=== PATIENT | female | born 1955 | race Caucasian/White ===

== ENCOUNTER 2018-01-27 02:36 | Emergency (ER) | payer SELFPAY ==
[2018-01-27 02:36] VITALS: BP 182/75; PULSE 73; RESP 22; TEMP 36.6; O2SAT 97; BMI 35.6
[2018-01-27 02:58] LABS: Mucous, Urine 0 SEEN /hpf (<or=2+)
[2018-01-27 02:59] LABS: Color, Urine Red (Yellow); Glucose, Dipstick Normal (Normal); Ketone-Dipstick 5 mg/dl (Negative); Leukocyte Esterase-Dipstick 500 /ul (Negative); Nitrite-Dipstick Negative (Negative); Occult Blood-Urine 250 /ul (Negative); Protein-Dipstick 500 mg/dl (Negative); Specific Gravity, Urine 1.025 (1.002-1.030); Urine Clarity Cloudy (Clear); Urine Urobilinogen Normal (Normal)
[2018-01-27] MEDS: Phenazopyridine 95 MG Tablet 190 MG PO (02:59)
[2018-01-27 03:08] LABS: Urine Bilirubin Dipstick 1 mg/dL (Negative)
[2018-01-27 03:09] LABS: Bacteria RARE /hpf (None Seen); Red Blood Cells-Urine > 100 SEEN /hpf (0-5); Squamous Epithelial Cells - UA 10-25 SEEN /hpf (5-10); White Blood Cells 50-100 SEEN /hpf (0-5)
--- NOTE | 2018-01-27 03:16 | ED.DCSUM_ITS ---
- ER Visit Summary Date of Service: 01/27/18 Chief Complaint: [] Urinary tract infection. History of Present Illness: The patient is a 62 F [] complaining of UTI. This evening over the last couple of her she has had dysuria frequency urgency noted some hematuria. Last urinary tract infection was approximately 10 years ago. Denies any abdominal pain fevers or chills. No back pain. Physical Examination: [] Vital signs reviewed General: Well-nourished well-developed Head: Normocephalic atraumatic Eyes: Pupils equal round and reactive to light extraocular movements intact ENT: TMs clear no hemotympanum no trauma Neck: Nontender full range of motion Cardiovascular: Regular rate rhythm no murmurs normal S1-S2 Respiratory: No distress clear to auscultation bilaterally chest nontender Abdomen: Soft nontender nondistended normal bowel sounds no masses Back: Nontender no CVA tenderness Extremities: Nontender active range of motion ?4 extremities no trauma Skin: Normal color no trauma Neuro alert oriented cranial nerves II through XII intact normal strength sensation reflexes Test Results: [] Emergency Department Course and Treatment: [] Urine analysis shows 50-100 white blood cells and greater than 100 red blood cells and bacteria. Patient given oral Pyridium and Macrobid. Will be discharged with the same for UTI cystitis and will follow-up Treatment Plan: [] Disposition: [] Impression: [] Hemorrhagic cystitis This note was generated with [employer] dictation software. It may contain incorrect words, spelling, and punctuation that were not noted in review of the chart prior to signing ED Disposition - Plan for ED Patient: Chief Complaint: Complaint Referrals: Jas Hatch MD [Primary Care Provider] -
--- NOTE | 2018-01-27 03:16 | ED.DEP ---
ED Disposition - Plan for ED Patient: Disposition: Home or Assisted Living Chief Complaint: Complaint Instructions: ED UTI Cystitis Female Prescriptions: Nitrofurantoin Macrocrystals [Macrobid] 100 mg PO Q12 #14 cap Phenazopyridine HCl [Pyridium] 200 mg PO BID PRN PRN #10 tab PRN Reason: Pain Referrals: Jas Hatch MD [Primary Care Provider] -
[2018-01-27] MEDS: Nitrofurantoin Macrocrystals 100 MG Capsule PO (03:20)
[2018-01-27 03:21] VITALS: BP 167/95; PULSE 74; RESP 18; O2SAT 96
== END 2018-01-27 03:23 | disposition home or self-care (01) ==
PROVIDERS: Emergency Provider Emergency Medicine; Family Provider Family Medicine; PCP Family Medicine
DX: N30.91 Cystitis, unspecified with hematuria (principal); Z87.440 Personal history of urinary (tract) infections
CPT/HCPCS: 81001; 87077; 87086; 87088; 87186; 99283

== ENCOUNTER → 2018-05-07 06:35 | Outpatient (CLI) | payer MEDICARE, SELFPAY ==
[2018-05-07 07:28] LABS: Cholesterol 220 mg/dL (200); High Density Lipoprotein 48 mg/dL; Thyroid Stim Hormone (TSH) 2.41 uIU/mL (0.358-3.74); Triglycerides 210 mg/dL; Very Low Density Lipoprotein 42 mg/dL (5-40)
[2018-05-11 08:12] LABS: HCV Quant. RNA PCR HCV Not Detected IU/mL (.)
[2018-05-11 11:11] LABS: Lead, Blood Adult 16+yrs 2 ug/dL (0-4)
== END ==
PROVIDERS: Family Provider Internal Medicine; PCP Internal Medicine; Referring Provider Internal Medicine; Visit Provider Internal Medicine
DX: I10 Essential (primary) hypertension (principal); M81.0 Age-related osteoporosis without current pathological fracture; B19.20 Unspecified viral hepatitis C without hepatic coma; Z77.011 Contact with and (suspected) exposure to lead
CPT/HCPCS: 36415; 80061; 82306; 83655; 84443; 87522

== ENCOUNTER → 2018-06-09 15:17 | Outpatient (CLI) | payer MEDICARE, SELFPAY ==
[2018-05-12 10:30] VITALS: BMI 34.9
--- NOTE | 2018-06-09 15:20 | BI_ITS ---
MAMMOGRAPHY - BILATERAL SCREENING REASON FOR EXAM: Female, 63 years old. Routine annual screening examination. PERTINENT HISTORY: Non-contributory. TECHNIQUE: Digital bilateral breast byron (3D mammographic acquisition) in the CC and MLO projections. 2-D mediolateral oblique (MLO) and craniocaudad (CC) views of both breasts were obtained. CAD: Full Field Digital Mammography with Computer Added Detection was performed. COMPARISON: Comparison is made with prior outside examination dated April 29, 2016. FINDINGS: Breast Composition: The breasts are almost entirely fatty. There are no dominant masses or suspicious calcifications. Stable benign-appearing bilateral axillary lymph nodes. No other significant abnormalities are identified. There has been no significant change since the prior study. BI/SCREENING MAMM (CAD), BILAT IMPRESSION: Stable bilateral screening mammogram. Yearly follow-up mammogram recommended. (A) ASSESSMENT CATEGORY: BIRADS Category 2: Benign. A letter regarding these results will be sent to the patient by the facility within 30 days. Approximately 10% of breast cancers are not detected by mammography. A normal mammogram should not delay biopsy of a clinically suspicious abnormality. [id number] Electronically Signed: David Barajas MD at 8:24 EST Tel [phone], Service support ,
== END ==
PROVIDERS: Family Provider Internal Medicine; PCP Internal Medicine; Visit Provider Internal Medicine
DX: Z12.31 Encounter for screening mammogram for malignant neoplasm of breast (principal); M81.0 Age-related osteoporosis without current pathological fracture
CPT/HCPCS: 77063; 77067

== ENCOUNTER → 2018-06-16 14:55 | Outpatient (CLI) | payer MEDICARE, SELFPAY ==
--- NOTE | 2018-06-16 15:01 | BD_ITS ---
STUDY: DUAL ENERGY X-RAY ABSORPTIOMETRY / DXA REASON FOR EXAM: Female, 63 years old. Early menopause. Loss of height. TECHNIQUE: Bone Mineral Density (BMD) measurements of lumbar spine and bilateral hips were obtained. COMPARISON: None. FINDINGS: Lumbar Spine (L1-L4): g/cm2 (0.824) / T-score (-3.1) / Z-score (-1.5) Findings are suggestive of osteoporosis with a high fracture risk. Left Femur Total: g/cm2 (0.768) / T-score (-1.9) / Z-score (-0.7) Left Femoral Neck: g/cm2 (0.753) / T-score (-2.1) / Z-score (-0.6) Right Femur Total: g/cm2 (0.849) / T-score (-1.3) / Z-score (-0.1) Right Femoral Neck: g/cm2 (0.809) / T-score (-1.6) / Z-score (-0.2) BD/Dexa Bone Density Study IMPRESSION: The patient is considered osteoporotic as outlined below according to World Roberto Organization (WHO) criteria with a high fracture risk. Reference Information: The T-score is the number of standard deviations above or below the standard which is normal for young adults at their peak bone mineral density. The World Health Organization (WHO) interprets the T-scores as follows: Above -1 Normal bone density Between -1 and -2.5 Osteopenia Equal to / or below -2.5 Osteoporosis As a practical clinical guideline, osteopenia may be graded as follows: Mild -1 through -1.5 Moderate -1.6 through -2.0 Severe -2.1 through -2.4 The Z-score is the number of standard deviations above or below age-matched controls. A Z-score of less than -1.5 would be considered abnormal. References: 1. NIH Osteoporosis and Related Bone Diseases http://www.osteo.org 2. International Society for Clinical Densitometry http://www.iscd.org 3. National Osteoporosis Foundation http://www.nof.org Electronically Signed: David Barajas MD at 12:57 EST Tel [phone], Service support ,
--- OUTSIDE RECORDS SUMMARY | 2018-08-02 20:45 | XMS RPT_ITS ---
:1955 Author Organization OHIP Support Name Relationship Address Phone FOLLOWAWAY, ARLENE Unavailable [address] + [place] [address] MEETA, SHAMAR Unavailable [address] + [place] [address] R Unavailable Unavailable Unavailable FOLLOWAWAY, ARLENE Unavailable [address] + [place] [address] MEETA SHAMAR Unavailable [address] + [place] [address] R Unavailable Unavailable Unavailable FOLLOWAWAY, ARLENE Unavailable [address] + [place] [address] MEETA SHAMAR Unavailable [address] + [place] [address] R Unavailable Unavailable Unavailable FOLLOWAWAY, ARLENE Unavailable [address] + [place] [address] MEETA SHAMAR Unavailable [address] + [place] [address] R Unavailable Unavailable Unavailable FOLLOWAWAY, ARLENE Unavailable [address] + [place] [address] MEETA SHAMAR Unavailable [address] + [place] [address] R Unavailable Unavailable Unavailable FOLLOWAWAY, ARLENE Unavailable [address] + [place] [address] MEETA SHAMAR Unavailable [address] + [place] [address] R Unavailable Unavailable Unavailable FOLLOWAWAY, ARLENE Unavailable [address] + [place] [address] MEETA SHAMAR Unavailable [address] + [place] [address] R Unavailable Unavailable Unavailable FOLLOWAWAY, ARLENE Unavailable [address] + [place] [address] MEETA, SHAMAR Unavailable [address] + [place] [address] R Unavailable Unavailable Unavailable FOLLOWAWAY, ARLENE Unavailable [address] + [place] [address] MEETA SHAMAR Unavailable [address] + [place] [address] R Unavailable Unavailable Unavailable FOLLOWAWAY, ARLENE Unavailable [address] + [place] [address] MEETA SHAMAR Unavailable [address] + [place] [address] R Unavailable Unavailable Unavailable FOLLOWAWAY, ARLENE Unavailable [address] + [place] [address] MEETA SHAMAR Unavailable [address] + [place] [address] R Unavailable Unavailable Unavailable FOLLOWAWAY, ARLENE Unavailable [address] + [place] . MEETA SHAMAR Unavailable [address] + [place] [address] UE Unavailable Unavailable Unavailable FOLLOWAWAY, ARLENE Unavailable [address] + [place] . MEETA SHAMAR Unavailable [address] + [place] [address] UE Unavailable Unavailable Unavailable FOLLOWAWAY, ARLENE Unavailable [address] + [place] MEETA SHAMAR Unavailable [address] + [place] [address] UE Unavailable Unavailable Unavailable Care Team Providers Name Role Phone NGUYEN LOMBARDO (SENIOR JAVA J2EE DEVELOPER) Attending Unavailable CEBUL IIICLEMENT Attending Unavailable CEBUL IIICLEMENT Referring Unavailable CEBUL IIICLEMENT Referring Unavailable VENUS LONDON MD Attending Unavailable BENJAMIN CHOPRA MD Primary Care Unavailable Benjamin Chopra Attending Unavailable Benjamin Chopra Primary Care Unavailable Oleghe, Efewongbe Attending Unavailable Oleghe, Efewongbe Attending Unavailable Oleghe, Efewongbe Referring Unavailable Oleghe, Efewongbe Primary Care Unavailable Jose Eduardo Dhruv Attending Unavailable Oleghe, Efewongbe Referring Unavailable Jose Eduardo, Dhruv Attending Unavailable Jose Eduardo, Dhruv Referring Unavailable Oleghe, Efewongbe Primary Care Unavailable Oleghe, Efewongbe Primary Care Unavailable Hermelindo Camargo Attending Unavailable Jas Hatch Primary Care Unavailable Lakhwinder Elizondo Attending Unavailable Oleghe, Efewongbe Attending Unavailable Oleghe, Efewongbe Referring Unavailable Nurse, Surgery Attending Unavailable Oleghe, Efewongbe Referring Unavailable Robotham, Gregoria Attending Unavailable Robotham, Gregoria Referring Unavailable Oleghe, Efewongbe Primary Care Unavailable Oleghe, Efewongbe Attending Unavailable Oleghe, Efewongbe Referring Unavailable Oleghe, Efewongbe Primary Care Unavailable Oleghe, Efewongbe Attending Unavailable Oleghe, Efewongbe Referring Unavailable Oleghe, Efewongbe Attending Unavailable Oleghe, Efewongbe Primary Care Unavailable Jas Tripp SENIOR JAVA J2EE DEVELOPER-C Attending Unavailable Oleghe, Efewongbe Referring Unavailable PROBLEMS PROBLEMS DATE TYPE CONDITION / CODE ATTENDING STATUS SOURCE 07/03/2018 Unknown R30.0 - Dysuria / Dhruv Whitt Active [place] R30.0(ICD-10) Formerly [facility] Repository 07/03/2018 Unknown N39.0 - Urinary Dhruv Whitt Active [place] tract infection, Community site not specified Hospital / N39.0(ICD-10) Repository 06/09/2018 Unknown M81.0 - Oleghe, Active [place] Age-related [facility] osteoporosis Hospital without current Repository pathological fracture / M81.0(ICD-10) 06/09/2018 Unknown Z12.31 - Encounter Oleghe, Active [place] for screening [facility] mammogram for Hospital malignant neoplasm Repository of breast / Z12.31(ICD-10) 04/08/2018 Unknown I10 - Essential Oleghe, Active [place] (primary) [facility] hypertension / Hospital I10(ICD-10) Repository 04/08/2018 Unknown Z77.011 - Contact Oleghe, Active [place] with and [facility] (suspected) Hospital exposure to lead / Repository Z77.011(ICD-10) 04/08/2018 Unknown 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 - Olebeverleye, Active [place] 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 Date: 07/08/18 Location: ED Sex: F C Admitted: Test Reason : CP Blood Pressure : / mmHG Vent. Rate : 095 BPM Atrial Rate : 095 BPM P-R Int : 154 ms QRS Dur : 072 ms QT Int : 344 ms P-R-T Axes : 049 048 058 degrees QTc Int : 432 ms Normal sinus rhythm Normal ECG Confirmed by [place] EWING, LARRY ([id number]), purchasing expeditor JOHN ROBLES ([id number]) on 07/10/2018 2:28:32 PM Referred By: Dhruv Whitt Confirmed By:LARRY ALEJANDRA MD 07/10/18 1428 Date Larry Alejandra MD CC: ED PHYSICIAN PROVIDER; Benjamin Chopra MD; Hermelindo Camargo MD Signed DISCHARGE INSTRUCTION Observed: 07/08/2018 Status: F Source: [place] 11:52 PM [facility] Medical Records Department [address] [place] [address] Discharge Instruction 07/08/18 2351 MR#: [id number] Acct: [id number] Name: MANISHA TIM Rep #: [id number] : 1955 63 From: Hermelindo Camargo MD PCP: Benjamin Chopra MD Status: REG ER ED Disposition - Plan for ED Patient: Chief Complaint: Allergic Reaction Instructions: ED Muscle Aching Referrals: Benjamin Chopra MD [Primary Care Provider] - What to do if you have Problems For any increased pain, shortness of breath, bleeding, nausea or vomiting, chest pain, or any unexpected problems, contact your Primary Care Provider. Call [employer] [facility] ([phone]) or report to the closest Emergency Room. Call 911 if necessary. 07/08/182351 <Electronically signed by Hermelindo Camargo MD> Date Hermelindo Camargo MD Cosigner Signature (If Indicated): Date CC: Benjamin Chopra MD EMERGENCY DEPARTMENT Observed: 07/08/2018 Status: F Source: [place] SUMMARY 11:51 PM [facility] REPOSITORY [facility] Medical Records Department [address] [place] [address] Emergency Department Summary 07/08/18 2350 MR#: [id number] Acct: [id number] Name: MANISHA TIM Rep #: [id number] : 1955 63 From: Hermelindo Camargo MD PCP: Benjamin Chorpa MD Status: REG ER - ER Visit Summary Date of Service: 07/08/18 Chief Complaint: Myalgias arthralgias History of Present Illness: The patient is a 63 F who complains of muscle and joint aches. She complains of diffuse pain. This is been going on for 3 days. She also complains of cough and headache. She thought this may be reaction to Keflex which she recently began taking. No rash. No difficulty breathing. No fevers or chest pain. Physical Examination: Afebrile vitals unremarkable Moist mucous membranes Heart regular rate and rhythm Lungs are clear Abdomen soft Alert Muscles soft and nontender Test Results: CBC BMP and creatinine kinase all normal. Emergency Department Course and Treatment: Patient was treated with IV fluids and Toradol and feels much better on reevaluation. She was advised to follow- up with her primary care physician as needed and was discharged home. She understands to return for new or worsening symptoms. Treatment Plan: [] Disposition: Discharge Impression: Myalgias This note was generated with [employer] dictation software. It may contain incorrect words, spelling, and punctuation that were not noted in review of the chart prior to signing ED Disposition - Plan for ED Patient: Chief Complaint: Allergic Reaction Referrals: Benjamin Chopra MD [Primary Care Provider] - What to do if you have Problems For any increased pain, shortness of breath, bleeding, nausea or vomiting, chest pain, or any unexpected problems, contact your Primary Care Provider. Call [employer] [facility] ([phone]) or report to the closest Emergency Room. Call 911 if necessary. 07/08/18 2351 <Electronically signed by Hermelindo Camargo MD> Date Hermelindo Camargo MD Cosigner Signature (If Indicated): Date CC: Benjamin Chopra MD CBC W/DIFF, AUTOMATED Collected: 07/08/2018 Status: F Source: [place] 10:42 PM [facility] REPOSITORY TYPE CODE TESTS RESULT OUT OF RANGE REFERENCE UNITS LAB L100.1000 4.4-11.0 K/mm3 Normal WBC 8.7 LAB L100.1200 4.2-5.4 M/mm3 Normal RBC 4.69 LAB L100.1300 12.0-15.0 g/dl Normal HGB 13.8 LAB L100.1400 37-47 % Normal HCT 42.1 LAB L100.1500 81-99 fL Normal MCV 89.8 LAB L100.1600 27.0-32.0 pg Normal MCH 29.4 LAB L100.1700 32-36 g/gl Normal MCHC 32.8 LAB L100.1810 11.6-14.6 % Normal RDW CV 12.6 LAB L100.1820 35.1-43.9 fl Normal RDW SD 41.4 LAB L100.1900 150-450 K/mm3 Normal PLT 264 LAB L100.2000 6.2-12.0 fl Normal MPV 10.7 LAB L100.2100 47-70 % High NEUT% 72.8 LAB L100.2200 19-41 % Low LY% 16.2 LAB L100.2300 0-10 % Normal MONO% 10.0 LAB L100.2400 0-5 % Normal EO% 0.6 LAB L100.2500 0-1 % Normal BASO% 0.3 LAB L100.2550 0.0-0.9 % Normal IM GRAN % 0.100 Result Comment: IG% - Immature Granulocytes (promyelocytes, myelocytes and metamyelocytes) > 1% indicates that a LEFT SHIFT is Present. LAB L100.2620 2.0-7.7 X10 3/uL Normal Absolute Neut 6.4 LAB L100.2720 0.83-4.51 X10 3/ul Normal Absolute Lymph 1.41 Performed By: #### L100.0100 #### [facility] [address] [place], [address] BASIC METABOLIC Collected: 07/08/2018 Status: F Source: [place] PROFILE ([facility]) 10:42 PM [facility] REPOSITORY TYPE CODE TESTS RESULT OUT OF RANGE REFERENCE UNITS LAB L501.0100 74-106 mg/dL Normal GLU 104 Result Comment: Fasting Glucose result from 100 to 125 mg/dL suggests IMPAIRED HOMEOSTASIS per A.D.A. criteria. Please note revised GLUCOSE reference range effective 2017. LAB L501.1000 7-18 mg/dL Normal BUN 17 LAB L501.1100 0.55-1.02 mg/dL Normal CREAT,SERUM 0.88 Result Comment: The validity of the calculated GFR AND GFRAA in patients over 70 years has not been determined. Clinical correlation is essential. LAB L501.1110 >60 mL/min Normal EST GFR 69 Result Comment: Non- GFR Calc LAB L501.1115 >60 mL/min Normal EST GFR - AA 83 Result Comment: GFR Calc LAB L501.1255 ml/min Normal Estimated CRCL 78.18 LAB L501.1300 10-20 RATIO Normal BUN/CRE 19.4 LAB L501.2200 8.5-10 mg/dL Low .1 CA 8.3 LAB L501.5300 136-14 mmol/L Normal 5 NA 139 LAB L501.5600 3.5-5. mmol/L Normal 1 K 3.9 LAB L501.5900 98-107 mmol/L Normal CL 105 LAB L501.6100 21.0-3 mmol/L Normal 2.0 CO2 24.0 LAB L501.6200 5-15 Normal GAP 10 Performed By: #### L500.2500, L501.3620 #### [facility] [address] [place], [address] CPK TOTAL, CREATINE Collected: 07/08/2018 Status: F Source: [place] KINASE 10:42 PM [facility] REPOSITORY TYPE CODE TESTS RESULT OUT OF RANGE REFERENCE UNITS LAB L501.3620 26-192 U/L Normal CPK TOTAL 39 Performed By: #### L500.2500, L501.3620 #### [facility] [address] [place], [address] URINALYSIS, COMPLETE Collected: 07/03/2018 Status: C Source: [place] 3:09 PM [facility] REPOSITORY Order Comment: How was Urine Obtained? Urine, Random TYPE CODE TESTS RESULT OUT OF RANGE REFERENCE UNITS LAB L400.3000 Yellow COLOR Normal Yellow LAB L400.3050 Clear Sl Normal CLARITY Cldy LAB L400.3200 Normal mg/dl Normal GLUCOSE, UR Normal LAB L400.3300 Negative mg/dL Normal BILIRUBIN URINE Negative LAB L400.3400 Negative mg/dl Normal KETONE UR Negative LAB L400.3465 1.002-1.030 Normal SP.GR. DIPSTX 1.015 LAB L400.3550 5.0 - 8.0 pH UR Normal 7.0 LAB L400.3600 Negative mg/dl PROT Normal DIPSTX Negative LAB L400.3700 Normal mg/dl Normal UROBILI Normal LAB L400.3750 Negative Normal NITRITE UR Negative LAB L400.3780 Negative /ul High 50 OCCULT BLOOD-UR LAB L400.3800 Negative /ul High LEUK 25 ESTERASE LAB L400.4050 0-5 /hpf WBC Normal 0-5 SEEN LAB L400.4100 0-5 /hpf Normal RBC-UA 0-5 SEEN LAB L400.4150 5-10 /hpf SQUAM Normal EPI 5-10 SEEN LAB L400.4300 None Seen /hpf 0 Normal BACTERIA SEEN LAB L400.4350 <or=2+ /hpf 0 Normal MUCUS, URINE SEEN LAB L400.4900 1+ Normal AMORPHOUS PHOS Performed By: #### L400.0001 #### [facility] [address] [place], [place], [address] Observed: 07/03/2018 Status: F Source: [place] CULTURE, URINE 3:09 PM [facility] REPOSITORY Urine Culture Below infection level. ORGANISM 1: Mixed Gram Positive Organisms [place] Count 1000-10,000 Performed By: #### M100.0650 #### [facility] [address] [place], [place], [address] URGENT CARE VISIT Observed: 07/03/2018 Status: F Source: [place] REPORT 12:38 PM [facility] REPOSITORY [facility] [address] [place] [address] [address] [place], [place] [address] OFFICE VISIT Date of Service: 07/03/18 MR#: [id number] Acct: [id number] Name: MANISHA TIM Ag[place]a Rep #: [id number] : 1955 Provider: Dhruv RIVERA Age/Sex: 63/F Location[place] [facility] Status: Signed Intake Vital Signs07/03/18 Height 4 ft 11 in Intake Visit Reasons: YEAST/UTI Chief Complaint: Dysuria Lozenge Dough Mixer Required: No Accompanied by: Self Is patient in pain?: No Allergies alendronate sodium Allergy (Intermediate, Verified 07/03/18 11:52) Hives estrogens, conjugated Allergy (Intermediate, Verified 07/03/18 11:52) Itching nitrofurantoin Allergy (Intermediate, Verified 07/03/18 11:52) Hives Penicillins [PCN] Adverse Reaction (Verified 07/03/18 11:52) Rash Sulfa (Sulfonamide Antibiotics) Adverse Reaction (Verified 07/03/18 11:52) Rash Medications clobetasol 0.05 % topical cream 1 applic TOPICAL BID PRN 04/08/18 [History Confirmed 07/03/18] blood pressure test kit-medium cuff See Dose Instructions .ROUTE .MEDSUPPLY #1 ea 05/12/18 [Rx Confirmed 07/03/18] calcium carbonate 600 mg calcium (1,500 mg) tablet 600 mg PO BID tab 05/12/18 [History Confirmed 07/03/18] amlodipine 10 mg tablet 10 mg PO DAILY #60 tab 06/04/18 [Rx Confirmed 07/03/18] denosumab 60 mg/mL subcutaneous syringe 60 mg SC [id number] #1 ml 06/24/18 [Rx Confirmed 07/03/18] losartan 25 mg tablet 25 mg PO DAILY #30 tab 06/24/18 [Rx Confirmed 07/03/18] cephalexin 500 mg capsule 500 mg PO Q12H 10 Days #20 cap 07/03/18 [Rx Confirmed 07/03/18] PFSH Medical History Hepatitis C (Chronic) Osteoporosis (Chronic) Vitamin D deficiency (Chronic) Vulvodynia (Acute) Generalized osteoarthrosis (Chronic) Symptomatic states associated with artificial menopause (Acute) Postmenopausal atrophic vaginitis (Acute) Hypertension (Chronic) History of hysterectomy (Acute) Hyperlipemia (Acute) Seasonal allergies (Acute) history of cholcyectomy (Acute) Surgical History History of appendectomy (Acute) History of knee replacement (Acute) Family History Brother Anxiety and depression Diabetes Sister Anxiety and depression Hypertension CVA (cerebral vascular accident) Thyroid disorder Osteoporosis Hyperlipemia Diabetes Mother Hypertension Kidney disease Osteoporosis CVA (cerebral vascular accident) Father CVA (cerebral vascular accident) Hyperlipemia Hypertension Myocardial infarction Social History Smoking Status: Never smoker alcohol intake: never substance use type: does not use what type of physical activity do you participate in: walking frequency: 3-4 times per week HPI HPI Chief Complaint: Dysuria Details: MANISHA TIM, is a 63 F who presents to the office today for concern for UTI. Patient states that approximately 2 weeks ago she was seen at an area ED and diagnosed with UTI and started on ciprofloxacin. On 06/24/2018 she was seen at [facility] office and advised to continue with her Cipro prescribed to her. She states that her symptoms to have not improved since that time even after finishing her antibiotics and is concerned that she continues to have a UTI. She is having burning with urination and minimal pelvic discomfort. She also states that this morning she noticed blood on the toilet paper when she wiped however denies any hematuria or hematochezia. She has had no dark tarry stools and denies any history of GI bleeds. She denies any pelvic drainage or discharge. She has had no fever, chills, sweats. No nausea, vomiting, diarrhea. No other associated symptoms or alleviating/aggravating factors. ROS Const Constitutional: No body ache, chills or fever(s) Resp Respiratory: No shortness of breath Cardio Cardiology: No lightheadedness, palpitations or irregular heart rhythm Gastro GI: No abdominal pain Genitourinary-Female: Positive for burning urination, painful urination, pelvic pain and urinary frequency; no painful intercourse, blood in urine, vaginal odor, vaginal dryness or Vaginal Itching Neuro Neurology: No confusion or behavioral changes Psych Psychiatric: No confusion, No behavioral changes Exam Const General: cooperative, healthy appearing Resp Effort AND Inspection: normal respiratory effort Auscultation: Bilateral: Clear to Auscultation Cardio Rate: regular rate Rhythm: regular rhythm GI Auscultation: normal bowel sounds General: No CVA tenderness Psych Appearance: grossly normal Mental Status: mental status grossly normal Results [facility] Office Urine Color Yellow Last Edit by Soumya Mathews on 07/03/18 12:09 Office Urine Clarity Clear Last Edit by Soumya Mathews on 07/03/18 12:09 Assessment AND Plan Plan UA suggestive for possible UTI in the office today. Advised patient we will still send the urine off for culture. Patient has also been started on Keflex 500 mg twice daily for 10 days after she states that she has previously been on cephalosporins without reaction. She has been advised to follow-up with her PCP at [facility] also advised to follow-up with an INDUSTRIAL MECHANIC for further evaluation of bleeding. Encouraged to get plenty of rest, drink lots of clear liquids, and use Tylenol or Ibuprofen (unless contraindicated) for fever and comfort. Patient also educated on other symptomatic management techniques. To be seen in 7-10 days if no improvement; sooner if worsening of symptoms. Patient advised of potential red flags and when appropriate to report to the ED. Patient verbalized understanding and agreement with all the above. Orders Orders: Referrals: Medications New: Coding Level of Care Code Off vis,est,level 3 07/03/18 1238 <Electronically signed by Dhruv RIVERA> Date Dhruv RIVERA Cosigner Signature: Date (if applicable) CC: URINALYSIS, COMPLETE Collected: 06/25/2018 Status: F Source: [place] 11:00 AM [facility] REPOSITORY Order Comment: How was Urine Obtained? DECORATING INSTRUCTOR TO SPECIFY TYPE CODE TESTS RESULT OUT OF RANGE REFERENCE UNITS LAB L400.3000 Yellow COLOR Normal Yellow LAB L400.3050 Clear Sl Normal CLARITY Cloudy LAB L400.3200 Normal mg/dl Normal GLUCOSE, UR Normal LAB L400.3300 Negative mg/dL Normal BILIRUBIN URINE Negative LAB L400.3400 Negative mg/dl Normal KETONE UR Negative LAB L400.3465 1.002-1.030 Normal SP.GR. DIPSTX 1.005 LAB L400.3550 5.0 - 8.0 pH UR Normal 7.0 LAB L400.3600 Negative mg/dl High PROT 30 DIPSTX LAB L400.3700 Normal mg/dl Normal UROBILI Normal LAB L400.3750 Negative High NITRITE UR Positive LAB L400.3780 Negative /ul High 25 OCCULT BLOOD-UR LAB L400.3800 Negative /ul High LEUK ESTERASE 500 LAB L400.4050 0-5 /hpf WBC Normal 0-5 SEEN LAB L400.4100 0-5 /hpf Normal RBC-UA 0-5 SEEN LAB L400.4150 5-10 /hpf SQUAM Normal EPI 0-5 SEEN LAB L400.4300 None Seen /hpf Normal BACTERIA RARE LAB L400.4350 <or=2+ /hpf Normal MUCUS, URINE RARE LAB L400.4400 0-5 /lpf Normal HYALINE CAST 0-5 SEEN LAB L400.4800 <or=1+ /hpf 2+ Normal TRIPLE PHOS Performed By: #### L400.0001 #### [facility] [address] [place], [address] Observed: 06/25/2018 Status: F Source: [place] CULTURE, URINE 11:00 AM [facility] REPOSITORY Urine Culture ORGANISM 1: Streptococcus gallolyticus pas [place] Count 11,000-25,000 Streptococcus gallolyticus pas: REACTION Ampicillin $ <=0.25 S Vancomycin $ 0.5 S (NF) indicates non-formulary drug at [facility]. Approval by Infectious Disease Specialist required before non-formulary drugs may be ordered and/or dispensed. * CLSI guidelines does not recommend testing of cephalosporins. This interpretation is deduced from Beta-lactam/penicillin results. Performed By: #### M100.0650 #### [facility] [address] [place], [address] INTERNAL MEDICINE Observed: 06/24/2018 Status: F Source: [place] OFFICE VISIT 4:51 PM [facility] REPOSITORY [facility] [address] [place] [address] [place] [address] OFFICE VISIT Date of Service: 06/24/18 MR#: [id number] Acct: [id number] Name: MANISHA TIM Rep #: [id number] : 1955 Provider: Benjamin Chopra MD Age/Sex: 63/F Location[place] [facility] Status: Signed Intake Vital Signs06/24/18 Height 4 ft 11.5 in Intake Visit Reasons: 1 MO FU , ofc r/s from 06/10/18 Chief Complaint: 1 month FU Is patient in pain?: Yes (lower abdominal pain) Pain scale (1-10): 4 Allergies alendronate sodium Allergy (Intermediate, Verified 05/12/18 10:31) Hives estrogens, conjugated Allergy (Intermediate, Verified 05/12/18 10:31) Itching nitrofurantoin Allergy (Intermediate, Verified 05/12/18 10:31) Hives Penicillins [PCN] Adverse Reaction (Verified 05/12/18 10:31) Rash Sulfa (Sulfonamide Antibiotics) Adverse Reaction (Verified 05/12/18 10:31) Rash Medications clobetasol 0.05 % topical cream 1 applic TOPICAL BID PRN 04/08/18 [History Confirmed 05/12/18] blood pressure test kit-medium cuff See Dose Instructions .ROUTE .MEDSUPPLY #1 ea 05/12/18 [Rx Confirmed 05/12/18] calcium carbonate 600 mg calcium (1,500 mg) tablet 600 mg PO BID tab 05/12/18 [History Confirmed 05/12/18] amlodipine 10 mg tablet 10 mg PO DAILY #60 tab 06/04/18 [Rx] denosumab 60 mg/mL subcutaneous syringe 60 mg SC [id number] #1 ml 06/24/18 [Rx Confirmed 06/24/18] losartan 25 mg tablet 25 mg PO DAILY #30 tab 06/24/18 [Rx Confirmed 06/24/18] Post menopausal: Yes PFSH Medical History Hepatitis C (Chronic) Osteoporosis (Chronic) Vitamin D deficiency (Chronic) Vulvodynia (Acute) Generalized osteoarthrosis (Chronic) Symptomatic states associated with artificial menopause (Acute) Postmenopausal atrophic vaginitis (Acute) Hypertension (Chronic) History of hysterectomy (Acute) Hyperlipemia (Acute) Seasonal allergies (Acute) history of cholcyectomy (Acute) Surgical History History of appendectomy (Acute) History of knee replacement (Acute) Family History Brother Anxiety and depression Diabetes Sister Anxiety and depression Hypertension CVA (cerebral vascular accident) Thyroid disorder Osteoporosis Hyperlipemia Diabetes Mother Hypertension Kidney disease Osteoporosis CVA (cerebral vascular accident) Father CVA (cerebral vascular accident) Hyperlipemia Hypertension Myocardial infarction Social History Smoking Status: Never smoker alcohol intake: never substance use type: does not use what type of physical activity do you participate in: walking frequency: 3-4 times per week HPI HPI Chief Complaint: 1 month FU Details: MANISHA TIM, is a 63yo F who presents to the office today for follow-up. Recently started on amlodipine for management of her hypertension. Currently at 10 mg daily blood pressure still said to be in the 140s and occasionally 150s. She reports compliance with her medications. Most recent bone density scan done suggestive of osteoporosis. Significant family history of osteoporosis. She had been on Fosamax in the past however, she states that she had a bad allergic reaction to this. Currently on calcium and vitamin D supplements. She was recently at [facility] due to symptoms concerning for UTI. Urinalysis done at that visit was suggestive of UTI for which she was started on ciprofloxacin. She still reports abdominal pain and burning on urination. ROS Const Constitutional: No weight change, body ache, chills, sleep problems, fever(s), change in appetite, snoring, weakness, frequent falls, headache(s) or excessive sweating Eyes Eyes: No change in vision, eye pain, light sensitivity or blurry vision ENT ENT: No headache(s), abnormal hearing, ear pain, tinnitus, nasal congestion, sore throat or neck pain Resp Respiratory: No snoring, cough, shortness of breath or wheezing Cardio Cardiology: No excessive sweating, chest pain at rest, chest pain with exertion, shortness of breath, dyspnea on exertion, palpitations, orthopnea or lightheadedness Gastro GI: Positive for abdominal pain (lower); no change in bowel habits, constipation, diarrhea, vomiting, nausea/dyspepsia or cramping Genitourinary-Female: Positive for burning urination and painful urination; no urinary incontinence, urinary frequency, abnormal vaginal bleeding, pelvic pain or other Musc Musculoskeletal: No neck pain, abnormal walking, joint pain, back pain, limited range of motion, numbness or tingling Skin Skin: No redness, dry skin, itching, lesions, wounds or rash Neuro Neurology: No weakness, frequent falls, headache(s), abnormal hearing, abnormal walking, numbness, tingling, abnormal speech, dizziness or memory loss Psych Psychiatric: No change in appetite, No memory loss, No anxiety, No depression, No Thoughts of harming yourself/Others Endo Endocrine: No excessive sweating, cold intolerance, increased thirst/drinking, heat intolerance, flushing or increased hunger Aller/Imm Allergy/Immunologic: No wheezing, itchy eyes, hives or seasonal allergy symptoms Sameer/Lymp Hematologic/Lymphatic: No easy bleeding, easy bruising or enlarged lymph nodes Exam Const General: cooperative, no acute distress Orientation: alert, awake, oriented x3 [facility] Head: atraumatic, normocephalic, normal to inspection Ears: TM's normal bilaterally Neck Neck: normal visual inspection, full ROM, no lymphadenopathy Neck mass: No Thyroid: thyroid normal Resp Effort AND Inspection: normal respiratory effort, able to speak in complete sentences Auscultation: Bilateral: Clear to Auscultation Cardio Rate: regular rate Rhythm: regular rhythm Heart Sounds: S1 normal, S2 normal GI Palpation: soft, no hepatosplenomegaly Neuro General: alert, awake, oriented x3, moves all extremities, CN's II-XI intact bilaterally Extrem General: no clubbing, cyanosis or edema Psych Appearance: grossly normal Mental Status: mental status grossly normal Affect: normal affect Assessment AND Plan 1. Hypertension I10 Plan Not optimally controlled. Currently on optimal dose of amlodipine. Will add losartan 25 mg daily. Lifestyle and dietary modifications discussed. Follow-up in 1 month. 2. Osteoporosis M81.0 Plan Most recent bone density with a T score of -3.1 in her lumbar spine. Has been prescribed Fosamax in the past however this was very poorly tolerated/allergic reaction. Prescription for Prolia sent. 5000 units of vitamin D and 600 units twice daily of calcium recommended. Exercise also recommended. 3. UTI (urinary tract infection) N39.0 Plan Has been seen at [facility] ER and started on ciprofloxacin however symptoms are still persistent. Repeat urinalysis and culture ordered. Advised to complete her current dose of ciprofloxacin. Increased fluid intake also recommended. Follow-up with culture results. This note was generated with [employer] dictation software. It may contain incorrect words, spelling, and punctuation that were not noted in checking the note before signing. Orders Orders: Plan Detail Other Medications New: Coding Level of Care Code Off vis,est,level 4 Diagnoses Hypertension I10 Osteoporosis M81.0 UTI (urinary tract infection) N39.0 06/24/18 1651 <Electronically signed by Benjamin Chopra MD> Date Benjamin Chopra MD Cosigner Signature: Date (if applicable) CC: UA Collected: 06/21/2018 Status: F Source: [facility] 9:56 AM [facility] REPOSITORY TYPE CODE TESTS RESULT OUT OF RANGE REFERENCE UNITS LAB SPCUA(KAYLIE NC) UA Specimen Type Clean Catch LAB CLRUA(KAYLIE NC) UA Color Yellow LAB APPUA(KAYLIE Clear NC) UA Appear Unknown Cloudy LAB SGUA(LOIN C) UA Spec Unknown Grav >=1.030 LAB GLUA(LOIN Negative mg/dL C) UA Glucose Negative LAB BILUA(KAYLIE Negative NC) UA Bili Negative LAB KETUA(KAYLIE Negative mg/dL NC) UA Ketones Unknown 5 LAB BLDUA(KAYLIE Negative NC) UA Blood Unknown Large LAB PHUA(LOIN C) UA pH 6.0 LAB PROUA(KAYLIE Negative mg/dL NC) UA Protein Trace LAB UROUA(KAYLIE E.U./dL NC) UA Urobilinogen 0.2 LAB NITUA(KAYLIE Negative NC) UA Nitrite Negative LAB LEUUA(KAYLIE Negative NC) UA Leuk Est Unknown Small Performed By: #### UA, UAMICAO #### [place] [address] .URINALYSIS MICROSCOPIC Collected: 06/21/2018 Status: F Source: [place] ([place]) 9:56 AM [facility] REPOSITORY TYPE CODE TESTS RESULT OUT OF RANGE REFERENCE UNITS LAB WBCUA(LOIN None Seen /hpf C) Unknown UA WBC LOADED LAB RBCUA(LOIN None Seen /hpf C) Unknown UA RBC 10-15 LAB EPIUA(LOIN None Seen /hpf C) Unknown UA Squam Epithelial 5-10 LAB BACUA(LOIN /hpf C) Unknown UA Bacteria Trace Performed By: #### UA, UAMICAO #### [place] [address] Observed: 06/21/2018 Status: F Source: [place] [employer] [facility] 9:56 AM [facility] REPOSITORY . MICRO - Microbiology PROCEDURE: Urine Culture [*1] SOURCE: Urine, Clean Catch BODY SITE: COLLECTED DATE/TIME: 06/21/2018 09:56 EST RECEIVED DATE/TIME: 06/21/2018 20:12 EST START DATE/TIME: 06/21/2018 20:12 EST FREE TEXT SOURCE: FINAL REPORTS Final Report [] Verified Date/Time/Personnel: 06/23/2018 10:21 EST 75,000 organisms per mL Escherichia coli PRELIMINARY REPORTS Preliminary Report [] Verified Date/Time/Personnel: 06/22/2018 13:23 EST 75,000 organisms per mL Gram Negative Rods Final identification and MARIO to follow. SUSCEPTIBILITY RESULTS Escherichia coli Antibiotic MARIO Dilutn MARIO Interp Ampicillin >16 Resistant Cefazolin <=8 Susceptible Ciprofloxacin <=1 Susceptible Gentamicin <=4 Susceptible Levofloxacin <=2 Susceptible Meropenem <=1 Susceptible Nitrofurantoin <=32 Susceptible Piperacillin/ <=16 Susceptible Tazobactam Trimethoprim/ >2/38 Resistant Sulfa Performing Locations *1: This test was performed at: [facility], [address] [place] [address], [facility] , [facility] Performed By: #### CUR #### [place] [address] DEXA BONE DENSITY Observed: 06/16/2018 Status: F Source: [place] STUDY 2:59 PM [facility] REPOSITORY [facility] Imaging Services [address] [place] [id number] Dexa Bone Density Study MR#: [id number] Acct: [id number] Name: MANISHA TIM Rep #: [id number] : 1955 F 63 From: David Barajas MD PCP: Benjamin Chopra MD Status: REG CLI Study: Dexa Bone Density Study Date of Exam: 06/16/18 Exam# [id number] Ordering Dr: Benjamin Chopra MD STUDY: DUAL ENERGY X-RAY ABSORPTIOMETRY / DXA REASON FOR EXAM: Female, 63 years old. Early menopause. Loss of height. TECHNIQUE: Bone Mineral Density (BMD) measurements of lumbar spine and bilateral hips were obtained. COMPARISON: None. FINDINGS: Lumbar Spine (L1-L4): g/cm2 (0.824) / T-score (-3.1) / Z-score (-1.5) Findings are suggestive of osteoporosis with a high fracture risk. Left Femur Total: g/cm2 (0.768) / T-score (-1.9) / Z- score (-0.7) Left Femoral Neck: g/cm2 (0.753) / T-score (-2.1) / Z- score (-0.6) Right Femur Total: g/cm2 (0.849) / T-score (-1.3) / Z- score (-0.1) Right Femoral Neck: g/cm2 (0.809) / T-score (-1.6) / Z-score (-0.2) BD/Dexa Bone Density Study IMPRESSION: The patient is considered osteoporotic as outlined below according to World Roberto Organization (WHO) criteria with a high fracture risk. Reference Information: The T-score is the number of standard deviations above or below the standard which is normal for young adults at their peak bone mineral density. The World Health Organization (WHO) interprets the T-scores as follows: Above -1 Normal bone density Between -1 and -2.5 Osteopenia Equal to / or below -2.5 Osteoporosis As a practical clinical guideline, osteopenia may be graded as follows: Mild -1 through -1.5 Moderate -1.6 through -2.0 Severe -2.1 through -2.4 The Z-score is the number of standard deviations above or below age-matched controls. A Z-score of less than -1.5 would be considered abnormal. References: 1. NIH Osteoporosis and Related Bone Diseases http://www.osteo.org 2. International Society for Clinical Densitometry http://www.iscd.org 3. National Osteoporosis Foundation http://www.nof.org Electronically Signed: David Barajas MD at 12:57 EST Tel [phone], Service support , CC: Benjamin Chopra MD Furniture Refinisher: Signed SCREENING MAMM (CAD), Observed: 06/09/2018 Status: F Source: [place] BILAT 3:20 PM [facility] REPOSITORY [facility] Imaging Services [address] [place] [address] SCREENING MAMM (CAD), BILAT MR#: [id number] Acct: [id number] Name: MANISHA TIM Rep #: [id number] : 1955 F 63 From: David Barajas MD PCP: Benjamin Chopra MD Status: REG CLI Study: SCREENING MAMM (CAD), BILAT Date of Exam: 06/09/18 Exam# [id number] Ordering Dr: Benjamin Chopra MD MAMMOGRAPHY - BILATERAL SCREENING REASON FOR EXAM: Female, 63 years old. Routine annual screening examination. PERTINENT HISTORY: Non-contributory. TECHNIQUE: Digital bilateral breast byron (3D mammographic acquisition) in the CC and MLO projections. 2-D mediolateral oblique (MLO) and craniocaudad (CC) views of both breasts were obtained. CAD: Full Field Digital Mammography with Computer Added Detection was performed. COMPARISON: Comparison is made with prior outside examination dated April 29, 2016. FINDINGS: Breast Composition: The breasts are almost entirely fatty. There are no dominant masses or suspicious calcifications. Stable benign-appearing bilateral axillary lymph nodes. No other significant abnormalities are identified. There has been no significant change since the prior study. BI/SCREENING MAMM (CAD), BILAT IMPRESSION: Stable bilateral screening mammogram. Yearly follow-up mammogram recommended. (A) ASSESSMENT CATEGORY: BIRADS Category 2: Benign. A letter regarding these results will be sent to the patient by the facility within 30 days. Approximately 10% of breast cancers are not detected by mammography. A normal mammogram should not delay biopsy of a clinically suspicious abnormality. [id number] Electronically Signed: David Barajas MD at 8:24 EST Tel [phone], Service support , CC: Benjamin Chopra MD Furniture Refinisher: Signed INTERNAL MEDICINE Observed: 05/12/2018 Status: F Source: [place] OFFICE VISIT 4:53 PM [facility] [address] [place] [address] [place] [address] OFFICE VISIT Date of Service: 05/12/18 MR#: [id number] Acct: [id number] Name: MANISHA TIM Rep #: [id number] : 1955 Provider: Benjamin Chopra MD Age/Sex: 63/F Location[place] [facility] Status: Signed Intake Vital Signs05/12/18 Height 4 ft 11 in 05/12/18 Weight: 173 lb 05/12/18 Body Mass Index (BMI) 34.9 05/12/18 Blood Pressure 147/84 H Intake Visit Reasons: 1 mo f/u Chief Complaint: 1 month FU Is patient in pain?: No Allergies alendronate sodium Allergy (Intermediate, Verified 05/12/18 10:31) Hives estrogens, conjugated Allergy (Intermediate, Verified 05/12/18 10:31) Itching nitrofurantoin Allergy (Intermediate, Verified 05/12/18 10:31) Hives Penicillins [PCN] Adverse Reaction (Verified 05/12/18 10:31) Rash Sulfa (Sulfonamide Antibiotics) Adverse Reaction (Verified 05/12/18 10:31) Rash Medications clobetasol 0.05 % topical cream 1 applic TOPICAL BID PRN 04/08/18 [History Confirmed 05/12/18] amlodipine 5 mg tablet 5 mg PO DAILY #30 tab 05/12/18 [Rx Confirmed 05/12/18] blood pressure test kit-medium cuff See Dose Instructions .ROUTE .MEDSUPPLY #1 ea 05/12/18 [Rx Confirmed 05/12/18] calcium carbonate 600 mg calcium (1,500 mg) tablet 600 mg PO BID tab 05/12/18 [History Confirmed 05/12/18] PFSH Medical History Hepatitis C (Chronic) Osteoporosis (Chronic) Vitamin D deficiency (Chronic) Vulvodynia (Acute) Generalized osteoarthrosis (Chronic) Symptomatic states associated with artificial menopause (Acute) Postmenopausal atrophic vaginitis (Acute) Hypertension (Chronic) History of hysterectomy (Acute) Hyperlipemia (Acute) Seasonal allergies (Acute) history of cholcyectomy (Acute) Surgical History History of appendectomy (Acute) History of knee replacement (Acute) Family History Brother Anxiety and depression Diabetes Sister Anxiety and depression Hypertension CVA (cerebral vascular accident) Thyroid disorder Osteoporosis Hyperlipemia Diabetes Mother Hypertension Kidney disease Osteoporosis CVA (cerebral vascular accident) Father CVA (cerebral vascular accident) Hyperlipemia Hypertension Myocardial infarction Social History Smoking Status: Never smoker alcohol intake: never substance use type: does not use what type of physical activity do you participate in: walking frequency: 3-4 times per week HPI HPI Chief Complaint: 1 month FU Details: MANISHA TIM, is a 63yo F who presents to the office today for follow-up. She was started on losartan during her last visit for management of hypertension. She brings along her log which shows still elevated blood pressures. She has also noted a cough since starting losartan. She feels well otherwise. Recent blood work done suggestive of elevated LDL, triglycerides and total cholesterol. ROS Const Constitutional: No chills, fatigue, fever(s), frequent falls, malaise, weakness, sleep problems or change in appetite Eyes Eyes: No blurry vision, change in vision, double vision, discharge or visual disturbances ENT ENT: No abnormal hearing, ear pain, ear pressure, tinnitus or dizziness/vertigo Resp Respiratory: Positive for cough; no shortness of breath or wheezing Cardio Cardiology: No chest pain at rest, chest pain with exertion, shortness of breath, dyspnea on exertion, generalized swelling, irregular heart rhythm, lightheadedness, orthopnea, fast heart rate or palpitations Gastro GI: No abdominal pain, change in bowel habits, constipation, diarrhea, nausea/dyspepsia or vomiting Genitourinary-Female: No difficulty urinating, burning urination, painful urination, urinary incontinence, urinary frequency, urinary urgency, urinary hesitancy, urinary retention, Frequent nighttime urination/ nocturia, sexual problems, genital lesions, abnormal vaginal bleeding, pelvic pain, vaginal dryness, vaginal odor or Vaginal Itching Musc Musculoskeletal: No joint pain, back pain, joint swelling, limited range of motion, numbness or tingling Skin Skin: No change in skin color, itching, rash or wounds Breast Breast: No breast lump or breast pain Neuro Neurology: No frequent falls, weakness, abnormal hearing, numbness, tingling, unsteady gait/balance, dizziness, loss of vision, memory loss or visual disturbances Psych Psychiatric: No memory loss, No anxiety, No change in appetite, No depression, No Thoughts of harming yourself/Others Endo Endocrine: No fatigue, heat intolerance, increased thirst/drinking, increased hunger or increased urination Aller/Imm Allergy/Immunologic: No wheezing, itchy eyes or seasonal allergy symptoms Sameer/Lymp Hematologic/Lymphatic: No easy bleeding, easy bruising or enlarged lymph nodes Exam Const General: cooperative, no acute distress Orientation: alert, awake, oriented x3 [facility] Head: atraumatic, normocephalic, normal to inspection Ears: TM's normal bilaterally Neck Neck: normal visual inspection, full ROM, no lymphadenopathy Neck mass: No Thyroid: thyroid normal Resp Effort AND Inspection: normal respiratory effort, able to speak in complete sentences Auscultation: Bilateral: Clear to Auscultation Cardio Rate: regular rate Rhythm: regular rhythm Heart Sounds: S1 normal, S2 normal GI Palpation: soft, no hepatosplenomegaly Neuro General: alert, awake, oriented x3, moves all extremities, CN's II-XI intact bilaterally Extrem General: no clubbing, cyanosis or edema Psych Appearance: grossly normal Mental Status: mental status grossly normal Affect: normal affect Assessment AND Plan 1. Hypertension I10 Plan Still not optimally controlled. It appears she has not done very well with low salt. Will switch to amlodipine. Start at 5 mg daily. Continue lifestyle/dietary modifications. Follow-up in 1 month with log. 2. Hyperlipidemia E78.5 Plan Lifestyle and dietary modifications discussed. Repeat lipid profile in about a year. This note was generated with [employer] dictation software. It may contain incorrect words, spelling, and punctuation that were not noted in checking the note before signing. Plan Detail Other Medications New: Discontinued: Coding Level of Care Code Off vis,est,level 3 Diagnoses Hypertension I10 Hyperlipidemia E78.5 05/12/18 1653 <Electronically signed by Benjamin Chopra MD> Date Benjamin Chopra MD Cosigner Signature: Date (if applicable) CC: LIPID PROFILE Collected: 05/07/2018 Status: F Source: [place] 6:41 AM [facility] REPOSITORY Order Comment: Comments: Fasting Comments: Fasting TYPE CODE TESTS RESULT OUT OF RANGE REFERENCE UNITS LAB L501.4900 200 mg/dL High CHOL 220 Result Comment: <200 mg/dL Desirable 200-240 mg/dL Borderline >240 mg/dL High Risk LAB L501.5000 mg/dL High TRIG 210 Result Comment: The drugs N-Acetylcysteine and Metamizole may falsely depress this assay. Serum Triglycerides Reference Interval Normal <150 mg/dL Borderline high 150 - 199 mg/dL High 200 - 499 mg/dL Very High > or = 500 mg/dL LAB L501.6400 mg/dL Normal HDL 48 Result Comment: The drugs N-Acetylcysteine and Metamizole may falsely depress this assay. Reference Range HDL <40 mg/dL Low HDL Cholesterol HDL >or= 60 mg/dL High HDL Cholesterol LAB L501.6500 0-130 mg/dL Normal LDL 130 LAB L501.6600 5-40 mg/dL High VLDL 42 Performed By: #### L500.4100, L501.9520 #### [facility] [address] [place], [address] THYROID STIM HORMONE Collected: 05/07/2018 Status: F Source: [place] (TSH) 6:41 AM [facility] REPOSITORY Order Comment: Comments: Fasting Comments: Fasting TYPE CODE TESTS RESULT OUT OF RANGE REFERENCE UNITS LAB L501.9520 0.358-3.74 uIU/mL Normal TSH 2.41 Performed By: #### L500.4100, L501.9520 #### [facility] [address] [place], [address] VITAMIN D,25 HYDROXY Collected: 05/07/2018 Status: F Source: [place] 6:41 AM [facility] REPOSITORY TYPE CODE TESTS RESULT OUT OF REFERENCE UNITS RANGE LAB L506.1000 29.95-100.01 ng/mL Low Vitamin D 21.0 25-OH Result Comment: Vitamin D 25(OH) Status Range Deficiency <20 ng/mL (50nmol/L) Insuffciency 20 - 30 ng/mL (50 - 75 nmol/L) Sufficiency 30 - 100 ng/mL (75 - 250 nmol/L) Toxicity >100 ng/mL (>250 nmol/L) Performed By: #### L506.1000 #### [facility] [address] 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 It has not been cleared or approved by the Food and Drug Administration. Performed at: [address] [id number] [employer] Maintainer: Geoff Beard MD, Phone: [phone] Performed at: [address] [id number] [employer] Maintainer: Gwyn Mallory PhD, Phone: [phone] Performed By: #### L3100.6450, L7000.7000 #### [facility] (refer to report for specific site) refer to report for address and phone number HEPATITIS C,RNA PCR Collected: 05/07/2018 Status: F Source: [place] VIRAL LOAD 6:41 AM [facility] REPOSITORY TYPE CODE TESTS RESULT OUT OF RANGE REFERENCE UNITS LAB L7000.7100 . IU/mL HCV Normal HCV Not Detected QT PCR LAB L7000.7350 . Test Normal HCV not performed log 10 LAB L7000.7500 . Normal TEST Comment INFO: Result Comment: The quantitative range of this assay is 15 IU/mL to 100 million IU/mL. Performed By: #### L3100.6450, L7000.7000 #### [facility] (refer to report for specific site) refer to report for address and phone number INTERNAL MEDICINE Observed: 04/09/2018 Status: F Source: [place] OFFICE VISIT 6:03 PM [facility] REPOSITORY [facility] [address] [place] [address] [place] [address] OFFICE VISIT Date of Service: 04/08/18 MR#: [id number] Acct: [id number] Name: MANISHA TIM Rep #: [id number] : 1955 Provider: Benjamin Chopra MD Age/Sex: 62/F [place] [facility] Status: Signed Intake Vital Signs04/08/18 Height 4 ft 11 in Intake Visit Reasons: EST CARE Chief Complaint: establish care Is patient in pain?: Yes (Right hip) Pain scale (1-10): 4 Allergies alendronate sodium Allergy (Intermediate, Verified 04/08/18 14:59) Hives estrogens, conjugated Allergy (Intermediate, Verified 04/08/18 14:59) Itching nitrofurantoin Allergy (Intermediate, Verified 04/08/18 14:59) Hives Penicillins [PCN] Adverse Reaction (Verified 01/27/18 02:40) Rash Sulfa (Sulfonamide Antibiotics) Adverse Reaction (Verified 01/27/18 02:40) Rash Medications clobetasol 0.05 % topical cream 1 applic TOPICAL BID PRN 04/08/18 [History Confirmed 04/08/18] losartan 25 mg tablet 25 mg PO DAILY #30 tab 04/08/18 [Rx Confirmed 04/08/18] Post menopausal: Yes PFSH Medical History Hepatitis C (Chronic) Osteoporosis (Chronic) Vitamin D deficiency (Chronic) Vulvodynia (Acute) Generalized osteoarthrosis (Chronic) Symptomatic states associated with artificial menopause (Acute) Postmenopausal atrophic vaginitis (Acute) Hypertension (Chronic) History of hysterectomy (Acute) Hyperlipemia (Acute) Seasonal allergies (Acute) history of cholcyectomy (Acute) Surgical History History of appendectomy (Acute) History of knee replacement (Acute) Family History Brother Anxiety and depression Diabetes Sister Anxiety and depression Hypertension CVA (cerebral vascular accident) Thyroid disorder Osteoporosis Hyperlipemia Diabetes Mother Hypertension Kidney disease Osteoporosis CVA (cerebral vascular accident) Father CVA (cerebral vascular accident) Hyperlipemia Hypertension Myocardial infarction Social History Smoking Status: Never smoker alcohol intake: never substance use type: does not use what type of physical activity do you participate in: walking frequency: 3-4 times per week HPI HPI Chief Complaint: establish care Details: MANISHA TIM, is a 62yo F who presents to the office today to establish care. She reports past medical history as stated above. She is concerned about lead exposure due to her work. 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 She will like to check a lead level. She reports a history of hypertension but has been out of her medication for some days. Had previously been on lisinopril but is hoping to discontinue due to persistent cough. She denies any known history of hyperlipidemia. ROS Const Constitutional: No weight change, body ache, chills, fatigue, sleep problems, fever(s), change in appetite, snoring, weakness, frequent falls, headache(s) or excessive sweating Eyes Eyes: No change in vision, eye pain, light sensitivity or blurry vision ENT ENT: No headache(s), abnormal hearing, ear pain, tinnitus, nasal congestion, sore throat or neck pain Resp Respiratory: No snoring, cough, shortness of breath or wheezing Cardio Cardiology: No excessive sweating, chest pain at rest, chest pain with exertion, shortness of breath, dyspnea on exertion, palpitations, orthopnea or lightheadedness Gastro GI: No abdominal pain, change in bowel habits, constipation, diarrhea, vomiting, nausea/dyspepsia or cramping Genitourinary-Female: No burning urination, painful urination, urinary incontinence, urinary frequency, abnormal vaginal bleeding, pelvic pain or other Musc Musculoskeletal: No neck pain, abnormal walking, joint pain, back pain or limited range of motion Skin Skin: No redness, dry skin, itching, lesions, wounds or rash Neuro Neurology: No weakness, frequent falls, headache(s), abnormal hearing, abnormal walking, abnormal speech, dizziness or memory loss Psych Psychiatric: No change in appetite, No memory loss, No anxiety, No depression, No Thoughts of harming yourself/Others Endo Endocrine: No fatigue, excessive sweating, cold intolerance, increased thirst/drinking, heat intolerance, flushing or increased hunger Aller/Imm Allergy/Immunologic: No wheezing, itchy eyes, hives or seasonal allergy symptoms Sameer/Lymp Hematologic/Lymphatic: No easy bleeding, easy bruising or enlarged lymph nodes Exam Const General: cooperative, no acute distress Orientation: alert, awake, oriented x3 HENMT Head: atraumatic, normocephalic, normal to inspection Ears: TM's normal bilaterally Neck Neck: normal visual inspection, full ROM, no lymphadenopathy Neck mass: No Thyroid: thyroid normal Resp Effort AND Inspection: normal respiratory effort, able to speak in complete sentences Auscultation: Bilateral: Clear to Auscultation Cardio Rate: regular rate Rhythm: regular rhythm Heart Sounds: S1 normal, S2 normal GI Palpation: soft, no hepatosplenomegaly Neuro General: alert, awake, oriented x3, moves all extremities, CN's II-XI intact bilaterally Extrem General: no clubbing, cyanosis or edema Psych Appearance: grossly normal Mental Status: mental status grossly normal Affect: normal affect Assessment AND Plan 1. Hypertension I10 Plan Not optimally controlled at this time. She states that she has been off of her medication for 3 days. Prescription for losartan 25 mg sent. Advised to keep a blood pressure log. Lifestyle and dietary modifications recommended. Follow-up in 1 month with log. Orders Orders: 2. Hepatitis C B19.20 Plan Chronic history of. Has not been treated for this. Viral load ordered. Most recent CMP in with no significant concerns. Orders Orders: 3. Osteoporosis M81.0 Plan Chronic history of. Per the [facility] record, last bone density was in 2010. Currently not on any medication. T score in lumbar spine of - 2.7. Vitamin D levels ordered. Bone density scan also ordered. Calcium 600 mg twice daily and 2000 units of vitamin D daily for now. Follow-up with results. Orders Orders: 4. Lead exposure Z77.011 Plan Concerned about lead exposure due to the nature of her job. She would like lead levels. Orders Orders: 5. Preventative health care Z00.00 Plan Mammogram ordered. Declined flu and pneumonia vaccines at this time. Last colonoscopy per [facility] records was in 2002. Referred to general surgery for screening colonoscopy. This note was generated with [employer] software. It may contain incorrect words, spelling, and punctuation that were not noted in checking the note before signing. Plan Detail Other Orders Orders: Referrals: Other Medications New: Discontinued: Coding Level of Care Code Off vis,new,level 4 Diagnoses Hypertension I10 Hepatitis C B19.20 Osteoporosis M81.0 Lead exposure Z77.011 Preventative health care Z00.00 04/09/18 1803 <Electronically signed by Benjamin Chopra MD> Date Benjamin Chopra MD Cosigner Signature: Date (if applicable) CC: CNNURSE Observed: 02/13/2018 Status: COMPLETED Source: [place] 11:15 AM [facility] Nurse Visit (FAMPWS) MANISHA TIM ([id number]) 1955 F Date Time Provider Department 02/13/18 11:15 AM [place] NURSE FAMPWS During your visit today, we recorded the following information about you: Pulse Blood pressure 110/minute 122/70 Elizabeth Sidhu LPN 02/13/2018 11:11 AM Signed Manual Readin/70 Pulse: 110 Reason for blood pressure check - Last BP elevated and Medication adjustment Patient is: Taking medication as prescribed Yes Took medication today Yes If no, date medication last taken N/A Experiencing side effects No BP was elevated at last appt 01/31/18. Was placed on Lisinopril 5mg daily. Tolerating medication well. Denies any chest pain, shortness of breath, or headaches. Does note some mild lightheadedness intermittently. Daily caffeine use. No personal history of tobacco use; no current exposure. Alert and oriented. Pt has been identified by name and birthdate: Yes Allergies reviewed: Yes Latex allergy: no. Medication - prescribed and OTC reviewed and updated: Yes Do you need any prescription refills prior to your next visit: No Health Maintenance: Reviewed and not up to date and provider notified Patient advised to continue with current medications and would be contacted with any further instructions after review by Dr client consultant. Elizabeth Sidhu LPN Referring Provider: CLEMENT CHATMAN III [[id number]] Allergies As of Date: 02/13/2018 Noted Allergy Reaction PREMARIN (CONJUGATED ESTROGENS) 12/05/2005 9 - Itching Comments: had vaginal itch with premarin vag crea; stopped FOSAMAX (ALENDRONATE SODIUM) 07/04/2011 5 - Intolerance Comments: [place] like going to explode from inside out. NITROFURANTOIN 01/31/2018 5 - Intolerance Comments: headache PENICILLINS 05/13/2005 4 - Hives SULFA (SULFONAMIDE ANTIBIOTICS) 05/13/2005 14 - Other: See Comments Comments: headache Date Reviewed: 01/31/2018 Reviewed by: Maritza ([facility]) HA Chase - Fully Assessed Reason for Visit: Blood Pressure Check [195] Primary Visit Diagnosis:Essential hypertension, benign [I10] Prescriptions as of 02/13/2018 Sig: PHENAZOPYRIDINE 200 MG TABLET TWICE DAILY NEEDED PRN For* LISINOPRIL 5 MG TABLET Take 1 tablet by mouth once d* FEXOFENADINE 180 MG TABLET Take 1 tablet by mouth once d* Problem List As Of Date 02/13/2018 Noted Resolved BENIGN HYPERTENSION [I10] INVALID FOR* Postmenopausal Atrophic Vaginitis [N95.2] INVALID FOR* SYMPTOMATIC ARTIFIC MENOPAUSE STATES [E89.41] INVALID FOR* OSTEOARTHROS NOS-UNSPEC [M19.90] INVALID FOR* HYPERLIPIDEMIA NEC/NOS [E78.5] INVALID FOR* 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] INVALID FOR* Vitamin D deficiency [E55.9] INVALID FOR* Osteopenia [M85.80] INVALID FOR* Osteoporosis [M81.0] INVALID FOR* Encounter Status:Closed by ELIZABETH SIDHU LPN on 02/13/18 PROGRESS Observed: 02/13/2018 Status: COMPLETED Source: [place] 11:04 AM [facility] HNO ID: [id number] Author: Elizabeth Sidhu LPN Service: (none) Author Type: (none) Type: Progress Notes Filed: 02/13/2018 11:11 AM Note Text: Manual Readin/70 Pulse: 110 Reason for blood pressure check - Last BP elevated and Medication adjustment Patient is: Taking medication as prescribed Yes Took medication today Yes If no, date medication last taken N/A Experiencing side effects No BP was elevated at last appt 01/31/18. Was placed on Lisinopril 5mg daily. Tolerating medication well. Denies any chest pain, shortness of breath, or headaches. Does note some mild lightheadedness intermittently. Daily caffeine use. No personal history of tobacco use; no current exposure. Alert and oriented. Pt has been identified by name and birthdate: Yes Allergies reviewed: Yes Latex allergy: no. Medication - prescribed and OTC reviewed and updated: Yes Do you need any prescription refills prior to your next visit: No Health Maintenance: Reviewed and not up to date and provider notified Patient advised to continue with current medications and would be contacted with any further instructions after review by Dr client consultant. Elizabeth Sidhu LPN PROGRESS Observed: 02/05/2018 Status: COMPLETED Source: [place] 7:01 PM [facility] HNO ID: [id number] Author: Clement Chatman III Service: (none) Author Type: Physician Type: Progress Notes Filed: 02/05/2018 7:01 PM Note Text: Manisha, The lab results look fine. Follow-up with Dr Hatch in 6 mos and earlier as needed WILLY Maxwell MD Observed: 01/31/2018 Status: COMPLETED Source: [place] 8:50 AM [facility] Office Visit (LAB) MANISHA TIM ([id number]) 1955 F Date Time Provider Department 01/31/18 8:50 AM LAB [facility] During your visit today, we recorded the following information about you: Clement Chatman III MD 02/05/2018 7:01 PM Signed Manisha, The lab results look fine. Follow-up with Dr Hatch in 6 mos and earlier as needed Clement Chatman III MD Referring Provider: CLEMENT CHATMAN III [[id number]] Allergies As of Date: 01/31/2018 Noted Allergy Reaction PREMARIN (CONJUGATED ESTROGENS) 12/05/2005 9 - Itching Comments: had vaginal itch with premarin vag crea; stopped FOSAMAX (ALENDRONATE SODIUM) 07/04/2011 5 - Intolerance Comments: [place] like going to explode from inside out. NITROFURANTOIN 01/31/2018 5 - Intolerance Comments: headache PENICILLINS 05/13/2005 4 - Hives SULFA (SULFONAMIDE ANTIBIOTICS) 05/13/2005 14 - Other: See Comments Comments: headache Date Reviewed: 01/31/2018 Reviewed by: Maritza ([facility]) HA Chase - Fully Assessed Visit Diagnosis:Essential hypertension, benign [I10] Order(s):CBC + DIFF [SQCBCDIF] Order #: [id number]. #:[id number] COMP METABOLIC PANEL [SQCMP] Order #: [id number]. 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] INVALID FOR* Vitamin D deficiency [E55.9] INVALID FOR* Osteopenia [M85.80] INVALID FOR* Osteoporosis [M81.0] INVALID FOR* Encounter Status:Closed by CLEMENT CHATMAN III, MD on 02/09/18 CBC AND DIFFERENTIAL Collected: 01/31/2018 Status: F Source: [place] 8:49 AM [facility] REPOSITORY TYPE CODE TESTS RESULT OUT OF REFERENCE UNITS RANGE LAB WBC 3.70-11.00 k/uL WBC 6.02 LAB RBC 3.90-5.20 m/uL RBC 4.92 LAB HGB 11.5-15.5 g/dL Hemoglobin 14.5 LAB HCT 36.0-46.0 % High Hematocrit 46.6 LAB MCV 80.0-100.0 fL MCV 94.7 LAB MCH 26.0-34.0 pG MCH 29.5 LAB MCHC 30.5-36.0 g/dL MCHC 31.1 LAB RDWCV 11.5-15.0 % RDW-CV 12.7 LAB PLTCT 150-400 k/uL Platelet Count 331 LAB MPV 9.0-12.7 fL MPV 11.0 LAB ANEUT % Neut% 51.2 LAB AANEUT 1.45-7.50 k/uL Abs Neut 3.06 LAB ALYMP % Lymph% 37.0 LAB AALYMP 1.00-4.00 k/uL Abs Lymph 2.23 LAB AMONO % [place]% 9.3 LAB AAMONO <0.87 k/uL Abs [place] 0.56 LAB AEOS % Eosin% 1.5 LAB AAEOS <0.46 k/uL Abs Eosin 0.09 LAB ABASO % Baso% 1.0 LAB AABASO <0.11 k/uL Abs Baso 0.06 LAB AUNRBC 0 /100 WBC NRBCs 0.0 LAB ABNRBC <0.01 k/uL Absolute nRBC <0.01 LAB DTYP DTYPE Auto Diff Performed By: #### CBCDIF, CMP #### [facility] [address] [place] [address] COMP METABOLIC PANEL Collected: 01/31/2018 Status: F Source: [place] 8:49 AM [facility] TYPE CODE TESTS RESULT OUT OF REFERENCE UNITS RANGE LAB TP 6.3-8.0 g/dL Protein, Total 7.0 LAB ALB 3.9-4.9 g/dL Albumin 4.1 LAB CA 8.5-10.2 mg/dL Calcium, Total 9.7 LAB TBIL 0.2-1.3 mg/dL Bilirubin, Total 0.6 LAB ALKP 32-117 U/L Alkaline Phosphatase 75 LAB AST 13-35 U/L AST 24 LAB GLU 74-99 mg/dL Glucose 89 Result Comment: The [place] Diabetes Association (ADA) provides guidance for cutoff values for fasting glucose and random glucose. The ADA defines fasting as no caloric intake for at least 8 hours. Fas ting plasma glucose results between 100 to 125 mg/dL indicate increased risk for diabetes (prediabetes). Fasting plasma glucose results greater than or equal to 126 mg/dL meet the criteria for diagnosis of diabetes. In the absence of unequivocal hyperglycemia, results should be confirmed by repeat testing. In a patient with classic symptoms of hyperglycemia or hyperglycemic crisis, random plasma glucose results greater than or equal to 200 mg/dL meet the criteria for diagnosis of diabetes. Reference: Standards of Medical Care in Diabetes 2016, [place] [employer] Association. Diabetes Care. 2016.39(Suppl 1). LAB BUN 7-21 mg/dL BUN 14 LAB CRET 0.58-0.96 mg/dL Creatinine 0.81 LAB NA 136-144 mmol/L Sodium 142 LAB K 3.7-5.1 mmol/L Potassium 4.8 LAB CL 97-105 mmol/L Chloride 105 LAB CO2 22-30 mmol/L CO2 25 LAB AGAP 9-18 mmol/L Anion Gap 12 LAB ALT 7-38 U/L ALT 27 LAB GFRAA eGFR- Amer. >60 LAB GFRNAA . eGFR-All Other Races >60 Result Comment: eGFR (Estimated GFR) Units of measure: mL/min/1.73 meters squared eGFR is derived from the reexpressed MDRD Study equation using the following parameters: serum creatinine, age, gender and race. The creatinine assay has been calibrated to be traceable to IDMS. An eGFR <60 mL/min/1.73m2 for >3 months is consistent with chronic kidney disease. Refer to KDOQI guidelines for clinical interpretation. In patients with unstable renal function, e.g. those with acute kidney injury, the eGFR may not accurately reflect actual GFR. Performed By: #### CBCDIF, CMP #### [facility] [address] [place], [place] [address] PROGRESS Observed: 01/31/2018 Status: COMPLETED Source: [place] 8:08 AM [facility] RE[facility] HNO ID: [id number] Author: Clement Chatman III Service: (none) Author Type: Physician Type: Progress Notes Filed: 01/31/2018 9:54 AM Note Text: SUBJECTIVE: This is a 62 year old female that is here today for 1. UTI on 01/27 seen in ER, tx with nitrofurantoin. Yesterday she developed severe VILLAFUERTE, fatigue, abd pain. Concerned that she may have allergic rxn to nitrofurantoin. States she has had hives with itching for the past 2 yrs. 2. states she received blood transfusion in the 80s in [place]. Subsequently found to have hep C (inactive). 3. dx of human T cell lymphotrophic virus, type I PAST MEDICAL HISTORY Diagnosis Date - Hepatitis C Inactive - Human T-cell lymphotrophic virus, type I (HTLV-I) - Hypercholesteremia - Osteoarthritis of knee s/p knee replacements. - Vitamin D deficiency - Vulvar pain Current Outpatient Prescriptions on File Prior to Visit: fexofenadine (CHANTE) 180 mg tablet Take 1 tablet by mouth once daily. No current facility-administered medications on file prior to visit. FAMILY HISTORY Problem Relation Age of Onset - Heart Father - Heart Mother - Stroke Mother - Kidney disease [OTHER] Mother - Heart Sister - Heart Brother - Diabetes Brother - Hypertension Brother - Thyroid Sister - Thyroid Sister - Thyroid Sister Social History Substance Use Topics - Smoking status: Never Smoker - Smokeless tobacco: Never Used - Alcohol use No BP 184/91 Pulse 68 Resp 18 Wt 78.9 kg (174 lb) BMI 34.56 kg/m? . OBJECTIVE: APPEARANCE Well appearing, alert, in no acute distress, well-hydrated, well nourished. and Obese NECK Supple, no adenopathy; thyroid symmetric, normal size, no bruits HEART RRR with normal S1 and S2, no murmurs, no gallops, no JVD appreciated LUNG clear to auscultation ABDOMEN soft,, non-distended, without organomegaly or palpable masses, epigastric and RUQ tenderness to palpation EXTREMITIES Extremities normal, No deformities, No skin discoloration, No edema and Normal pulses bilaterally. ASSESSMENT: UTI--partially treated possible side effects to nitrofurantoin hypertension--not at goal HTLV -I PLAN: CBC with dif, CMP rest, fluids--advance diet as tolerated discontinue nitrofurantoin and start cipro 500mg twice/day x 5 days lisinopril 5mg daily--nurse bp check in 2 wks follow up with Dr Hatch reviewed up-to-date with patient regarding HTLV-1 WILLY Maxwell MD, III MD CNOV Observed: 01/31/2018 Status: COMPLETED Source: [place] 8:00 AM [facility] Office Visit (FAMPWS) MANISHA TIM ([id number]) 1955 F Date Time Provider Department 01/31/18 8:00 AM CLEMENT CHATMAN III During your visit today, we recorded the following information about you: Pulse Respiration Blood pressure Weight 68/minute 18/minute 184/91 78.9 kg Clement Chatman III MD 01/31/2018 9:54 AM Signed SUBJECTIVE: This is a 62 year old female that is here today for 1. UTI on 01/27 seen in ER, tx with nitrofurantoin. Yesterday she developed severe VILLAFUERTE, fatigue, abd pain. Concerned that she may have allergic rxn to nitrofurantoin. States she has had hives with itching for the past 2 yrs. 2. states she received blood transfusion in the 80s in [place]. Subsequently found to have hep C (inactive). 3. dx of human T cell lymphotrophic virus, type I PAST MEDICAL HISTORY Diagnosis Date - Hepatitis C Inactive - Human T-cell lymphotrophic virus, type I (HTLV-I) - Hypercholesteremia - Osteoarthritis of knee s/p knee replacements. - Vitamin D deficiency - Vulvar pain Current Outpatient Prescriptions on File Prior to Visit: fexofenadine (CHANTE) 180 mg tablet Take 1 tablet by mouth once daily. No current facility-administered medications on file prior to visit. FAMILY HISTORY Problem Relation Age of Onset - Heart Father - Heart Mother - Stroke Mother - Kidney disease [OTHER] Mother - Heart Sister - Heart Brother - Diabetes Brother - Hypertension Brother - Thyroid Sister - Thyroid Sister - Thyroid Sister Social History Substance Use Topics - Smoking status: Never Smoker - Smokeless tobacco: Never Used - Alcohol use No BP 184/91 Pulse 68 Resp 18 Wt 78.9 kg (174 lb) BMI 34.56 kg/m? . OBJECTIVE: APPEARANCE Well appearing, alert, in no acute distress, well- hydrated, well nourished. and Obese NECK Supple, no adenopathy; thyroid symmetric, normal size, no bruits HEART RRR with normal S1 and S2, no murmurs, no gallops, no JVD appreciated LUNG clear to auscultation ABDOMEN soft,, non-distended, without organomegaly or palpable masses, epigastric and RUQ tenderness to palpation EXTREMITIES Extremities normal, No deformities, No skin discoloration, No edema and Normal pulses bilaterally. ASSESSMENT: UTI--partially treated possible side effects to nitrofurantoin hypertension--not at goal HTLV -I PLAN: CBC with dif, CMP rest, fluids--advance diet as tolerated discontinue nitrofurantoin and start cipro 500mg twice/day x 5 days lisinopril 5mg daily--nurse bp check in 2 wks follow up with Dr Hatch reviewed up-to-date with patient regarding HTLV-1 WILLY Maxwell MD, III MD Frank A Cebul, III MD 01/31/2018 8:35 AM Signed PLAN: CBC with dif rest, fluids--advance diet as tolerated discontinue nitrofurantoin and start cipro 500mg twice/day x 5 days lisinopril 5mg daily--nurse bp check in 2 wks follow up with Dr Holden Chatman III MD Referring Provider: SELF [[id number]] Allergies As of Date: 01/31/2018 Noted Allergy Reaction PREMARIN (CONJUGATED ESTROGENS) 12/05/2005 9 - Itching Comments: had vaginal itch with premarin vag crea; stopped FOSAMAX (ALENDRONATE SODIUM) 07/04/2011 5 - Intolerance Comments: [place] like going to explode from inside out. NITROFURANTOIN 01/31/2018 5 - Intolerance Comments: headache PENICILLINS 05/13/2005 4 - Hives SULFA (SULFONAMIDE ANTIBIOTICS) 05/13/2005 14 - Other: See Comments Comments: headache Date Reviewed: 01/31/2018 Reviewed by: Maritza ([facility]) HA Chase - Fully Assessed Reason for Visit: Possible allergic reaction [Other] Primary Visit Diagnosis:Essential hypertension, benign [I10] Other Visit Diagnoses:Acute cystitis without hematuria [N30.00] Adverse effect of drug, subsequent encounter [T50.905D] Order(s):ciprofloxacin HCl (CIPRO) 500 mg tabletTake 1 tablet by mouth twice daily for 5 days.Disp: 10 tabletRfl: 0 lisinopril (ZESTRIL, PRINIVIL) 5 mg tabletTake 1 tablet by mouth once daily.Disp: 30 tabletRfl: 5 CBC + DIFF [SQCBCDIF] Order #: [id number] FUTURE COMP METABOLIC PANEL [SQCMP] Order #: [id number] FUTURE Prescriptions as of 01/31/2018 Sig: PHENAZOPYRIDINE 200 MG TABLET TWICE DAILY NEEDED PRN For* FEXOFENADINE 180 MG TABLET Take 1 tablet by mouth once d* CIPROFLOXACIN 500 MG TABLET Take 1 tablet by mouth twice * LISINOPRIL 5 MG TABLET Take 1 tablet by mouth once d* Problem List As Of Date 01/31/2018 Noted Resolved BENIGN HYPERTENSION [I10] INVALID FOR* Postmenopausal Atrophic Vaginitis [N95.2] INVALID FOR* SYMPTOMATIC ARTIFIC MENOPAUSE STATES [E89.41] INVALID FOR* OSTEOARTHROS NOS-UNSPEC [M19.90] INVALID FOR* HYPERLIPIDEMIA NEC/NOS [E78.5] INVALID FOR* 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 LISINOPRIL 5 MG TABLET 30 t* 5 01/31/2018 Route: ORAL Sig: Take 1 tablet by mouth once daily. Medications Discontinued During This Encounter nitrofurantoin monohydrate and macro* 01/27/2018 01/31/2018 Class: Historical Med Sig: EVERY 12 HOURS Disc: Adverse Reaction Encounter Status:Closed by CLEMENT CHATMAN III, MD on 01/31/18 EMERGENCY DEPARTMENT Observed: 01/27/2018 Status: F Source: [place] SUMMARY 4:20 AM [facility] REPOSITORY [facility] Medical Records Department [address] [place] [address] Emergency Department Summary 01/27/18 0315 MR#: [id number] Acct: [id number] Name: MANISHA TIM Rep #: [id number] : 1955 62 From: Lakhwinder Elizondo MD PCP: Jas Hatch MD Status: DEP ER - ER Visit Summary Date of Service: 01/27/18 Chief Complaint: [] Urinary tract infection. History of Present Illness: The patient is a 62 F [] complaining of UTI. This evening over the last couple of her she has had dysuria frequency urgency noted some hematuria. Last urinary tract infection was approximately 10 years ago. Denies any abdominal pain fevers or chills. No back pain. Physical Examination: [] Vital signs reviewed General: Well-nourished well-developed Head: Normocephalic atraumatic Eyes: Pupils equal round and reactive to light extraocular movements intact ENT: TMs clear no hemotympanum no trauma Neck: Nontender full range of motion Cardiovascular: Regular rate rhythm no murmurs normal S1-S2 Respiratory: No distress clear to auscultation bilaterally chest nontender Abdomen: Soft nontender nondistended normal bowel sounds no masses Back: Nontender no CVA tenderness Extremities: Nontender active range of motion 4 extremities no trauma Skin: Normal color no trauma Neuro alert oriented cranial nerves II through XII intact normal strength sensation reflexes Test Results: [] Emergency Department Course and Treatment: [] Urine analysis shows 50-100 white blood cells and greater than 100 red blood cells and bacteria. Patient given oral Pyridium and Macrobid. Will be discharged with the same for UTI cystitis and will follow-up Treatment Plan: [] Disposition: [] Impression: [] Hemorrhagic cystitis This note was generated with [employer] dictation software. It may contain incorrect words, spelling, and punctuation that were not noted in review of the chart prior to signing ED Disposition - Plan for ED Patient: Chief Complaint: Complaint Referrals: Jas Hatch MD [Primary Care Provider] - What to do if you have Problems For any increased pain, shortness of breath, bleeding, nausea or vomiting, chest pain, or any unexpected problems, contact your Primary Care Provider. Call [facility] ([phone]) or report to the closest Emergency Room. Call 911 if necessary. 01/27/18 042 <Electronically signed by Lakhwinder Elizondo MD> Date Lakhwinder Elizondo MD Cosigner Signature (If Indicated): Date CC: Jas Hatch MD DISCHARGE INSTRUCTION Observed: 01/27/2018 Status: F Source: [place] 4:20 AM [facility] REPOSITORY [facility] Medical Records Department [address] [place] [address] Discharge Instruction 01/27/18 0316 MR#: [id number] Acct: [id number] Name: MANISHA TIM Rep #: [id number] : 1955 62 From: Lakhwinder Elizondo MD PCP: Jas Hatch MD Status: DEP ER ED Disposition - Plan for ED Patient: Disposition: Home or Assisted Living Chief Complaint: Complaint Instructions: ED UTI Cystitis Female Prescriptions: Nitrofurantoin Macrocrystals [Macrobid] 100 mg PO Q12 #14 cap Phenazopyridine HCl [Pyridium] 200 mg PO BID PRN PRN #10 tab PRN Reason: Pain Referrals: Jas Hatch MD [Primary Care Provider] - What to do if you have Problems For any increased pain, shortness of breath, bleeding, nausea or vomiting, chest pain, or any unexpected problems, contact your Primary Care Provider. Call [facility] ([phone]) or report to the closest Emergency Room. Call 911 if necessary. 01/27/18 0420 <Electronically signed by Lakhwinder Elizondo MD> Date Lakhwinder Elizondo MD Cosigner Signature (If Indicated): Date CC: Jas Hatch MD URINALYSIS, COMPLETE Collected: 01/27/2018 Status: F Source: [place] 2:40 AM [facility] REPOSITORY Order Comment: COLOR OF URINE MAY AFFECT DIPSTICK RESULTS. How was Urine Obtained? CLEAN CATCH TYPE CODE TESTS RESULT OUT OF RANGE REFERENCE UNITS LAB L400.3000 Yellow COLOR Normal Red LAB L400.3050 Clear Normal CLARITY Cloudy LAB L400.3200 Normal mg/dl Normal GLUCOSE, UR Normal LAB L400.3300 Negative mg/dL High BILIRUBIN URINE 1 Result Comment: COLOR OF URINE MAY AFFECT DIPSTICK RESULTS. LAB L400.3400 Negative mg/dl High KETONE UR 5 LAB L400.3465 1.002-1.030 Normal SP.GR. DIPSTX 1.025 LAB L400.3550 5.0 - 8.0 pH Normal UR 5.0 LAB L400.3600 Negative mg/dl High PROT DIPSTX 500 LAB L400.3700 Normal mg/dl Normal UROBILI Normal LAB L400.3750 Negative Normal NITRITE UR Negative LAB L400.3780 Negative /ul High OCCULT 250 BLOOD-UR LAB L400.3800 Negative /ul High LEUK ESTERASE 500 LAB L400.4050 0-5 /hpf Normal WBC 50-100 SEEN LAB L400.4100 0-5 /hpf Normal RBC-UA > 100 SEEN LAB L400.4150 5-10 /hpf Normal SQUAM EPI 10-25 SEEN LAB L400.4300 None Seen /hpf Normal BACTERIA RARE LAB L400.4350 <or=2+ /hpf Normal MUCUS, URINE 0 SEEN Performed By: #### L400.0001 #### [facility] [address] [facility] [place], [address] Observed: 01/27/2018 Status: F Source: [place] CULTURE, URINE 2:40 AM [facility] REPOSITORY Urine Culture ORGANISM 1: Escherichia coli [place] Count >100,000 Escherichia coli: REACTION Amoxacillin/Clavulanic Acid $ 8 S Ampicillin $ >=32 R Ampicillin/Sulbactam $ >=32 R Cefazolin $ <=4 S Cefepime $ <=1 S Ceftriaxone $ <=1 S Ciprofloxacin $ <=0.25 S ESBL - Ertapenim $$$ <=0.5 S Gentamicin $ <=1 S Imipenem *NF <=0.25 S Levofloxacin $ <=0.12 S Nitrofurantoin $ <=16 S Piperacillin/Tazobactam $$ <=4 S Tobramycin $ <=1 S Trimethoprim/Sulfametho $ >=320 R (NF) indicates non-formulary drug at [facility]. Approval by Infectious Disease Specialist required before non-formulary drugs may be ordered and/or dispensed. Performed By: #### M100.0650 #### [facility] [address] [facility]. [place], [place], [address] PROGRESS Observed: 08/09/2017 Status: COMPLETED Source: [place] 12:12 PM [facility] REPOSITORY HNO ID: [id number] Author: Ronnie Desir Service: (none) Author Type: Physician Type: Progress Notes Filed: 08/09/2017 12:27 PM Note Text: Patient presents with: Cough: with congestion x 3 weeks HPI: Coughing for 3 weeks, started in [place]. Symptoms are waxing and waning. Her was seen with the flu this week. Positive symptoms: Cough, Shortness of breath, Wheezing, Earache, maxillary Sinus pressure, Nasal Congestion, Post nasal drainage, Negative symptoms: Sorethroat, Fever, Chills, OTC: Cold Medicine Denies asthma but had bronchitis and strep throat a lot as a kid. PAST MEDICAL HISTORY Diagnosis Date - Hepatitis C Inactive - Human T-cell lymphotrophic virus, type I (HTLV-I) - Hypercholesteremia - Osteoarthritis of knee s/p knee replacements. - Vitamin D deficiency - Vulvar pain MEDICATIONS: Current Outpatient Prescriptions: fexofenadine (CHANTE) 180 mg tablet Take 1 tablet by mouth once daily. No current facility-administered medications for this visit. ALLERGIES: ALLERGIES Allergen Reactions - Premarin [Conjugate* Itching had vaginal itch with premarin vag crea; stopped - Fosamax [Alendronat* Intolerance [place] like going to explode from inside out. - Penicillins Hives - Sulfa (Sulfonamide * Other: See Comments headache VITALS: BP 136/86 Pulse 87 Temp 37.4 ?C (99.3 ?F) (Tympanic) Resp 20 Wt 79.8 kg (176 lb) SpO2 97% BMI 34.95 kg/m2 PHYSICAL EXAM: GEN: mildly ill appearing HEENT: PERRL, EOMI, conjunctiva clear Ears: canals clear, TMs without erythema, bulge, or effusion Sinuses: non-tender frontal sinus, pressure over maxillary sinuses Throat: moist mucous membranes, mild erythema, no exudate Neck: supple, no thyromegaly, no lymphadenopathy HEART: regular rate and rhythm, no murmurs LUNGS: clear to auscultation, no wheezes or crackles, no increased WOB ASSESSMENT/PLAN: 1. Cough - ICD9: 786.2, ICD10: R05 (primary diagnosis) 2. Acute non-recurrent sinusitis, unspecified location - ICD9: 461.9, ICD10: J01.90 - DOXYCYCLINE MONOHYDRATE 100 MG CAPSULE - PREDNISONE 10 MG TABLET Ronnie Desir MD PROGRESS Observed: 07/29/2017 Status: COMPLETED Source: [place] 5:23 PM [facility] REPOSITORY HNO ID: [id number] Author: Nguyen Maravilla (Arielle) BUCKY Valles Service: (none) Author Type: Nurse Practitioner Type: Progress Notes Filed: 07/29/2017 5:27 PM Note Text: HPI Patient presents with: Derm Problem: red and swollen area on back of left ankle x friday States possible bug bite. Benadryl otc with minimal relief. Review of Systems Skin: Red and swollen area on back of left ankle x friday All other systems reviewed and are negative. PAST MEDICAL HISTORY Diagnosis Date - Hepatitis C Inactive - Human T-cell lymphotrophic virus, type I (HTLV-I) - Hypercholesteremia - Osteoarthritis of knee s/p knee replacements. - Vitamin D deficiency - Vulvar pain PAST SURGICAL HISTORY Procedure Laterality Date - APPENDECTOMY 1982 - LIGATE FALLOPIAN TUBE Tubal ligation - REMOVAL GALLBLADDER 1987 - REMOVAL OF OVARY(S) Oophorectomy - TOTAL KNEE REPLACEMENT 2004 Knee replacement, total, bilateral - UNLISTED PX FEMALE GENITAL SYSTEM NONOBSTETRICAL 03/26/10 Performed by GANESH MALDONADO at [facility] - VAGINAL HYSTERECTOMY 1983 Hysterectomy, vaginal ALLERGIES Premarin [Conjugated Estrogens]; Fosamax [Alendronate Sodium]; Penicillins; Sulfa (Sulfonamide Antibiotics) MEDICATIONS fexofenadine (CHANTE) 180 mg tablet Take 1 tablet by mouth once daily. doxycycline monohydrate (MONODOX) 100 mg capsule Take 1 capsule by mouth twice daily for 10 days. FAMILY HISTORY Problem Relation Age of Onset - Heart Father - Kidney disease [Other] [OTHER] Mother - Heart Sister - Heart Brother - Diabetes Brother - Hypertension Brother - Thyroid Sister - Thyroid Sister - Thyroid Sister - Heart Mother - Stroke Mother Social History Substance Use Topics - Smoking status: Never Smoker - Smokeless tobacco: Never Used - Alcohol use No Physical Exam Skin: Nursing note and vitals reviewed. ASSESSMENT/PLAN: 1. Infected insect bite of ankle, initial encounter - ICD9: 916.5, E906.4, ICD10: S90.569A, L08.9, W57.XXXA - Begin treatment with Doxycyline - No lymphangetic streaking, this was defined for patient to watch for and to seek medical care immediately if appears - Area of cellulitis defined with pen, seek further attention if this area continues to enlarge - Follow up for recheck in three days if symptoms are not improving or worsening Prescription instructions reviewed with patient as applicable. Patient advised if symptoms do not improve or if symptoms worsen sooner, to contact their primary care physician. Potential red flag symptoms discussed with the patient. Reviewed appropriate action plan to take if red flag symptoms occur. Patient agreeable to treatment plan. Nguyen Valles CNP CNOV Observed: 07/29/2017 Status: COMPLETED Source: [place] 3:45 PM [facility] REPOSITORY Office Visit ([facility]) MANISHA TIM ([id number]) 1955 F Date Time Provider Department 07/29/17 3:45 PM NGUYEN VALLES (SENIOR JAVA J2EE DEVELOPER) WSTR During your visit today, we recorded the following information about you: Temperature Pulse Respiration Blood pressure 99 degrees 82/minute 18/minute 138/78 Weight 80.7 kg Nguyen Valles CNP, CNP 07/29/2017 5:27 PM Signed HPI Patient presents with: Derm Problem: red and swollen area on back of left ankle x friday States possible bug bite. Benadryl otc with minimal relief. Review of Systems Skin: Red and swollen area on back of left ankle x friday All other systems reviewed and are negative. PAST MEDICAL HISTORY Diagnosis Date - Hepatitis C Inactive - Human T-cell lymphotrophic virus, type I (HTLV-I) - Hypercholesteremia - Osteoarthritis of knee s/p knee replacements. - Vitamin D deficiency - Vulvar pain PAST SURGICAL HISTORY Procedure Laterality Date - APPENDECTOMY 1982 - LIGATE FALLOPIAN TUBE Tubal ligation - REMOVAL GALLBLADDER 1987 - REMOVAL OF OVARY(S) Oophorectomy - TOTAL KNEE REPLACEMENT 2004 Knee replacement, total, bilateral - UNLISTED PX FEMALE GENITAL SYSTEM NONOBSTETRICAL 03/26/10 Performed by GANESH MALDONADO at [facility] - VAGINAL HYSTERECTOMY 1983 Hysterectomy, vaginal ALLERGIES Premarin [Conjugated Estrogens]; Fosamax [Alendronate Sodium]; Penicillins; Sulfa (Sulfonamide Antibiotics) MEDICATIONS fexofenadine (CHANTE) 180 mg tablet Take 1 tablet by mouth once daily. doxycycline monohydrate (MONODOX) 100 mg capsule Take 1 capsule by mouth twice daily for 10 days. FAMILY HISTORY Problem Relation Age of Onset - Heart Father - Kidney disease [Other] [OTHER] Mother - Heart Sister - Heart Brother - Diabetes Brother - Hypertension Brother - Thyroid Sister - Thyroid Sister - Thyroid Sister - Heart Mother - Stroke Mother Social History Substance Use Topics - Smoking status: Never Smoker - Smokeless tobacco: Never Used - Alcohol use No Physical Exam Skin: Nursing note and vitals reviewed. ASSESSMENT/PLAN: 1. Infected insect bite of ankle, initial encounter - ICD9: 916.5, E906.4, ICD10: S90.569A, L08.9, W57.XXXA - Begin treatment with Doxycyline - No lymphangetic streaking, this was defined for patient to watch for and to seek medical care immediately if appears - Area of cellulitis defined with pen, seek further attention if this area continues to enlarge - Follow up for recheck in three days if symptoms are not improving or worsening Prescription instructions reviewed with patient as applicable. Patient advised if symptoms do not improve or if symptoms worsen sooner, to contact their primary care physician. Potential red flag symptoms discussed with the patient. Reviewed appropriate action plan to take if red flag symptoms occur. Patient agreeable to treatment plan. Nguyen Valles CNP Referring Provider: SELF [200] Allergies As of Date: 07/29/2017 Noted Allergy Reaction PREMARIN (CONJUGATED ESTROGENS) 12/05/2005 9 - Itching Comments: had vaginal itch with premarin vag crea; stopped FOSAMAX (ALENDRONATE SODIUM) 07/04/2011 5 - Intolerance Comments: [place] like going to explode from inside out. PENICILLINS 05/13/2005 4 - Hives SULFA (SULFONAMIDE ANTIBIOTICS) 05/13/2005 14 - Other: See Comments Comments: headache Date Reviewed: 07/29/2017 Reviewed by: Deidra Wagner Ma - Fully Assessed Reason for Visit: Derm Problem [33] Cmt: red and swollen area on back of left ankle x friday Primary Visit Diagnosis:Infected insect bite of ankle, initial encounter [S90.569A, L08.9, W57.XXXA] Order(s):doxycycline monohydrate (MONODOX) 100 mg capsuleTake 1 capsule by mouth twice daily for 10 days.Disp: 20 capsuleRfl: 0 Prescriptions as of 07/29/2017 Sig: FEXOFENADINE 180 MG TABLET Take 1 tablet by mouth once d* DOXYCYCLINE MONOHYDRATE 100 M* Take 1 capsule by mouth twice* Problem List As Of Date 07/29/2017 Noted Resolved BENIGN HYPERTENSION [I10] INVALID FOR* Postmenopausal Atrophic Vaginitis [N95.2] INVALID FOR* 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 Disposition: Return if symptoms worsen or fail to improve. Follow-up and Disposition History Recorded Encounter Status:Closed by NGUYEN VALLES on 07/29/17 ALLERGIES ALLERGIES DATE TYPE / NAME / CODE REACTION SEVERITY SOURCE CODE 07/08/2018 Drug Penicillins/[id number] Rash Unknown [place] Allergy/41 76(RXNORM) Community 3580814([facility]) Repository 07/08/2018 Drug Sulfa (Sulfonamide Rash Unknown [place] Allergy/41 Antibiotics)/N778167 Community 8328698([facility](RXNORM) [facility]) Repository 07/08/2018 Drug estrogens, Itching [place] Allergy/41 conjugated/X11425166 Community 9485809([facility](RXNORM) [facility]) Repository 07/08/2018 Drug nitrofurantoin/F0060 Hives [place] Allergy/41 30517(RXNORM) Community 4501701([facility]) Repository 07/08/2018 Drug alendronate Hives [place] Allergy/41 sodium/J721988451(RX Community 0337841([facility]) Repository 01/31/2018 DRUG NITROFURANTOIN INTOLERANCE [address] Main 6774076([facility]) Repository 07/04/2011 DRUG ALENDRONATE SODIUM INTOLERANCE [address] Main 1717275([facility]) Repository 12/05/2005 DRUG/40402 CONJUGATED ESTROGENS ITCHING [place] 1003([facility] Main D CT) [place] Repository 05/13/2005 Drug PENICILLINS HIVES [place] Class/4195 Clinic Main [address]([facility] ED CT) Repository 05/13/2005 Drug SULFA (SULFONAMIDE OTHER: SEE C [place] Class/4195 ANTIBIOTICS) [facility] Main [address]([facility] ED CT) Repository ENCOUNTERS ENCOUNTERS ADMIT/DISCHARGE ACCOUNT NUMBER ADMITTING ENCOUNTER LOCATION SOURCE CLASS 07/16/2018/07/16/19 [id number] Ambulatory BMSBuilding: [place] [facility] Repository 07/08/2018/07/09/19 [id number] Emergency [address] ding:ED Repository 07/03/2018 [id number] Ambulatory [facility] ding:LABSPEC Repository 07/03/2018/07/03/20 [id number] Ambulatory BMSBuilding: [place] 18 BMS.[facility] Repository 06/24/2018/06/24/20 [id number] Ambulatory BMSBuilding: [place] [facility] Repository 06/24/2018 [id number] Ambulatory [facility] ding:LABSPEC Repository 06/21/2018/06/21/20 [id number] Emergency BBuilding:FELIX Sifuentes [address] [place] [address] Repository 06/16/2018 [id number] Ambulatory [facility] ding:OPBD Repository 06/09/2018 [id number] Ambulatory [facility] ding:OPBD Repository 05/12/2018/05/12/20 [id number] [facility] [place] [facility] 05/07/2018 [id number] Ambulatory [facility] ding:LAB Repository 04/22/2018 [id number] Ambulatory [facility] ding:EN Repository 04/09/2018/04/09/20 [id number] Ambulatory BMSBuilding: [place] 18 BMS.[facility] Repository 04/08/2018/04/08/20 [id number] Ambulatory BMSBuilding: [place] [facility] Repository 02/13/2018/02/17/20 [id number] Ambulatory [address] Repository 01/31/2018/02/01/20 [id number] Ambulatory [address] Repository 01/31/2018/02/03/20 [id number] Ambulatory [address] Repository 01/27/2018/01/28/20 [id number] Emergency [place] [address] [place] [address] ding:ED Repository 08/09/2017/08/09/19 [id number] Ambulatory [address] Repository 07/29/2017/07/29/19 [id number] Ambulatory [address] Repository PAYERS PAYERS ENCOUNTER GUARANTOR PAYER SUBSCRIBER SOURCE 07/16/2018 MANISHA L Primary MANISHA L [place] [id number] [place] Insurance:PARUL GRAHAMDOB: [facility] [id number] [place] [id number]: [phone]) HMOPolicy Number: Repository [phone] () [id number] e Date:4216-08-49AD [facility] [address] [place] [address]GC: 07/16/2018 Secondary NOT GIVENUNK [place] Insurance:SELF PAY [facility] Number: Effective Repository Date:2018-07-16 07/08/2018 MANISHA L Primary MANISHA L [place] [id number] [place] Insurance:PARUL GRAHAMDOB: [facility] [id number] Hospital [address]Ohh: (330) [employer] Number: Repository [phone] () [id number] e Date:0387-71-62[address], [place] [address]QI: 07/08/2018 Secondary NOT GIVENUNK [place] Insurance:SELF PAY [facility] Number: Effective Repository Date:2018-07-08 07/03/2018 MANISHA L Primary MANISHA L [place] [id number] [place] Insurance:PARUL GRAHAMDOB: [facility] [id number] Ville [id number]: (330) [employer] Number: Repository [phone] () [id number] e Date:2082-74-64RL [address], [place] [address]BC: 07/03/2018 Secondary NOT GIVENUNK [place] Insurance:SELF PAY [facility] Number: Effective Repository Date:2018-07-03 07/03/2018 MANISHA L Primary MANISHA L [place] [id number] [place] Insurance:PARUL GRAHAMDOB: [facility] [id number] Ville [id number]: (330) OPolicy Number: Repository [phone] () [id number] e Date:6167-24-72OP [address], [place] [address]JE: 07/03/2018 Secondary NOT GIVENUNK [place] Insurance:SELF PAY [facility] Number: Effective Repository Date:2018-07-03 06/24/2018 MANISHA L Primary MANISHA L [place] [id number] [place] Insurance:PARUL GRAHAMDOB: [facility] [id number] Hospital [address]Zev: (330) OPolicy Number: Repository [phone] () [id number] e Date:0980-45-80TV [address], [place] [address]BP: 06/24/2018 Secondary NOT GIVENUNK [place] Insurance:SELF PAY [facility] Number: Effective Repository Date:2018-06-24 06/24/2018 MANISHA L Primary MANISHA L [place] [id number] [place] Insurance:PARUL GRAHAMDOB: [facility] [id number] Hospital [address]Xek: (330) OPolicy Number: Repository [phone] () [id number] e Date:4392-82-58GT [address], [place] [address]GM: 06/24/2018 Secondary NOT GIVENUNK [place] Insurance:SELF PAY [facility] Number: Effective Repository Date:2018-06-24 06/21/2018 MANISHA GRAHAMDOB: Primary MANISHA ARAVINDAMDOB: [facility] Insurance:[facility] [id number] [facility] INSCOPolicy Number: [place] Repository [place] [id number] [facility] [place] [address]~GLORYSMAST e Date:2018-06-21Tel: [phone] [email or web address]: [phone] Name:[address] ()Tel: 000) [address], [place] 000[address] ) [address]WP: 06/16/2018 MANISHA L Primary MANISHA L [place] [id number] [place] [facility] [id number] Hospital [address]Ewd: 330) [employer] Number: [phone] () [id number] e Date:2441-31-52KF [address] [place] [address]EK: 06/16/2018 Secondary NOT GIVENUNK [place] Insurance:SELF PAY [facility] Number: Effective Repository Date:2018-06-09 06/09/2018 MANISHA L Primary MANISHA L [place] [id number] [place] Insurance:[facility]: [facility] [id number] Hospital [address]Sud: (330) OPolicy Number: Repository [phone] () [id number] e Date:0818-68-38VR [address] [place] [address]BB: 06/09/2018 Secondary NOT GIVENUNK [place] Insurance:SELF PAY [facility] Number: Effective Repository Date:2018-04-17 05/12/2018 MANISHA L Primary MANISHA L [place] [id number] [place] Insurance:[facility]: [facility] [id number] Hospital [address]Yop: (330) [employer] Number: Repository [phone] () [id number] e Date:3453-10-31ZD [address], [place] [address]CU: 05/12/2018 Secondary NOT GIVENUNK [place] Insurance:SELF PAY [facility] Number: Effective Repository Date:2018-05-12 05/07/2018 MANISHA L Primary MANISHA L [place] [id number] [place] Insurance:PARUL GRAHAMDOB: [facility] [id number] [place] [id number]: (330) OPolicy Number: Repository [phone] () [id number] e Date:4498-85-68RD [address], [place] [address]RG: 05/07/2018 Secondary NOT GIVENUNK [place] Insurance:SELF PAY [facility] Number: Effective Repository Date:2018-05-07 04/22/2018 MANISHA L Primary MANISHA L [place] [id number] [place] Insurance:PARUL GRAHAMDOB: [facility] [id number] Ville [id number]: (330) [employer] Number: Repository [phone] () [id number] e Date:2930-01-96SU [address], [place] [address]JD: 04/22/2018 Secondary NOT GIVENUNK [place] Insurance:SELF PAY [facility] Number: Effective Repository Date:2018-04-09 04/09/2018 MANISHA L Primary MANISHA L [place] [id number] [place] Insurance:PARUL GRAHAMDOB: [facility] [id number] [place] [id number]: (330) [employer] Number: Repository [phone] () [id number] e Date:9709-88-36RI [address], [place] [address]HQ: 04/09/2018 Secondary NOT GIVENUNK [place] Insurance:SELF PAY [facility] Number: Effective Repository Date:2018-04-09 04/08/2018 MANISHA L Primary MANISHA [id number] [place] Insurance:PARUL BAKERB: [place] [employer] [id number] Hospital [address]Nch: 330 OPolicy Number: Repository [phone] () [id number] e Date:0623-05-56RE [address], [place] [address]CJ: 04/08/2018 Secondary NOT GIVENUNK [place] Insurance:SELF PAY [facility] Number: Effective Repository Date:2018-03-18 01/27/2018 MANISHA L Primary NOT GIVENUNK [place] [id number] Insurance:SELF PAY [place] Number: Effective Repository [phone]: (330) Date:2018-01-27-6201 ()
== END ==
PROVIDERS: Family Provider Internal Medicine; PCP Internal Medicine; Visit Provider Internal Medicine
DX: Z78.0 Asymptomatic menopausal state (principal)
CPT/HCPCS: 77080

== ENCOUNTER → 2018-06-24 10:49 | Outpatient (CLI) | payer MEDICARE, SELFPAY ==
[2018-06-24 13:26] VITALS: BMI 34.3
[2018-06-25 11:13] LABS: Glucose, Dipstick Normal (Normal); Ketone-Dipstick Negative (Negative); Leukocyte Esterase-Dipstick 500 /ul (Negative); Nitrite-Dipstick Positive (Negative); Occult Blood-Urine 25 /ul (Negative); Protein-Dipstick 30 mg/dl (Negative); Specific Gravity, Urine 1.005 (1.002-1.030); Urine Bilirubin Dipstick Negative (Negative); Urine Urobilinogen Normal (Normal)
[2018-06-25 11:14] LABS: Color, Urine Yellow (Yellow); Urine Clarity Sl Cloudy (Clear)
[2018-06-25 11:44] LABS: Bacteria RARE /hpf (None Seen); Hyaline Cast 0-5 SEEN /lpf (0-5); Mucous, Urine RARE /hpf (<or=2+); Red Blood Cells-Urine 0-5 SEEN /hpf (0-5); Squamous Epithelial Cells - UA 0-5 SEEN /hpf (5-10); White Blood Cells 0-5 SEEN /hpf (0-5)
[2018-06-25 12:13] LABS: Triple Phosphate Crystals Ur 2+ /hpf (<or=1+)
== END ==
PROVIDERS: Family Provider Internal Medicine; PCP Internal Medicine; Referring Provider Internal Medicine; Visit Provider Internal Medicine
DX: N39.0 Urinary tract infection, site not specified (principal)
CPT/HCPCS: 81001; 87086; 87088; 87186

== ENCOUNTER → 2018-07-03 14:29 | Outpatient (CLI) | payer MEDICARE, SELFPAY ==
[2018-07-03 11:53] VITALS: BMI 34.6
[2018-07-03 15:11] LABS: Bacteria 0 SEEN /hpf (None Seen); Mucous, Urine 0 SEEN /hpf (<or=2+)
[2018-07-03 15:55] LABS: Color, Urine Yellow (Yellow); Glucose, Dipstick Normal (Normal); Ketone-Dipstick Negative (Negative); Leukocyte Esterase-Dipstick 25 /ul (Negative); Nitrite-Dipstick Negative (Negative); Occult Blood-Urine 50 /ul (Negative); Protein-Dipstick Negative (Negative); Specific Gravity, Urine 1.015 (1.002-1.030); Urine Bilirubin Dipstick Negative (Negative); Urine Urobilinogen Normal (Normal)
[2018-07-03 16:34] LABS: Red Blood Cells-Urine 0-5 SEEN /hpf (0-5); Squamous Epithelial Cells - UA 5-10 SEEN /hpf (5-10); White Blood Cells 0-5 SEEN /hpf (0-5)
[2018-07-03 16:35] LABS: Amorphous Sediment 1+ PHOS; Urine Clarity Sl Cldy (Clear)
== END ==
PROVIDERS: Family Provider Internal Medicine; PCP Internal Medicine; Referring Provider Physician Assistant Surgical; Visit Provider Physician Assistant Surgical
DX: R30.0 Dysuria (principal)
CPT/HCPCS: 81001; 87086; 87088

== ENCOUNTER 2018-07-08 20:26 | Emergency (ER) | payer MEDICARE, SELFPAY ==
[2018-07-03 11:53] VITALS: BMI 34.6
[2018-07-08 20:27] VITALS: BP 169/73; PULSE 100; RESP 16; TEMP 36.8; O2SAT 98; BMI 34.6
--- NOTE | 2018-07-08 20:36 | EKG12_ITS ---
Test Reason : CP Blood Pressure : / mmHG Vent. Rate : 095 BPM Atrial Rate : 095 BPM P-R Int : 154 ms QRS Dur : 072 ms QT Int : 344 ms P-R-T Axes : 049 048 058 degrees QTc Int : 432 ms Normal sinus rhythm Normal ECG Confirmed by [place] EWING, RICHARD ([id number]), order editor JOHN ROBLES ([id number]) on 07/10/2018 2:28:32 PM Referred By: Dhruv Whitt Confirmed By:RICHARD ALEJANDRA MD
[2018-07-08 21:54] VITALS: BP 157/80; PULSE 90; RESP 16; TEMP 36.7; O2SAT 97
[2018-07-08 22:39] VITALS: BP 157/71; PULSE 84; RESP 16; TEMP 36.7; O2SAT 96
[2018-07-08] MEDS: 0.9% Normal Saline 1,000 ML 999 ML IV (22:40)
[2018-07-08] MEDS: Ketorolac 15 MG/ML Vial IV (22:40)
[2018-07-08 22:57] LABS: Absolute Lymphocyte Count 1.41 X10^3/ul (0.83-4.51); Absolute Neutrophil Count 6.4 X10^3/uL (2.0-7.7); Basophil# 0.03 X10^3/uL; Basophil% 0.3 % (0-1); Eosinophil# 0.05 X10^3/uL; Eosinophils% 0.6 % (0-5); Hematocrit 42.1 % (37-47); Hemoglobin 13.8 g/dl (12.0-15.0); Lymphocyte # 1.41 X10^3/ul (4.0); Lymphocyte % 16.2 % (19-41); Mean Corp Hgb Conc 32.8 g/gl (32-36); Mean Corpuscular Hgb 29.4 pg (27.0-32.0); Mean Corpuscular Volume 89.8 fL (81-99); Mean Platelet Vol. 10.7 fl (6.2-12.0); Monocyte# 0.87 X10^3/uL; Neutrophil # 6.35 X10^3/uL (2.7-7.7); Neutrophil % 72.8 % (47-70); POSITIVE COUNT NO; POSITIVE DIFFERENTIAL NO; POSITIVE MORPHOLOGY NO; Platelet Count 264 K/mm3 (150-450); RBC Distribution Width CV 12.6 % (11.6-14.6); RBC Distribution Width SD 41.4 fl (35.1-43.9); Red Blood Count 4.69 M/mm3 (4.2-5.4); White Blood Count 8.7 K/mm3 (4.4-11.0)
[2018-07-08 23:06] LABS: Anion Gap 10 (5-15); BUN 17 mg/dL (7-18); BUN/Creat Ratio 19.4 RATIO (10-20); CPK Total, Creatine Kinase 39 U/L (26-192); Calcium,Total 8.3 mg/dL (8.5-10.1); Chloride 105 mmol/L (98-107); Creatinine, Serum 0.88 mg/dL (0.55-1.02); EST Glomerular Filtration Rate 69 mL/min (>60); Est Glom Filt Rate - Afr Amer 83 mL/min (>60); Estimated Creatinine Clearance 78.18 ml/min; Glucose 104 mg/dL (74-106); Potassium 3.9 mmol/L (3.5-5.1); Sodium Level 139 mmol/L (136-145)
[2018-07-08 23:21] VITALS: BP 128/68; PULSE 79; RESP 20; TEMP 36.7; O2SAT 96
--- NOTE | 2018-07-08 23:50 | ED.VISSUMM ---
- ER Visit Summary Date of Service: 07/08/18 Chief Complaint: Myalgias arthralgias History of Present Illness: The patient is a 63 F who complains of muscle and joint aches. She complains of diffuse pain. This is been going on for 3 days. She also complains of cough and headache. She thought this may be reaction to Keflex which she recently began taking. No rash. No difficulty breathing. No fevers or chest pain. Physical Examination: Afebrile vitals unremarkable Moist mucous membranes Heart regular rate and rhythm Lungs are clear Abdomen soft Alert Muscles soft and nontender Test Results: CBC BMP and creatinine kinase all normal. Emergency Department Course and Treatment: Patient was treated with IV fluids and Toradol and feels much better on reevaluation. She was advised to follow-up with her primary care physician as needed and was discharged home. She understands to return for new or worsening symptoms. Treatment Plan: [] Disposition: Discharge Impression: Myalgias This note was generated with [employer] dictation software. It may contain incorrect words, spelling, and punctuation that were not noted in review of the chart prior to signing ED Disposition - Plan for ED Patient: Chief Complaint: Allergic Reaction Referrals: Benjamin Chopra MD [Primary Care Provider] -
--- NOTE | 2018-07-08 23:51 | ED.DEP ---
ED Disposition - Plan for ED Patient: Chief Complaint: Allergic Reaction Instructions: ED Muscle Aching Referrals: Benjamin Chopra MD [Primary Care Provider] -
[2018-07-09 00:04] VITALS: BP 146/80; PULSE 80; RESP 18; O2SAT 97
== END 2018-07-09 00:05 | disposition home or self-care (01) ==
LOC: ED 22:24
PROVIDERS: Emergency Provider Emergency Medicine; Family Provider Internal Medicine; PCP Internal Medicine
DX: M79.10 Myalgia, unspecified site (principal); I10 Essential (primary) hypertension; Z79.899 Other long term (current) drug therapy
CPT/HCPCS: 80048; 82550; 85025; 93005; 96361; 96374; 99285; J7030; A4216

== ENCOUNTER → 2019-02-09 | Outpatient (CLI) | payer MEDICARE, SELFPAY ==
[2019-01-20 09:10] VITALS: BMI 34.6
[2019-02-09 12:35] LABS: Anion Gap 8 (5-15); BUN 21 mg/dL (7-18); Calcium,Total 8.4 mg/dL (8.5-10.1); Chloride 108 mmol/L (98-107); Creatinine, Serum 0.88 mg/dL (0.55-1.02); EST Glomerular Filtration Rate 69 mL/min (>60); Est Glom Filt Rate - Afr Amer 83 mL/min (>60); Glucose 93 mg/dL (74-106); Potassium 4.1 mmol/L (3.5-5.1); Sodium Level 139 mmol/L (136-145)
== END | disposition home or self-care (01) ==
LOC: BIMLAB 08:02
PROVIDERS: PCP Internal Medicine; Visit Provider Internal Medicine
DX: I10 Essential (primary) hypertension (principal)
CPT/HCPCS: 36415; 80048

== ENCOUNTER → 2019-07-16 11:52 | Outpatient (CLI) | payer MEDICARE, SELFPAY ==
[2019-07-16 10:59] VITALS: BMI 34.6
[2019-07-16 14:16] LABS: Absolute Lymphocyte Count 2.27 X10^3/uL (0.83-4.51); Absolute Neutrophil Count 3.1 X10^3/uL (2.0-7.7); Basophil# 0.07 X10^3/uL; Basophil% 1.2 % (0-1); Eosinophil# 0.11 X10^3/uL; Eosinophils% 1.8 % (0-5); Hematocrit 43.4 % (37-47); Hemoglobin 13.7 g/dL (12.0-15.0); Lymphocyte # 2.27 X10^3/ul (4.0); Lymphocyte % 37.6 % (19-41); Mean Corp Hgb Conc 31.6 g/dL (32-36); Mean Corpuscular Hgb 29.5 pg (27.0-32.0); Mean Corpuscular Volume 93.5 fL (81-99); Mean Platelet Vol. 10.5 fl (6.2-12.0); Monocyte# 0.47 X10^3/uL; Monocyte% 7.8 % (0-10); NRBC Flagged by Analyzer 0 % (0-5); Neutrophil # 3.09 X10^3/uL (2.7-7.7); Neutrophil % 51.1 % (47-70); Platelet Count 325 K/mm3 (150-450); RBC Distribution Width CV 12.3 % (11.6-14.6); RBC Distribution Width SD 42.3 fl (35.1-43.9); Red Blood Count 4.64 M/mm3 (4.2-5.4)
[2019-07-16 14:35] LABS: ALB/GLOB Ratio 1.1 RATIO (0.9-2.4); AST(SGOT) 18 U/L (15-37); Alanine Aminotransfer ALT/SGPT 30 U/L (13-56); Albumin, Serum 3.8 g/dL (3.2-5.0); Alkaline Phosphatase 51 U/L (45-117); Anion Gap 2 (5-15); BUN 17 mg/dL (7-18); BUN/Creat Ratio 19.7 RATIO (10-20); Calcium,Total 9.2 mg/dL (8.5-10.1); Chloride 110 mmol/L (98-107); Cholesterol 234 mg/dL (200); Creatinine, Serum 0.86 mg/dL (0.55-1.02); EST Glomerular Filtration Rate 70 mL/min (>60); Est Glom Filt Rate - Afr Amer 85 mL/min (>60); Globulin 3.5 g/dL (2.2-4.2); Glucose 89 mg/dL (74-106); High Density Lipoprotein 52 mg/dL; Potassium 4.6 mmol/L (3.5-5.1); Protein, Total 7.3 g/dL (6.4-8.2); Sodium Level 140 mmol/L (136-145); Triglycerides 246 mg/dL; Very Low Density Lipoprotein 49 mg/dL (5-40)
== END ==
PROVIDERS: PCP Internal Medicine; Visit Provider Internal Medicine
DX: K21.9 Gastro-esophageal reflux disease without esophagitis (principal); E78.5 Hyperlipidemia, unspecified; I10 Essential (primary) hypertension
CPT/HCPCS: 36415; 80053; 80061; 85025

== ENCOUNTER → 2019-10-19 | Outpatient (CLI) | payer MEDICARE, SELFPAY ==
[2019-10-18 08:38] VITALS: BMI 34.6
[2019-10-19 13:24] LABS: ALB/GLOB Ratio 1.2 RATIO (0.9-2.4); AST(SGOT) 23 U/L (15-37); Alanine Aminotransfer ALT/SGPT 44 U/L (13-56); Albumin, Serum 3.8 g/dL (3.2-5.0); Alkaline Phosphatase 36 U/L (45-117); Anion Gap 5 (5-15); BUN 23 mg/dL (7-18); Calcium,Total 9.2 mg/dL (8.5-10.1); Chloride 108 mmol/L (98-107); EST Glomerular Filtration Rate 59 mL/min (>60); Est Glom Filt Rate - Afr Amer 71 mL/min (>60); Globulin 3.3 g/dL (2.2-4.2); Glucose 74 mg/dL (74-106); Potassium 4.2 mmol/L (3.5-5.1); Protein, Total 7.1 g/dL (6.4-8.2); Sodium Level 141 mmol/L (136-145)
== END | disposition home or self-care (01) ==
LOC: LABSPEC 12:57
PROVIDERS: PCP Internal Medicine; Referring Provider Internal Medicine; Visit Provider Internal Medicine
DX: I10 Essential (primary) hypertension (principal)
CPT/HCPCS: 80053

== ENCOUNTER → 2019-12-09 | Outpatient (CLI) | payer MEDICARE, SELFPAY ==
[2019-12-09 14:50] VITALS: BMI 34.6
== END | disposition home or self-care (01) ==
LOC: LABSPEC 16:43
PROVIDERS: PCP Internal Medicine; Referring Provider Nurse Practitioner Women's Health; Visit Provider Nurse Practitioner Women's Health
DX: N95.2 Postmenopausal atrophic vaginitis (principal)
CPT/HCPCS: 87070; 87205

== ENCOUNTER → 2020-01-18 | Outpatient (CLI) | payer MEDICARE, SELFPAY ==
[2020-01-18 08:09] VITALS: BMI 34.6
[2020-01-18 12:51] LABS: Anion Gap 7 (5-15); BUN 31 mg/dL (7-18); Calcium,Total 9.5 mg/dL (8.5-10.1); Chloride 106 mmol/L (98-107); Creatinine, Serum 1.07 mg/dL (0.55-1.02); EST Glomerular Filtration Rate 54 mL/min (>60); Est Glom Filt Rate - Afr Amer 66 mL/min (>60); Glucose 87 mg/dL (74-106); Potassium 4.2 mmol/L (3.5-5.1); Sodium Level 140 mmol/L (136-145)
== END | disposition home or self-care (01) ==
LOC: BIMLAB 08:36
PROVIDERS: PCP Internal Medicine; Referring Provider Internal Medicine; Visit Provider Internal Medicine
DX: I10 Essential (primary) hypertension (principal)
CPT/HCPCS: 36415; 80048

== ENCOUNTER → 2020-01-24 | Outpatient (CLI) | payer MEDICARE, SELFPAY ==
[2020-01-18 08:09] VITALS: BMI 34.6
--- NOTE | 2020-01-24 07:38 | BI_ITS ---
MAMMOGRAPHY - BILATERAL SCREENING 3-D TOMOSYNTHESIS REASON FOR EXAM: Female, 64 years old. Routine screening PERTINENT HISTORY: No significant family history. TECHNIQUE: 2-D mammograms and 3-D Tomosynthesis of the breast (s) were performed. CAD was performed. COMPARISON: 06/09/2018 FINDINGS: The breast composition is almost entirely fat. Scattered benign calcifications are seen. No dense spiculated masses or suspicious microcalcifications are identified. No architectural distortion is identified. There is no skin thickening or retraction. There has been no significant change since the prior study. BI/SCREEN MAMM (CAD) W/TASHA BILAT IMPRESSION: No mammographic signs of malignancy. Routine yearly mammograms recommended. ASSESSMENT CATEGORY: BIRADS Category 1: Negative. A letter regarding these results will be sent to the patient by the facility within 30 days. FOLLOW UP RECOMMENDATION: Yearly follow up mammogram recommended. (A) Approximately 10% of breast cancers are not detected by mammography. A normal mammogram should not delay biopsy of a clinically suspicious abnormality. Electronically Signed: Rashaad Black MD at 8:45 EDT , Service support ,
== END | disposition home or self-care (01) ==
LOC: OPBI 07:38
PROVIDERS: PCP Internal Medicine; Referring Provider Internal Medicine; Visit Provider Internal Medicine
DX: Z12.31 Encounter for screening mammogram for malignant neoplasm of breast (principal)
CPT/HCPCS: 77063; 77067

== ENCOUNTER → 2020-02-23 | Outpatient (CLI) | payer MEDICARE, SELFPAY ==
[2020-02-23 10:38] VITALS: BMI 34.6
[2020-02-23 10:50] LABS: Mucous, Urine 0 SEEN /hpf (<or=2+)
[2020-02-23 12:43] LABS: Anion Gap 4 (5-15); BUN 24 mg/dL (7-18); BUN/Creat Ratio 20.3 RATIO (10-20); Chloride 105 mmol/L (98-107); Creatinine, Serum 1.18 mg/dL (0.55-1.02); EST Glomerular Filtration Rate 49 mL/min (>60); Est Glom Filt Rate - Afr Amer 59 mL/min (>60); Glucose 123 mg/dL (74-106); Potassium 3.7 mmol/L (3.5-5.1); Sodium Level 140 mmol/L (136-145)
[2020-02-23 12:48] LABS: Color, Urine Yellow (Yellow); Glucose, Dipstick Normal (Normal); Ketone-Dipstick Negative (Negative); Leukocyte Esterase-Dipstick 500 /ul (Negative); Nitrite-Dipstick Negative (Negative); Occult Blood-Urine 250 /ul (Negative); Protein-Dipstick Negative (Negative); Specific Gravity, Urine 1.015 (1.002-1.030); Urine Bilirubin Dipstick Negative (Negative); Urine Clarity Sl. Cloudy (Clear); Urine Urobilinogen Normal (Normal)
[2020-02-23 12:58] LABS: Bacteria 1+ /hpf (None Seen); Red Blood Cells-Urine 25-50 SEEN /hpf (0-5); Squamous Epithelial Cells - UA 0-5 SEEN /hpf (5-10); White Blood Cells 50-100 SEEN /hpf (0-5)
== END | disposition home or self-care (01) ==
LOC: LABSPEC 10:49 → BIMLAB 11:00
PROVIDERS: PCP Internal Medicine; Referring Provider Internal Medicine; Visit Provider Internal Medicine
DX: R10.9 Unspecified abdominal pain (principal); R30.0 Dysuria
CPT/HCPCS: 36415; 80048; 81001; 87086

== ENCOUNTER → 2020-03-27 | Outpatient (CLI) | payer MEDICARE, SELFPAY ==
[2020-02-23 10:38] VITALS: BMI 34.6
[2020-03-27 08:58] LABS: Bacteria 0 SEEN /hpf (None Seen); Mucous, Urine 0 SEEN /hpf (<or=2+); Red Blood Cells-Urine 0 SEEN /hpf (0-5)
[2020-03-27 12:35] LABS: Color, Urine Yellow (Yellow); Glucose, Dipstick Normal (Normal); Ketone-Dipstick 5 mg/dl (Negative); Leukocyte Esterase-Dipstick 25 /ul (Negative); Nitrite-Dipstick Negative (Negative); Occult Blood-Urine Negative /ul (Negative); Protein-Dipstick 15 mg/dl (Negative); Urine Bilirubin Dipstick Negative (Negative); Urine Clarity Sl. Cloudy (Clear); Urine Urobilinogen Normal (Normal)
[2020-03-27 12:40] LABS: Squamous Epithelial Cells - UA 0-5 SEEN /hpf (5-10); White Blood Cells 0-5 SEEN /hpf (0-5)
[2020-03-27 13:55] LABS: Anion Gap 9 (5-15); BUN 20 mg/dL (7-18); BUN/Creat Ratio 18.5 RATIO (10-20); Calcium,Total 9.1 mg/dL (8.5-10.1); Chloride 109 mmol/L (98-107); Creatinine, Serum 1.08 mg/dL (0.55-1.02); EST Glomerular Filtration Rate 54 mL/min (>60); Est Glom Filt Rate - Afr Amer 65 mL/min (>60); Glucose 100 mg/dL (74-106); Potassium 3.6 mmol/L (3.5-5.1); Sodium Level 143 mmol/L (136-145)
== END | disposition home or self-care (01) ==
LOC: BIMLAB 08:57
PROVIDERS: PCP Internal Medicine; Referring Provider Internal Medicine; Visit Provider Internal Medicine
DX: I10 Essential (primary) hypertension (principal); R31.9 Hematuria, unspecified
CPT/HCPCS: 36415; 80048; 81001

== ENCOUNTER → 2020-05-29 | Outpatient (CLI) | payer MEDICARE, SELFPAY ==
[2020-05-29 08:52] VITALS: BMI 35.7
== END | disposition home or self-care (01) ==
LOC: LABSPEC 13:14
PROVIDERS: PCP Internal Medicine; Referring Provider Nurse Practitioner Women's Health; Visit Provider Nurse Practitioner Women's Health
DX: N39.0 Urinary tract infection, site not specified (principal)
CPT/HCPCS: 87086; 87088

== ENCOUNTER → 2020-07-26 08:12 | Outpatient (CLI) | payer MEDICARE, SELFPAY ==
[2020-07-25 08:19] VITALS: BMI 34.7
[2020-07-26 12:33] LABS: ALB/GLOB Ratio 1.1 RATIO (0.9-2.4); AST(SGOT) 25 U/L (15-37); Alanine Aminotransfer ALT/SGPT 49 U/L (13-56); Albumin, Serum 3.7 g/dL (3.2-5.0); Alkaline Phosphatase 48 U/L (45-117); Anion Gap 3 (5-15); BUN 24 mg/dL (7-18); BUN/Creat Ratio 22.4 RATIO (10-20); Chloride 108 mmol/L (98-107); Cholesterol 199 mg/dL (200); Creatinine, Serum 1.07 mg/dL (0.55-1.02); EST Glomerular Filtration Rate 54 mL/min (>60); Est Glom Filt Rate - Afr Amer 66 mL/min (>60); Globulin 3.3 g/dL (2.2-4.2); Glucose 91 mg/dL (74-106); High Density Lipoprotein 47 mg/dL; Potassium 4.3 mmol/L (3.5-5.1); Sodium Level 139 mmol/L (136-145); Triglycerides 198 mg/dL; Very Low Density Lipoprotein 40 mg/dL (5-40)
[2020-07-26 12:41] LABS: Absolute Lymphocyte Count 1.82 X10^3/uL (0.83-4.51); Absolute Neutrophil Count 3.1 X10^3/uL (2.0-7.7); Basophil# 0.08 X10^3/uL; Basophil% 1.3 % (0-1); Eosinophil# 0.31 X10^3/uL; Eosinophils% 5.1 % (0-5); Hematocrit 41.1 % (37-47); Hemoglobin 12.6 g/dL (12.0-15.0); Lymphocyte # 1.82 X10^3/ul (4.0); Lymphocyte % 30.2 % (19-41); Mean Corp Hgb Conc 30.7 g/dL (32-36); Mean Corpuscular Hgb 27.8 pg (27.0-32.0); Mean Corpuscular Volume 90.7 fL (81-99); Mean Platelet Vol. 11.3 fl (6.2-12.0); Monocyte# 0.65 X10^3/uL; Monocyte% 10.8 % (0-10); NRBC Flagged by Analyzer 0 % (0-5); Neutrophil # 3.14 X10^3/uL (2.7-7.7); Neutrophil % 52.3 % (47-70); Platelet Count 362 K/mm3 (150-450); RBC Distribution Width CV 13.2 % (11.6-14.6); RBC Distribution Width SD 44.5 fl (35.1-43.9); Red Blood Count 4.53 M/mm3 (4.2-5.4)
[2020-07-26 12:59] LABS: Vitamin D,25 Hydroxy 30.4 ng/mL
== END ==
PROVIDERS: PCP Internal Medicine; Referring Provider Internal Medicine; Visit Provider Internal Medicine
DX: K21.9 Gastro-esophageal reflux disease without esophagitis (principal); E78.5 Hyperlipidemia, unspecified; M81.0 Age-related osteoporosis without current pathological fracture; I10 Essential (primary) hypertension
CPT/HCPCS: 36415; 80053; 80061; 82306; 85025

== ENCOUNTER → 2020-08-02 09:49 | Outpatient (CLI) | payer MEDICARE, SELFPAY ==
[2020-07-26 09:54] VITALS: BMI 35.5
--- NOTE | 2020-08-02 09:56 | BD_ITS ---
STUDY: DUAL ENERGY X-RAY ABSORPTIOMETRY / DXA REASON FOR EXAM: Female, 65 years old. RECOVERY ASSISTANT- EARLY SURGICAL AT 31 YRS OLD -- HRT CURRENTLY -- TAKES CALCIUM -- TAKES PROLIA- BEEN ON x3 YRS -- DOES MODERATE AMOUNT OF EXERCISE -- FAMILY HX OF OSTEO -- JOSAFAT OF 2 INCHES TECHNIQUE: Bone Mineral Density (BMD) measurements of lumbar spine and bilateral hips were obtained. COMPARISON: Comparison is made with prior study dated 06/16/2018. FINDINGS: Lumbar Spine (L1-L4): g/cm2 (0.958) / T-score (-2.0) / Z-score (-0.4) Findings are suggestive of osteopenia with a moderate fracture risk. Left Femur Total: g/cm2 (0.804) / T-score (-1.6) / Z-score (-0.3) Left Femoral Neck: g/cm2 (0.789) / T-score (-1.8) / Z-score (-0.2) Right Femur Total: g/cm2 (0.884) / T-score (-1.0) / Z-score (0.3) Right Femoral Neck: g/cm2 (0.881) / T-score (-1.1) / Z-score (0.4) The T-Scores on the most recent prior examination were: Lumbar Spine (L1-L4): There has been improvement of bone density since the previous examination. Left Femur Total: which represents an improvement of 4.7%. Right Femur Total: which represents an improvement of 4.1%. BD/Dexa Bone Density Study IMPRESSION: The patient is considered osteopenic as outlined below according to World Roberto Organization (WHO) criteria with a moderate fracture risk. There has been improvement of bone density since the previous examination. Reference Information: The T-score is the number of standard deviations above or below the standard which is normal for young adults at their peak bone mineral density. The World Health Organization (WHO) interprets the T-scores as follows: Above -1 Normal bone density Between -1 and -2.5 Osteopenia Equal to / or below -2.5 Osteoporosis As a practical clinical guideline, osteopenia may be graded as follows: Mild -1 through -1.5 Moderate -1.6 through -2.0 Severe -2.1 through -2.4 The Z-score is the number of standard deviations above or below age-matched controls. A Z-score of less than -1.5 would be considered abnormal. References: 1. NIH Osteoporosis and Related Bone Diseases www osteo.org 2. International Society for Clinical Densitometry www iscd.org 3. National Osteoporosis Foundation www nof.org Electronically Signed: David Barajas MD at 12:28 EST , Service support ,
== END ==
PROVIDERS: PCP Internal Medicine; Referring Provider Internal Medicine; Visit Provider Internal Medicine
DX: M81.0 Age-related osteoporosis without current pathological fracture (principal)
CPT/HCPCS: 77080

== ENCOUNTER → 2020-09-04 10:29 | Outpatient (CLI) | payer MEDICARE, SELFPAY ==
[2020-09-04 09:05] VITALS: BMI 35.1
[2020-09-04 12:23] LABS: Absolute Lymphocyte Count 2.19 X10^3/uL (0.83-4.51); Absolute Neutrophil Count 2.9 X10^3/uL (2.0-7.7); Basophil# 0.07 X10^3/uL; Basophil% 1.2 % (0-1); Eosinophil# 0.21 X10^3/uL; Eosinophils% 3.5 % (0-5); Hematocrit 41.6 % (37-47); Hemoglobin 13.6 g/dL (12.0-15.0); Lymphocyte # 2.19 X10^3/ul (4.0); Lymphocyte % 36.6 % (19-41); Mean Corp Hgb Conc 32.7 g/dL (32-36); Mean Corpuscular Hgb 30.8 pg (27.0-32.0); Mean Corpuscular Volume 94.1 fL (81-99); NRBC Flagged by Analyzer 0 % (0-5); Neutrophil # 2.91 X10^3/uL (2.7-7.7); Neutrophil % 48.5 % (47-70); Platelet Count 305 K/mm3 (150-450); RBC Distribution Width CV 13.5 % (11.6-14.6); RBC Distribution Width SD 44.3 fl (35.1-43.9); Red Blood Count 4.42 M/mm3 (4.2-5.4)
[2020-09-04 12:48] LABS: ALB/GLOB Ratio 1.1 RATIO (0.9-2.4); AST(SGOT) 33 U/L (15-37); Alanine Aminotransfer ALT/SGPT 56 U/L (13-56); Albumin, Serum 3.9 g/dL (3.2-5.0); Alkaline Phosphatase 45 U/L (45-117); Anion Gap 7 (5-15); BUN 22 mg/dL (7-18); Calcium,Total 9.1 mg/dL (8.5-10.1); Chloride 105 mmol/L (98-107); EST Glomerular Filtration Rate 53 mL/min (>60); Est Glom Filt Rate - Afr Amer 64 mL/min (>60); Globulin 3.6 g/dL (2.2-4.2); Glucose 86 mg/dL (74-106); Lipase 144 U/L (73-393); Potassium 3.9 mmol/L (3.5-5.1); Protein, Total 7.5 g/dL (6.4-8.2); Sodium Level 140 mmol/L (136-145)
== END ==
PROVIDERS: PCP Internal Medicine; Visit Provider Internal Medicine
DX: R10.13 Epigastric pain (principal)
CPT/HCPCS: 36415; 80053; 83690; 85025

== ENCOUNTER → 2020-09-19 06:46 | Outpatient (CLI) | payer MEDICARE, SELFPAY ==
[2020-09-04 09:05] VITALS: BMI 35.1
--- NOTE | 2020-09-19 06:50 | CT_ITS ---
STUDY: CT ABDOMEN AND PELVIS WITH CONTRAST REASON FOR EXAM: Female, 65 years old. Epigastric abdominal pain for one month. RADIATION DOSAGE (If Supplied By Facility): CTDIvol = ( 15.45 ) mGy, DLP = ( 1068.88 ) mGycm TECHNIQUE: Transaxial images were obtained from the dome of the diaphragm to the symphysis pubis without oral contrast. IV 100mL Isovue-300 was administered. Sagittal and coronal images were reconstructed. Individualized dose optimization techniques were used for this CT. COMPARISON: None. FINDINGS: The visualized lung bases are unremarkable. The visualized portions of the heart are within normal limits. There is decreased attenuation of the liver consistent with steatosis. There are surgical clips in the gallbladder fossa consistent with a prior cholecystectomy. Normal spleen. Normal pancreas. Normal bilateral adrenal glands. Normal right kidney. Normal left kidney. There is a retroaortic left renal vein. Normal visualized stomach. Normal small intestine. There are scattered colonic diverticula consistent with diverticulosis. The patient is status post appendectomy. There is diffuse atherosclerotic calcification of the abdominal aorta and its major visceral branches, without a demonstrated aneurysm. Normal inferior vena cava. Normal retroperitoneum. Normal urinary bladder. There is absence of the uterus consistent with a prior hysterectomy. Normal abdominal wall. Normal osseous structures. CT/Abdomen/Pelvis WITH Contrast IMPRESSION: Diffuse fatty infiltration of the liver. Scattered sigmoid diverticula. Electronically Signed: David Barajas MD at 10:32 EDT , Service support ,
== END ==
PROVIDERS: PCP Internal Medicine; Referring Provider Internal Medicine; Visit Provider Internal Medicine
DX: R10.13 Epigastric pain (principal)
CPT/HCPCS: 74177; Q9967

== ENCOUNTER → 2020-09-27 06:01 | Outpatient (CLI) | payer MEDICARE, SELFPAY ==
[2020-09-04 09:05] VITALS: BMI 35.1
--- NOTE | 2020-09-27 17:50 | STRESSREP ---
Stress Test Report Exercise myocardial perfusion stress test. 65-year-old lady with a history of chest pain. Stress protocol: Resting EKG demonstrates normal sinus rhythm with a rate of [address] changes noted. The patient exercised according to the regular Harris protocol for a total duration of 6 minutes. The maximum heart rate attained was 139 bpm which was 90% of max impacted heart rate the maximum workload was 7 metabolic equivalent. At rest there were no ST or T wave changes noted to suggest ischemia at peak exercise upsloping ST changes were noted with did not meet the criteria for ischemia. No clinical angina was noted the test was terminated due to the target heart rate being achieved. The resting blood pressure was 124/70 with a peak blood pressure 164/70 mmHg. Rate-pressure product was 22,400. Myocardial perfusion protocol. 11.3 mCi of technetium 99m sestamibi was injected at rest. The patient exercised according to the regular Harris protocol for 6 minutes and at peak exercise 32.8 mCi of technetium 99m sestamibi was injected stress images were obtained stress and rest images were reconstructed and compared in the short axis vertical long and horizontal long axis. Gated images were also obtained Perfusion SPECT analysis: Review of the images demonstrate normal uptake of tracer noted in all areas of the myocardium. The resting images similarly demonstrate normal uptake of tracer noted in all areas of the myocardium. No areas of reversibility are noted suggest ischemia no previous infarct is noted. Gated SPECT analysis: The gated ejection fraction is noted to be 82%. Conclusion: Normal exercise myocardial perfusion stress test at a moderate workload. Preserved ejection fraction.
== END ==
PROVIDERS: PCP Internal Medicine; Referring Provider Internal Medicine; Visit Provider Internal Medicine
DX: R07.9 Chest pain, unspecified (principal)
CPT/HCPCS: 78452; 93017; A9500; A4216

== ENCOUNTER → 2020-10-16 11:48 | Outpatient (CLI) | payer MEDICARE, SELFPAY ==
[2020-10-06 08:49] VITALS: BMI 35.2
[2020-10-16 15:36] LABS: AST(SGOT) 33 U/L (15-37); Bilirubin, Direct 0.14 mg/dL (0.00-0.30); LDH 191 U/L (84-246); Lipase 163 U/L (73-393)
[2020-10-16 17:20] LABS: D-Dimer Quantitative (DVT/PE) < 0.27 FEU/ug/m (0.27-0.49)
== END ==
PROVIDERS: Internal Medicine; PCP Internal Medicine; Visit Provider Internal Medicine
DX: K21.9 Gastro-esophageal reflux disease without esophagitis (principal); R10.13 Epigastric pain; R10.9 Unspecified abdominal pain
CPT/HCPCS: 36415; 82247; 82248; 83615; 83690; 84450; 85379

== ENCOUNTER 2020-10-17 10:50 | Emergency (ER) | payer MEDICARE, SELFPAY ==
[2020-10-06 08:49] VITALS: BMI 35.2
[2020-10-17 10:51] VITALS: BP 149/80; PULSE 81; RESP 16; TEMP 36.2; O2SAT 95; BMI 33.9
--- NOTE | 2020-10-17 11:18 | RAD_ITS ---
STUDY: X-RAY CHEST REASON FOR EXAM: Female, 65 years old. chest pain TECHNIQUE: Single AP portable view of the chest. COMPARISON: 10/05/2012 FINDINGS: The lungs are clear and expanded. There is no demonstrated pleural abnormality. Normal size heart. Normal mediastinum and neptali. Normal visualized pulmonary arteries. Normal visualized aortic arch and descending thoracic aorta. Normal visualized thoracic spine. Normal visualized ribs, clavicles, and shoulders. There is no demonstrated abnormality of the visualized soft tissue structures of the upper abdomen. RAD/Chest 1 View (Portable) IMPRESSION: Normal x-ray examination of the chest. Electronically Signed: Ye Vaughn MD at 12:06 EDT Tel , Service support ,
--- NOTE | 2020-10-17 11:18 | EKG12_ITS ---
Test Reason : CP Blood Pressure : / mmHG Vent. Rate : 072 BPM Atrial Rate : 072 BPM P-R Int : 164 ms QRS Dur : 066 ms QT Int : 406 ms P-R-T Axes : 037 047 085 degrees QTc Int : 444 ms Normal sinus rhythm Normal ECG Confirmed by [place] EWING, RICHARD ([id number]), movie editor [place] ([id number]) on 10/19/2020 11:15:00 AM Referred By: JORGE/MERON Confirmed By:RICHARD ALEJANDRA MD
[2020-10-17 11:40] LABS: Absolute Lymphocyte Count 1.52 X10^3/uL (0.83-4.51); Absolute Neutrophil Count 2.7 X10^3/uL (2.0-7.7); Basophil# 0.07 X10^3/uL; Basophil% 1.4 % (0-1); Hematocrit 43.4 % (37-47); Hemoglobin 13.6 g/dL (12.0-15.0); Lymphocyte # 1.52 X10^3/ul (4.0); Lymphocyte % 30.3 % (19-41); Mean Corp Hgb Conc 31.3 g/dL (32-36); Mean Corpuscular Volume 89.5 fL (81-99); Mean Platelet Vol. 10.7 fl (6.2-12.0); Monocyte# 0.48 X10^3/uL; Monocyte% 9.6 % (0-10); NRBC Flagged by Analyzer 0 % (0-5); Neutrophil # 2.73 X10^3/uL (2.7-7.7); Neutrophil % 54.3 % (47-70); Platelet Count 335 K/mm3 (150-450); RBC Distribution Width CV 12.6 % (11.6-14.6); RBC Distribution Width SD 41.9 fl (35.1-43.9); Red Blood Count 4.85 M/mm3 (4.2-5.4)
[2020-10-17] MEDS: Ondansetron 4 MG/2 ML Vial IV (11:40)
[2020-10-17] MEDS: Morphine 4 MG/ML Syringe IV (11:40)
[2020-10-17 11:42] VITALS: O2SAT 96
[2020-10-17 11:55] LABS: ALB/GLOB Ratio 1.1 RATIO (0.9-2.4); AST(SGOT) 30 U/L (15-37); Alanine Aminotransfer ALT/SGPT 62 U/L (13-56); Albumin, Serum 3.9 g/dL (3.2-5.0); Alkaline Phosphatase 40 U/L (45-117); Anion Gap 7 (5-15); BUN 22 mg/dL (7-18); BUN/Creat Ratio 17.9 RATIO (10-20); Calcium,Total 9.1 mg/dL (8.5-10.1); Chloride 104 mmol/L (98-107); Creatinine, Serum 1.23 mg/dL (0.55-1.02); EST Glomerular Filtration Rate 46 mL/min (>60); Est Glom Filt Rate - Afr Amer 56 mL/min (>60); Estimated Creatinine Clearance 53.39 ml/min; Globulin 3.5 g/dL (2.2-4.2); Glucose 122 mg/dL (74-106); Lipase 197 U/L (73-393); Potassium 3.6 mmol/L (3.5-5.1); Protein, Total 7.4 g/dL (6.4-8.2); Sodium Level 139 mmol/L (136-145)
--- NOTE | 2020-10-17 13:05 | ED.DCSUM_ITS ---
- ER Visit Summary Date of Service: 10/17/20 Chief Complaint: Pain History of Present Illness: The patient is a 65 F with sternal and left chest pain. This has been going on for weeks. Worse with movement and lifting. She had CT imaging, stress testing, EKG. She is awaiting follow-up for endoscopy. History of hypertension, hyperlipidemia, GERD, hepatitis C Physical Examination: Afebrile and vital signs unremarkable. Alert and oriented. No acute distress. Skin normal in color without diaphoresis or pallor. Heart regular. Lungs clear. Abdomen soft and nontender. Pulses strong and equal. Legs no edema. Test Results: EKG shows sinus rhythm at a rate of 72. No sign of acute ischemia or infarction pattern. CBC normal. Glucose 122, BUN 22, creatinine 1.23. Alkaline phosphatase 40, ALT 62, lipase normal, troponin normal, chest x-ray interpreted by me and the radiologist is unremarkable. Emergency Department Course and Treatment: Patient has atypical chest pain. She was treated with pain medicine and Zofran while awaiting results. EKG, labs, chest x-ray unremarkable. No indication for other emergency testing based on her symptoms, history, and prior work-up. She has outpatient follow-up and is requesting something for pain. I advised that she will need to follow-up with her PCP or pain management for long-term pain management. She was given a short course of oxycodone here. Return for any new or worsening issues. Treatment Plan: As above Disposition: Discharge Impression: Atypical chest pain This note was generated with [employer] dictation software. It may contain incorrect words, spelling, and punctuation that were not noted in review of the chart prior to signing ED Disposition - Plan for ED Patient: Referrals: Benjamin Chopra MD [Primary Care Provider] -
--- NOTE | 2020-10-17 13:07 | ED.DEP ---
ED Disposition - Plan for ED Patient: Instructions: ED Chest Pain, Uncertain Cause Prescriptions: Oxycodone [Oxyir] 5 mg PO Q6H PRN PRN 3 Days #12 tab PRN Reason: Pain Score 1-10 Prescription Printed Referrals: Benjamin Chopra MD [Primary Care Provider] -
[2020-10-17 13:31] VITALS: BP 128/55; PULSE 69; RESP 18; O2SAT 96
== END 2020-10-17 13:32 | disposition home or self-care (01) ==
LOC: ED 11:25
PROVIDERS: Emergency Provider Emergency Medicine; PCP Internal Medicine
DX: R07.89 Other chest pain (principal); I10 Essential (primary) hypertension; E78.5 Hyperlipidemia, unspecified; K21.9 Gastro-esophageal reflux disease without esophagitis; Z79.899 Other long term (current) drug therapy
CPT/HCPCS: 71045; 80053; 83690; 84484; 85025; 93005; 96374; 96375; 99284; A4216; J2405

== ENCOUNTER 2020-10-26 05:26 | Day surgery (SDC) | payer MEDICARE, SELFPAY ==
[2020-10-06 08:49] VITALS: BMI 35.2
--- NOTE | 2020-10-26 05:38 | HP.PCM_ITS ---
Problem List (1) Abdominal pain Status: Acute Qualifiers: History and Physical Date of Admission: 10/26/20 Intake Visit Reasons: GERD, UPPER ABDOMINAL PAIN Chief Complaint: epigastric pain Operating Systems Programmer Required: No Is patient in pain?: Yes Allergies alendronate sodium Allergy (Intermediate, Verified 10/06/20 08:50) Hives nitrofurantoin Allergy (Intermediate, Verified 10/06/20 08:50) Hives Penicillins [PCN] Adverse Reaction (Verified 10/06/20 08:50) Rash Sulfa (Sulfonamide Antibiotics) Adverse Reaction (Verified 10/06/20 08:50) Rash Medications calcium carbonate 600 mg calcium (1,500 mg) tablet 600 mg PO BID tab 05/12/18 [History Confirmed 10/06/20] denosumab 60 mg/mL subcutaneous syringe 60 mg SC [id number] #1 ml 06/24/18 [Rx Confirmed 10/06/20] Ergocalciferol [Vitamin D] 5,000 unit PO DAILY 07/08/18 [History Confirmed 10/06/20] hydrochlorothiazide 12.5 mg tablet 12.5 mg PO QAM #90 tab 11/15/19 [Rx Confirmed 10/06/20] hydralazine 50 mg tablet 50 mg PO TID 90 Days #270 tab 04/18/20 [Rx Confirmed 10/06/20] clobetasol 0.05 % topical cream 1 applic TOPICAL .COMPLEX #15 g 06/19/20 [Rx Confirmed 10/06/20] estradiol See Rx Instructions VAGINAL .COMPLEX #42.5 g 06/19/20 [Rx Confirmed 10/06/20] fenofibrate 54 mg tablet 54 mg PO DAILY #90 tab 07/26/20 [Rx Confirmed 10/06/20] omeprazole 40 mg capsule,delayed release See Rx Instructions .ROUTE .COMPLEX #60 cap 09/15/20 [Rx Confirmed 10/06/20] sucralfate 1 gram tablet 1 g PO QACHS #20 tab 09/19/20 [Rx Confirmed 10/06/20] Is last menstrual period known: No Post menopausal: Yes Patient : No PFSH Medical History (Updated 10/06/20 @ 09:[address] León Chatman MD) Abdominal pain (Acute) Hepatitis C (Chronic) Osteoporosis (Chronic) Vitamin D deficiency (Chronic) Vulvodynia (Acute) Generalized osteoarthrosis (Chronic) Postmenopausal atrophic vaginitis (Acute) Hypertension (Chronic) GERD (gastroesophageal reflux disease) (Acute) Hyperlipemia (Acute) Seasonal allergies (Acute) Tendon contracture (Acute) Surgical History History of appendectomy (Acute) History of cholecystectomy (Acute) History of hysterectomy (Acute) History of knee replacement (Acute) Family History (Updated 10/06/20 @ 08:49 by Teressa Elaine) Brother Anxiety and depression Diabetes Asthma Heart disease Hypertension Ulcer Sister Anxiety and depression Cancer skin Hypertension CVA (cerebral vascular accident) Thyroid disorder Osteoporosis Hyperlipemia Diabetes Heart disease Asthma Mother Hypertension Kidney disease Osteoporosis CVA (cerebral vascular accident) Father CVA (cerebral vascular accident) Hyperlipemia Hypertension Myocardial infarction Heart disease Social History (Updated 10/06/20 @ 09:[address] León Chatman MD) number of children: 5 current occupational status: employed current occupation: [employer] Smoking Status: Never smoker alcohol intake: never substance use type: does not use what type of physical activity do you participate in: walking frequency: 3-4 times per week additional social history: pt gave to 5 children, has 3 adopted children Female Reproductive History Menstrual Ab spontaneous: 3 HPI HPI HPI: FELIPE TIM, is a 65 F who presents to the office today for surgical consultation regarding epigastric pain with radiation to the left upper quadrant that is been ongoing for a month and a half. Patient is referred by Dr. Mona Benavides and a written copy of my surgical consult recommendations will return to him. To help evaluate the situation on September [address] scan of the abdomen. Diffuse fatty infiltration of the liver identified scattered diverticulosis seen. On September 27, 2020 the patient had a stress test. This was felt to be normal. She has not noticed any bright red blood per rectum or melena. She has never had an upper and lower endoscopy. She was placed on omeprazole therapy and feels that some of her epigastric pain is improved however when she twists she gets a sharp pain in the epigastrium and and discomfort in the left upper quadrant. She states that her food intake is dramatically decreased. States that she can only eat half as much. She thinks she has had 6 to 8 pounds of weight loss. She states that she previously has had experience with hernias but does not sense a mass or a bulge. There is been no evidence of herpes zoster. HPI HPI HPI: FELIPE TIM, is a 65 F who presents to the office today for ROS General General: Yes weight change and fatigue; no appetite, colon cancer, breast cancer or weakness HEENT HEENT: No difficulty swallowing, eye injury, eye surgery, swollen glands or hoarseness Endo Endocrine: No thyroid disease, diabetes mellitus, thyroid cancer, Hair loss, heat intolerance or cold intolerance Musc Musculoskeletal: Yes arthritis and rheumatoid arthritis; no back problems, gout or joint pain Cardio Cardiovascular: Yes high blood pressure; no murmur, pacemaker, heart disease, atrial fibrillation, heart attack, heart stent, palpitations, shortness of breat with exertion or chest pain Psych Psychiatric: No depression, anxiety or hearing voices Resp Respiratory: Yes shortness of breath, No sleep apnea, No cough, No COPD, No asthma, No emphysema, No wheezing Gastro Gastrointestinal: No abdominal pain, No nausea or vomiting, No diarrhea, No constipation, No blood in stool, Yes acid reflux, Yes hemorrhoids, No ulcers, No gallbladder problem, No black,tarry stools Sameer Hematologic: No blood thinners, No blood disorders, No bleeding, No anemia, No blood clots Neuro Neurologic: No weakness Exam Const General: cooperative, healthy appearing, comfortable, no acute distress Nutritional Appearance: overweight Orientation: alert, awake [facility] Head: normal to inspection Eyes General: appearance normal, both eyes and all related structures Resp Effort & Inspection: normal respiratory effort Auscultation: clear to auscultation bilaterally Cardio Rate: regular rate Rhythm: regular rhythm Heart Sounds: no murmurs GI Other: Soft, nontender, epigastric area carefully inspected no palpable incisional defect, slight tenderness in the epigastrium, left costal margin is solid and nontender to palpation Musc Cervical Spine: normal cervical lordosis Skin General: no rashes or lesions noted Neuro Cognition: normal cognition Extrem General: no calf tenderness Psych Affect: normal affect Assessment & Plan Problems 1. Pain of upper abdomen R10.10 Plan Epigastric abdominal pain with radiation then to the left upper quadrant in a patient who has had remote cholecystectomy for gallstone disease. Decreased appetite. Mild weight loss. Unremarkable CT imaging. I have personally reviewed her CT scan I do not see any fascial defect particularly in the epigastric area. She does have a small umbilical hernia noted. That is not the source of her pain. Some of her symptoms sound musculoskeletal. I could not elicit any findings that would be consistent with costochondritis left costal margin. I recommend a combined esophagogastroduodenoscopy with biopsy and colonoscopy with biopsy or polypectomy as indicated. She is aware of the technique, benefit, risk, alternatives. She has had an opportunity ask and have questions answered. Based upon her presentation at this time I am not sure as the etiology of her discomfort. She might require additional musculoskeletal evaluation of the scope exams are unremarkable. I appreciate the opportunity of assisting with her surgical care Copy: Dr. Mona Benavides and Dr. Benjamin Chatman M.D., F.A.C.S. Coding Level of Care Code 85451 Diagnoses Pain of upper abdomen R10.10 ??Abdominal location: upper abdomen, unspecified I have re-examined the patient. There are no clinical changes since date of exam. Procedure Criteria Procedure Type: Elective COVID Risk Discussion: The surgeon/proceduralist and patient have discussed in detail the risk of exposure to and/or potential harm posed by the COVID-19 virus with having a surgery/procedure at this time versus the risk of delaying the surgery/pr ocedure. It is not possible to know either the risk of delaying the surgery or procedure or chance of getting an infection with perfect accuracy, but a joint decision was made between the patient and the surgeon/proceduralist to proceed at this time with the scheduled surgery/procedure as indicated on the consent form.
[2020-10-26] MEDS: Lactated Ringers 1,000 ML 100 ML IV (05:59)
[2020-10-26 06:00] VITALS: BP 123/62; PULSE 79; RESP 16; TEMP 36.7; O2SAT 96; BMI 34.2
--- NOTE | 2020-10-26 06:30 | IMM_PTH ---
PATIENT: FELIPE TIM LOC: EN U#:[id number] AGE/SX: 65/F ROOM: RE10/26/[address]: Dr. León Chatman MD : 1955 BED: DIS: 10/26/2020 SPEC #: [id number] RECD: 10/26/20 14:30 STATUS: AMA REQ #: [id number] MELISSA: 10/26/20 06:[address]: León Chatman DEPT: IMMUNOHISTOCHEMISTRY RECD BY: Vanessa Ball ENTERED: 10/26/20 14:31 SP TYPE: IMMUNO OTHR DR: Dr. Benjamin Chopra MD Tissues: B - Stomach, NOS Procedures: H Pylori (initial) PHYSICIAN & [place] [id number] SPECIMEN INFORMATION: Tissue Source: B - Antrum biopsy Clinical Info: Abdominal pain Specimen Number: [id number] CPT code: 30590 METHODOLOGY: Deparaffinized sections of prefer/formalin-fixed tissue or PAP/DQ stained slides are incubated with monoclonal/polyclonal antibodies/oligonucleotide probes. Localization is made via biotin free immunoperoxidase method. Appropriate controls are performed and reacted as expected. Results on target cell population are indicated in the following table: RESULTS: ANTIBODY / CLONE RESULT Block B H Pylori (polyclonal) negative These tests were developed and their performance characteristics determined by [facility]. They may not have been cleared or approved by the U.S. Food and Drug Administration. The FDA has determined that such clearance or approval is not necessary. INTERPRETATION: B. Antrum biopsy: Negative for Helicobacter pylori organisms. AM:ronaldo 10/27/2020
--- NOTE | 2020-10-26 06:30 | EGD_PTH ---
PATIENT: FELIPE TIM LOC: EN U#:[id number] AGE/SX: 65/F ROOM: RE10/26/[address]: Dr. León Chatman MD : 1955 BED: DIS: 10/26/2020 SPEC #: [id number] RECD: 10/26/20 11:18 STATUS: AMA JARRELL #: [id number] MELISSA: 10/26/20 06:[address]: León Chatman DEPT: SURGICAL PATHOLOGY RECD BY: Radha Mueller ENTERED: 10/26/20 12:36 SP TYPE: EGD BIOPSY OT DR: Dr. eBnjamin Chopra MD Tissues: A - Duodenum, NOS B - Gastric mucous membrane C - Esophagus, NOS D - COLON BIOPSY E - Sigmoid colon biopsy Procedures: Surgery Specimen Level IV HEADER OPERATION: Colonoscopy, EGD ([facility] [place]) PRE-OP DIAGNOSIS: Abdominal pain TISSUE SUBMITTED: A - Duodenum biopsy, B - Antrum biopsy for H. pylori and path, C - Distal esophagus biopsy, D - Random colonic biopsy, E - Proximal sigmoid polyp hot snare MICROSCOPIC DIAGNOSIS A. Duodenum, biopsy: No pathologic change. B. Gastric antrum, biopsy: Chronic gastritis. See comment. C. Distal esophagus, biopsy: Fragments of benign squamous mucosa. No evidence of inflammation. D. Colon, random biopsy: No significant pathologic change. See comment. E. Proximal sigmoid colon polyp, biopsy: Polypoid fragment of benign colonic mucosa. See comment. AM:ronaldo 10/27/2020 COMMENT B. The results of immunohistochemistry for Helicobacter pylori will be reported separately ([id number]). D. Eosinophils are mildly increased in the mucosa. The significance of this is unclear. Clinical correlation is suggested. E. Neither hyperplastic nor adenomatous change is identified. Clinical correlation is suggested. MICROSCOPIC DESCRIPTION Slides are reviewed. GROSS DESCRIPTION A - Received in fixative is one container labeled with the patient's name and designated duodenal biopsy. The specimen consists of one irregular fragment of light dos santos soft tissue that measures 0.3 x 0.3 x 0.1 cm. The specimen is totally submitted in one cassette. B - Received in fixative is one container labeled with the patient's name and designated antrum biopsy. The specimen consists of one irregular fragment of light dos santos soft tissue that measures 0.4 x 0.3 x 0.1 cm. The specimen is totally submitted in one cassette. C - Received in fixative is one container labeled with the patient's name and designated distal esophagus biopsy. The specimen consists of one irregular fragment of light dos santos soft tissue that measures 0.3 x 0.3 x 0.1 cm. The specimen is totally submitted in one cassette. D - Received in fixative is one container labeled with the patient's name and designated random colonic biopsy. The specimen consists of multiple irregular fragments of light dos santos soft tissue that in aggregate measure 1 x 0.5 x 0.1 cm. The specimen is totally submitted in one cassette. E - Received in fixative is one container labeled with the patient's name and designated proximal sigmoid polyp snare. The specimen consists of a piece of dos santos-pink polyp measuring 0.4 x 0.4 x 0.2 cm. / BRIAN:ronaldo 10/26/20 TC:4 CPT: 83445 x5
[2020-10-26 07:00] VITALS: BP 122/58; BP 123/62; PULSE 65; RESP 16; TEMP 36.4; O2SAT 93
--- NOTE | 2020-10-26 07:02 | OP.CCLET_ITS ---
10/26/2020 Benjamin Chopra MD [address] [place] [address] [place] [address] Re : Upper GI endoscopy procedure for Manisha Zendejas Dear Dr. Chopra This procedure was performed on October. My impressions and recommendations are as follows: Impressions : - Z-line regular, 38 cm from the incisors. Biopsied. - 1 cm hiatal hernia. - Erythematous mucosa in the antrum. Biopsied. - Normal examined duodenum. Biopsied. Recommendations : - Discharge patient to home. - Resume previous diet. - Continue present medications. - Telephone my office for pathology results in 1 week. Findings do not correlate with source of abdominal pain My findings are described in the full procedure note, which is enclosed. If I can be of further assistance, please feel free to contact me at Doctor phone number(s): Work: . Sincerely, León Chatman MD 10/26/2020 7:01:56 AM This report has been signed electronically.
--- NOTE | 2020-10-26 07:02 | OP.EGD_ITS ---
Patient Name: Manisha Zendejas Procedure Date: 10/26/2020 6:16 AM Date of : 1955 Age: 65 Procedure: Upper GI endoscopy Indications: Epigastric abdominal pain Providers: León Chatman MD Referring MD: Benjamin Chopra MD Medicines: See the Anesthesia note for documentation of the administered medications Complications: No immediate complications. Procedure: Pre-Anesthesia Assessment: - Prior to the procedure, a History and Physical was performed, and patient medications and allergies were reviewed. The patient's tolerance of previous anesthesia was also reviewed. The risks and benefits of the procedure and the sedation options and risks were discussed with the patient. All questions were answered, and informed consent was obtained. Prior Anticoagulants: The patient has taken no previous anticoagulant or antiplatelet agents. ASA Grade Assessment: II - A patient with mild systemic disease. After reviewing the risks and benefits, the patient was deemed in satisfactory condition to undergo the procedure. After obtaining informed consent, the endoscope was passed under direct vision. Throughout the procedure, the patient's blood pressure, pulse, and oxygen saturations were monitored continuously. The gastroscope was introduced through the mouth, and advanced to the second part of duodenum. The upper GI endoscopy was accomplished without difficulty. The patient tolerated the procedure well. Scope In: 6:33:02 AM Scope Out: 6:38:28 AM Total Procedure Duration Time 0 hours 5 minutes 26 seconds Findings: The Z-line was regular and was found 38 cm from the incisors. Biopsies were taken with a cold forceps for histology. A 1 cm hiatal hernia was present. Diffuse mildly erythematous mucosa without bleeding was found in the gastric antrum. Biopsies were taken with a cold forceps for histology. The examined duodenum was normal. Biopsies were taken with a cold forceps for histology. Impression: - Z-line regular, 38 cm from the incisors. Biopsied. - 1 cm hiatal hernia. - Erythematous mucosa in the antrum. Biopsied. - Normal examined duodenum. Biopsied. Recommendation: - Discharge patient to home. - Resume previous diet. - Continue present medications. - Telephone my office for pathology results in 1 week. Findings do not correlate with source of abdominal pain Procedure Code(s): --- Professional --- 23426, Esophagogastroduodenoscopy, flexible, transoral; with biopsy, single or multiple Diagnosis Code(s): --- Professional --- K44.9, Diaphragmatic hernia without obstruction or gangrene K31.89, Other diseases of stomach and duodenum R10.13, Epigastric pain CPT copyright 2017 [employer]. All rights reserved. The codes documented in this report are preliminary and upon hcc coders review may be revised to meet current compliance requirements. León Chatman MD 10/26/2020 7:01:56 AM This report has been signed electronically. Number of Addenda: 0 Note Initiated On: 10/26/2020 6:16 AM
[2020-10-26 07:05] VITALS: BP 121/59; BP 123/62; PULSE 67; RESP 16; O2SAT 98
--- NOTE | 2020-10-26 07:05 | OP.CCLET_ITS ---
10/26/2020 Benjamin Chopra MD [address] [place] [address] [place] [address] Re : Colonoscopy procedure for Manisha Zendejas Dear Dr. Chopra This procedure was performed on October. My impressions and recommendations are as follows: Impressions : - Non-thrombosed internal hemorrhoids and internal hemorrhoids that prolapse with straining, but spontaneously regress to the resting position (Grade II) found on digital rectal exam. - One 6 mm polyp in the proximal sigmoid colon, removed with a hot snare. Resected and retrieved. - Diverticulosis in the sigmoid colon. - The examination was otherwise normal. - Biopsies were taken with a cold forceps from the entire colon for evaluation of microscopic colitis. Recommendations : - Discharge patient to home. - Resume previous diet. - Continue present medications. - Repeat colonoscopy in 5 years for surveillance based on pathology results. - Telephone my office for pathology results in 1 week. My findings are described in the full procedure note, which is enclosed. If I can be of further assistance, please feel free to contact me at Doctor phone number(s): Work: . Sincerely, León Chatman MD 10/26/2020 7:05:14 AM This report has been signed electronically.
--- NOTE | 2020-10-26 07:05 | OP.COLON_ITS ---
Patient Name: Manisha Zendejas Procedure Date: 10/26/2020 6:40 AM Date of : 1955 Age: 65 Procedure: Colonoscopy Indications: Epigastric abdominal pain, Generalized abdominal pain Providers: León Chatman MD Referring MD: Benjamin Chopra MD Medicines: See the Anesthesia note for documentation of the administered medications Patient Profile: Last Colonoscopy: none. The patient's first colonoscopy is today. Complications: No immediate complications. Procedure: Pre-Anesthesia Assessment: - Prior to the procedure, a History and Physical was performed, and patient medications and allergies were reviewed. The patient's tolerance of previous anesthesia was also reviewed. The risks and benefits of the procedure and the sedation options and risks were discussed with the patient. All questions were answered, and informed consent was obtained. Prior Anticoagulants: The patient has taken no previous anticoagulant or antiplatelet agents. ASA Grade Assessment: II - A patient with mild systemic disease. After reviewing the risks and benefits, the patient was deemed in satisfactory condition to undergo the procedure. After I obtained informed consent, the scope was passed under direct vision. Throughout the procedure, the patient's blood pressure, pulse, and oxygen saturations were monitored continuously. The Colonoscope was introduced through the anus and advanced to the cecum, identified by appendiceal orifice and ileocecal valve. The colonoscopy was performed without difficulty. The patient tolerated the procedure well. The quality of the bowel preparation was good. The ileocecal valve and the appendiceal orifice were photographed. Scope In: 6:41:16 AM Scope Withdrawal Time 0 hours 10 minutes 12 seconds Scope Out: 6:55:55 AM Total Procedure Duration Time 0 hours 14 minutes 39 seconds Findings: The digital rectal exam findings include non-thrombosed internal hemorrhoids and internal hemorrhoids that prolapse with straining, but spontaneously regress to the resting position (Grade II). A 6 mm polyp was found in the proximal sigmoid colon. The polyp was sessile. The polyp was removed with a hot snare. Resection and retrieval were complete. Multiple diverticula were found in the sigmoid colon. The exam was otherwise without abnormality. Biopsies for histology were taken with a cold forceps from the entire colon for evaluation of microscopic colitis. Impression: - Non-thrombosed internal hemorrhoids and internal hemorrhoids that prolapse with straining, but spontaneously regress to the resting position (Grade II) found on digital rectal exam. - One 6 mm polyp in the proximal sigmoid colon, removed with a hot snare. Resected and retrieved. - Diverticulosis in the sigmoid colon. - The examination was otherwise normal. - Biopsies were taken with a cold forceps from the entire colon for evaluation of microscopic colitis. Recommendation: - Discharge patient to home. - Resume previous diet. - Continue present medications. - Repeat colonoscopy in 5 years for surveillance based on pathology results. - Telephone my office for pathology results in 1 week. Procedure Code(s): --- Professional --- 70898, Colonoscopy, flexible; with removal of tumor(s), polyp(s), or other lesion(s) by snare technique 51276, 59, Colonoscopy, flexible; with biopsy, single or multiple Diagnosis Code(s): --- Professional --- K64.1, Second degree hemorrhoids D12.5, Benign neoplasm of sigmoid colon R10.13, Epigastric pain R10.84, Generalized abdominal pain K57.30, Diverticulosis of large intestine without perforation or abscess without bleeding CPT copyright 2017 [employer]. All rights reserved. The codes documented in this report are preliminary and upon manager office review may be revised to meet current compliance requirements. León Chatman MD 10/26/2020 7:05:14 AM This report has been signed electronically. Number of Addenda: 0 Note Initiated On: 10/26/2020 6:40 AM
[2020-10-26 07:10] VITALS: BP 118/58; BP 123/62; PULSE 65; RESP 16; O2SAT 97
[2020-10-26 07:15] VITALS: BP 121/53; BP 123/62; PULSE 60; RESP 16; TEMP 36.1; O2SAT 98
[2020-10-26 07:30] VITALS: BP 123/62
== END 2020-10-26 07:45 | disposition home or self-care (01) ==
LOC: EN 05:26 → AC 05:26
PROVIDERS: PCP Internal Medicine; Referring Provider Internal Medicine; Visit Provider Surgery
PROC: 0DJD8ZZ Inspection of Lower Intestinal Tract, Via Natural or Artificial Opening Endoscopic (ICD-10-PCS; CPT 45378; principal; 2020-10-26 06:25)
DX: K29.50 Unspecified chronic gastritis without bleeding (principal); K63.5 Polyp of colon; K64.1 Second degree hemorrhoids; K57.30 Diverticulosis of large intestine without perforation or abscess without bleeding; K44.9 Diaphragmatic hernia without obstruction or gangrene; I10 Essential (primary) hypertension; K21.9 Gastro-esophageal reflux disease without esophagitis; E78.5 Hyperlipidemia, unspecified; M15.9 Polyosteoarthritis, unspecified; Z79.899 Other long term (current) drug therapy; Z20.822 Contact with and (suspected) exposure to COVID-19
CPT/HCPCS: 43239; 45380; 87426; 88305; 88342; C9803; J7120; J2405

== ENCOUNTER → 2020-11-29 | Outpatient (CLI) | payer MEDICARE, SELFPAY ==
[2020-11-29 15:36] VITALS: BMI 34.2
[2020-11-29 16:21] LABS: Bacteria 0 SEEN /hpf (None Seen); Mucous, Urine 0 SEEN /hpf (<or=2+)
[2020-11-29 16:47] LABS: Color, Urine Yellow (Yellow); Glucose, Dipstick Normal (Normal); Ketone-Dipstick 5 mg/dl (Negative); Leukocyte Esterase-Dipstick 100 /ul (Negative); Nitrite-Dipstick Negative (Negative); Occult Blood-Urine Negative /ul (Negative); Protein-Dipstick Negative (Negative); Specific Gravity, Urine 1.025 (1.002-1.030); Urine Bilirubin Dipstick Negative (Negative); Urine Clarity Cloudy (Clear); Urine Urobilinogen Normal (Normal)
[2020-11-29 17:06] LABS: Hyaline Cast 0-5 SEEN /lpf (0-5); Squamous Epithelial Cells - UA 0-5 SEEN /hpf (5-10)
[2020-11-29 17:09] LABS: Red Blood Cells-Urine 0-5 SEEN /hpf (0-5); White Blood Cells 25-50 SEEN /hpf (0-5)
== END | disposition home or self-care (01) ==
LOC: LABSPEC 16:20
PROVIDERS: PCP Internal Medicine; Referring Provider Physician Assistant; Visit Provider Physician Assistant
DX: R30.0 Dysuria (principal); R35.0 Frequency of micturition; R10.9 Unspecified abdominal pain
CPT/HCPCS: 81001; 87086; 87088

== ENCOUNTER → 2021-01-22 08:46 | Outpatient (CLI) | payer MEDICARE, SELFPAY ==
[2021-01-22 08:25] VITALS: BMI 34.2
[2021-01-22 12:38] LABS: ALB/GLOB Ratio 1.1 RATIO (0.9-2.4); AST(SGOT) 25 U/L (15-37); Alanine Aminotransfer ALT/SGPT 55 U/L (13-56); Albumin, Serum 3.8 g/dL (3.2-5.0); Alkaline Phosphatase 54 U/L (45-117); Anion Gap 4 (5-15); BUN 24 mg/dL (7-18); BUN/Creat Ratio 21.2 RATIO (10-20); Calcium,Total 9.5 mg/dL (8.5-10.1); Chloride 104 mmol/L (98-107); Creatinine, Serum 1.13 mg/dL (0.55-1.02); EST Glomerular Filtration Rate 51 mL/min (>60); Est Glom Filt Rate - Afr Amer 62 mL/min (>60); Globulin 3.4 g/dL (2.2-4.2); Glucose 93 mg/dL (74-106); Protein, Total 7.2 g/dL (6.4-8.2); Sodium Level 139 mmol/L (136-145)
== END ==
PROVIDERS: PCP Internal Medicine; Visit Provider Internal Medicine
DX: I10 Essential (primary) hypertension (principal)
CPT/HCPCS: 36415; 80053

== ENCOUNTER → 2021-01-25 13:00 | Outpatient (CLI) | payer MEDICARE, SELFPAY ==
[2021-01-22 08:25] VITALS: BMI 34.2
[2021-01-24 08:48] VITALS: BMI 34.2
--- NOTE | 2021-01-25 13:01 | BI_ITS ---
MAMMOGRAPHY - BILATERAL SCREENING REASON FOR EXAM: Female, 65 years old. Routine annual screening examination. PERTINENT HISTORY: Non-contributory. TECHNIQUE: Digital bilateral breast tasha (3D mammographic acquisition) in the CC and MLO projections. 2-D mediolateral oblique (MLO) and craniocaudad (CC) views of both breasts were obtained. CAD: Full Field Digital Mammography with Computer Added Detection was performed. COMPARISON: Comparison is made with prior study dated 01/24/2020 and 06/09/2018. FINDINGS: Breast Composition: The breasts are almost entirely fatty. There are no dominant masses or suspicious calcifications. Stable small benign appearing bilateral axillary lymph nodes. No other significant abnormalities are identified. There has been no significant change since the prior study. BI/SCRN MAMM (CAD)W/TASHA BILAT IMPRESSION: Stable bilateral screening mammogram. Yearly follow-up mammogram recommended. (A) ASSESSMENT CATEGORY: BIRADS Category 2: Benign. A letter regarding these results will be sent to the patient by the facility within 30 days. Approximately 10% of breast cancers are not detected by mammography. A normal mammogram should not delay biopsy of a clinically suspicious abnormality. [id number] Electronically Signed: David Barajas MD at 13:57 EDT , Service support ,
== END ==
PROVIDERS: PCP Internal Medicine; Visit Provider Internal Medicine
DX: Z12.31 Encounter for screening mammogram for malignant neoplasm of breast (principal)
CPT/HCPCS: 77063; 77067

== ENCOUNTER 2021-04-14 12:36 | Emergency (ER) | payer MEDICARE, SELFPAY ==
[2021-04-14 12:37] VITALS: BP 167/74; PULSE 94; RESP 16; TEMP 36.5; O2SAT 97; BMI 34.3
--- NOTE | 2021-04-14 13:50 | RAD_ITS ---
STUDY: X-RAY CHEST REASON FOR EXAM: Female, 65 years old. Chest injury TECHNIQUE: Frontal and lateral views of the chest COMPARISON: 17 October 2020 FINDINGS: The lungs are clear and expanded. There is no demonstrated pleural abnormality. Normal size heart. Normal mediastinum and neptali. Normal visualized pulmonary arteries. Normal visualized aortic arch and descending thoracic aorta. Normal visualized thoracic spine. Normal visualized ribs, clavicles, and shoulders. There is no demonstrated abnormality of the visualized soft tissue structures of the upper abdomen. There is cholecystectomy. RAD/Chest PA and Lateral IMPRESSION: Normal x-ray examination of the chest. Electronically Signed: Rafaela Celestin MD at 14:25 EDT Tel , Service support ,
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
[2021-04-14 14:51] VITALS: BP 128/52; PULSE 74; RESP 20
== END 2021-04-14 15:04 | disposition home or self-care (01) ==
PROVIDERS: Emergency Provider Emergency Medicine; PCP Internal Medicine
DX: S20.219A Contusion of unspecified front wall of thorax, initial encounter (principal); I12.9 Hypertensive chronic kidney disease with stage 1 through stage 4 chronic kidney disease, or unspecified chronic kidney disease; N18.30 Chronic kidney disease, stage 3 unspecified; K21.9 Gastro-esophageal reflux disease without esophagitis; E78.5 Hyperlipidemia, unspecified; Z79.899 Other long term (current) drug therapy; V43.62XA Car passenger injured in collision with other type car in traffic accident, initial encounter; Y93.I9 Activity, other involving external motion; Y92.410 Unspecified street and highway as the place of occurrence of the external cause; Y99.8 Other external cause status
CPT/HCPCS: 71046; 99284

== ENCOUNTER → 2021-05-03 08:50 | Outpatient (CLI) | payer MEDICARE, SELFPAY ==
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
== END ==
PROVIDERS: PCP Internal Medicine; Referring Provider Internal Medicine; Visit Provider Internal Medicine
DX: N64.4 Mastodynia (principal); N63.20 Unspecified lump in the left breast, unspecified quadrant
CPT/HCPCS: 76642

== ENCOUNTER → 2021-05-16 | Outpatient (CLI) | payer MEDICARE, SELFPAY ==
[2021-05-16 16:54] LABS: Bacteria 0 SEEN /hpf (None Seen); Mucous, Urine 0 SEEN /hpf (<or=2+); Red Blood Cells-Urine 0 SEEN /hpf (0-5)
[2021-05-16 17:56] LABS: Color, Urine Yellow (Yellow); Glucose, Dipstick Normal (Normal); Ketone-Dipstick Negative (Negative); Leukocyte Esterase-Dipstick 25 /ul (Negative); Nitrite-Dipstick Negative (Negative); Occult Blood-Urine Negative /ul (Negative); Protein-Dipstick Negative (Negative); Specific Gravity, Urine 1.025 (1.002-1.030); Urine Bilirubin Dipstick Negative (Negative); Urine Clarity Clear (Clear); Urine Urobilinogen Normal (Normal)
[2021-05-16 18:04] LABS: Calcium Oxalate Crystals Ur 2+ /hpf (<or=2+); Squamous Epithelial Cells - UA 0-5 SEEN /hpf (5-10); White Blood Cells 0-5 SEEN /hpf (0-5)
== END | disposition home or self-care (01) ==
LOC: LABSPEC 16:53
PROVIDERS: PCP Internal Medicine; Referring Provider Internal Medicine; Visit Provider Internal Medicine
DX: R10.2 Pelvic and perineal pain (principal); R10.9 Unspecified abdominal pain
CPT/HCPCS: 81001; 87086; 87088

== ENCOUNTER → 2021-06-02 07:44 | Outpatient (CLI) | payer MEDICARE, SELFPAY ==
--- NOTE | 2021-06-02 07:45 | CT_ITS ---
STUDY: CT ABDOMEN AND PELVIS WITHOUT CONTRAST REASON FOR EXAM: Female, 66 years old. Abdominal pain. RADIATION DOSAGE (If Supplied By Facility): CTDIvol = ( 12.65 ) mGy, DLP = ( 600.4 ) mGycm TECHNIQUE: Transaxial images were obtained from the dome of the diaphragm to the symphysis pubis without oral contrast, and without intravenous contrast. Sagittal and coronal images were reconstructed. Individualized dose optimization techniques were used for this CT. COMPARISON: 09/19/2020. FINDINGS: The visualized lung bases are unremarkable. The visualized portions of the heart are within normal limits. Diffuse fatty infiltration of the liver. No focal lesion is seen. There are surgical clips in the gallbladder fossa consistent with a prior cholecystectomy. Normal spleen. Normal pancreas. Normal bilateral adrenal glands. Normal right kidney. Normal left kidney. Normal visualized stomach. Normal small intestine. Fecal retention. There is non-visualization of the appendix. There are post surgical changes with an aortic stent. Normal inferior vena cava. Normal retroperitoneum. The bladder is not well-distended. There is absence of the uterus consistent with a prior hysterectomy. Normal abdominal wall. Mild degenerative changes in the lower lumbar spine. CT/Abdomen/Pelvis without Cont IMPRESSION: 1. Fatty infiltration of the liver. 2. No focal acute inflammatory process. 3. Status post cholecystectomy. 4. Nonvisualization of the appendix. Electronically Signed: Americo Du, at 12:12 EST Tel , Service support ,
== END ==
PROVIDERS: PCP Internal Medicine; Referring Provider Internal Medicine; Visit Provider Internal Medicine
DX: R10.2 Pelvic and perineal pain (principal); R10.9 Unspecified abdominal pain
CPT/HCPCS: 74176

== ENCOUNTER → 2021-06-04 | Outpatient (CLI) | payer MEDICARE, SELFPAY | END | disposition home or self-care (01) | LOC: LABSPEC 13:43 | PROVIDERS: PCP Internal Medicine; Referring Provider Internal Medicine; Visit Provider Internal Medicine | DX: J06.9 Acute upper respiratory infection, unspecified (principal); Z20.822 Contact with and (suspected) exposure to COVID-19 | CPT/HCPCS: 87635; U0005; U0003 ==

== ENCOUNTER 2021-07-30 11:52 | Outpatient (CLI) | payer MEDICARE, SELFPAY | END 2021-07-30 23:59 | disposition short-term general hospital (02) | LOC: LABSPEC 11:54 | PROVIDERS: PCP Internal Medicine; Visit Provider Nurse Practitioner Women's Health | DX: N76.0 Acute vaginitis (principal) | CPT/HCPCS: 87070; 87205 ==

== ENCOUNTER → 2021-11-21 | Outpatient (CLI) | payer MEDICARE, SELFPAY ==
[2021-11-21 12:15] LABS: Absolute Lymphocyte Count 2.27 X10^3/uL (0.83-4.51); Absolute Neutrophil Count 4.7 X10^3/uL (2.0-7.7); Basophil# 0.07 X10^3/uL; Basophil% 0.9 % (0-1); Eosinophil# 0.13 X10^3/uL; Eosinophils% 1.7 % (0-5); Hematocrit 43.6 % (37-47); Hemoglobin 13.7 g/dL (12.0-15.0); Lymphocyte # 2.27 X10^3/ul (0.83-4.51); Mean Corp Hgb Conc 31.4 g/dL (32-36); Mean Corpuscular Hgb 29.4 pg (27.0-32.0); Mean Corpuscular Volume 93.6 fL (81-99); Monocyte# 0.63 X10^3/uL; NRBC Flagged by Analyzer 0 % (0-5); Platelet Count 377 K/mm3 (150-450); RBC Distribution Width CV 13.1 % (11.6-14.6); RBC Distribution Width SD 44.6 fl (35.1-43.9); Red Blood Count 4.66 M/mm3 (4.2-5.4); White Blood Count 7.8 K/mm3 (4.4-11.0)
[2021-11-21 12:40] LABS: Microalbumin,Random Urine 7.7 mg/L (NO RANGE EST.); Microalbumin:Creatinine Ratio 10.3 mg/g CRE (<30 mg/g CRE)
[2021-11-21 13:03] LABS: ALB/GLOB Ratio 1.1 RATIO (0.9-2.4); AST(SGOT) 47 U/L (15-37); Alanine Aminotransfer ALT/SGPT 91 U/L (13-56); Albumin, Serum 3.8 g/dL (3.2-5.0); Alkaline Phosphatase 101 U/L (45-117); Anion Gap 8 (5-15); BUN 19 mg/dL (7-18); BUN/Creat Ratio 17.9 RATIO (10-20); Calcium,Total 9.8 mg/dL (8.5-10.1); Chloride 106 mmol/L (98-107); Creatinine, Serum 1.06 mg/dL (0.55-1.02); EST Glomerular Filtration Rate 55 mL/min (>60); Est Glom Filt Rate - Afr Amer 66 mL/min (>60); Globulin 3.5 g/dL (2.2-4.2); Glucose 88 mg/dL (74-106); Potassium 4.1 mmol/L (3.5-5.1); Protein, Total 7.3 g/dL (6.4-8.2); Sodium Level 139 mmol/L (136-145)
== END | disposition home or self-care (01) ==
LOC: BIMLAB 08:37
PROVIDERS: PCP Internal Medicine; Referring Provider Internal Medicine; Visit Provider Internal Medicine
DX: I12.9 Hypertensive chronic kidney disease with stage 1 through stage 4 chronic kidney disease, or unspecified chronic kidney disease (principal); N18.30 Chronic kidney disease, stage 3 unspecified
CPT/HCPCS: 36415; 80053; 82043; 82570; 85025

== ENCOUNTER → 2021-11-29 | Outpatient (CLI) | payer MEDICARE, SELFPAY ==
--- NOTE | 2021-11-29 08:23 | RAD_ITS ---
STUDY: X-RAY - CERVICAL SPINE REASON FOR EXAM: Female, 66 years old. NECK PAIN TECHNIQUE: 7 view(s) of the cervical spine were obtained. COMPARISON: None FINDINGS: Normal anterior atlantoaxial articulation. Normal odontoid process. Normal cervical lordosis. No subluxation on the flexion-extension views to suggest instability. Normal vertebral bodies and endplates. Normal disc space heights. Normal visualized intervertebral neuroforamina. The soft tissue structures are unremarkable. RAD/Cerv Spine Obl/Flex/Ext Comp IMPRESSION: Normal x-ray examination of the visualized cervical spine. Electronically Signed: Ye Vaughn MD at 9:49 EDT ,
== END | disposition home or self-care (01) ==
LOC: RAD 08:10
PROVIDERS: PCP Internal Medicine; Referring Provider Anesthesiology Pain Medicine; Visit Provider Anesthesiology Pain Medicine
DX: M54.2 Cervicalgia (principal)
CPT/HCPCS: 72052

== ENCOUNTER → 2021-12-01 | Outpatient (CLI) | payer MEDICARE, SELFPAY ==
--- NOTE | 2021-12-01 08:57 | US_ITS ---
HISTORY: CKD III. TECHNIQUE: Rodgers scale and color doppler images were obtained of the kidneys. 84 images. COMPARISON: CT 06/02/2021. FINDINGS: RIGHT KIDNEY: 9.1 cm in length with a cortical thickness of 8 mm. Echogenicity unremarkable. No hydronephrosis. 1.5 cm lower pole cyst. LEFT KIDNEY: 9.9 cm in length with a cortical thickness of 11 mm. Echogenicity unremarkable. No hydronephrosis. No gross renal mass demonstrated. URINARY BLADDER: Unremarkable at 422 cc. No wall thickening at 3 mm. No post void residual. Bilateral ureteral jets visualized. US/Kidney and Bladder IMPRESSION: Small right renal cyst. Otherwise unremarkable examination. Electronically Signed: Vivi Garduno MD at 10:21 EDT ,
== END | disposition home or self-care (01) ==
LOC: US 08:57
PROVIDERS: PCP Internal Medicine; Visit Provider Internal Medicine
DX: N18.30 Chronic kidney disease, stage 3 unspecified (principal)
CPT/HCPCS: 76770

== ENCOUNTER → 2022-02-22 | Outpatient (CLI) | payer MEDICARE, SELFPAY ==
[2022-02-22 12:47] LABS: ALB/GLOB Ratio 1.2 RATIO (0.9-2.4); AST(SGOT) 42 U/L (15-37); Alanine Aminotransfer ALT/SGPT 69 U/L (13-56); Albumin, Serum 3.8 g/dL (3.2-5.0); Alkaline Phosphatase 120 U/L (45-117); Anion Gap 6 (5-15); BUN 19 mg/dL (7-18); BUN/Creat Ratio 20.1 RATIO (10-20); Calcium,Total 9.6 mg/dL (8.5-10.1); Chloride 106 mmol/L (98-107); Cholesterol 208 mg/dL (200); Creatinine, Serum 0.95 mg/dL (0.55-1.02); EST Glomerular Filtration Rate 62 mL/min (>60); Est Glom Filt Rate - Afr Amer 75 mL/min (>60); Globulin 3.3 g/dL (2.2-4.2); Glucose 95 mg/dL (74-106); High Density Lipoprotein 53 mg/dL; Potassium 4.1 mmol/L (3.5-5.1); Protein, Total 7.1 g/dL (6.4-8.2); Sodium Level 138 mmol/L (136-145); Triglycerides 195 mg/dL; Very Low Density Lipoprotein 39 mg/dL (5-40)
== END | disposition home or self-care (01) ==
LOC: BIMLAB 08:59
PROVIDERS: PCP Internal Medicine; Referring Provider Internal Medicine; Visit Provider Internal Medicine
DX: I10 Essential (primary) hypertension (principal)
CPT/HCPCS: 36415; 80053; 80061

== ENCOUNTER 2022-02-24 08:05 | Observation (INO) | payer MEDICARE, SELFPAY ==
[2022-02-24] VITALS (13 sets, daily range): BP systolic 126–172; BP diastolic 53–93; PULSE 66–97; RESP 14–18; TEMP 36.3–36.7; O2SAT 92–98; BMI 34.0; BMI 32.9
--- NOTE | 2022-02-24 08:16 | EDS_ITS ---
HPI History of Present Illness Chief Complaint: Chest Pain Informant: patient Onset/Context/Timing Onset: Today and Hours (1) Activity at onset: sudden Timing: Continuous Quality: Positive for Pressure, Sharp and Stabbing Location: Substernal Worsened By: Nothing Relieved By: Nothing Associated Symptoms: Positive for Lightheadedness, Acid Reflux and Palpitations; Negative for Nausea, Vomiting, Diaphoresis, Dyspnea, Cough or Fever Narrative Narrative: Patient presents with chest pain that began this morning. Patient states it began approximate 1 hour prior to arrival. Patient states it is constant. Patient states it is sharp and stabbing but also feels like a pressure. Patient states it is over the lower substernal area and epigastric area. Patient denies any nausea or vomiting. Patient states she has a history of acid reflux. Anthony newton admits to some lightheadedness. Patient states she has a funny feeling in her chest but denies any feelings of her heart racing or skipping beats. Patient admits to a family history of coronary artery disease and hypertension. Patient denies any other cardiac or PE risk factors. CVD Risk Factors: Positive for Hypertension and Family History 1' </=55; Negative for Diabetes, Hypercholesterolemia or Smoking PE Risk Factors: Negative for Recent Travel/Surgery, Recent Immobilization, Prior DVT or PE, Cancer or OCP + Smoking + >/=35 PFSH PFSH Medical History (Updated 02/24/22 @ 11:[address] Manoj Enamorado DO) Arthritis GERD (gastroesophageal reflux disease) HTN (hypertension) Allergy/AdvReac Type Severity Reaction Status Date / Time Penicillins [PCN] Allergy Other Verified 02/24/22 08:07 Sulfa (Sulfonamide Allergy Other Verified 02/24/22 08:07 Antibiotics) Surgical History (Updated 02/24/22 @ 08:[address] Manoj Enamorado DO) Hx of appendectomy Hx of cholecystectomy Hx of hysterectomy Social History Smoking Status: Never smoker ROS ROS ED Constitutional Constitutional ED: Denies chills or fever(s) Eyes Eyes: Denies blurry vision or change in vision ENT ENT ED: Denies rhinorrhea or sore throat Cardiovascular Cardiovascular: Reports chest pain and palpitations Respiratory/Chest Respiratory/Chest: Denies cough or dyspnea Gastrointestinal Gastrointestinal: Denies abdominal pain, nausea or vomiting Genitourinary Genitourinary ED: Denies dysuria or hematuria Musculoskeletal Musculoskeletal: Reports back pain; Denies neck pain Integumentary Denies abscess or rash Neurologic Neurologic: Denies headache(s) or weakness Allergic/Immunologic Allergic/Immunologic ED: Denies mouth swelling or urticaria EXAM Physical Exam Const Vital Signs: 02/24/22 08:08 02/24/22 08:14 02/24/22 08:31 Temperature 97.6 F L Temperature Source Temporal Pulse Rate 93 Respiratory Rate 18 Respiratory Effort Normal Non-Labored Blood Pressure 157/93 H Blood Pressure Mean 114 Pulse Ox 98 Oxygen Delivery Method Room Air Room Air 02/24/22 09:07 02/24/22 10:00 02/24/22 11:00 Temperature Temperature Source Pulse Rate 73 68 66 Respiratory Rate 17 18 18 Respiratory Effort Blood Pressure 140/64 H 153/70 H 144/57 H Blood Pressure Mean 89 97 86 Pulse Ox 96 96 96 Oxygen Delivery Method Room Air Room Air Room Air Positive well nourished, well developed and obese General Appearance ED: well developed and NAD Nutritional Appearance: obese HEENT normocephalic and atraumatic Eyes PERRL and EOMs intact bilaterally Neck supple and no JVD Chest Wall palpation of chest normal Resp normal respiratory effort and clear to auscultation bilaterally Effort and Inspection: Negative for respiratory distress Cardio regular rate, regular rhythm and no murmurs GI normal to inspection, nondistended, normoactive bowel sounds, soft to palpation, non-tender and non-distended Extremity normal to inspection General Extremety ED: Negative for edema or tenderness General Extremity: Negative for edema Neuro oriented x3, CN's II-XII intact bilaterally and no sensory deficits noted Sensorium / Orientation: awake and alert Motor Exam: strength 5/5 throughout Psych mental status grossly normal Heart Score History: Slightly/Non-Suspicious ECG: Nonspecific Repolarization Age: >/= 65 years Risk Factors: 1 or 2 Risk Factors Troponin: </= Normal Limit Score: 4 MDM MDM MDM Narrative Medical decision making narrative: EKG was obtained. On my interpretation, it showed a normal sinus rhythm with a rate of 104. AL interval, QRS interval, and QTc intervals were all normal. [place] was normal. There are nonspecific ST-T wave changes. There are no prior EKGs available for her symptoms. Portable 1 view chest x-ray was obtained. On my interpretation, lung alex are clear. There is normal cardiac silhouette. Bony thorax is normal. There is no acute process noted. Radiologist also interpreted the x-ray and agrees. CBC was within normal limits. PT was INR and PTT were within normal limits. D-dimer was normal. Basic metabolic profile was within normal limits. Initial high-sensitivity troponin was normal at 7. 2-hour repeat high-sensitivity troponin was normal at 8. Patient states her last stress test was several years ago. Patient has a HEART score of 4. Because of this, I feel that the patient with benefit from observation and further chest pain evaluation. Case was discussed with the hospitalist. She will admit the patient for observation. Patient understood and was agreeable with the plan. All questions were answered. Lab Data Attestation: I reviewed the patient's lab results. Labs: Laboratory Results - last 24 hr 02/24/22 02/24/22 02/24/22 08:15 08:15 08:15 WBC 8.1 RBC 4.67 Hgb 13.9 Hct 41.9 MCV 89.7 MCH 29.8 MCHC 33.2 RDW Std Deviation 41.3 RDW Coeff of Allegra 12.5 Plt Count 359 MPV 10.6 Immature Gran % (Auto) 0.200 Neut % (Auto) 40.8 L Lymph % (Auto) 48.5 H [place] % (Auto) 7.8 Eos % (Auto) 1.7 Baso % (Auto) 1.0 Absolute Neuts (auto) 3.3 Absolute Lymphs (auto) 3.93 Nucleated RBC % 0 PT 12.5 INR 1.0 APTT 26.7 D-Dimer Quant (PE/DVT) 0.46 Sodium 140 Potassium 3.5 Chloride 106 Carbon Dioxide 25.0 Anion Gap 9 BUN 18 Creatinine 0.96 Estim Creat Clear Calc 67.73 Est GFR (MDRD) Af Amer 74 Est GFR (MDRD) Non-Af 61 BUN/Creatinine Ratio 18.8 Glucose 111 H Calcium 9.3 Troponin I High Sens 7 02/24/22 11:03 WBC RBC Hgb Hct MCV MCH MCHC RDW Std Deviation RDW Coeff of Allegra Plt Count MPV Immature Gran % (Auto) Neut % (Auto) Lymph % (Auto) [place] % (Auto) Eos % (Auto) Baso % (Auto) Absolute Neuts (auto) Absolute Lymphs (auto) Nucleated RBC % PT INR APTT D-Dimer Quant (PE/DVT) Sodium Potassium Chloride Carbon Dioxide Anion Gap BUN Creatinine Estim Creat Clear Calc Est GFR (MDRD) Af Amer Est GFR (MDRD) Non-Af BUN/Creatinine Ratio Glucose Calcium Troponin I High Sens 8 Radiography Chest X-Ray - ED: 1 View, Read by ED Physician, Read by Radiologist, Normal and No Acute Disease Diagnostic Testing: Clinical Impression(s) from Imaging Studies Chest X-Ray 02/24/22 08:41 IMPRESSION: Normal x-ray examination of the chest. Electronically Signed: Ye Vaughn MD at 11:59 EDT , EKG Initial EKG: Attestation: I personally reviewed and interpreted this EKG as follows: Interpretation: Sinus Rhythm (104) and Non-Specific ST Changes Prior EKG tracings: not available for review Prior: No Prior Discharge Plan Dx/Rx/DC Orders Clinical Impression: Chest pain, Hypertension, Obesity (BMI 30.0-34.9) Disposition Disposition: Acute Care Hospital [facility]
--- NOTE | 2022-02-24 08:31 | EKG12_ITS ---
Test Reason : Blood Pressure : / mmHG Vent. Rate : 104 BPM Atrial Rate : 104 BPM P-R Int : 190 ms QRS Dur : 072 ms QT Int : 364 ms P-R-T Axes : 061 049 073 degrees QTc Int : 478 ms Sinus tachycardia Nonspecific T wave abnormality Abnormal ECG Confirmed by [place] EWING, RICHARD ([id number]), restaurant expeditor [place] ([id number]) on 02/27/2022 8:52:36 AM Referred By: Confirmed By:RICHARD ALEJANDRA MD
[2022-02-24] MEDS: Aspirin 81 MG TAB.CHEW 324 MG PO (08:38)
--- NOTE | 2022-02-24 08:41 | RAD_ITS ---
STUDY: X-RAY CHEST REASON FOR EXAM: Female, 66 years old. chest pain TECHNIQUE: Single AP portable view of the chest. COMPARISON: None. FINDINGS: The lungs are clear and expanded. There is no demonstrated pleural abnormality. Normal size heart. Normal mediastinum and neptali. Normal visualized pulmonary arteries. Normal visualized aortic arch and descending thoracic aorta. Normal visualized thoracic spine. Normal visualized ribs, clavicles, and shoulders. There is no demonstrated abnormality of the visualized soft tissue structures of the upper abdomen. RAD/Chest 1 View (Portable) IMPRESSION: Normal x-ray examination of the chest. Electronically Signed: Ye Vaughn MD at 11:59 EDT ,
[2022-02-24 08:45] LABS: Absolute Lymphocyte Count 3.93 X10^3/uL (0.83-4.51); Absolute Neutrophil Count 3.3 X10^3/uL (2.0-7.7); Basophil# 0.08 X10^3/uL; Eosinophil# 0.14 X10^3/uL; Eosinophils% 1.7 % (0-5); Hematocrit 41.9 % (37-47); Hemoglobin 13.9 g/dL (12.0-15.0); Lymphocyte # 3.93 X10^3/ul (0.83-4.51); Lymphocyte % 48.5 % (19-41); Mean Corp Hgb Conc 33.2 g/dL (32-36); Mean Corpuscular Hgb 29.8 pg (27.0-32.0); Mean Corpuscular Volume 89.7 fL (81-99); Mean Platelet Vol. 10.6 fl (6.2-12.0); Monocyte# 0.63 X10^3/uL; Monocyte% 7.8 % (0-10); NRBC Flagged by Analyzer 0 % (0-5); Neutrophil % 40.8 % (47-70); Platelet Count 359 K/mm3 (150-450); RBC Distribution Width CV 12.5 % (11.6-14.6); RBC Distribution Width SD 41.3 fl (35.1-43.9); Red Blood Count 4.67 M/mm3 (4.2-5.4); White Blood Count 8.1 K/mm3 (4.4-11.0)
[2022-02-24 09:08] LABS: Anion Gap 9 (5-15); BUN 18 mg/dL (7-18); BUN/Creat Ratio 18.8 RATIO (10-20); Calcium,Total 9.3 mg/dL (8.5-10.1); Chloride 106 mmol/L (98-107); Creatinine, Serum 0.96 mg/dL (0.55-1.02); EST Glomerular Filtration Rate 61 mL/min (>60); Est Glom Filt Rate - Afr Amer 74 mL/min (>60); Estimated Creatinine Clearance 67.73 ml/min; Glucose 111 mg/dL (74-106); Potassium 3.5 mmol/L (3.5-5.1); Sodium Level 140 mmol/L (136-145); Troponin-I HS (w/2H Reflex) 7 pg/mL (3.0-54.0)
[2022-02-24 09:10] LABS: Prothrombin Time (Protime)PT. 12.5 SECONDS (11.7-14.9)
[2022-02-24 09:11] LABS: Partial Thromboplast Time 26.7 Seconds (24.1-36.2)
[2022-02-24 09:20] LABS: D-Dimer Quantitative (DVT/PE) 0.46 FEU/ug/m (0.27-0.49)
[2022-02-24 10:41] LABS: Reflex Troponin-HS? (from REC) Y
[2022-02-24 11:28] LABS: Troponin-I HS 8 pg/mL (3.0-54.0)
--- NOTE | 2022-02-24 12:25 | HP.PCM.HOS_ITS ---
HPI - General General Date of Admission: 02/24/22 Date of Service: 02/24/22 Chief Complaint: Chest Pain HPI Narrative FELIPE TIM, is a 66 F who presented department was coming hospital on 02/24/2022 with a chief complaint of chest pain. She reported that the pain began this morning and was initially centrally located but has radiated into the left chest. It began approximately 1 hour prior to arrival to the emergency department. She reported that had been constant and sharp and stabbing but also felt like pressure. She denied any associated nausea or vomiting, diaphoresis, or shortness of breath but did admit to some lightheadedness. She denies specifically palpitations but does report a funny feeling in her chest. She deferred offered nitroglycerin earlier as she was told it could give her a headache and she did not want a headache. She does continue to complain of ongoing left-sided chest pain. She has a family history of hypertension hyperlipidemia as well as a family history for coronary artery disease in both her parents and her brothers. Vital signs on presentation showed temperature of 97.6, heart rate of 93, blood pressure 157/93, respiratory rate 18, oxygen saturation of 98% on room air. Her CBC was unremarkable. Coags were normal. Her basic metabolic profile was normal except for mildly elevated blood glucose of 111 which was nonfasting. She had recent lipid studies done at which time her LDL was 116. Total cholesterol was 200. She is not baseline but does take fenofibrate. EKG is normal sinus rhythm with normal intervals and no ST-T wave changes consistent with acute ischemia. Chest x-ray is unremarkable for any acute processes. 2 high-sensitivity troponins were obtained with initial being 7 and the repeat being 8. Emergency department physician requested admission as her heart score is 4 and requested stress test be performed prior to discharge home given her risk. [facility] Medical History Arthritis GERD (gastroesophageal reflux disease) Hepatitis C HTN (hypertension) Hyperlipidemia Obesity (BMI 30.0-34.9) Osteoporosis Stage 3a chronic kidney disease (CKD) Vitamin D deficiency Allergy/AdvReac Type Severity Reaction Status Date / Time Penicillins [PCN] Allergy Other Verified 02/24/22 08:07 Sulfa (Sulfonamide Allergy Other Verified 02/24/22 08:07 Antibiotics) Family History (Updated 02/24/22 @ 12:[address] Drea Ivey DO) Other CAD (coronary artery disease) CVA (cerebral vascular accident) Heart failure Hyperlipidemia Hypertension Surgical History Hx of appendectomy Hx of cholecystectomy Hx of hysterectomy Social History (Updated 02/24/22 @ 12:[address] Drea Ivey DO) household members: spouse housing: house Smoking Status: Never smoker alcohol intake: never substance use type: does not use what type of physical activity do you participate in: none cat/rastafarian: Holiness do you feel safe at home: Yes ROS Constitutional Constitutional: Denies anorexia, change in weight, chills, fatigue, fever(s), malaise, night sweats, weakness or other Eyes Eyes: Denies blurry vision, change in eye color, change in vision, discharge from eye(s), double vision, erythema, eye pain, loss of vision or other ENT HEENT: Denies abnormal hearing, dysphagia, ear pain, epistaxis, headache(s), hearing loss, nasal congestion, nasal discharge, post nasal drip, sinus pressure, sore throat or other Cardiovascular Cardiovascular: Reports chest pain, lightheadedness and other Details: Funny feeling in chest ; Denies claudication, dyspnea on exertion, edema, orthopnea, palpitations, paroxysmal nocturnal dyspnea, rapid heart rate or syncope Respiratory/Chest Respiratory/Chest: Denies cough, dyspnea, excessive phlegm production, hemoptysis, productive cough, shortness of breath at rest, shortness of breath with exertion, wheezing or other Gastrointestinal Gastrointestinal: Denies abdominal pain, coffee ground emesis, constipation, diarrhea, dyspepsia, hematemesis, hematochezia, loose stools, melena, nausea, vomiting or other Genitourinary Genitourinary: Denies burning urination, difficulty urinating, dysuria, hematuria, nocturia, urinary frequency, urinary hesitancy, urinary incontinence, urinary urgency or other Musculoskeletal Musculoskeletal: Reports back pain, joint pain, joint stiffness and neck pain; Denies arthralgias, joint swelling, myalgias or other Neurologic Neurologic: Denies abnormal gait, abnormal speech, confusion, disequilibrium, dizziness, focal weakness, headache(s), numbness, paresthesias, seizure-like activity, seizures, syncope, tingling, tremor(s) or other Psychiatric Psychiatric: Denies anxiety, depression, homicidal ideation, suicidal ideation or other Endocrine Endocrinology: Denies change in body appearance, cold intolerance, excessive sweating, heat intolerance, polydipsia, polyuria or other Hematologic/Lymphatic Hematologic/Lymphatic: Denies anemia, easy bleeding, easy bruising, lymphadenopathy or other Allergic/Immunologic Allergic/Immunologic: Denies rhinitis, hives, eczemia, asthma or other Vital Signs Vital Signs Vital Signs: 02/24/22 08:08 02/24/22 08:14 02/24/22 08:31 Temperature 97.6 F L Temperature Source Temporal Pulse Rate 93 Respiratory Rate 18 Respiratory Effort Normal Non-Labored Blood Pressure 157/93 H Blood Pressure Mean 114 Pulse Ox 98 Oxygen Delivery Method Room Air Room Air 02/24/22 09:07 02/24/22 10:00 02/24/22 11:00 Temperature Temperature Source Pulse Rate 73 68 66 Respiratory Rate 17 18 18 Respiratory Effort Blood Pressure 140/64 H 153/70 H 144/57 H Blood Pressure Mean 89 97 86 Pulse Ox 96 96 96 Oxygen Delivery Method Room Air Room Air Room Air 02/24/22 12:18 Temperature 98.1 F Temperature Source Temporal Pulse Rate 70 Respiratory Rate 14 Respiratory Effort Blood Pressure 172/79 H Blood Pressure Mean 110 Pulse Ox 98 Oxygen Delivery Method Room Air Weight Weight: 76.5 kg Body Mass Index (BMI) 34.0 Physical Exam Const alert, oriented x3, no apparent distress, healthy appearing and well nourished Constitutional Narrative: Obese upper middle-aged white female lying in bed, appears comfortable, nontoxic HEENT normocephalic, head/scalp atraumatic, hearing grossly normal bilaterally and moist oral mucous membranes HEENT Narrative: Mallampati 3, dentition is fair for age, no thrush Neck no lymphadenopathy, supple, no JVD and no carotid bruits Neck Narrative: Trachea midline, no thyroid enlargement Resp normal respiratory effort, no retractions, no use of accessory muscles and clear to auscultation bilaterally Auscultation: Negative for crackles, rales, rhonchi or wheezes Cardio regular rate, regular rhythm, S1 normal heart sound, S2 normal heart sound, no murmurs, no rub, no gallops, no clicks and no JVD GI normal to inspection, nondistended, normoactive bowel sounds, soft to palpation, non-tender and non-distended Extremity no clubbing, cyanosis or edema Extremity Narrative: Pedal pulses are 2+ Neuro oriented x3, CN's II-XII intact bilaterally, moves all extremities and no focal motor deficits Speech: speech normal Psych affect normal Psych Narrative: Very pleasant and appropriately interactive Results Lab / Micro Data Result Diagrams: 02/24/22 08:15 02/24/22 08:15 Labs: Laboratory Results - last 24 hr 02/24/22 08:15: WBC 8.1, RBC 4.67, Hgb 13.9, Hct 41.9, MCV 89.7, MCH 29.8, MCHC 33.2, RDW Std Deviation 41.3, RDW Coeff of Allegra 12.5, Plt Count 359, MPV 10.6, Immature Gran % (Auto) 0.200, Neut % (Auto) 40.8 L, Lymph % (Auto) 48.5 H, [place] % (Auto) 7.8, Eos % (Auto) 1.7, Baso % (Auto) 1.0, Absolute Neuts (auto) 3.3, Absolute Lymphs (auto) 3.93, Nucleated RBC % 0 02/24/22 08:15: PT 12.5, INR 1.0, APTT 26.7, D-Dimer Quant (PE/DVT) 0.46 02/24/22 08:15: Sodium 140, Potassium 3.5, Chloride 106, Carbon Dioxide 25.0, Anion Gap 9, BUN 18, Creatinine 0.96, Estim Creat Clear Calc 67.73, Est GFR (MDRD) Af Amer 74, Est GFR (MDRD) Non-Af 61, BUN/Creatinine Ratio 18.8, Glucose 111 H, Calcium 9.3, Troponin I High Sens 7 02/24/22 11:03: Troponin I High Sens 8 Radiology Impression Chest X-Ray 02/24/22 08:41 IMPRESSION: Normal x-ray examination of the chest. Electronically Signed: Ye Vaughn MD at 11:59 EDT , Assessment & Plan Assessment/Plan (1) Chest pain: PLAN: Plan Chest pain -EKG negative for any acute signs of ischemia -Initial cardiac enzymes are normal we will continue to cycle -Patient did have recent lipids this month with a total cholesterol of 200 and an LDL of 117 -Continue home fenofibrate -Check hemoglobin A1c -N.p.o. after midnight -Stress test in a.m.--> treadmill -Stress test is negative likely will proceed with discharge tomorrow if positive will consult cardiology -Heart score on admission was 4 History of hypertension -Continue home medications including amlodipine 10 mg daily, hydralazine 50 mg 3 times daily, hydralazine 12.5 mg daily Hyperlipidemia -Continue home fenofibrate -Add statin if stress test is positive CKD stage IIIa -Current serum creatinine is 0.96 with an estimated GFR of 74 however when reviewed previous serum creatinine it appears her baseline is in the 1-1.3 range giving her a GFR less than 60 -Monitor clinically History of GERD -Patient is not on any suppressive medication at this time -Continue to monitor -If chest pain persists and stress is negative we will add Protonix History of hepatitis C -No current issues Osteoporosis -Continue outpatient management Vitamin D deficiency -Restart ergocalciferol upon discharge DVT prophylaxis -Lovenox daily CODE STATUS -Full code Charges/Coding Visit Charges Inpatient E&M: 47725 Init Hosp L2
[2022-02-24] MEDS: hydrALAZINE 50 MG Tablet PO ×2 (13:55→21:00)
[2022-02-24 14:41] LABS: Troponin-I HS 9 pg/mL (3.0-54.0)
[2022-02-24] MEDS: Acetaminophen 325 MG Tablet 650 MG PO (19:52)
[2022-02-25 03:01] VITALS: PULSE 61
[2022-02-25 04:50] VITALS: BP 143/73; PULSE 70; RESP 17; TEMP 36.7; O2SAT 96
[2022-02-25 05:04] VITALS: PULSE 70
[2022-02-25] MEDS: hydrALAZINE 50 MG Tablet PO (05:04)
--- NOTE | 2022-02-25 05:55 | EKG12_ITS ---
Test Reason : AM EKG Blood Pressure : / mmHG Vent. Rate : 065 BPM Atrial Rate : 065 BPM P-R Int : 158 ms QRS Dur : 072 ms QT Int : 544 ms P-R-T Axes : 050 038 101 degrees QTc Int : 565 ms Normal sinus rhythm Nonspecific T wave abnormality Prolonged QT Abnormal ECG Confirmed by [place] EWING, RICHARD ([id number]), supervising editor trailer [place] ([id number]) on 02/26/2022 1:00:19 PM Referred By: Confirmed By:RICHARD ALEJANDRA MD
[2022-02-25 06:49] LABS: Absolute Lymphocyte Count 1.86 X10^3/uL (0.83-4.51); Absolute Neutrophil Count 2.6 X10^3/uL (2.0-7.7); Basophil# 0.06 X10^3/uL; Basophil% 1.1 % (0-1); Eosinophil# 0.18 X10^3/uL; Eosinophils% 3.4 % (0-5); Hematocrit 37.8 % (37-47); Lymphocyte # 1.86 X10^3/ul (0.83-4.51); Lymphocyte % 35.6 % (19-41); Mean Corp Hgb Conc 34.4 g/dL (32-36); Mean Corpuscular Hgb 30.2 pg (27.0-32.0); Mean Corpuscular Volume 87.9 fL (81-99); Mean Platelet Vol. 10.7 fl (6.2-12.0); Monocyte# 0.47 X10^3/uL; NRBC Flagged by Analyzer 0 % (0-5); Neutrophil # 2.64 X10^3/uL (2.7-7.7); Neutrophil % 50.7 % (47-70); Platelet Count 309 K/mm3 (150-450); RBC Distribution Width CV 12.7 % (11.6-14.6); RBC Distribution Width SD 40.8 fl (35.1-43.9); White Blood Count 5.2 K/mm3 (4.4-11.0)
[2022-02-25 06:59] VITALS: PULSE 66
[2022-02-25 07:13] LABS: Hemoglobin A1c 5.3 % (3.8-5.6)
[2022-02-25 07:21] LABS: ALB/GLOB Ratio 1.1 RATIO (0.9-2.4); AST(SGOT) 34 U/L (15-37); Alanine Aminotransfer ALT/SGPT 55 U/L (13-56); Albumin, Serum 3.3 g/dL (3.2-5.0); Alkaline Phosphatase 110 U/L (45-117); Anion Gap 7 (5-15); BUN 14 mg/dL (7-18); BUN/Creat Ratio 17.9 RATIO (10-20); Calcium,Total 9.2 mg/dL (8.5-10.1); Chloride 108 mmol/L (98-107); Creatinine, Serum 0.78 mg/dL (0.55-1.02); EST Glomerular Filtration Rate 78 mL/min (>60); Est Glom Filt Rate - Afr Amer 94 mL/min (>60); Glucose 94 mg/dL (74-106); Magnesium 2.2 mg/dL (1.6-2.6); Phosphorus 3.4 mg/dL (2.5-4.9); Protein, Total 6.3 g/dL (6.4-8.2); Sodium Level 140 mmol/L (136-145)
[2022-02-25 07:26] VITALS: O2SAT 93
[2022-02-25] MEDS: Potassium Chloride Oral Tablet 20 MEQ 60 MEQ PO (07:52)
[2022-02-25 10:05] VITALS: BP 122/68; PULSE 73; RESP 17; TEMP 36.6; O2SAT 99
[2022-02-25] MEDS: hydroCHLOROthiazide 12.5mg 12.5 MG PO (10:12)
[2022-02-25] MEDS: amLODIPine 10 MG Tablet PO (10:13)
[2022-02-25] MEDS: Fenofibrate 145 MG Tablet PO (10:13)
--- NOTE | 2022-02-25 10:56 | PCM.DC.SUM ---
Providers Date of Admission: 02/24/22 Date of Discharge: 02/25/22 Primary Care Physician: Dr. Benjamin Chopra MD Reason For Visit: CHEST PAIN Diagnosis Discharge Diagnosis (1) Chest pain: Status: Acute Code(s): R07.9 - Chest pain, unspecified Plan Chest pain -EKG negative for any acute signs of ischemia -Initial cardiac enzymes are normal we will continue to cycle -Patient did have recent lipids this month with a total cholesterol of 200 and an LDL of 117 -Continue home fenofibrate -Check hemoglobin A1c -N.p.o. after midnight -Stress test in a.m.--> treadmill -Stress test is negative likely will proceed with discharge tomorrow if positive will consult cardiology -Heart score on admission was 4 History of hypertension -Continue home medications including amlodipine 10 mg daily, hydralazine 50 mg 3 times daily, hydralazine 12.5 mg daily Hyperlipidemia -Continue home fenofibrate -Add statin if stress test is positive CKD stage IIIa -Current serum creatinine is 0.96 with an estimated GFR of 74 however when reviewed previous serum creatinine it appears her baseline is in the 1-1.3 range giving her a GFR less than 60 -Monitor clinically History of GERD -Patient is not on any suppressive medication at this time -Continue to monitor -If chest pain persists and stress is negative we will add Protonix History of hepatitis C -No current issues Osteoporosis -Continue outpatient management Vitamin D deficiency -Restart ergocalciferol upon discharge DVT prophylaxis -Lovenox daily CODE STATUS -Full code Medications at Discharge Home Medications amlodipine 10 mg tablet 10 mg PO DAILY BP 02/24/22 ascorbic acid (vitamin C) 1,000 mg capsule,extended release 1,000 cap PO DAILY PRN PRN health maintenance 02/24/22 clobetasol 0.05 % topical cream 1 applic topical DAILY health maintenance 02/24/22 fenofibrate 54 mg tablet 54 mg PO DAILY cholesterol 02/24/22 hydralazine 50 mg tablet 50 mg PO TID BP 02/24/22 hydrochlorothiazide 12.5 mg tablet 12.5 mg PO DAILY diuretic 02/24/22 ibandronate 150 mg tablet 150 mg PO MO health maintenance 02/24/22 Hospital Course Operations None Procedures EKG and Nuclear stress test Summary of Care Provided Minutes Spent on Discharge: 25 Hospital Course: Mrs. Zendejas is a 66-year-old white female who presented to the emergency department at [facility] on 02/24/2022 with a chief complaint of chest pain. She reported that her pain began on the morning of admission and was initially centrally located but radiated to the left chest following. It began approximately 1 hour prior to presentation and had been constant with sharp and stabbing sensation since that point time. She also reported that she had intermittent pressure sensation as well. She denied any associated nausea, vomiting, diaphoresis, or shortness of breath but did admit to some lightheadedness. She denied specific palpitations but did report that she had a funny feeling in her chest. She had ongoing left-sided chest pain emergency department upon my evaluation and was offered nitroglycerin but indicated she did not want it as it was reported to her that it did give her a headache. Vital signs on presentation showed temperature of 97.6, heart rate of 93, blood pressure 157/93, respiratory rate 18, oxygen saturation of 98% on room air.? Her CBC was unremarkable.? Coags were normal.? Her basic metabolic profile was normal except for mildly elevated blood glucose of 111 which was nonfasting.? She had recent lipid studies done at which time her LDL was 116.? Total cholesterol was 200.? She is not baseline but does take fenofibrate.? EKG is normal sinus rhythm with normal intervals and no ST-T wave changes consistent with acute ischemia.? Chest x-ray is unremarkable for any acute processes.? 2 high-sensitivity troponins were obtained with initial being 7 and the repeat being 8. She was admitted to the medical floor given the fact that her heart score was 4 for a stress test. Cardiac enzymes were cycled and were 7, 8, 9. As noted above she had recent cholesterol labs drawn so we did not repeat these. Hemoglobin A1c was obtained and found to be 5.3. A stress test was performed on 02/25/2022 and she was found to have no inducible ischemia on a treadmill stress test. Her symptoms had resolved and given the fact she had a negative stress test with no further symptoms we felt that that she was stable for discharge. She was discharged home in stable condition on 02/25/2022 with no medication changes. She is to follow-up with her primary care physician within the next 2 weeks. Discharge diagnoses: Chest pain-resolved Hypertension Hyperlipidemia CKD stage III a History of GERD History hepatitis C Osteoporosis Vitamin D deficiency Physical Exam Narrative Test was completed and patient was asymptomatic during the process. No symptoms overnight and chest pain has resolved. Const alert, oriented x3, no apparent distress, healthy appearing and well nourished Constitutional Narrative: Obese upper middle-aged white female sitting up in bed, appears comfortable, nontoxic, at bedside General Appearance: cooperative, comfortable, well kempt and well developed Orientation / Consciousness: awake, oriented to person and oriented to place HEENT normocephalic, head/scalp atraumatic, hearing grossly normal bilaterally and moist oral mucous membranes HEENT Narrative: Mallampati 3, dentition is fair for age, no thrush Resp normal respiratory effort, no retractions, no use of accessory muscles and clear to auscultation bilaterally Auscultation: Negative for crackles, rales, rhonchi or wheezes Cardio regular rate, regular rhythm, S1 normal heart sound, S2 normal heart sound, no murmurs, no rub, no gallops, no clicks and no JVD GI normal to inspection, nondistended, normoactive bowel sounds, soft to palpation, non-tender and non-distended Extremity no clubbing, cyanosis or edema Extremity Narrative: Pedal pulses are 2+ Neuro oriented x3, moves all extremities and no focal motor deficits Speech: speech normal Psych affect normal Psych Narrative: Very pleasant and appropriately interactive Weight / BMI Weight Weight: 74 kg Body Mass Index (BMI) 32.9 ABG / Lab / Microbiology Data Result Diagrams: 02/25/22 05:55 02/25/22 05:55 Laboratory: Laboratory Results - last 24 hr 02/24/22 11:03: Troponin I High Sens 8 02/24/22 14:07: Troponin I High Sens 9 02/25/22 05:55: Hemoglobin A1c 5.3 02/25/22 05:55: WBC 5.2, RBC 4.30, Hgb 13.0, Hct 37.8, MCV 87.9, MCH 30.2, MCHC 34.4, RDW Std Deviation 40.8, RDW Coeff of Allegra 12.7, Plt Count 309, MPV 10.7, Immature Gran % (Auto) 0.200, Neut % (Auto) 50.7, Lymph % (Auto) 35.6, [place] % (Auto) 9.0, Eos % (Auto) 3.4, Baso % (Auto) 1.1 H, Absolute Neuts (auto) 2.6, Absolute Lymphs (auto) 1.86, Nucleated RBC % 0 02/25/22 05:55: Sodium 140, Potassium 3.0 L, Chloride 108 H, Carbon Dioxide 25.0, Anion Gap 7, BUN 14, Creatinine 0.78, Estim Creat Clear Calc 62.90, Est GFR (MDRD) Af Amer 94, Est GFR (MDRD) Non-Af 78, BUN/Creatinine Ratio 17.9, Glucose 94, Calcium 9.2, Phosphorus 3.4, Magnesium 2.2, Total Bilirubin 0.70, AST 34, ALT 55, Alkaline Phosphatase 110, Total Protein 6.3 L, Albumin 3.3, Globulin 3.0, Albumin/Globulin Ratio 1.1 Radiography Diagnostic Testing: Radiology Impression Chest X-Ray 02/24/22 08:41 IMPRESSION: Normal x-ray examination of the chest. Electronically Signed: eY Vaughn MD at 11:59 EDT , D/C Instructions Discharge Diet: Low fat / Low cholesterol Discharge Activity: Return to Normal Activity Return to work on: 02/26/22 Meaningful Use Info Meaningful Use Diagnoses (Choose all that apply): None applicable Discharge Plan Admission Admit Date/Time: 02/24/22 11:48 Primary Reason for Your Visit: Chest pain Attending Provider: Drea Ivey Primary Care Provider: Benjamin Chopra Discharge Orders/Prescriptions Prescriptions: Continued clobetasol 0.05 % cream 1 applic TOPICAL DAILY Label Comments: APPLY SMALL AMOUNT topically EVERY DAY FOR FOUR WEEKS FOR TO RASH OR topical irritation amlodipine 10 mg tablet 10 mg PO DAILY Label Comments: TAKE ONE TABLET BY MOUTH EVERY DAY hydralazine 50 mg tablet 50 mg PO TID Label Comments: TAKE ONE TABLET BY MOUTH THREE TIMES DAILY ascorbic acid (vitamin C) 1,000 mg Capsule, Extended Release 1,000 cap PO DAILY PRN PRN (Reason: health maintenance) ibandronate 150 mg tablet 150 mg PO MO Label Comments: take 1 tablet by mouth every month hydrochlorothiazide 12.5 mg tablet 12.5 mg PO DAILY Label Comments: TAKE ONE TABLET BY MOUTH EVERY MORNING fenofibrate 54 mg tablet 54 mg PO DAILY Label Comments: TAKE ONE TABLET BY MOUTH EVERY DAY Referrals / Follow Up: Benjamin Chopra MD [Primary Care Provider] - Within 2 Weeks Disposition Disposition (needs filled in before D/C Order can be placed): Home, Self Care Charges/Coding Visit Charges Inpatient E&M: 64147 Disch Hosp
--- NOTE | 2022-02-25 11:02 | PHA.DC.MR ---
Pharmacy Service has performed discharge medication reconciliation for this patient. The patient's discharge medication list was reviewed for discrepancies and discrepancies were resolved. Home Medications amlodipine 10 mg tablet 10 mg PO DAILY BP 02/24/22 ascorbic acid (vitamin C) 1,000 mg capsule,extended release 1,000 cap PO DAILY PRN PRN health maintenance 02/24/22 clobetasol 0.05 % topical cream 1 applic topical DAILY health maintenance 02/24/22 fenofibrate 54 mg tablet 54 mg PO DAILY cholesterol 02/24/22 hydralazine 50 mg tablet 50 mg PO TID BP 02/24/22 hydrochlorothiazide 12.5 mg tablet 12.5 mg PO DAILY diuretic 02/24/22 ibandronate 150 mg tablet 150 mg PO MO health maintenance 02/24/22
--- NOTE | 2022-02-25 12:25 | STRESSREP_ITS ---
Stress Test Report Date: Procedure: Exercise tolerance test/imaging study Indications: Chest pain Consent: Per the patient Procedure: The patient exercised on a Harris protocol for 5 minutes completing Stage I and 2 minutes of Stage II achieving a peak heart rate of 136 bpm (89% predicted maximal heart rate) with a peak blood pressure 200/70 mmHg and a peak MET capacity of 7 METs. The baseline ECG demonstrated normal sinus rhythm; nonspecific ST/T wave abnormality. The peak exercise ECG demonstrated somatic/motion artifact with no obvious ECG changes. There were no cardiac dysrhythmias pretest, during exercise, or recovery. The functional capacity was considered fair. There was mild chest pressure and moderate shortness of breath at peak exercise with subsequent improvement in recovery. The examination was discontinued secondary to chest pressure and dyspnea. Impression: 1. Technically adequate (percent predicted maximal heart rate greater than 85%) exercise tolerance test 2. Peak exercise ECG with somatic/motion artifact with no obvious ECG change 3. There were no cardiac dysrhythmias pretest, during exercise, or recovery 4. Nuclear images pending Myocardial perfusion imaging study: Technique: The patient was injected with 11.3 mCi of technetium 99m Cardiolite and subsequently rest SPECT Cardiolite nuclear imaging was obtained in the horizontal long, vertical long, and short axis views. The patient exercised on a Harris protocol for 5 minutes completing Stage I and 2 minutes of Stage II achieving a peak heart rate of 136 bpm (89% predicted maximal heart rate) with a peak blood pressure 200/70 mmHg and a peak MET capacity of 7 METs. The patient was injected with 34.2 mCi of technetium 99m Cardiolite and subsequently stress SPECT Cardiolite nuclear imaging was obtained in the horizontal long, vertical long, and short axis views. A gated Cardiolite study at peak stress was obtained. Interpretation: Rest and stress SPECT Cardiolite nuclear imaging status post realignment, normalization, and attenuation correction, demonstrates the appearance of relative uniform tracer uptake and myocardial perfusion appearing within normal limits. There is end systolic thickening and brightening. The gated Cardiolite study demonstrates myocardial thickening and inward wall motion. The reported LVEF is 85%. Impression: 1. Rest and stress SPECT Cardiolite nuclear imaging demonstrate relative uniform tracer uptake and myocardial perfusion appearing within normal limits. 2. The gated Cardiolite study reports an LVEF of 85%. This note was generated with [employer] software. It may contain incorrect words, spelling, and punctuation that were not noted in checking the note before signing.
== END 2022-02-25 10:58 | disposition home or self-care (01) ==
LOC: ED 11:53 → PCU 12:03
PROVIDERS: Admitting Provider Internal Medicine; Emergency Provider Emergency Medicine; PCP Internal Medicine; Visit Provider Internal Medicine
DX: R07.89 Other chest pain (principal); N18.31 Chronic kidney disease, stage 3a; E78.5 Hyperlipidemia, unspecified; I12.9 Hypertensive chronic kidney disease with stage 1 through stage 4 chronic kidney disease, or unspecified chronic kidney disease; E66.9 Obesity, unspecified; E55.9 Vitamin D deficiency, unspecified; R42 Dizziness and giddiness; R00.2 Palpitations; K21.9 Gastro-esophageal reflux disease without esophagitis; M19.90 Unspecified osteoarthritis, unspecified site; Z79.899 Other long term (current) drug therapy
CPT/HCPCS: 36415; 71045; 78452; 80048; 80053; 83036; 83735; 84100; 84484; 85025; 85379; 85610; 85730; 93005; 93017; 99218; 99251; 99285; A9500; A4216; G0378; G0463

== ENCOUNTER → 2022-03-06 | Outpatient (CLI) | payer MEDICARE, SELFPAY ==
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
== END | disposition home or self-care (01) ==
LOC: OPBI 07:50
PROVIDERS: PCP Internal Medicine; Visit Provider Internal Medicine
DX: Z12.31 Encounter for screening mammogram for malignant neoplasm of breast (principal)
CPT/HCPCS: 77063; 77067

== ENCOUNTER → 2022-03-13 | Outpatient (CLI) | payer MEDICARE, SELFPAY ==
--- NOTE | 2022-03-13 08:04 | US_ITS ---
STUDY: ULTRASOUND BREAST - LEFT REASON FOR EXAM: Female, 66 years old. Abnormal screening mammogram. TECHNIQUE: Axial and longitudinal images of the LEFT breast were performed with a high resolution ultrasound transducer. # OF IMAGES: 31 COMPARISON: Comparison is made with prior mammogram dated March 062021 and prior ultrasound of the left breast dated 05/03/2021. FINDINGS: LEFT Breast: There is a 1 cm x 1 cm x 1 cm cyst with septation at the 9 o''clock position the breast and the retroareolar region. There is a 7 mm x 7 mm left 7 mm cyst at the 9 o''clock position of the breast at 3 sinus on the there is a 7 mm x 7 mm x 6 mm cyst in the retroareolar region of the breast at the 12 o''clock position breast as well as a 3 mm x 3 mm x 4 mm cyst at the 8 o''clock position breast at 2 sinus from the nipple. US/Breast Limited Unilateral IMPRESSION: 4 cysts are seen corresponding to the mammographic findings. ASSESSMENT CATEGORY: BIRADS Category 2: Benign. A letter regarding these results will be sent to the patient by the facility within 30 days. Electronically Signed: David Barajas MD at 9:36 EDT ,
== END | disposition home or self-care (01) ==
LOC: OPUS 08:01
PROVIDERS: PCP Internal Medicine; Visit Provider Internal Medicine
DX: R92.8 Other abnormal and inconclusive findings on diagnostic imaging of breast (principal)
CPT/HCPCS: 76642

== ENCOUNTER → 2022-06-03 | Outpatient (CLI) | payer MEDICARE, SELFPAY ==
[2022-06-03 15:19] LABS: Anion Gap 6 (5-15); BUN 20 mg/dL (7-18); BUN/Creat Ratio 20.1 RATIO (10-20); Calcium,Total 9.5 mg/dL (8.5-10.1); Chloride 107 mmol/L (98-107); EST Glomerular Filtration Rate 59 mL/min (>60); Est Glom Filt Rate - Afr Amer 71 mL/min (>60); Glucose 116 mg/dL (74-106); Potassium 3.7 mmol/L (3.5-5.1); Sodium Level 139 mmol/L (136-145)
== END | disposition home or self-care (01) ==
LOC: BIMLAB 14:03
PROVIDERS: PCP Internal Medicine; Referring Provider Internal Medicine; Visit Provider Internal Medicine
DX: I10 Essential (primary) hypertension (principal)
CPT/HCPCS: 36415; 80048

== ENCOUNTER → 2022-09-04 | Outpatient (CLI) | payer MEDICARE, SELFPAY | END | disposition home or self-care (01) | PROVIDERS: PCP Internal Medicine; Visit Provider Nurse Practitioner Women's Health | DX: N89.8 Other specified noninflammatory disorders of vagina (principal) | CPT/HCPCS: 87070; 87077; 87205 ==

== ENCOUNTER → 2022-11-06 | Outpatient (CLI) | payer MEDICARE, SELFPAY ==
[2022-11-06 15:56] LABS: Vitamin D,25 Hydroxy 53.7 ng/mL
[2022-11-06 16:02] LABS: Anion Gap 7 (5-15); BUN 17 mg/dL (7-18); BUN/Creat Ratio 21.9 RATIO (10-20); Calcium,Total 8.4 mg/dL (8.5-10.1); Chloride 108 mmol/L (98-107); Creatinine, Serum 0.78 mg/dL (0.55-1.02); EST Glomerular Filtration Rate 78 mL/min (>60); Est Glom Filt Rate - Afr Amer 94 mL/min (>60); Glucose 94 mg/dL (74-106); Potassium 4.1 mmol/L (3.5-5.1); Sodium Level 138 mmol/L (136-145)
== END | disposition home or self-care (01) ==
LOC: BIMLAB 11:48
PROVIDERS: PCP Internal Medicine; Referring Provider Internal Medicine; Visit Provider Internal Medicine
DX: I10 Essential (primary) hypertension (principal); M81.0 Age-related osteoporosis without current pathological fracture
CPT/HCPCS: 36415; 80048; 82306

== ENCOUNTER → 2023-02-12 | Outpatient (CLI) | payer MEDICARE, SELFPAY ==
[2023-02-12 12:26] LABS: Absolute Lymphocyte Count 1.96 X10^3/uL (0.83-4.51); Absolute Neutrophil Count 3.4 X10^3/uL (2.0-7.7); Basophil# 0.06 X10^3/uL; Eosinophil# 0.11 X10^3/uL; Eosinophils% 1.8 % (0-5); Hematocrit 43.3 % (37-47); Hemoglobin 13.5 g/dL (12.0-15.0); Lymphocyte # 1.96 X10^3/ul (0.83-4.51); Lymphocyte % 31.9 % (19-41); Mean Corp Hgb Conc 31.2 g/dL (32-36); Mean Corpuscular Hgb 28.7 pg (27.0-32.0); Mean Corpuscular Volume 91.9 fL (81-99); Mean Platelet Vol. 11.3 fl (6.2-12.0); Monocyte# 0.55 X10^3/uL; NRBC Flagged by Analyzer 0 % (0-5); Neutrophil # 3.44 X10^3/uL (2.7-7.7); Platelet Count 370 K/mm3 (150-450); RBC Distribution Width CV 13.4 % (11.6-14.6); RBC Distribution Width SD 45.4 fl (35.1-43.9); Red Blood Count 4.71 M/mm3 (4.2-5.4); White Blood Count 6.1 K/mm3 (4.4-11.0)
[2023-02-12 12:40] LABS: AST(SGOT) 25 U/L (15-37); Alanine Aminotransfer ALT/SGPT 39 U/L (13-56); Albumin, Serum 3.7 g/dL (3.2-5.0); Alkaline Phosphatase 41 U/L (45-117); Anion Gap 6 (5-15); BUN 17 mg/dL (7-18); BUN/Creat Ratio 17.4 RATIO (10-20); Calcium,Total 8.9 mg/dL (8.5-10.1); Chloride 106 mmol/L (98-107); Cholesterol 214 mg/dL (200); Creatinine, Serum 0.98 mg/dL (0.55-1.02); EST Glomerular Filtration Rate 60 mL/min (>60); Est Glom Filt Rate - Afr Amer 73 mL/min (>60); Globulin 3.8 g/dL (2.2-4.2); Glucose 97 mg/dL (74-106); High Density Lipoprotein 60 mg/dL; Potassium 3.9 mmol/L (3.5-5.1); Protein, Total 7.5 g/dL (6.4-8.2); Sodium Level 139 mmol/L (136-145); Triglycerides 240 mg/dL; Very Low Density Lipoprotein 48 mg/dL (5-40)
[2023-02-12 12:55] LABS: Microalbumin,Random Urine 6.5 mg/L (NO RANGE EST.); Microalbumin:Creatinine Ratio 5.9 mg/g CRE (<30 mg/g CRE)
== END | disposition home or self-care (01) ==
LOC: BIMLAB 09:54
PROVIDERS: PCP Internal Medicine; Referring Provider Internal Medicine; Visit Provider Internal Medicine
DX: E78.5 Hyperlipidemia, unspecified (principal); I10 Essential (primary) hypertension
CPT/HCPCS: 36415; 80053; 80061; 82043; 82570; 85025

== ENCOUNTER → 2023-03-13 | Outpatient (CLI) | payer MEDICARE, SELFPAY ==
--- NOTE | 2023-03-13 10:34 | BI_ITS ---
MAMMOGRAPHY - BILATERAL SCREENING REASON FOR EXAM: Female, 67 years old. Routine annual screening examination. PERTINENT HISTORY: Non-contributory. History of prior left breast cysts. TECHNIQUE: Digital bilateral breast tasha (3D mammographic acquisition) in the CC and MLO projections. 2-D mediolateral oblique (MLO) and craniocaudad (CC) views of both breasts were obtained. CAD: Full Field Digital Mammography with Computer Added Detection was performed. COMPARISON: Comparison is made with prior mammogram dated March 06, 2022 and January 25, 2021. FINDINGS: Breast Composition: There are scattered areas of fibroglandular density. There are no dominant masses or suspicious calcifications. Stable appearance of the small well-defined nodular densities with peripheral calcification in the central retroareolar region of the left breast. These were demonstrated to be cysts on prior sonogram. No other significant abnormalities are identified. There has been no significant change since the prior study. BI/SCRN MAMM (CAD)W/TASHA BILAT IMPRESSION: Stable bilateral screening mammogram. Yearly follow-up mammogram recommended. (A) ASSESSMENT CATEGORY: BIRADS Category 2: Benign. A letter regarding these results will be sent to the patient by the facility within 30 days. Approximately 10% of breast cancers are not detected by mammography. A normal mammogram should not delay biopsy of a clinically suspicious abnormality. [id number] Electronically Signed: David Barajas MD at 13:35 EDT ,
--- NOTE | 2023-03-13 10:37 | BD_ITS ---
STUDY: DUAL ENERGY X-RAY ABSORPTIOMETRY / DXA REASON FOR EXAM: Female, 67 years old. Osteoporosis TECHNIQUE: Bone Mineral Density (BMD) measurements of lumbar spine and bilateral hips were obtained. COMPARISON: Comparison is made with prior study dated August 02, 2020. FINDINGS: Lumbar Spine (L1-L4): g/cm2 (0.781) / T-score (-2.7) / Z-score (-0.5) Findings are suggestive of osteoporosis with a high fracture risk. Left Femur Total: g/cm2 (0.734) / T-score (-1.7) / Z-score (-0.2) Left Femoral Neck: g/cm2 (0.583) / T-score (-2.4) / Z-score (-0.6) Right Femur Total: g/cm2 (0.771) / T-score (-1.4) / Z-score (0.1) Right Femoral Neck: g/cm2 (0.629) / T-score (-2.0) / Z-score (-0.2) The T-Scores on the most recent prior examination were: Lumbar Spine (L1-L4): There has been worsening of bone density since the previous examination. Left Femur Total: which represents a worsening of 1.3%. Right Femur Total: which represents a worsening of 6.1%. BD/Dexa Bone Density Study IMPRESSION: The patient is considered osteoporotic as outlined below according to World Roberto Organization (WHO) criteria with a high fracture risk. There has been worsening of bone density since the previous examination. Reference Information: The T-score is the number of standard deviations above or below the standard which is normal for young adults at their peak bone mineral density. The World Health Organization (WHO) interprets the T-scores as follows: Above -1 Normal bone density Between -1 and -2.5 Osteopenia Equal to / or below -2.5 Osteoporosis As a practical clinical guideline, osteopenia may be graded as follows: Mild -1 through -1.5 Moderate -1.6 through -2.0 Severe -2.1 through -2.4 The Z-score is the number of standard deviations above or below age-matched controls. A Z-score of less than -1.5 would be considered abnormal. References: 1. NIH Osteoporosis and Related Bone Diseases www osteo.org 2. International Society for Clinical Densitometry www iscd.org 3. National Osteoporosis Foundation www nof.org Electronically Signed: David Barajas MD at 10:03 EDT ,
== END | disposition home or self-care (01) ==
PROVIDERS: PCP Internal Medicine; Referring Provider Internal Medicine; Visit Provider Internal Medicine
DX: Z12.31 Encounter for screening mammogram for malignant neoplasm of breast (principal); M81.0 Age-related osteoporosis without current pathological fracture
CPT/HCPCS: 77063; 77067; 77080

== ENCOUNTER → 2023-06-11 | Outpatient (CLI) | payer MEDICARE, SELFPAY ==
--- NOTE | 2023-06-11 14:12 | RAD_ITS ---
INDICATION: Other psoriatic arthropathy EXAMINATION/TECHNIQUE: X-RAY - XR Pelvis 1 or 2 Views COMPARISON: CT and/pelvis dated 06/02/2021 FINDINGS: PELVIC BONES: No displaced fracture, destructive or sclerotic lesions. Note that overlapping bowel shadows may however obscure fine detail. 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 No erosive changes. No widening of the pubic symphysis. HIPS: Mild bilateral hip joint space narrowing and associated marginal osteophytes. Femoral heads are spherical. No displaced fracture seen in this frontal view. SOFT TISSUES: No soft tissue swelling or gas. RAD/Pelvis 1 or 2 Views IMPRESSION: No evidence of displaced pelvic or hip fracture. 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 No erosive changes. Mild/moderate bilateral hip arthrosis. Electronically Signed: Elvin Ortega MD at 18:28 EST ,
[2023-06-11 17:47] LABS: Absolute Lymphocyte Count 2.58 X10^3/uL (0.83-4.51); Absolute Neutrophil Count 7.4 X10^3/uL (2.0-7.7); Basophil% 0.9 % (0-1); Eosinophil# 0.18 X10^3/uL; Eosinophils% 1.6 % (0-5); Hematocrit 43.9 % (37-47); Hemoglobin 13.6 g/dL (12.0-15.0); Lymphocyte # 2.58 X10^3/ul (0.83-4.51); Lymphocyte % 23.6 % (19-41); Mean Corpuscular Hgb 27.9 pg (27.0-32.0); Mean Platelet Vol. 10.4 fl (6.2-12.0); Monocyte# 0.68 X10^3/uL; Monocyte% 6.2 % (0-10); NRBC Flagged by Analyzer 0 % (0-5); Neutrophil # 7.36 X10^3/uL (2.7-7.7); Neutrophil % 67.2 % (47-70); Platelet Count 314 K/mm3 (150-450); RBC Distribution Width CV 14.3 % (11.6-14.6); RBC Distribution Width SD 47.5 fl (35.1-43.9); Red Blood Count 4.88 M/mm3 (4.2-5.4)
[2023-06-11 18:16] LABS: AST(SGOT) 33 U/L (15-37); Alanine Aminotransfer ALT/SGPT 47 U/L (13-56); Albumin, Serum 3.9 g/dL (3.2-5.0); Alkaline Phosphatase 53 U/L (45-117); Anion Gap 9 (5-15); BUN 21 mg/dL (7-18); Calcium,Total 8.8 mg/dL (8.5-10.1); Chloride 105 mmol/L (98-107); Creatinine, Serum 0.95 mg/dL (0.55-1.02); EST Glomerular Filtration Rate 62 mL/min (>60); Est Glom Filt Rate - Afr Amer 75 mL/min (>60); Glucose 73 mg/dL (74-106); Potassium 3.4 mmol/L (3.5-5.1); Protein, Total 7.9 g/dL (6.4-8.2); Sodium Level 138 mmol/L (136-145)
[2023-06-11 18:24] LABS: Erythrocyte Sedimentation Rate 28 mm/hr (0-30)
[2023-06-11 18:59] LABS: Hepatitis B Surface Antibody Non-Reactive; Hepatitis B Surface Antigen Non-Reactive (Nonreactive); Hepatitis C Antibody Non-Reactive (Nonreactive)
[2023-06-12 15:05] LABS: Rheumatoid Factor < 10.0 IU/mL (<15)
[2023-06-13 12:09] LABS: ANTINUCLEAR ANTIBODIES DIRECT Negative (Negative)
[2023-06-13 13:07] LABS: CCP IgG Antibodies 1 units (0-19)
== END | disposition home or self-care (01) ==
PROVIDERS: PCP Internal Medicine; Referring Provider Internal Medicine Rheumatology; Visit Provider Internal Medicine Rheumatology
DX: L40.59 Other psoriatic arthropathy (principal); M79.7 Fibromyalgia; L40.8 Other psoriasis; I10 Essential (primary) hypertension; K21.9 Gastro-esophageal reflux disease without esophagitis; E78.5 Hyperlipidemia, unspecified; N95.2 Postmenopausal atrophic vaginitis; L90.0 Lichen sclerosus et atrophicus; M81.0 Age-related osteoporosis without current pathological fracture
CPT/HCPCS: 36415; 72170; 80053; 85025; 85652; 86038; 86140; 86200; 86431; 86706; 86803; 87340

== ENCOUNTER → 2023-06-16 | Outpatient (CLI) | payer MEDICARE, SELFPAY ==
[2023-06-16 12:38] LABS: T4 Free Direct 1.16 ng/dL (0.76-1.46); Thyroid Stim Hormone (TSH) 2.11 uIU/mL (0.358-3.74)
== END | disposition home or self-care (01) ==
LOC: BIMLAB 10:01
PROVIDERS: PCP Internal Medicine; Referring Provider Internal Medicine; Visit Provider Internal Medicine
DX: I10 Essential (primary) hypertension (principal)
CPT/HCPCS: 36415; 84439; 84443

== ENCOUNTER → 2023-06-27 | Outpatient (CLI) | payer MEDICARE, SELFPAY | END | disposition home or self-care (01) | LOC: SL 12:03 | PROVIDERS: PCP Internal Medicine; Referring Provider Internal Medicine; Visit Provider Internal Medicine | DX: G47.10 Hypersomnia, unspecified (principal) | CPT/HCPCS: 95806 ==

== ENCOUNTER → 2023-09-19 | Outpatient (CLI) | payer MEDICARE, SELFPAY ==
--- OUTSIDE RECORDS SUMMARY | 2023-09-19 11:53 | XMS RPT_ITS | CCD ---
Author Name Unknown Address [facility] [address] [place] [id number] Organization [facility] Care Team Providers Care Ranger Aide Name Role Phone LEILA EWING, WILLIAMS Gibson Primary Care Physician ALFREDO EWING, DR FARRAR Attending Unavailmichael DEE MD, WILLIAMS Gibson Primary Care Unavailab sondra DEE MD, WILLIAMS Gibson Primary Care Unavailab DENISE Castro DO Attending Unavailable Allergies Allergy Classification Reported Allergen(s) Allergy Type Date of Onset Reaction(s) Facility (2 sources) Penicillin; Translations: [penicillins] Drug Allergy [facility] (1 source) Sulfonamides (Antibiotic); Translations: [sulfa drugs] Drug allergy [facility] (1 source) Sulfonamide; Translations: [sulfa drugs] Drug allergy [facility] Medications Current Medications Medication Drug Class(es) Dates Sig (Normalized) Sig (Original) cefdinir 300 mg oral capsule (1 source) Cephalosporin Antibacterial Start: 08-13-2023 End: 08-20-2023 cefdinir 300 mg oral capsule Dose : 300 mg = 1 cap(s), Oral, q12h, X 7 day(s), # 14 cap(s), 0 Refill(s), 08/20/23 6:43:00 PM EST, 75 Start Date: 08/13/23 Stop Date: 08/20/23 Status: Ordered cephalexin 500 mg oral capsule (1 source) Cephalosporin Antibacterial Start: 03-26-2023 End: 04-02-2023 cephalexin 500 mg oral capsule Dose : 500 mg = 1 cap(s), Oral, QID, X 7 day(s), # 28 cap(s), 0 Refill(s), 04/02/23 9:07:00 PM EDT, 73.9 Start Date: 03/26/23 Stop Date: 04/02/23 Status: Ordered Misc Medication (2 sources) Start: 06-21-2018 Misc Medication 0 Refill(s) Start Date: 06/21/18 Status: Ordered phenazopyridine hydrochloride 200 mg oral tablet (4 sources) Start: 08-13-2023 End: 08-16-2023 Pyridium 200 mg oral tablet Dose : 200 mg = 1 tab(s), Oral, TID, X 3 day(s), # 9 tab(s), 0 Refill(s), 08/16/23 6:43:00 PM EST Start Date: 08/13/23 Stop Date: 08/16/23 Status: Ordered Completed/Discontinued Medications Medication Drug Class(es) Dates Sig (Normalized) Sig (Original) ciprofloxacin 500 mg oral tablet (2 sources) Quinolone Antimicrobial Start: 06-21-2018 End: 06-26-2018 Cipro 500 mg oral tablet Dose : 500 mg = 1 tab(s), Oral, q12h, # 10 tab(s), 0 Refill(s) Start Date: 06/21/18 Stop Date: 06/26/18 Status: Ordered Problems Problem Classification Problem Date Documented Date Episodic/Chronic Genitourinary symptoms and ill-defined conditions (1 source) Genitourinary symptoms; Translations: [Unspecified symptoms and signs involving the genitourinary system] Onset: 03-26-2023 Episodic Urinary tract infections (1 source) Urinary tract infectious disease; Translations: [Urinary tract infection, site not specified] Onset: 08-13-2023 Episodic Results Test Name Value Interpretation Reference Range Facil ity Vital Signs Date Time Vital Sign Value Performing Clinician Faci lity 08-13-2023 18:12-0500 Body height 152.4 cm DENISE Szl DO [facility] 08-13-2023 18:12-0500 Body temperature 97.34 [degF] DENISE MASON DO [facility] 08-13-2023 18:12-0500 Body weight 75 kg DENISE Szl DO [facility] 08-13-2023 18:12-0500 Diastolic Blood Pressure Non-Invasive 67 mm[Hg] DENISE MASON DO [facility] 08-13-2023 18:12-0500 Heart rate 79 /min DENISE MASON DO [facility] 08-13-2023 18:12-0500 Respiratory rate 20 /min DENISE MASON DO [facility] 08-13-2023 18:12-0500 Systolic Blood Pressure Non-Invasive 150 mm[Hg] DENISE MASON DO [facility] 03-26-2023 20:31-0400 Blood Pressure Cuff Size DR LENI FUENTES MD [facility] 03-26-2023 20:31-[address] LENI FUENTES MD [facility] 03-26-2023 20:31-[address] LENI FUENTES MD [facility] 03-26-2023 20:31-0400 Body height 149.[address] LENI FUENTES MD [facility] 03-26-2023 20:31-0400 Body temperature 96.8 [degF] DR LENI FUENTES MD [facility] 03-26-2023 20:31-0400 Body weight 73.[address] LENI FUENTES MD [facility] 03-26-2023 20:31-0400 Diastolic Blood Pressure Non-Invasive [address] LENI FUENTES MD [facility] 03-26-2023 20:31-0400 Heart rate 72 /min DR LENI FUENTES MD [facility] 03-26-2023 20:31-0400 Reason For Taking VItal Signs DR LENI FUENTES MD [facility] 03-26-2023 20:31-0400 Respiratory rate 18 /min DR LENI FUENTES MD [facility] 03-26-2023 20:31-0400 Systolic Blood Pressure Non-Invasive [address] LENI FUENTES MD [facility] Encounters Encounter Date Encounter Type Care Provider Facility Start: 08-13-2023 End: 08-13-2023 Emergency department patient visit WILLIAMS DEE MD Facility:B Start: 08-13-2023 End: 08-13-2023 Emergency department patient visit DENISE Abi ISABELLA JACKSON [facility] Start: 03-26-2023 End: 03-26-2023 Emergency department patient visit DR LENI FUENTES MD Facility:B Start: 03-26-2023 End: 03-26-2023 Emergency department patient visit DR LENI FUENTES MD [facility] Payers Date Payer Category Payer Unknown [id number] 1955 Unknown [id number] 1955 Unknown [id number] Social History Date Type Detail Facility Tobacco smoking status No Smoking Status Entered [facility] Sex Assigned At Female [facility] Functional Status Date Assessment Result Facility 08-13-2023 Functional Status Independent [facility] 03-26-2023 Functional Status Independent [facility] Mental Status Date Assessment Result Facility 08-13-2023 Mental Status Orientation Oriented x 4 [facility] 03-26-2023 Mental Status Oriented x 4 [facility] Clinical Note 08-15-2023 Note Date & Type Note Facility 08-15-2023 Note . MICRO - Microbiology PROCEDURE: Urine Culture [*1] SOURCE: Urine, Clean Catch BODY SITE: COLLECTED DATE/TIME: 08/13/2023 18:19 EST RECEIVED DATE/TIME: 08/14/2023 14:21 EST START DATE/TIME: 08/14/2023 14:22 EST FREE TEXT SOURCE: FINAL REPORTS Final Report [] Verified Date/Time/Personnel: 08/15/2023 14:59 EST 10,000 - 50,000 cfu/ml Multiple bacterial morphotypes present. Probable Contamination. Suggest recollection if clinically indicated. Performing Locations *1: This test was performed at: [facility], [address] [place] [address], [facility] , [facility] ([place] Hospital Discharge instructions 08-13-2023 Note Date & Type Note Facility 08-13-2023 Hospital Discharg e instructions Patient Education 08/13/2023 18:43:20 Bladder Infection, Female (Adult) Bladder Infection, Female (Adult) Urine is normally doesn't have any bacteria in it. But bacteria can get into the urinary tract from the skin around the rectum. Or they can travel in the blood from elsewhere in the body. Once they are in your urinary tract, they can cause infection in the urethra (urethritis), the bladder (cystitis), or the kidneys (pyelonephritis). The most common place for an infection is in the bladder. This is called a bladder infection. This is one of the most common infections in women. Most bladder infections are easily treated. They are not serious unless the infection spreads to the kidney. The phrases bladder infection, UTI, and cystitis are often used to describe the same thing. But they are not always the same. Cystitis is an inflammation of the bladder. The most common cause of cystitis is an infection. Symptoms The infection causes inflammation in the urethra and bladder. This causes many of the symptoms. The most common symptoms of a bladder infection are: Pain or burning when urinating Having to urinate more often than usual Urgent need to urinate Only a small amount of urine comes out Blood in urine Abdominal discomfort. This is usually in the lower abdomen above the pubic bone. Cloudy urine Strong- or bad-smelling urine Unable to urinate (urinary retention) Unable to hold urine in (urinary incontinence) Fever Loss of appetite Confusion (in older adults) Causes Bladder infections are not contagious. You can't get one from someone else, from a toilet seat, or from sharing a bath. The most common cause of bladder infections is bacteria from the bowels. The bacteria get onto the skin around the opening of the urethra. From there, they can get into the urine and travel up to the bladder, causing inflammation and infection. This usually happens because of: Wiping improperly after urinating. Always wipe from front to back. Bowel incontinence Procedures such as having a catheter inserted Older age Not emptying your bladder. This can allow bacteria a chance to grow in your urine. Dehydration Constipation Sex Use of a diaphragm for control Treatment Bladder infections are diagnosed by a urine test. They are treated with antibiotics and usually clear up quickly without complications. Treatment helps prevent a more serious kidney infection. Medicines Medicines can help in the treatment of a bladder infection: Take antibiotics until they are used up, even if you feel better. It is important to finish them to make sure the infection has cleared. You can use acetaminophen or ibuprofen for pain, fever, or discomfort, unless another medicine was prescribed. If you have chronic liver or kidney disease, talk with your healthcare provider before using these medicines. Also talk with your provider if you've ever had a stomach ulcer or gastrointestinal bleeding, or are taking blood-thinner medicines. If you are given phenazopydridine to reduce burning with urination, it will cause your urine to become a bright orange color. This can stain clothing. Care and prevention These self-care steps can help prevent future infections: Drink plenty of fluids to prevent dehydration and flush out your bladder. Do this unless you must restrict fluids for other health reasons, or your doctor told you not to. Proper cleaning after going to the bathroom is important. Wipe from front to back after using the toilet to prevent the spread of bacteria. Urinate more often. Don't try to hold urine in for a long time. Wear loose-fitting clothes and cotton underwear. Avoid tight-fitting pants. Improve your diet and prevent constipation. Eat more fresh fruit and vegetables, and fiber, and less junk and fatty foods. Avoid sex until your symptoms are gone. Avoid caffeine, alcohol, and spicy foods. These can irritate your bladder. Urinate right after intercourse to flush out your bladder. If you use control pills and have frequent bladder infections, discuss it with your doctor. Follow-up care Call your healthcare provider if all symptoms are not gone after 3 days of treatment. This is especially important if you have repeat infections. If a culture was done, you will be told if your treatment needs to be changed. If directed, you can call to find out the results. If X-rays were done, you will be told if the results will affect your treatment. Call 911 Call 911 if any of the following occur: Trouble breathing Hard to wake up or confusion Fainting or loss of consciousness Rapid heart rate When to seek medical advice Call your healthcare provider right away if any of these occur: Fever of 100.4 F (38.0 C) or higher, or as directed by your healthcare provider Symptoms are not better by the third day of treatment Back or belly (abdominal) pain that gets worse Repeated vomiting, or unable to keep medicine down Weakness or dizziness Vaginal discharge Pain, redness, or swelling in the outer vaginal area (labia) [id number] [employer]. [address] [place] [address], [place] [address]. All rights reserved. This information is not intended as a substitute for professional medical care. Always follow your healthcare professional's instructions. Follow Up Care 08/13/2023 18:02:29 With:WILLIAMS DEE MD Address: [facility] [place] [address] [phone] When:2-4 days [facility] Clinical Note 08-13-2023 Note Date & Type Note Facility 08-13-2023 Note Discharge Instructions Thank you for allowing [facility] to assist you with your healthcare needs. The following is important discharge information regarding your hospital visit. Diagnosis from Today's Visit Dysuria UTI - Urinary tract infection What to Do Next Instructions from Your Care Team No qualifying data available. Post Acute Orders No qualifying data available. You Need to Schedule the Following Appointments Follow Up with WILLIAMS DEE MD When Within 2-4 days Where: [facility] [place] [address] [phone] Allergies penicillin sulfa drugs Medications Please ask your primary doctor or pharmacist before taking any other medication not listed, including over the counter drugs, herbal medications, vitamins and or supplements as they may interact with your home medications. What How Much When Instructions Last Dose New cefdinir (cefdinir 300 mg oral capsule) 1 cap by mouth Every 12 hours Duration: 7 Days Printed Prescription Changed phenazopyridine (Pyridium 200 mg oral tablet) 1 tab(s) by mouth Three (3) times a day as needed for as needed for urinary discomfort Duration: 2 Days Changed phenazopyridine (Pyridium 200 mg oral tablet) 1 tab(s) by mouth Three (3) times a day Duration: 3 Days Printed Prescription Unchanged ciprofloxacin (Cipro 500 mg oral tablet) 1 tab(s) by mouth Every 12 hours Duration: 5 Days Unchanged Misc Medication Please take this list to your next doctor s visit. Bring all medications you take, including over the counter medications, herbals and other supplements with you to your doctor s visit. Patients and families are reminded to discard old lists and to update any records with all medication providers or retail pharmacies. Medication Leaflets cefdinir ([facility] [place]) What is the most important information I should know about cefdinir? Do not take this medicine if you are allergic to cefdinir, or to similar antibiotics, such as Ceftin, Cefzil, Keflex, and others. What is cefdinir? Cefdinir is a cephalosporin (SEF a low spor in) antibiotic that is used to treat many different types of infections caused by bacteria. Cefdinir may also be used for purposes not listed in this medication guide. What should I discuss with my healthcare provider before taking cefdinir? You should not take this medicine if you are allergic to cefdinir or any other cephalosporin antibiotic (cefadroxil, cefprozil, cefazolin, cefalexin, Keflex, and others). Tell your doctor if you have ever had: kidney disease (or if you are on dialysis); intestinal problems, such as colitis; or an allergy to any drugs (especially penicillins). Cefdinir liquid contains sucrose. Talk to your doctor before using this form of cefdinir if you have diabetes. Tell your doctor if you are or . How should I take cefdinir? Follow all directions on your prescription label and read all medicine guides or instruction sheets. Use the medicine exactly as directed. Shake the oral suspension (liquid) before you measure a dose. Use the dosing syringe provided, or use a medicine dose-measuring device (not a kitchen spoon). You may take cefdinir with or without food. Use this medicine for the full prescribed length of time, even if your symptoms quickly improve. Skipping doses can increase your risk of infection that is resistant to medication. Cefdinir will not treat a viral infection such as the flu or a common cold. Cefdinir can affect the results of certain medical tests. Tell any doctor who treats you that you are using cefdinir. Store at room temperature away from moisture and heat. Throw away any unused cefdinir liquid that is older than 10 days. What happens if I miss a dose? Take the medicine as soon as you can, but skip the missed dose if it is almost time for your next dose. Do not take two doses at one time. What happens if I overdose? Seek emergency medical attention or call the Poison Help line at . Overdose symptoms may include nausea, vomiting, stomach pain, diarrhea, or a seizure. What should I avoid while taking cefdinir? Avoid using antacids or mineral supplements that contain aluminum, magnesium, or iron within 2 hours before or after taking cefdinir. Antacids or iron can make it harder for your body to absorb cefdinir. This does not include baby formula fortified with iron. Antibiotic medicines can cause diarrhea, which may be a sign of a new infection. If you have diarrhea that is watery or bloody, call your doctor before using anti-diarrhea medicine. What are the possible side effects of cefdinir? Get emergency medical help if you have signs of an allergic reaction (hives, difficult breathing, swelling in your face or throat) or a severe skin reaction (fever, sore throat, burning eyes, skin pain, red or purple skin rash with blistering and peeling). Call your doctor at once if you have: severe stomach pain, diarrhea that is watery or bloody (even if it occurs months after your last dose); fever, chills, body aches, flu symptoms; pale skin, easy bruising, unusual bleeding; seizure (convulsions); fever, weakness, confusion; dark colored urine, jaundice (yellowing of the skin or eyes); or kidney problems--little or no urination, swelling in your feet or ankles, feeling tired or short of breath. Common side effects may include: nausea, vomiting, stomach pain, diarrhea; vaginal itching or discharge; headache; or rash (including diaper rash in an taking liquid cefdinir. This is not a complete list of side effects and others may occur. Call your doctor for medical advice about side effects. You may report side effects to FDA at 1-046-ESK-7615. What other drugs will affect cefdinir? Tell your doctor about all your other medicines, especially: probenecid; or vitamin or mineral supplements that contain iron. This list is not complete. Other drugs may affect cefdinir, including prescription and afhz-gmp-ttzfaic medicines, vitamins, and herbal products. Not all possible drug interactions are listed here. Where can I get more information? Your pharmacist can provide more information about cefdinir. Remember, keep this and all other medicines out of the reach of children, never share your medicines with others, and use this medication only for the indication prescribed. Every effort has been made to ensure that the information provided by [employer]. ('[employer]') is accurate, up-to-date, and complete, but no guarantee is made to that effect. Drug information contained herein may be time sensitive. [employer] information has been compiled for use by healthcare practitioners and consumers in the [place] and therefore [employer] does not warrant that uses outside of the [place] are appropriate, unless specifically indicated otherwise. [employer] drug information does not endorse drugs, diagnose patients or recommend therapy. [employer] drug information is an informational resource designed to assist licensed healthcare practitioners in caring for their patients and/or to serve consumers viewing this service as a supplement to, and not a substitute for, the expertise, skill, knowledge and judgment of healthcare practitioners. The absence of a warning for a given drug or drug combination in no way should be construed to indicate that the drug or drug combination is safe, effective or appropriate for any given patient. [employer] does not assume any responsibility for any aspect of healthcare administered with the aid of information [employer] provides. The information contained herein is not intended to cover all possible uses, directions, precautions, warnings, drug interactions, allergic reactions, or adverse effects. If you have questions about the drugs you are taking, check with your doctor, nurse or pharmacist. Copyright 1230-0823 [employer]. Version: 9.01. Revision Date: 02/07/2023. phenazopyridine (fen AY chrissy PIR i sharon) AZO Urinary Pain Relief, AZO Urinary Pain Relief Max Strength, Azo-Standard, Baridium, Prodium, Pyridium, Uricalm, Urinary Pain Relief Maximum Strength, Uristat, Uristat Ultra What is the most important information I should know about phenazopyridine? You should not use phenazopyridine if you have kidney disease. What is phenazopyridine? Phenazopyridine is a pain reliever that affects the lower part of your urinary tract (bladder and urethra). Phenazopyridine is used to treat urinary symptoms such as pain or burning, increased urination, and increased urge to urinate. These symptoms can be caused by infection, injury, surgery, catheter, or other conditions that irritate the bladder. Phenazopyridine will treat urinary symptoms, but this medication will not treat a urinary tract infection.. Take any antibiotic that your doctor prescribes to treat an infection. Phenazopyridine may also be used for purposes not listed in this medication guide. What should I discuss with my health care provider before taking phenazopyridine? You should not use phenazopyridine if you are allergic to it, or if you have kidney disease. To make sure phenazopyridine is safe for you, tell your doctor if you have: liver disease; diabetes; or a genetic enzyme deficiency called jwwevtp-9-kyjirarst dehydrogenase (G6PD) deficiency. FDA category B. Phenazopyridine is not expected to harm an unborn baby. Do not use this medicine without a doctor's advice if you are . It is not known whether phenazopyridine passes into breast milk or if it could harm a nursing baby. Do not use this medicine without a doctor's advice if you are breast-feeding a baby. How should I take phenazopyridine? Use exactly as directed on the label, or as prescribed by your doctor. Do not use in larger or smaller amounts or for longer than recommended. Take phenazopyridine after meals. Drink plenty of liquids while you are taking phenazopyridine. Phenazopyridine will most likely darken the color of your urine to an orange or red color. This is a normal effect and is not harmful. Darkened urine may also cause stains to your underwear that may be permanent. Phenazopyridine can also permanently stain soft contact lenses, and you should not wear them while taking this medicine. Do not use phenazopyridine for longer than 2 days unless your doctor has told you to. This medication can cause unusual results with urine tests. Tell any doctor who treats you that you are using phenazopyridine. Store at room temperature away from moisture and heat. What happens if I miss a dose? Take the missed dose as soon as you remember. Skip the missed dose if it is almost time for your next scheduled dose. Do not take extra medicine to make up the missed dose. What happens if I overdose? Seek emergency medical attention or call the Poison Help line at . What should I avoid while taking phenazopyridine? Do not use this medication while wearing soft contact lenses. Phenazopyridine can permanently discolor soft contact lenses. What are the possible side effects of phenazopyridine? Get emergency medical help if you have any of these signs of an allergic reaction: hives; difficult breathing; swelling of your face, lips, tongue, or throat. Stop using phenazopyridine and call your doctor at once if you have: little or no urinating; swelling, rapid weight gain; confusion, loss of appetite, pain in your side or lower back; fever, pale or yellowed skin, stomach pain, nausea and vomiting; or blue or purple appearance of your skin. Common side effects may include: headache; dizziness; or upset stomach. This is not a complete list of side effects and others may occur. Call your doctor for medical advice about side effects. You may report side effects to FDA at [id number]. What other drugs will affect phenazopyridine? Other drugs may interact with phenazopyridine, including prescription and [id number]-[id number] medicines, vitamins, and herbal products. Tell each of your health care providers about all medicines you use now and any medicine you start or stop using. Where can I get more information? Your pharmacist can provide more information about phenazopyridine. Remember, keep this and all other medicines out of the reach of children, never share your medicines with others, and use this medication only for the indication prescribed. Every effort has been made to ensure that the information provided by [employer]. ('[employer]') is accurate, up-to-date, and complete, but no guarantee is made to that effect. Drug information contained herein may be time sensitive. [employer] information has been compiled for use by healthcare practitioners and consumers in the [place] and therefore [employer] does not warrant that uses outside of the [place] are appropriate, unless specifically indicated otherwise. [employer] drug information does not endorse drugs, diagnose patients or recommend therapy. [employer] drug information is an informational resource designed to assist licensed healthcare practitioners in caring for their patients and/or to serve consumers viewing this service as a supplement to, and not a substitute for, the expertise, skill, knowledge and judgment of healthcare practitioners. The absence of a warning for a given drug or drug combination in no way should be construed to indicate that the drug or drug combination is safe, effective or appropriate for any given patient. [employer] does not assume any responsibility for any aspect of healthcare administered with the aid of information [employer] provides. The information contained herein is not intended to cover all possible uses, directions, precautions, warnings, drug interactions, allergic reactions, or adverse effects. If you have questions about the drugs you are taking, check with your doctor, nurse or pharmacist. Copyright 4775-9400 [employer]. Version: 5.. Revision Date: 02/11/2023. Education Materials Bladder Infection, Female (Adult) Urine is normally doesn't have any bacteria in it. But bacteria can get into the urinary tract from the skin around the rectum. Or they can travel in the blood from elsewhere in the body. Once they are in your urinary tract, they can cause infection in the urethra (urethritis), the bladder (cystitis), or the kidneys (pyelonephritis). The most common place for an infection is in the bladder. This is called a bladder infection. This is one of the most common infections in women. Most bladder infections are easily treated. They are not serious unless the infection spreads to the kidney. The phrases bladder infection, UTI, and cystitis are often used to describe the same thing. But they are not always the same. Cystitis is an inflammation of the bladder. The most common cause of cystitis is an infection. Symptoms The infection causes inflammation in the urethra and bladder. This causes many of the symptoms. The most common symptoms of a bladder infection are: Pain or burning when urinating Having to urinate more often than usual Urgent need to urinate Only a small amount of urine comes out Blood in urine Abdominal discomfort. This is usually in the lower abdomen above the pubic bone. Cloudy urine Strong- or bad-smelling urine Unable to urinate (urinary retention) Unable to hold urine in (urinary incontinence) Fever Loss of appetite Confusion (in older adults) Causes Bladder infections are not contagious. You can't get one from someone else, from a toilet seat, or from sharing a bath. The most common cause of bladder infections is bacteria from the bowels. The bacteria get onto the skin around the opening of the urethra. From there, they can get into the urine and travel up to the bladder, causing inflammation and infection. This usually happens because of: Wiping improperly after urinating. Always wipe from front to back. Bowel incontinence Procedures such as having a catheter inserted Older age Not emptying your bladder. This can allow bacteria a chance to grow in your urine. Dehydration Constipation Sex Use of a diaphragm for control Treatment Bladder infections are diagnosed by a urine test. They are treated with antibiotics and usually clear up quickly without complications. Treatment helps prevent a more serious kidney infection. Medicines Medicines can help in the treatment of a bladder infection: Take antibiotics until they are used up, even if you feel better. It is important to finish them to make sure the infection has cleared. You can use acetaminophen or ibuprofen for pain, fever, or discomfort, unless another medicine was prescribed. If you have chronic liver or kidney disease, talk with your healthcare provider before using these medicines. Also talk with your provider if you've ever had a stomach ulcer or gastrointestinal bleeding, or are taking blood-thinner medicines. If you are given phenazopydridine to reduce burning with urination, it will cause your urine to become a bright orange color. This can stain clothing. Care and prevention These self-care steps can help prevent future infections: Drink plenty of fluids to prevent dehydration and flush out your bladder. Do this unless you must restrict fluids for other health reasons, or your doctor told you not to. Proper cleaning after going to the bathroom is important. Wipe from front to back after using the toilet to prevent the spread of bacteria. Urinate more often. Don't try to hold urine in for a long time. Wear loose-fitting clothes and cotton underwear. Avoid tight-fitting pants. Improve your diet and prevent constipation. Eat more fresh fruit and vegetables, and fiber, and less junk and fatty foods. Avoid sex until your symptoms are gone. Avoid caffeine, alcohol, and spicy foods. These can irritate your bladder. Urinate right after intercourse to flush out your bladder. If you use control pills and have frequent bladder infections, discuss it with your doctor. Follow-up care Call your healthcare provider if all symptoms are not gone after 3 days of treatment. This is especially important if you have repeat infections. If a culture was done, you will be told if your treatment needs to be changed. If directed, you can call to find out the results. If X-rays were done, you will be told if the results will affect your treatment. Call 911 Call 911 if any of the following occur: Trouble breathing Hard to wake up or confusion Fainting or loss of consciousness Rapid heart rate When to seek medical advice Call your healthcare provider right away if any of these occur: Fever of 100.4 F (38.0 C) or higher, or as directed by your healthcare provider Symptoms are not better by the third day of treatment Back or belly (abdominal) pain that gets worse Repeated vomiting, or unable to keep medicine down Weakness or dizziness Vaginal discharge Pain, redness, or swelling in the outer vaginal area (labia) 7126-4855 The [employer]. [address] [place] [address]. All rights reserved. This information is not intended as a substitute for professional medical care. Always follow your healthcare professional's instructions. Additional Information VACCINATE! IT SAVES LIVES! Members of the community who have not yet received the COVID-19 vaccine and would like to receive it can visit one of [facility] vaccine clinics. There are many vaccine clinic locations within the [facility]. For locations and available times, please visit [email or web address] It is important to note that some COVID mobile vaccine clinics are held outdoors and may be canceled in rainy or stormy conditions. To learn more about pediatric vaccinations (ages 5-11), we invite you to visit the [facility] webpage. [email or web address] -[email or web address] To learn more about the COVID-19 vaccine, we invite you to visit the CDC website for a list of frequently asked questions. https://www.cdc.gov/coronavirus/2019-n cov/vaccines/faq.html [facility] Patient Portal Access Instructions: Stay connected with your healthcare team and access your personal medical information anytime with the [facility] Patient Portal. If you would like a full copy of your medical records please contact the [facility] Medical Records Department Friday through Friday between 8a.m. and 4:30p.m. Please follow the directions below to access the portal: 1.Access the email account you provided upon registration to the [facility].2.Look for an invitation email from [facility].3.Open the email and access the invitation link: Accept Invitation to [facility]4.Fill in the required alex to create your account. Sign into www.[employer] with your username and password that you created in the above steps to stay up to date. You can then view a summary of results, a summary of your visits, and the ability to download your summaries to your computer or send the information securely to a physician. Remember that your healthcare information is confidential, so carefully consider who you will allow to register on the [facility] Patient Portal for access to your information. You can also access the [facility] Patient Portal on the [employer] ulisses. Simply click on Health Records under Health Data and then click on the [employer] logo. HOW TO SAFELY DISPOSE OF PRESCRIPTION MEDICATIONS Please use one of the following methods to safely dispose of your unused medications. 1.Use a drug disposal kit: the drug disposal pouch allows you to safely discard your old and unused drugs. Ask your nurse to give you one when you are discharged.2.Visit a local take-back location: Many local pharmacies and police departments have programs that collect old and unwanted prescription drugs. Call your local pharmacy or go to http://bit.Order Mapper/9D5Ed0g to find one close to you.3.Make use of household items: Use cat litter or old coffee grounds to dispose medications if other options are not available. Mix your drugs with these household products, seal them in an airtight container and throw it into the garbage. Call [facility]: [phone] to be sure your drugs can be disposed of in this way. Some medicines may require a different approach.4.Never flush your medications down the toilet. IF YOU HAVE BEEN PRESCRIBED AN OPIOIDS FOR PAIN If you have been prescribed an opioid (such as hydrocodone, oxycodone or morphine), it is critical to understand the possible side effects and risks of opioid pain medications. Even when taken as directed, opioids can have several side effects including: Tolerance, meaning you might need to take more of a medication for the same pain relief. Nausea, vomiting and/or constipation. Sleepiness, dizziness, dry mouth, confusion, depression or itching. Physical dependence, meaning you have withdrawal symptoms when a medication is stopped ? this can develop within a few days. KNOW YOUR RESPONSIBILITIES It is important to know exactly how much and how often to take the opioid pain medications you are prescribed. Never take opioids in higher amounts or more often than prescribed. Do not combine opioids with alcohol or other drugs that cause drowsiness, such as benzodiazepines, also known as benzos, including diazepam and alprazolam, muscle relaxants or sleep aids. Never sell or share prescription opioids. This is illegal. Store opioids in a secure place and out of reach of others (including children, family, friends and visitors). The last page(s) of this document has been signed and retained as a CHART COPY Signatures Patient Education Materials Bladder Infection, Female (Adult) Medication Leaflets cefdinir, phenazopyridine My discharge plan and instructions have been reviewed and explained to me and I,FELIPE TIM understand my current condition and have read and understand these discharge instructions. I have received a written copy of the plan/instructions. If I have questions, I am aware that I should contact my doctor. Patient/Information Engineer Signature: _ Date/Time: Relationship to Patient: Witness Name/Signature: Date/Time: [facility] Evaluation + Plan note 08-13-2023 Note Date & Type Note Facility 08-13-2023 Evaluation + Plan note Diagnostic Tests PendingUrine Culture 08/13/23 [facility] Hospital Discharge instructions 03-26-2023 Note Date & Type Note Facility 03-26-2023 Hospital Discharg e instructions Patient Education 03/26/2023 21:07:51 Bladder Infection, Female (Adult) Bladder Infection, Female (Adult) Urine is normally doesn't have any bacteria in it. But bacteria can get into the urinary tract from the skin around the rectum. Or they can travel in the blood from elsewhere in the body. Once they are in your urinary tract, they can cause infection in the urethra (urethritis), the bladder (cystitis), or the kidneys (pyelonephritis). The most common place for an infection is in the bladder. This is called a bladder infection. This is one of the most common infections in women. Most bladder infections are easily treated. They are not serious unless the infection spreads to the kidney. The phrases bladder infection, UTI, and cystitis are often used to describe the same thing. But they are not always the same. Cystitis is an inflammation of the bladder. The most common cause of cystitis is an infection. Symptoms The infection causes inflammation in the urethra and bladder. This causes many of the symptoms. The most common symptoms of a bladder infection are: Pain or burning when urinating Having to urinate more often than usual Urgent need to urinate Only a small amount of urine comes out Blood in urine Abdominal discomfort. This is usually in the lower abdomen above the pubic bone. Cloudy urine Strong- or bad-smelling urine Unable to urinate (urinary retention) Unable to hold urine in (urinary incontinence) Fever Loss of appetite Confusion (in older adults) Causes Bladder infections are not contagious. You can't get one from someone else, from a toilet seat, or from sharing a bath. The most common cause of bladder infections is bacteria from the bowels. The bacteria get onto the skin around the opening of the urethra. From there, they can get into the urine and travel up to the bladder, causing inflammation and infection. This usually happens because of: Wiping improperly after urinating. Always wipe from front to back. Bowel incontinence Procedures such as having a catheter inserted Older age Not emptying your bladder. This can allow bacteria a chance to grow in your urine. Dehydration Constipation Sex Use of a diaphragm for control Treatment Bladder infections are diagnosed by a urine test. They are treated with antibiotics and usually clear up quickly without complications. Treatment helps prevent a more serious kidney infection. Medicines Medicines can help in the treatment of a bladder infection: Take antibiotics until they are used up, even if you feel better. It is important to finish them to make sure the infection has cleared. You can use acetaminophen or ibuprofen for pain, fever, or discomfort, unless another medicine was prescribed. If you have chronic liver or kidney disease, talk with your healthcare provider before using these medicines. Also talk with your provider if you've ever had a stomach ulcer or gastrointestinal bleeding, or are taking blood-thinner medicines. If you are given phenazopydridine to reduce burning with urination, it will cause your urine to become a bright orange color. This can stain clothing. Care and prevention These self-care steps can help prevent future infections: Drink plenty of fluids to prevent dehydration and flush out your bladder. Do this unless you must restrict fluids for other health reasons, or your doctor told you not to. Proper cleaning after going to the bathroom is important. Wipe from front to back after using the toilet to prevent the spread of bacteria. Urinate more often. Don't try to hold urine in for a long time. Wear loose-fitting clothes and cotton underwear. Avoid tight-fitting pants. Improve your diet and prevent constipation. Eat more fresh fruit and vegetables, and fiber, and less junk and fatty foods. Avoid sex until your symptoms are gone. Avoid caffeine, alcohol, and spicy foods. These can irritate your bladder. Urinate right after intercourse to flush out your bladder. If you use control pills and have frequent bladder infections, discuss it with your doctor. Follow-up care Call your healthcare provider if all symptoms are not gone after 3 days of treatment. This is especially important if you have repeat infections. If a culture was done, you will be told if your treatment needs to be changed. If directed, you can call to find out the results. If X-rays were done, you will be told if the results will affect your treatment. Call 911 Call 911 if any of the following occur: Trouble breathing Hard to wake up or confusion Fainting or loss of consciousness Rapid heart rate When to seek medical advice Call your healthcare provider right away if any of these occur: Fever of 100.4 F (38.0 C) or higher, or as directed by your healthcare provider Symptoms are not better by the third day of treatment Back or belly (abdominal) pain that gets worse Repeated vomiting, or unable to keep medicine down Weakness or dizziness Vaginal discharge Pain, redness, or swelling in the outer vaginal area (labia) [id number] [employer]. [address] [place] [address]. All rights reserved. This information is not intended as a substitute for professional medical care. Always follow your healthcare professional's instructions. Follow Up Care 03/26/2023 20:29:11 With:WILLIAMS DEE Address: [address] [facility] [email or web address] [address]- [phone] Business (1) When:2-4 days [facility] Emergency department Discharge summary 03-26-2023 Note Date & Type Note Facility 03-26-2023 Emergency department Discharge summary Discharge Instructions Thank you for allowing [facility] to assist you with your healthcare needs. The following is important discharge information regarding your hospital visit. Diagnosis from Today's Visit Dysuria UTI symptoms What to Do Next Instructions from Your Care Team No qualifying data available. Post Acute Orders No qualifying data available. You Need to Schedule the Following Appointments Follow Up with WILLIAMS DEE When Within 2-4 days Where: [address] [place] [address] [phone] Business (1) Allergies penicillin sulfa drugs Medications Please ask your primary doctor or pharmacist before taking any other medication not listed, including over the counter drugs, herbal medications, vitamins and or supplements as they may interact with your home medications. What How Much When Instructions Last Dose New cephalexin (cephalexin 500 mg oral capsule) 1 cap by mouth Four (4) times a day Duration: 7 Days Printed Prescription Changed phenazopyridine (Pyridium 100 mg oral tablet) 1 tab(s) by mouth Three (3) times a day Duration: 3 Days Printed Prescription Changed phenazopyridine (Pyridium 200 mg oral tablet) 1 tab(s) by mouth Three (3) times a day as needed for as needed for urinary discomfort Duration: 2 Days Unchanged ciprofloxacin (Cipro 500 mg oral tablet) 1 tab(s) by mouth Every 12 hours Duration: 5 Days Unchanged Misc Medication Please take this list to your next doctor s visit. Bring all medications you take, including over the counter medications, herbals and other supplements with you to your doctor s visit. Patients and families are reminded to discard old lists and to update any records with all medication providers or retail pharmacies. Medication Leaflets cephalexin (sef a AD in) What is the most important information I should know about cephalexin? You should not use this medicine if you are allergic to cephalexin or to similar antibiotics, such as Ceftin, Cefzil, Omnicef, and others. Tell your doctor if you are allergic to any drugs, especially penicillins or other antibiotics. What is cephalexin? Cephalexin is a cephalosporin (SEF a low spor in) antibiotic that is used to treat bacterial infections of the lungs, ear, skin, bones, bladder, and kidneys. Cephalexin is used to treat infections in adults and children who are at least 1 year old. Cephalexin may also be used for purposes not listed in this medication guide. What should I discuss with my healthcare provider before taking cephalexin? You should not use this medicine if you are allergic to cephalexin or any other cephalosporin antibiotic (cefdinir, cefadroxil, cefoxitin, cefprozil, ceftriaxone, cefuroxime, Omnicef, and others). Tell your doctor if you have ever had: an allergy to any drug (especially penicillin); liver or kidney disease; or intestinal problems, such as colitis. The liquid form of cephalexin may contain sugar. This may affect you if you have diabetes. Tell your doctor if you are or breast-feeding. How should I take cephalexin? Follow all directions on your prescription label and read all medication guides or instruction sheets. Use the medicine exactly as directed. Do not use cephalexin to treat any condition that has not been checked by your doctor. Measure liquid medicine carefully. Use the dosing syringe provided, or use a medicine dose-measuring device (not a kitchen spoon). Use this medicine for the full prescribed length of time, even if your symptoms quickly improve. Skipping doses can increase your risk of infection that is resistant to medication. Cephalexin will not treat a viral infection such as the flu or a common cold. Do not share cephalexin with another person, even if they have the same symptoms you have. This medicine can affect the results of certain medical tests. Tell any doctor who treats you that you are using cephalexin. Store the tablets and capsules at room temperature away from moisture, heat, and light. Store the liquid medicine in the refrigerator. Throw away any unused liquid after 14 days. What happens if I miss a dose? Take the medicine as soon as you can, but skip the missed dose if it is almost time for your next dose. Do not take two doses at one time. What happens if I overdose? Seek emergency medical attention or call the Poison Help line at . Overdose symptoms may include nausea, vomiting, stomach pain, diarrhea, and blood in your urine. What should I avoid while taking cephalexin? Antibiotic medicines can cause diarrhea, which may be a sign of a new infection. If you have diarrhea that is watery or bloody, call your doctor before using anti-diarrhea medicine. What are the possible side effects of cephalexin? Get emergency medical help if you have signs of an allergic reaction (hives, difficult breathing, swelling in your face or throat) or a severe skin reaction (fever, sore throat, burning eyes, skin pain, red or purple skin rash with blistering and peeling). Call your doctor at once if you have: severe stomach pain, diarrhea that is watery or bloody (even if it occurs months after your last dose); unusual tiredness, feeling light-headed or short of breath; easy bruising, unusual bleeding, purple or red spots under your skin; a seizure; pale skin, cold hands and feet; yellowed skin, dark colored urine; fever, weakness; or pain in your side or lower back, painful urination. Common side effects may include: diarrhea; nausea, vomiting; indigestion, stomach pain; or vaginal itching or discharge. This is not a complete list of side effects and others may occur. Call your doctor for medical advice about side effects. You may report side effects to FDA at 2-078-NYT-4780. What other drugs will affect cephalexin? Tell your doctor about all your other medicines, especially: metformin; or probenecid. This list is not complete. Other drugs may affect cephalexin, including prescription and vygi-sar-[id number] medicines, vitamins, and herbal products. Not all possible drug interactions are listed here. Where can I get more information? Your pharmacist can provide more information about cephalexin. Remember, keep this and all other medicines out of the reach of children, never share your medicines with others, and use this medication only for the indication prescribed. Every effort has been made to ensure that the information provided by [employer]. [employer]') is accurate, up-to-date, and complete, but no guarantee is made to that effect. Drug information contained herein may be time sensitive. [employer] information has been compiled for use by healthcare practitioners and consumers in the [place] and therefore [employer] does not warrant that uses outside of the [place] are appropriate, unless specifically indicated otherwise. [employer] drug information does not endorse drugs, diagnose patients or recommend therapy. [employer] drug information is an informational resource designed to assist licensed healthcare practitioners in caring for their patients and/or to serve consumers viewing this service as a supplement to, and not a substitute for, the expertise, skill, knowledge and judgment of healthcare practitioners. The absence of a warning for a given drug or drug combination in no way should be construed to indicate that the drug or drug combination is safe, effective or appropriate for any given patient. [employer] does not assume any responsibility for any aspect of healthcare administered with the aid of information [employer] provides. The information contained herein is not intended to cover all possible uses, directions, precautions, warnings, drug interactions, allergic reactions, or adverse effects. If you have questions about the drugs you are taking, check with your doctor, nurse or pharmacist. Copyright 8506-9464 [employer]. Version: .. Revision Date: 02/05/2023. Education Materials Bladder Infection, Female (Adult) Urine is normally doesn't have any bacteria in it. But bacteria can get into the urinary tract from the skin around the rectum. Or they can travel in the blood from elsewhere in the body. Once they are in your urinary tract, they can cause infection in the urethra (urethritis), the bladder (cystitis), or the kidneys (pyelonephritis). The most common place for an infection is in the bladder. This is called a bladder infection. This is one of the most common infections in women. Most bladder infections are easily treated. They are not serious unless the infection spreads to the kidney. The phrases bladder infection, UTI, and cystitis are often used to describe the same thing. But they are not always the same. Cystitis is an inflammation of the bladder. The most common cause of cystitis is an infection. Symptoms The infection causes inflammation in the urethra and bladder. This causes many of the symptoms. The most common symptoms of a bladder infection are: Pain or burning when urinating Having to urinate more often than usual Urgent need to urinate Only a small amount of urine comes out Blood in urine Abdominal discomfort. This is usually in the lower abdomen above the pubic bone. Cloudy urine Strong- or bad-smelling urine Unable to urinate (urinary retention) Unable to hold urine in (urinary incontinence) Fever Loss of appetite Confusion (in older adults) Causes Bladder infections are not contagious. You can't get one from someone else, from a toilet seat, or from sharing a bath. The most common cause of bladder infections is bacteria from the bowels. The bacteria get onto the skin around the opening of the urethra. From there, they can get into the urine and travel up to the bladder, causing inflammation and infection. This usually happens because of: Wiping improperly after urinating. Always wipe from front to back. Bowel incontinence Procedures such as having a catheter inserted Older age Not emptying your bladder. This can allow bacteria a chance to grow in your urine. Dehydration Constipation Sex Use of a diaphragm for control Treatment Bladder infections are diagnosed by a urine test. They are treated with antibiotics and usually clear up quickly without complications. Treatment helps prevent a more serious kidney infection. Medicines Medicines can help in the treatment of a bladder infection: Take antibiotics until they are used up, even if you feel better. It is important to finish them to make sure the infection has cleared. You can use acetaminophen or ibuprofen for pain, fever, or discomfort, unless another medicine was prescribed. If you have chronic liver or kidney disease, talk with your healthcare provider before using these medicines. Also talk with your provider if you've ever had a stomach ulcer or gastrointestinal bleeding, or are taking blood-thinner medicines. If you are given phenazopydridine to reduce burning with urination, it will cause your urine to become a bright orange color. This can stain clothing. Care and prevention These self-care steps can help prevent future infections: Drink plenty of fluids to prevent dehydration and flush out your bladder. Do this unless you must restrict fluids for other health reasons, or your doctor told you not to. Proper cleaning after going to the bathroom is important. Wipe from front to back after using the toilet to prevent the spread of bacteria. Urinate more often. Don't try to hold urine in for a long time. Wear loose-fitting clothes and cotton underwear. Avoid tight-fitting pants. Improve your diet and prevent constipation. Eat more fresh fruit and vegetables, and fiber, and less junk and fatty foods. Avoid sex until your symptoms are gone. Avoid caffeine, alcohol, and spicy foods. These can irritate your bladder. Urinate right after intercourse to flush out your bladder. If you use control pills and have frequent bladder infections, discuss it with your doctor. Follow-up care Call your healthcare provider if all symptoms are not gone after 3 days of treatment. This is especially important if you have repeat infections. If a culture was done, you will be told if your treatment needs to be changed. If directed, you can call to find out the results. If X-rays were done, you will be told if the results will affect your treatment. Call 911 Call 911 if any of the following occur: Trouble breathing Hard to wake up or confusion Fainting or loss of consciousness Rapid heart rate When to seek medical advice Call your healthcare provider right away if any of these occur: Fever of 100.4 F (38.0 C) or higher, or as directed by your healthcare provider Symptoms are not better by the third day of treatment Back or belly (abdominal) pain that gets worse Repeated vomiting, or unable to keep medicine down Weakness or dizziness Vaginal discharge Pain, redness, or swelling in the outer vaginal area (labia) 3436-8930 [employer]. [address] [place] [address], [place] [address]. All rights reserved. This information is not intended as a substitute for professional medical care. Always follow your healthcare professional's instructions. Additional Information VACCINATE! IT SAVES LIVES! Members of the community who have not yet received the COVID-19 vaccine and would like to receive it can visit one of [facility] vaccine clinics. There are many vaccine clinic locations within the [facility]. For locations and available times, please visit [email or web address] It is important to note that some COVID mobile vaccine clinics are held outdoors and may be canceled in rainy or stormy conditions. To learn more about pediatric vaccinations (ages 5-11), we invite you to visit the [facility] webpage. [email or web address] To learn more about the COVID-19 vaccine, we invite you to visit the CDC website for a list of frequently asked questions. https://www.cdc.gov/coronavirus/2 019-ncov/vaccines/faq.html [facility] Patient Portal Access Instructions: Stay connected with your healthcare team and access your personal medical information anytime with the [facility] Patient Portal. If you would like a full copy of your medical records please contact the [facility] Medical Records Department Friday through Friday between 8a.m. and 4:30p.m. Please follow the directions below to access the portal: 1.Access the email account you provided upon registration to the hospital.2.Look for an invitation email from [facility].3.Open the email and access the invitation link: Accept Invitation to [facility]4.Fill in the required alex to create your account. Sign into [email or web address].[email or web address] with your username and password that you created in the above steps to stay up to date. You can then view a summary of results, a summary of your visits, and the ability to download your summaries to your computer or send the information securely to a physician. Remember that your healthcare information is confidential, so carefully consider who you will allow to register on the [facility] Patient Portal for access to your information. You can also access the [facility] Patient Portal on the [employer] ulisses. Simply click on Health Records under Health Data and then click on the [facility] logo. HOW TO SAFELY DISPOSE OF PRESCRIPTION MEDICATIONS Please use one of the following methods to safely dispose of your unused medications. 1.Use a drug disposal kit: the drug disposal pouch allows you to safely discard your old and unused drugs. Ask your nurse to give you one when you are discharged.2.Visit a local take-back location: Many local pharmacies and police departments have programs that collect old and unwanted prescription drugs. Call your local pharmacy or go to http://Paydiant.Order Mapper/9I2Me9b to find one close to you.3.Make use of household items: Use cat litter or old coffee grounds to dispose medications if other options are not available. Mix your drugs with these household products, seal them in an airtight container and throw it into the garbage. Call [facility]: [phone] to be sure your drugs can be disposed of in this way. Some medicines may require a different approach.4.Never flush your medications down the toilet. IF YOU HAVE BEEN PRESCRIBED AN OPIOIDS FOR PAIN If you have been prescribed an opioid (such as hydrocodone, oxycodone or morphine), it is critical to understand the possible side effects and risks of opioid pain medications. Even when taken as directed, opioids can have several side effects including: Tolerance, meaning you might need to take more of a medication for the same pain relief. Nausea, vomiting and/or constipation. Sleepiness, dizziness, dry mouth, confusion, depression or itching. Physical dependence, meaning you have withdrawal symptoms when a medication is stopped ? this can develop within a few days. KNOW YOUR RESPONSIBILITIES It is important to know exactly how much and how often to take the opioid pain medications you are prescribed. Never take opioids in higher amounts or more often than prescribed. Do not combine opioids with alcohol or other drugs that cause drowsiness, such as benzodiazepines, also known as benzos, including diazepam and alprazolam, muscle relaxants or sleep aids. Never sell or share prescription opioids. This is illegal. Store opioids in a secure place and out of reach of others (including children, family, friends and visitors). The last page(s) of this document has been signed and retained as a CHART COPY Signatures Patient Education Materials Bladder Infection, Female (Adult) Medication Leaflets cephalexin My discharge plan and instructions have been reviewed and explained to me and I,FELIPE TIM understand my current condition and have read and understand these discharge instructions. I have received a written copy of the plan/instructions. If I have questions, I am aware that I should contact my doctor. Patient/Information Engineer Signature: Date/Time: Relationship to Patient: ____ Witness Name/Signature: Date/Time: [facility] Clinical Note 03-26-2023 Note Date & Type Note Facility 03-26-2023 Note Discharge Instructions Thank you for allowing [facility] to assist you with your healthcare needs. The following is important discharge information regarding your hospital visit. Diagnosis from Today's Visit Dysuria UTI symptoms What to Do Next Instructions from Your Care Team No qualifying data available. Post Acute Orders No qualifying data available. You Need to Schedule the Following Appointments Follow Up with [facility] When Within 2-4 days Where: [address] [place] [id number] [phone] Business (1) Allergies penicillin sulfa drugs Medications Please ask your primary doctor or pharmacist before taking any other medication not listed, including over the counter drugs, herbal medications, vitamins and or supplements as they may interact with your home medications. What How Much When Instructions Last Dose New cephalexin (cephalexin 500 mg oral capsule) 1 cap by mouth Four (4) times a day Duration: 7 Days Printed Prescription Unchanged ciprofloxacin (Cipro 500 mg oral tablet) 1 tab(s) by mouth Every 12 hours Duration: 5 Days Unchanged Misc Medication Unchanged phenazopyridine (Pyridium 200 mg oral tablet) 1 tab(s) by mouth Three (3) times a day as needed for as needed for urinary discomfort Duration: 2 Days Please take this list to your next doctor s visit. Bring all medications you take, including over the counter medications, herbals and other supplements with you to your doctor s visit. Patients and families are reminded to discard old lists and to update any records with all medication providers or retail pharmacies. Medication Leaflets cephalexin (sef a AD in) What is the most important information I should know about cephalexin? You should not use this medicine if you are allergic to cephalexin or to similar antibiotics, such as Ceftin, Cefzil, Omnicef, and others. Tell your doctor if you are allergic to any drugs, especially penicillins or other antibiotics. What is cephalexin? Cephalexin is a cephalosporin (SEF a low spor in) antibiotic that is used to treat bacterial infections of the lungs, ear, skin, bones, bladder, and kidneys. Cephalexin is used to treat infections in adults and children who are at least 1 year old. Cephalexin may also be used for purposes not listed in this medication guide. What should I discuss with my healthcare provider before taking cephalexin? You should not use this medicine if you are allergic to cephalexin or any other cephalosporin antibiotic (cefdinir, cefadroxil, cefoxitin, cefprozil, ceftriaxone, cefuroxime, Omnicef, and others). Tell your doctor if you have ever had: an allergy to any drug (especially penicillin); liver or kidney disease; or intestinal problems, such as colitis. The liquid form of cephalexin may contain sugar. This may affect you if you have diabetes. Tell your doctor if you are or breast-feeding. How should I take cephalexin? Follow all directions on your prescription label and read all medication guides or instruction sheets. Use the medicine exactly as directed. Do not use cephalexin to treat any condition that has not been checked by your doctor. Measure liquid medicine carefully. Use the dosing syringe provided, or use a medicine dose-measuring device (not a kitchen spoon). Use this medicine for the full prescribed length of time, even if your symptoms quickly improve. Skipping doses can increase your risk of infection that is resistant to medication. Cephalexin will not treat a viral infection such as the flu or a common cold. Do not share cephalexin with another person, even if they have the same symptoms you have. This medicine can affect the results of certain medical tests. Tell any doctor who treats you that you are using cephalexin. Store the tablets and capsules at room temperature away from moisture, heat, and light. Store the liquid medicine in the refrigerator. Throw away any unused liquid after 14 days. What happens if I miss a dose? Take the medicine as soon as you can, but skip the missed dose if it is almost time for your next dose. Do not take two doses at one time. What happens if I overdose? Seek emergency medical attention or call the Poison Help line at . Overdose symptoms may include nausea, vomiting, stomach pain, diarrhea, and blood in your urine. What should I avoid while taking cephalexin? Antibiotic medicines can cause diarrhea, which may be a sign of a new infection. If you have diarrhea that is watery or bloody, call your doctor before using anti-diarrhea medicine. What are the possible side effects of cephalexin? Get emergency medical help if you have signs of an allergic reaction (hives, difficult breathing, swelling in your face or throat) or a severe skin reaction (fever, sore throat, burning eyes, skin pain, red or purple skin rash with blistering and peeling). Call your doctor at once if you have: severe stomach pain, diarrhea that is watery or bloody (even if it occurs months after your last dose); unusual tiredness, feeling light-headed or short of breath; easy bruising, unusual bleeding, purple or red spots under your skin; a seizure; pale skin, cold hands and feet; yellowed skin, dark colored urine; fever, weakness; or pain in your side or lower back, painful urination. Common side effects may include: diarrhea; nausea, vomiting; indigestion, stomach pain; or vaginal itching or discharge. This is not a complete list of side effects and others may occur. Call your doctor for medical advice about side effects. You may report side effects to FDA at 5-074-GAH-7050. What other drugs will affect cephalexin? Tell your doctor about all your other medicines, especially: metformin; or probenecid. This list is not complete. Other drugs may affect cephalexin, including prescription and lpec-afw-[id number] medicines, vitamins, and herbal products. Not all possible drug interactions are listed here. Where can I get more information? Your pharmacist can provide more information about cephalexin. Remember, keep this and all other medicines out of the reach of children, never share your medicines with others, and use this medication only for the indication prescribed. Every effort has been made to ensure that the information provided by [employer] is accurate, up-to-date, and complete, but no guarantee is made to that effect. Drug information contained herein may be time sensitive. [employer] information has been compiled for use by healthcare practitioners and consumers in the [place] and therefore [employer] does not warrant that uses outside of the [place] are appropriate, unless specifically indicated otherwise. [employer] drug information does not endorse drugs, diagnose patients or recommend therapy. [facility] drug information is an informational resource designed to assist licensed healthcare practitioners in caring for their patients and/or to serve consumers viewing this service as a supplement to, and not a substitute for, the expertise, skill, knowledge and judgment of healthcare practitioners. The absence of a warning for a given drug or drug combination in no way should be construed to indicate that the drug or drug combination is safe, effective or appropriate for any given patient. [employer] does not assume any responsibility for any aspect of healthcare administered with the aid of information [employer] provides. The information contained herein is not intended to cover all possible uses, directions, precautions, warnings, drug interactions, allergic reactions, or adverse effects. If you have questions about the drugs you are taking, check with your doctor, nurse or pharmacist. Copyright 5165-8808 [employer]. Version: .. Revision Date: 02/05/2023. Education Materials Bladder Infection, Female (Adult) Urine is normally doesn't have any bacteria in it. But bacteria can get into the urinary tract from the skin around the rectum. Or they can travel in the blood from elsewhere in the body. Once they are in your urinary tract, they can cause infection in the urethra (urethritis), the bladder (cystitis), or the kidneys (pyelonephritis). The most common place for an infection is in the bladder. This is called a bladder infection. This is one of the most common infections in women. Most bladder infections are easily treated. They are not serious unless the infection spreads to the kidney. The phrases bladder infection, UTI, and cystitis are often used to describe the same thing. But they are not always the same. Cystitis is an inflammation of the bladder. The most common cause of cystitis is an infection. Symptoms The infection causes inflammation in the urethra and bladder. This causes many of the symptoms. The most common symptoms of a bladder infection are: Pain or burning when urinating Having to urinate more often than usual Urgent need to urinate Only a small amount of urine comes out Blood in urine Abdominal discomfort. This is usually in the lower abdomen above the pubic bone. Cloudy urine Strong- or bad-smelling urine Unable to urinate (urinary retention) Unable to hold urine in (urinary incontinence) Fever Loss of appetite Confusion (in older adults) Causes Bladder infections are not contagious. You can't get one from someone else, from a toilet seat, or from sharing a bath. The most common cause of bladder infections is bacteria from the bowels. The bacteria get onto the skin around the opening of the urethra. From there, they can get into the urine and travel up to the bladder, causing inflammation and infection. This usually happens because of: Wiping improperly after urinating. Always wipe from front to back. Bowel incontinence Procedures such as having a catheter inserted Older age Not emptying your bladder. This can allow bacteria a chance to grow in your urine. Dehydration Constipation Sex Use of a diaphragm for control Treatment Bladder infections are diagnosed by a urine test. They are treated with antibiotics and usually clear up quickly without complications. Treatment helps prevent a more serious kidney infection. Medicines Medicines can help in the treatment of a bladder infection: Take antibiotics until they are used up, even if you feel better. It is important to finish them to make sure the infection has cleared. You can use acetaminophen or ibuprofen for pain, fever, or discomfort, unless another medicine was prescribed. If you have chronic liver or kidney disease, talk with your healthcare provider before using these medicines. Also talk with your provider if you've ever had a stomach ulcer or gastrointestinal bleeding, or are taking blood-thinner medicines. If you are given phenazopydridine to reduce burning with urination, it will cause your urine to become a bright orange color. This can stain clothing. Care and prevention These self-care steps can help prevent future infections: Drink plenty of fluids to prevent dehydration and flush out your bladder. Do this unless you must restrict fluids for other health reasons, or your doctor told you not to. Proper cleaning after going to the bathroom is important. Wipe from front to back after using the toilet to prevent the spread of bacteria. Urinate more often. Don't try to hold urine in for a long time. Wear loose-fitting clothes and cotton underwear. Avoid tight-fitting pants. Improve your diet and prevent constipation. Eat more fresh fruit and vegetables, and fiber, and less junk and fatty foods. Avoid sex until your symptoms are gone. Avoid caffeine, alcohol, and spicy foods. These can irritate your bladder. Urinate right after intercourse to flush out your bladder. If you use control pills and have frequent bladder infections, discuss it with your doctor. Follow-up care Call your healthcare provider if all symptoms are not gone after 3 days of treatment. This is especially important if you have repeat infections. If a culture was done, you will be told if your treatment needs to be changed. If directed, you can call to find out the results. If X-rays were done, you will be told if the results will affect your treatment. Call 911 Call 911 if any of the following occur: Trouble breathing Hard to wake up or confusion Fainting or loss of consciousness Rapid heart rate When to seek medical advice Call your healthcare provider right away if any of these occur: Fever of 100.4 F (38.0 C) or higher, or as directed by your healthcare provider Symptoms are not better by the third day of treatment Back or belly (abdominal) pain that gets worse Repeated vomiting, or unable to keep medicine down Weakness or dizziness Vaginal discharge Pain, redness, or swelling in the outer vaginal area (labia) [id number] The [employer]. [address] [address]. All rights reserved. This information is not intended as a substitute for professional medical care. Always follow your healthcare professional's instructions. Additional Information VACCINATE! IT SAVES LIVES! Members of the community who have not yet received the COVID-19 vaccine and would like to receive it can visit one of [facility] vaccine clinics. There are many vaccine clinic locations within the [facility]. For locations and available times, please visit [email or web address].[email or web address] It is important to note that some COVID mobile vaccine clinics are held outdoors and may be canceled in rainy or stormy conditions. To learn more about pediatric vaccinations (ages 5-11), we invite you to visit the [facility] webpage. [email or web address] -[email or web address] To learn more about the COVID-19 vaccine, we invite you to visit the CDC website for a list of frequently asked questions. https://www.cdc.gov/coronavirus/2019-n cov/vaccines/faq.html [facility] Patient Portal Access Instructions: Stay connected with your healthcare team and access your personal medical information anytime with the [facility] Patient Portal. If you would like a full copy of your medical records please contact the [facility] Medical Records Department Friday through Friday between 8a.m. and 4:30p.m. Please follow the directions below to access the portal: 1.Access the email account you provided upon registration to the [facility].2.Look for an invitation email from [facility].3.Open the email and access the invitation link: Accept Invitation to [facility].Fill in the required alex to create your account. Sign into [email or web address].[email or web address] with your username and password that you created in the above steps to stay up to date. You can then view a summary of results, a summary of your visits, and the ability to download your summaries to your computer or send the information securely to a physician. Remember that your healthcare information is confidential, so carefully consider who you will allow to register on the [facility] Patient Portal for access to your information. You can also access the [facility] Patient Portal on the [employer] ulisses. Simply click on Health Records under Health Data and then click on the [employer] logo. HOW TO SAFELY DISPOSE OF PRESCRIPTION MEDICATIONS Please use one of the following methods to safely dispose of your unused medications. 1.Use a drug disposal kit: the drug disposal pouch allows you to safely discard your old and unused drugs. Ask your nurse to give you one when you are discharged.2.Visit a local take-back location: Many local pharmacies and police departments have programs that collect old and unwanted prescription drugs. Call your local pharmacy or go to http://bit.ly/5C8Mj7l to find one close to you.3.Make use of household items: Use cat litter or old coffee grounds to dispose medications if other options are not available. Mix your drugs with these household products, seal them in an airtight container and throw it into the garbage. Call [facility]: [phone] to be sure your drugs can be disposed of in this way. Some medicines may require a different approach.4.Never flush your medications down the toilet. IF YOU HAVE BEEN PRESCRIBED AN OPIOIDS FOR PAIN If you have been prescribed an opioid (such as hydrocodone, oxycodone or morphine), it is critical to understand the possible side effects and risks of opioid pain medications. Even when taken as directed, opioids can have several side effects including: Tolerance, meaning you might need to take more of a medication for the same pain relief. Nausea, vomiting and/or constipation. Sleepiness, dizziness, dry mouth, confusion, depression or itching. Physical dependence, meaning you have withdrawal symptoms when a medication is stopped ? this can develop within a few days. KNOW YOUR RESPONSIBILITIES It is important to know exactly how much and how often to take the opioid pain medications you are prescribed. Never take opioids in higher amounts or more often than prescribed. Do not combine opioids with alcohol or other drugs that cause drowsiness, such as benzodiazepines, also known as benzos, including diazepam and alprazolam, muscle relaxants or sleep aids. Never sell or share prescription opioids. This is illegal. Store opioids in a secure place and out of reach of others (including children, family, friends and visitors). The last page(s) of this document has been signed and retained as a CHART COPY Signatures Patient Education Materials Bladder Infection, Female (Adult) Medication Leaflets cephalexin My discharge plan and instructions have been reviewed and explained to me and I,FELIPE TIM understand my current condition and have read and understand these discharge instructions. I have received a written copy of the plan/instructions. If I have questions, I am aware that I should contact my doctor. Patient/Information Engineer Signature: _ Date/Time: Relationship to Patient: Witness Name/Signature: Date/Time: [facility] Progress note 05-06-2021 Note Date & Type Note Facility 05-06-2021 Note HNO ID: [id number] Author: Choco Vazquez APRN.DESIGN CELL ENGINEER Service: ? Author Type: Nurse Practitioner Type: Progress Notes Filed: 05/06/2021 8:42 AM Note Text: Subjective Pt complains of awaking at 0300 morning with urinary burning and frequency. She also notes hematuria and clotting. She notes a history of frequent utis. She otherwise denies any other health concerns Review of Systems Constitutional: Negative for weight loss. HENT: Negative. Eyes: Negative. Respiratory: Negative. Cardiovascular: Negative. Gastrointestinal: Negative for abdominal pain, nausea and vomiting. Genitourinary: Positive for dysuria, frequency, hematuria and urgency. Negative for flank pain. Musculoskeletal: Negative for back pain and myalgias. Skin: Negative. Neurological: Negative. Endo/Heme/Allergies: Does not bruise/bleed easily. Psychiatric/Behavioral: Negative. All other systems reviewed and are negative. Objective Physical Exam Vitals and nursing note reviewed. Constitutional: Appearance: Normal appearance. Cardiovascular: Rate and Rhythm: Normal rate and regular rhythm. Heart sounds: Normal heart sounds. Pulmonary: Effort: Pulmonary effort is normal. Breath sounds: Normal breath sounds. Abdominal: Palpations: Abdomen is soft. Tenderness: There is no abdominal tenderness. There is no right CVA tenderness or left CVA tenderness. Musculoskeletal: General: Normal range of motion. Skin: General: Skin is warm and dry. Neurological: Mental Status: She is alert and oriented to person, place, and time. Gait: Gait is intact. Psychiatric: Mood and Affect: Mood and affect normal. Cognition and Memory: Memory normal. Judgment: Judgment normal. BP 134/78 Pulse 110 Temp 36.6 ?C (97.8 ?F) Resp 16 Wt 77.6 kg (171 lb) SpO2 97% BMI 33.96 kg/m? .Patient presents with: Urinary Frequency: burning with urination x 3a PAST MEDICAL HISTORY Diagnosis Date - Hepatitis [...] NONOBSTETRICAL 03/26/10 Performed by GANESH MALDONADO at [facility] - VAGINAL HYSTERECTOMY 1983 Hysterectomy, vaginal ALLERGIES Premarin [Conjugated Estrogens], Fosamax [Alendronate Sodium], Nitrofurantoin, Penicillins, and Sulfa (Sulfonamide Antibiotics) MEDICATIONS clobetasol (TEMOVATE) 0.05 % cream apply to affected area twice a day for 2 weeks then once daily for 2 weeks then if needed calcium carbonate (CALTRATE) 600 mg calcium (1,500 mg) tab Take 1 tablet by mouth twice daily. ergocalciferol 50,000 unit capsule (VITAMIN D2, DRISDOL) Take 1 capsule by mouth once daily. estradiol (ESTRACE) 0.01 % (0.1 mg/gram) vaginal cream apply A PEA SIZED AMOUNT every other day for 4 WEEKS then two times a week Fenofibrate (LOFIBRA) 54 mg tablet Take 1 tablet by mouth once daily. hydroCHLOROthiazide (HYDRODIURIL, ESIDRIX) 12.5 mg tablet Take 1 tablet by mouth once daily. TAKE 1 TABLET BY MOUTH ONCE DAILY IN THE MORNING losartan (COZAAR) 50 mg tablet Take 1 tablet by mouth once daily. omeprazole 40 mg capsule Take 1 capsule by mouth once daily. lisinopril (ZESTRIL, PRINIVIL) 5 mg tablet Take 1 tablet by mouth once daily. fexofenadine (CHANTE) 180 mg tablet Take 1 tablet by mouth once daily. ciprofloxacin HCl (CIPRO) 500 mg tablet Take 1 tablet by mouth twice daily for 5 days. 1 BY MOUTH BID FOR 10 DAYS benzonatate (TESSALON PERLE) 100 mg capsule Take 1-2 capsules tid prn, no more than 6 in 24 hours FAMILY HISTORY Problem Relation Age of Onset - Heart Father - Heart Mother - Stroke Mother - other (Kidney disease) Mother - Heart Sister - Heart Brother - Diabetes Brother - Hypertension Brother - Thyroid Sister - Thyroid Sister - Thyroid Sister Social History Tobacco Use - Smoking status: Never Smoker - Smokeless tobacco: Never Used Substance Use Topics - Alcohol use: No - Drug use: No ASSESSMENT/PLAN: 1. Urinary frequency - ICD9: 788.41, ICD10: R35.0 (primary diagnosis) recurrent - UA positive for valeriy esterase, hematuria and nitrates - Patient education for prevention given - UA DIP, URINE (POC) - URINE CULTURE 2. Urinary tract infection with hematuria, site unspecified - ICD9: 599.0, 599.70, ICD10: N39.0, R31.9 recurrent - UA positive for valeriy esterase, hematuria and nitrates - Patient education for prevention given Plan: Pt has multiple allergies and can only take Cipro. She was dc home wiith a script for this and told to follow up with pcp iin 3-5 days. Choco Vazquez APRN.DESIGN CELL ENGINEER Prescription instr (more content not included)... [facility] Evaluation + Plan note Note Date & Type Note Facility Evaluation + Plan note No data available for this section [facility] Summary Purpose Family History No Family History Records Found No data available for this section No data available for this section No Family History Records Found Advance Directives No Advanced Directives Records FoundNo Advanced Directives Records Found Additional Source Comments INFORMATION SOURCE (unrecogn ized section and content) DATE CREATED AUTHOR AUTHOR'S ORGANIZ ATION 08/22/2023 [facility] ([place]) Patient Care team informatio n (unrecognized section and content) Care Team Personnel Name: WILLIAMS DEE MD Member Role: Primary Care Physician Address: Address: [address] [place] [address] Name: Lou Laird RN Position: AO RN Member Role: ED RN Name: LENI FUENTES MD Position: ED Physician Member Role: ED Physician Address: Address: [address] [place] [id number] Care Team Personnel Name: WILLIAMS DEE MD Member Role: Primary Care Physician Address: Address: [address] [place] [address] FOR RECORDS PERTAINING TO PATIENTS WHO ARE OR HAVE BEEN ENROLLED IN A CHEMICAL DEPENDENCY/SUBSTANCEABUSE PROGRAM, SOME INFORMATION MAY BE OMITTED. This clinical summary was aggregated from multiple sources. Caution should be exercised in using it in the provision of clinical care. This summary normalizes information from multiple sources, and as a consequence, information in this document may materially change the coding, format and clinical context of patient data. In addition, data may be omitted in some cases. CLINICAL DECISIONS SHOULD BE BASED ON THE PRIMARY CLINICAL RECORDS. [facility] [employer] [facility]. provides no warranty or guarantee of the accuracy or completeness of information in this document.
[2023-09-19 13:02] LABS: Anion Gap 5 (5-15); BUN 18 mg/dL (7-18); BUN/Creat Ratio 17.6 RATIO (10-20); Calcium,Total 9.3 mg/dL (8.5-10.1); Chloride 109 mmol/L (98-107); Creatinine, Serum 1.02 mg/dL (0.55-1.02); EST Glomerular Filtration Rate 57 mL/min (>60); Est Glom Filt Rate - Afr Amer 69 mL/min (>60); Glucose 97 mg/dL (74-106); Potassium 3.9 mmol/L (3.5-5.1); Sodium Level 139 mmol/L (136-145)
== END | disposition home or self-care (01) ==
LOC: BIMLAB 10:46
PROVIDERS: PCP Internal Medicine; Visit Provider Internal Medicine
DX: I10 Essential (primary) hypertension (principal)
CPT/HCPCS: 36415; 80048

== ENCOUNTER → 2023-09-25 | Outpatient (CLI) | payer MEDICARE, SELFPAY ==
--- NOTE | 2023-09-25 12:42 | US_ITS ---
HISTORY: Left Leg Swelling/ Localized lump. TECHNIQUE: Routine and color duplex imaging of the left leg. 12 images. FINDINGS: Soft tissue edema in the left lower leg/midshin in the area of palpable lump with a 4 x 10 x 8 mm oval mildly echogenic nodule. No fluid collection demonstrated. US/Ext Non Vasc Limited/Soft Tiss IMPRESSION: Soft tissue edema in the left leg with a nonspecific 10 mm nodule. Recommend follow-up as clinically indicated. Electronically Signed: Vivi Garduno MD at 8:09 EDT ,
== END | disposition home or self-care (01) ==
PROVIDERS: PCP Internal Medicine; Referring Provider Internal Medicine; Visit Provider Internal Medicine
DX: R22.42 Localized swelling, mass and lump, left lower limb (principal); M79.89 Other specified soft tissue disorders
CPT/HCPCS: 76882

== ENCOUNTER → 2023-10-02 | Outpatient (CLI) | payer MEDICARE, SELFPAY ==
--- NOTE | 2023-10-02 14:57 | RAD_ITS ---
STUDY: X-RAY - LEFT TIBIA AND FIBULA REASON FOR EXAM: Female, 68 years old. Nodule left leg, leg pain TECHNIQUE: 2 view(s) of the tibia and fibula were obtained. COMPARISON: None. FINDINGS: Normal visualized tibia. Normal visualized fibula. Prior left total knee replacement. The soft tissue structures are unremarkable. RAD/Tibia & Fibula 2 Views IMPRESSION: Status post left total knee replacement. No acute bony abnormality is seen. Electronically Signed: David Barajas MD at 10:16 EDT ,
== END | disposition home or self-care (01) ==
LOC: MTRAD 14:57
PROVIDERS: PCP Internal Medicine; Referring Provider Nurse Practitioner; Visit Provider Nurse Practitioner
DX: R22.42 Localized swelling, mass and lump, left lower limb (principal)
CPT/HCPCS: 73590

== ENCOUNTER 2023-10-14 22:56 | Emergency (ER) | payer MEDICARE, SELFPAY ==
[2023-10-14 22:57] VITALS: BP 138/77; PULSE 102; RESP 18; TEMP 36.6; O2SAT 100; BMI 34.0
--- NOTE | 2023-10-15 00:41 | ED.VIS.LOWEX ---
HPI History of Present Illness Chief Complaint: Lower Extremity Injury Informant: patient Narrative Narrative: 5-year-old female presenting to the emergency room with a burning pain in the distal posterior left thigh popliteal fossa and calf. Symptoms been present greater than 2 weeks. She went to her doctor for this as well as a nodule on the anterior aspect of her leg. She states that she had an x-ray and a ultrasound of the nodule. This revealed a nonspecific 10 mm nodule with some mild edema. She states that the nodule is not her concern that she is worried about the burning pain behind her leg. She denies any swelling. She is concerned about DVT. She has had prior bilateral knee replacements with Dr. Yap and states that was 20 years ago. She denies any foot drop or muscle weakness. She states that she has lots of stuff wrong with her back. When asked specifically she states that she has osteoporosis and fibromyalgia. [facility] Medical History Arthritis Atypical chest pain CKD (chronic kidney disease), stage III Fibromyalgia Generalized osteoarthrosis GERD (gastroesophageal reflux disease) GERD (gastroesophageal reflux disease) Health care maintenance Hepatitis C Hepatitis C HTN (hypertension) Hyperlipemia Hyperlipidemia Hypersomnolence Hypertension Localized swelling of left lower leg Nonscarring hair loss Obesity (BMI 30.0-34.9) TANIKA (obstructive sleep apnea) Osteoporosis Osteoporosis Postmenopausal atrophic vaginitis Seasonal allergies Stage 3a chronic kidney disease (CKD) Tendon contracture Vitamin D deficiency Vitamin D deficiency Vulvodynia Home Medications handicap placard See Rx Instructions .Route .COMPLEX #1 unit 10/16/21 [Rx Last Taken Unknown] calcium carbonate (Calcium 600) 650 mg PO BID 11/07/22 [History Last Taken Unknown] ergocalciferol (vitamin D2) 1,250 mcg (50,000 unit) capsule 2,000 unit PO DAILY 11/07/22 [History Last Taken Unknown] amlodipine 10 mg tablet 10 mg PO DAILY BP #90 tabs 05/26/23 [Rx Last Taken Unknown] pregabalin 50 mg capsule 75 mg PO BID 06/26/23 [History Last Taken Unknown] hydrochlorothiazide 12.5 mg tablet 12.5 mg PO QAM #90 tabs 07/18/23 [Rx Last Taken Unknown] hydralazine 50 mg tablet 75 mg (1.5 x 50 mg) PO TID BP 3 months #405 tabs 08/15/23 [Rx Last Taken Unknown] clobetasol 0.05 % topical cream 1 applic topical .COMPLEX PRN lichens #15 grams 09/08/23 [Rx Last Taken Unknown] estradiol 0.01% (0.1 mg/gram) vaginal cream (Estrace) See Rx Instructions vaginal .COMPLEX #42.5 grams 09/08/23 [Rx Last Taken Unknown] denosumab 60 mg/mL subcutaneous syringe (Prolia) 60 mg subcut [id number] #1 mL 09/12/23 [Rx Last Taken Unknown] benzonatate 200 mg capsule 200 mg PO TID #21 caps 10/07/23 [Rx Last Taken Unknown] fluticasone propionate 50 mcg/actuation nasal spray,suspension (Flonase Allergy Relief) 2 spray intranasal DAILY #16 grams 10/07/23 [Rx Last Taken Unknown] fenofibrate 54 mg tablet 54 mg PO DAILY cholesterol #90 tabs 10/10/23 [Rx Last Taken Unknown] Allergy/AdvReac Type Severity Reaction Status Date / Time alendronate sodium Allergy Intermediate Hives Verified 10/14/23 22:56 nitrofurantoin Allergy Intermediate Hives Verified 10/14/23 22:56 meloxicam AdvReac Severe Tremors Verified 10/14/23 22:56 codeine AdvReac Upset Verified 10/14/23 22:56 Stomach Penicillins [PCN] AdvReac Rash Verified 10/14/23 22:56 Sulfa (Sulfonamide AdvReac Rash Verified 10/14/23 22:56 Antibiotics) Family History Brother Anxiety and depression Diabetes Asthma Heart disease Hypertension Ulcer Sister Anxiety and depression Hypertension CVA (cerebral vascular accident) Thyroid disorder Osteoporosis Hyperlipemia Diabetes Heart disease Asthma Cancer skin Mother Hypertension Kidney disease Osteoporosis CVA (cerebral vascular accident) Father CVA (cerebral vascular accident) Hyperlipemia Hypertension Myocardial infarction Heart disease Other CAD (coronary artery disease) Heart failure Surgical History History of appendectomy History of cholecystectomy History of hysterectomy History of knee replacement Hx of appendectomy Hx of cholecystectomy Hx of hysterectomy Social History household members: spouse housing: house number of children: 5 current occupational status: employed 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 Smoking Status: Never smoker alcohol intake: never substance use type: does not use what type of physical activity do you participate in: none and walking frequency: 3-4 times per week cat/confucianism: Restorationism do you feel safe at home: Yes additional social history: pt gave to 5 children, has 3 adopted children ROS ROS ED Constitutional Constitutional ED: Denies chills or weight loss Eyes Eyes: Denies change in vision or diplopia ENT ENT ED: Denies ear pain, rhinorrhea or sore throat Cardiovascular Cardiovascular: Denies chest pain, orthopnea, palpitations or racing heartbeat Respiratory/Chest Respiratory/Chest: Denies cough, dyspnea or orthopnea Gastrointestinal Gastrointestinal: Denies abdominal pain, diarrhea, nausea or vomiting Genitourinary Genitourinary ED: Denies dysuria, hematuria or urinary frequency Musculoskeletal Musculoskeletal: Reports other Details: See history of present illness ; Denies arthralgias or myalgias Integumentary Denies abscess or rash Neurologic Neurologic: Denies headache(s) or weakness Psychiatric Psychiatric: Denies anxiety, depression, suicidal ideation or suicidal thoughts Endocrine Endocrinology: Denies polydipsia, polyphagia or polyuria Allergic/Immunologic Allergic/Immunologic ED: Denies mouth swelling, tongue swelling or urticaria EXAM Physical Exam Const Vital Signs: 10/14/23 22:57 Temperature 97.8 F Temperature Source Temporal Pulse Rate 102 H Respiratory Rate 18 Blood Pressure 138/77 H Blood Pressure Mean 97 Pulse Ox 100 Positive well nourished and well developed General Appearance ED: well developed HEENT Reports normocephalic, head/scalp atraumatic and moist mucous membranes Eyes PERRL and EOMs intact bilaterally Neck no lymphadenopathy, supple and no JVD Resp normal respiratory effort and clear to auscultation bilaterally Cardio regular rate, regular rhythm and no murmurs GI normal to inspection, nondistended, normoactive bowel sounds and non-tender Palpation: soft Back/Spine no CVA tenderness and normal ROM Extremity Extremity Narrative: There is a nonspecific about 1 cm nodule anterior mid right aguila in the soft tissue. Slightly mobile no overlying erythema. Nontender. There is a well-healed midline incision of the knee. Patient is able to lift her leg straight up off the bed into 90 degrees while laying flat. I do not appreciate any swelling of the leg. I do not palpate any cords. No erythema or skin lesions. General Extremety ED: Negative for edema General Extremity: Negative for edema Neuro oriented x3 and CN's II-XII intact bilaterally Sensorium / Orientation: alert Motor Exam: strength 5/5 throughout Psych mental status grossly normal Mood & Affect: Negative for depressed or tearful Skin no rashes or lesions noted and no wounds MDM MDM MDM Narrative Medical decision making narrative: No ultrasound capability at this time to perform duplex ultrasound. I can set her up for an outpatient scan tomorrow. Would recommend follow-up with primary care. We talked about lumbar radiculopathy, we talked about DVT, Dave's cyst, neuropathic pain. I think at this point we will obtain the ultrasound tomorrow and have her follow-up with primary care History & Record Review Discussion w/independent historian: Patient Discharge Plan Triage Chief Complaint: Lower Extremity Injury ED Provider: Manjit Do Dx/Rx/DC Orders Prescriptions: No Action pregabalin 50 mg capsule 75 mg PO BID clobetasol 0.05 % cream 1 applic TOPICAL .COMPLEX PRN (Reason: lichens) Qty: 15 1RF Rx Instructions: 1 applic topically small amount to affected area daily up to 7 days prn PRN; estradiol [Estrace] 0.01 % (0.1 mg/gram) cream See Rx Instructions vaginal .COMPLEX Qty: 42.5 2RF Dose Instruction: pea sized amount VAGINAL every other day X 4 weeks then twice a week; Rx Instructions: pea sized amount VAGINAL twice a week; benzonatate 200 mg capsule 200 mg PO TID Qty: 21 0RF fluticasone propionate [Flonase Allergy Relief] 50 mcg/actuation spray,suspension 2 spray intranasal DAILY Qty: 16 0RF Rx Instructions: administer 2 sprays into each nostril handicap placard See Rx Instructions .ROUTE .COMPLEX Qty: 1 0RF Rx Instructions: Duration 5 years for reduced mobility calcium carbonate [Calcium 600] 600 mg calcium (1,500 mg) tablet 650 mg PO BID ergocalciferol (vitamin D2) 1,250 mcg (50,000 unit) capsule 2,000 unit PO DAILY amlodipine 10 mg tablet 10 mg PO DAILY Qty: 90 1RF hydrochlorothiazide 12.5 mg tablet 12.5 mg PO QAM Qty: 90 3RF hydralazine 50 mg tablet 75 mg PO TID 90 Days Qty: 405 1RF Prolia 60 mg/mL syringe 60 mg subcut [id number] Qty: 1 1RF fenofibrate 54 mg tablet 54 mg PO DAILY Qty: 90 1RF Primary Care Provider: Benjamin Chopra Referrals: Benjamin Chopra MD [Primary Care Provider] -
[2023-10-15 00:51] VITALS: BP 128/75; PULSE 81; RESP 16; TEMP 36.6; O2SAT 99
== END 2023-10-15 00:52 | disposition home or self-care (01) ==
PROVIDERS: Emergency Provider Emergency Medicine; PCP Internal Medicine; Visit Provider Emergency Medicine
DX: S89.90XA Unspecified injury of unspecified lower leg, initial encounter (principal); N18.31 Chronic kidney disease, stage 3a; K21.9 Gastro-esophageal reflux disease without esophagitis; I12.9 Hypertensive chronic kidney disease with stage 1 through stage 4 chronic kidney disease, or unspecified chronic kidney disease; E78.5 Hyperlipidemia, unspecified; Z79.899 Other long term (current) drug therapy; X58.XXXA Exposure to other specified factors, initial encounter
CPT/HCPCS: 99282

== ENCOUNTER → 2023-10-15 | Outpatient (CLI) | payer MEDICARE, SELFPAY ==
--- NOTE | 2023-10-15 09:31 | VDLE_ITS ---
Reason For Study: Left leg pain RIGHT LEFT CFV is compressible, spontaneous, phasic, GSV is normal. competent and demonstrates normal CFV is compressible, spontaneous, phasic, augmentation. competent, and demonstrates normal Procedure augmentation. This is a venous duplex using B-mode, color FV is compressible, spontaneous, phasic, flow and spectral Doppler. competent and demonstrates normal Exam performed in department. augmentation. A preliminary report was called and/or faxed POP V is compressible, spontaneous, phasic, to PCP: Dr. Chopra. competent and demonstrates normal augmentation. T/P Trunk is compressible. PTV is compressible. LT PerV is compressible. VL/Venous Duplex US, Unilateral Interpretation Summary Deep veins of the left lower extremity are patent and compressible segmentally. There is no evidence of left lower extremity deep vein thrombosis. The left great saphenous vein ulisses ears patent and compressible segmentally. Ordering Physician: Manjit Do Referring Physician: Benjamin Chopra Performed By: Gracy Schmitt RVT
== END | disposition home or self-care (01) ==
LOC: CVS 09:30
PROVIDERS: PCP Internal Medicine; Referring Provider Emergency Medicine; Visit Provider Emergency Medicine
DX: M79.662 Pain in left lower leg (principal)
CPT/HCPCS: 93971

== ENCOUNTER → 2023-10-20 | Outpatient (CLI) | payer MEDICARE, SELFPAY ==
--- NOTE | 2023-10-20 16:36 | MRI_ITS ---
EXAM: MR LEFT LOWER EXTREMITY WITHOUT INTRAVENOUS CONTRAST, TIBIA AND FIBULA CLINICAL INDICATION: left lower leg nodule TECHNIQUE: Multiplanar and multisequence MR images of the left tibia and fibula without intravenous contrast. COMPARISON: No relevant prior studies available. FINDINGS: Underneath the MRI marker that was placed at the anterior aspect of the proximal tibia, there is a small focus of subcutaneous edema without mass. There is a prominent tibialis anterior muscle. There is no concerning marrow signal alteration on the visualized exam. Bilateral knee arthroplasties are identified. No soft tissue or osseous masses. Neurovascular structures are unremarkable. MRI/Lower Ext No Joint W/WO Cont IMPRESSION: Underneath the MRI marker that was placed at the anterior aspect of the proximal tibia, there is a small focus of subcutaneous edema without mass. There is a prominent tibialis anterior muscle. There is no concerning marrow signal alteration on the visualized exam. Electronically Signed: Bay Henson MD at 22:28 EDT ,
== END | disposition home or self-care (01) ==
LOC: MRI 16:10
PROVIDERS: PCP Internal Medicine; Referring Provider Nurse Practitioner; Visit Provider Nurse Practitioner
DX: R22.42 Localized swelling, mass and lump, left lower limb (principal)
CPT/HCPCS: 73720; A9575

== ENCOUNTER → 2024-02-26 | Outpatient (CLI) | payer MEDICARE, SELFPAY ==
--- NOTE | 2024-02-26 12:53 | RAD_ITS ---
STUDY: X-RAY - PELVIS AND LEFT HIP REASON FOR EXAM: Female, 68 years old. Pain. TECHNIQUE: 3 views of the pelvis and hip. COMPARISON: June 11, 2023 FINDINGS: Normal bowel gas pattern. Phleboliths. Stable mild arthrosis of both sacroiliac joints. Normal bilateral superior and inferior pubic rami. Normal pubic symphysis. Normal bilateral ischial tuberosities. Moderate arthrosis of both hips with osteophytes, relatively unchanged. RAD/HIP, UNI W/ Pelvis 2-3 Views IMPRESSION: Osteopenia with stable arthrosis of both sacroiliac joints and moderate arthrosis of both hips. Electronically Signed: Maximiliano Bansal MD at 15:30 EDT ,
== END | disposition home or self-care (01) ==
LOC: MTRAD 12:52
PROVIDERS: PCP Internal Medicine; Referring Provider Clinical Nurse Specialist Adult Health; Visit Provider Clinical Nurse Specialist Adult Health
DX: M25.552 Pain in left hip (principal)
CPT/HCPCS: 73502

== ENCOUNTER → 2024-03-17 | Outpatient (CLI) | payer MEDICARE, SELFPAY ==
--- NOTE | 2024-03-17 09:45 | BI_ITS ---
MAMMOGRAPHY - BILATERAL SCREENING REASON FOR EXAM: Female, 68 years old. Routine annual screening examination. PERTINENT HISTORY: Non-contributory. TECHNIQUE: Digital bilateral breast tasha (3D mammographic acquisition) in the CC and MLO projections. 2-D mediolateral oblique (MLO) and craniocaudad (CC) views of both breasts were obtained. CAD: Full Field Digital Mammography with Computer Added Detection was performed. COMPARISON: Comparison is made with prior study March 13, 2023 and March 06, 2022. FINDINGS: Breast Composition: The breasts are almost entirely fatty. There are no dominant masses or suspicious calcifications. Stable partially calcified nodule in the retroareolar region of the left breast. No other significant abnormalities are identified. There has been no significant change since the prior study. BI/SCRN MAMM (CAD)W/TASHA BILAT IMPRESSION: Stable bilateral screening mammogram. Yearly follow-up mammogram recommended. (A) ASSESSMENT CATEGORY: BIRADS Category 2: Benign. A letter regarding these results will be sent to the patient by the facility within 30 days. Approximately 10% of breast cancers are not detected by mammography. A normal mammogram should not delay biopsy of a clinically suspicious abnormality. [id number] Electronically Signed: David Barajas MD at 12:08 EDT ,
== END | disposition home or self-care (01) ==
PROVIDERS: PCP Internal Medicine; Referring Provider Nurse Practitioner Women's Health; Visit Provider Nurse Practitioner Women's Health
DX: Z12.31 Encounter for screening mammogram for malignant neoplasm of breast (principal)
CPT/HCPCS: 77063; 77067

== ENCOUNTER → 2024-04-28 | Outpatient (CLI) | payer MEDICARE, SELFPAY ==
[2024-04-28 14:00] LABS: Mucous, Urine 0 SEEN /hpf (<or=2+); Red Blood Cells-Urine 0 SEEN /hpf (0-5)
[2024-04-28 15:22] LABS: Absolute Lymphocyte Count 2.52 X10^3/uL (0.83-4.51); Absolute Neutrophil Count 5.9 X10^3/uL (2.0-7.7); Basophil# 0.08 X10^3/uL; Basophil% 0.8 % (0-1); Eosinophil# 0.11 X10^3/uL; Eosinophils% 1.2 % (0-5); Hematocrit 41.6 % (37-47); Lymphocyte # 2.52 X10^3/ul (0.83-4.51); Lymphocyte % 26.7 % (19-41); Mean Corp Hgb Conc 31.3 g/dL (32-36); Mean Corpuscular Hgb 28.3 pg (27.0-32.0); Mean Corpuscular Volume 90.6 fL (81-99); Mean Platelet Vol. 10.9 fl (6.2-12.0); Monocyte# 0.85 X10^3/uL; NRBC Flagged by Analyzer 0 % (0-5); Neutrophil # 5.85 X10^3/uL (2.7-7.7); Neutrophil % 61.9 % (47-70); Platelet Count 407 K/mm3 (150-450); RBC Distribution Width CV 13.4 % (11.6-14.6); RBC Distribution Width SD 44.5 fl (35.1-43.9); Red Blood Count 4.59 M/mm3 (4.2-5.4); White Blood Count 9.5 K/mm3 (4.4-11.0)
[2024-04-28 15:25] LABS: Color, Urine Yellow (Yellow); Glucose, Dipstick Normal (Normal); Ketone-Dipstick 5 mg/dl (Negative); Leukocyte Esterase-Dipstick 500 /ul (Negative); Nitrite-Dipstick Negative (Negative); Occult Blood-Urine Negative /ul (Negative); Protein-Dipstick 15 mg/dl (Negative); Urine Bilirubin Dipstick Negative (Negative); Urine Clarity Sl. Cloudy (Clear); Urine Urobilinogen Normal (Normal)
[2024-04-28 15:35] LABS: Bacteria 1+ /hpf (None Seen); Squamous Epithelial Cells - UA 0-5 SEEN /hpf (5-10); White Blood Cells 5-10 SEEN /hpf (0-5)
[2024-04-28 15:50] LABS: ALB/GLOB Ratio 1.1 RATIO (0.9-2.4); AST(SGOT) 29 U/L (15-37); Alanine Aminotransfer ALT/SGPT 61 U/L (13-56); Albumin, Serum 3.8 g/dL (3.2-5.0); Alkaline Phosphatase 45 U/L (45-117); Anion Gap 4 (5-15); BUN 22 mg/dL (7-18); BUN/Creat Ratio 20.2 RATIO (10-20); Calcium,Total 9.2 mg/dL (8.5-10.1); Chloride 108 mmol/L (98-107); Cholesterol 208 mg/dL (200); Creatinine, Serum 1.09 mg/dL (0.55-1.02); EST Glomerular Filtration Rate 53 mL/min (>60); Est Glom Filt Rate - Afr Amer 64 mL/min (>60); Globulin 3.6 g/dL (2.2-4.2); Glucose 94 mg/dL (74-106); High Density Lipoprotein 53 mg/dL; Potassium 3.6 mmol/L (3.5-5.1); Protein, Total 7.4 g/dL (6.4-8.2); Sodium Level 140 mmol/L (136-145); Triglycerides 281 mg/dL; Very Low Density Lipoprotein 56 mg/dL (5-40)
--- OUTSIDE RECORDS SUMMARY | 2024-04-28 17:13 | XMS RPT_ITS | CCD ---
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 Role Phone LEILA EWING, WILLIAMS Gibson Primary Care Physician [phone] ALFREDO EWING, DR FARRAR Attending WILLIAMS Jaramillo MD Primary Care WILLIAMS Bailey MD Primary Care UnavailDENISE Sherman DO Attending PAGE Corona DO, MD, EFEWONGBE B Primary Care Unavailab amaro Allergies Allergy Classification Reported Allergen(s) Allergy Type Date of Onset Reaction(s) Facility (3 sources) Penicillin; Translations: [penicillins] Drug Allergy [facility] (1 source) Sulfonamides (Antibiotic); Translations: [sulfa drugs] Drug allergy [facility] (2 sources) Sulfonamide; Translations: [sulfa drugs] Drug allergy [facility] Medications Current Medications Medication Drug Class(es) [...] Status: Ordered cephalexin 500 mg oral capsule (2 sources) Cephalosporin Antibacterial Start: 04-18-2024 End: 04-25-2024 cephalexin 500 mg oral capsule Dose : 500 mg = 1 cap(s), Oral, q12h, X 7 day(s), # 14 cap(s), 0 Refill(s), 04/25/24 7:46:00 AM EDT, 75 Start Date: 04/18/24 Stop Date: 04/25/24 Status: Ordered Start: 03-26-2023 End: 04-02-2023 cephalexin 500 mg oral capsu le Dose : 500 mg = 1 cap(s), Oral, QID, X 7 day(s), # 28 cap(s), 0 Refill(s), 04/02/23 9:07:00 PM EDT, 73.9 Start Date: 03/26/23 Stop Date: 04/02/23 Status: Ordered [facility] Medication (3 sources) Start: 06-21-2018 [facility] [place] Medicatio n 0 Refill(s) Start Date: 06/21/18 Status: Ordered phenazopyridine hydrochlorid e 200 mg oral tablet (6 sources) Start: 04-18-2024 End: 04-21-2024 Pyridium 200 mg oral tablet Dose : 200 mg = 1 tab(s), Oral, TID, X 3 day(s), # 9 tab(s), 0 Refill(s), 04/21/24 7:49:00 AM EDT Start Date: 04/18/24 Stop Date: 04/21/24 Status: Ordered Start: 08-13-2023 End: 08-16-2023 Pyridium 200 mg oral tablet Dose : 200 mg = 1 tab(s), Oral, TID, X 3 day(s), # 9 tab(s), 0 Refill(s), 08/16/23 6:43:00 PM EST Start Date: 08/13/23 Stop Date: 08/16/23 Status: Ordered Start: 03-26-2023 End: 03-29-2023 Pyridium 100 mg oral tablet Dose : 100 mg = 1 tab(s), Oral, TID, X 3 day(s), # 9 tab(s), 0 Refill(s), 03/29/23 9:14:00 PM EDT Start Date: 03/26/23 Stop Date: 03/29/23 Status: Ordered Start: 06-21-2018 End: 06-23-2018 Pyridium 200 mg oral tablet Dose : 200 mg = 1 tab(s), Oral, TID, PRN as needed for urinary discomfort, # 6 tab(s), 0 Refill(s) Start Date: 06/21/18 Stop Date: 06/23/18 Status: Ordered Completed/Discontinued Medications Medication Drug Class(es) Dates Sig (Normalized) Sig (Original) ciprofloxacin 500 mg oral tablet (3 sources) Quinolone Antimicrobial Start: 06-21-2018 End: 06-26-2018 [...] system] Onset: 03-26-2023 Episodic Urinary tract infections (2 sources) Urinary tract infectious disease; Translations: [Urinary tract infection, site not specified] Onset: 08-13-2023 Episodic Results Test Name Value Interpretation Reference Range Facility .Urinalysis Microscopic (AO) on 04-18-2024 UA Bacteria 2+ /hpf Abnormal [facility] Comment on above: Performed By: #### U A, UAMICAO #### [place] [address] UA RBC 5-10 Abnormal None Seen [facility] Comment on above: Performed By: #### U A, UAMICAO #### [place] [address] UA Squam Epithelial LOADED Abnormal None Seen [facility] Comment on above: Performed By: #### U A, UAMICAO #### [place] [address] UA WBC LOADED Abnormal None Seen [facility] Comment on above: Performed By: #### U A, UAMICAO #### [place] [address] LABORATORYOrdered By: Juliana Garcia on 04-18-2024 Appearance (U) Cloudy *ABN* (04/18/24 7:22 AM) Invalid Interpretation Code Clear AO Auto Urine SS Bacteria LM.HPF (Urine sed) [#/Area] 2 /[HPF] Invalid Interpretation Code AO Auto Urine SS Bilirubin Ql (U) Negative (04/18/24 7:22 AM) Normal Negative AO Auto Urine SS Color (U) Yellow (04/18/24 7:22 AM) Normal AO Auto Urine SS Glucose Test strip (U) [Mass/Vol] Negative Normal Negative AO Auto Urine SS Hemoglobin Auto test strip (U) [Mass/Vol] Negative (04/18/24 7:22 AM) Normal Negative AO Auto Urine SS Ketones Ql (U) Negative Normal Negative AO Auto Ur ine SS UA Leuk Est Trace *ABN* (04/18/24 7:22 AM) Invalid Interpretation Code Negative AO Auto Urine SS UA Nitrite Negative (04/18/24 7:22 AM) Normal Negative AO Auto Urine SS UA pH 5.5 (04/18/24 7:22 AM) Normal 5.0 - 8.0 AO Auto Urine SS UA Protein Trace mg/dL Normal Negative AO Auto Urine SS UA RBC 5-10 /HPF Invalid Interpretation Code None Seen AO Auto Urine SS UA Spec Grav >=1.030 *ABN* (04/18/24 7:22 AM) Invalid Interpretation Code 1.015-1.025 AO Auto Urine SS UA Specimen Type Not Given (04/18/24 7:22 AM) Normal AO Auto Urine SS UA Squam Epithelial LOADED /HPF Invalid Interpretation Code None Seen AO Auto Urine SS UA Urobilinogen 0.2 E.U./dL Normal 0.2-1.0 AO Auto Urine SS WBC LM.HPF (Urine sed) [#/Area] LOADED /HPF Invalid Interpretation Code None Seen AO Auto Urine SS UAon 04-18-2024 Color (U) Yellow Normal [facility] Comment on above: Performed By: #### U A UAMICAO #### [address] [address] Glucose (U) [Mass/Vol] Negative Normal Negative [facility] Comment on above: Performed By: #### U A UAMICAO #### [address] [address] Ketones Ql (U) Negative Normal Negative [facility] Comment on above: Performed By: #### U A UAMICAO #### [place] [address] UA Appear Cloudy Abnormal Clear [facility] Comment on above: Performed By: #### U A, UAMICAO #### [place] [address] UA Blood Negative Normal Negative [facility] Comment on above: Performed By: #### U A, UAMICAO #### [place] [address] UA Leuk Est Trace Abnormal Negative [facility] Comment on above: Performed By: #### U A, UAMICAO #### [place] [address] UA Nitrite Negative Normal Negative [facility] Comment on above: Performed By: #### U A, UAMICAO #### [place] [address] UA pH 5.5 Normal 5.0 - 8.0 [facility] Comment on above: Performed By: #### U A, UAMICAO #### [place] [address] UA Protein Trace Normal Negative [facility] Comment on above: Performed By: #### U A, UAMICAO #### [place] [address] UA Spec Grav >=1.030 Abnormal 1.015-1.025 [facility] Comment on above: Performed By: #### U A, UAMICAO #### [place] [address] UA Specimen Type Not Given Normal [facility] Comment on above: Performed By: #### U A, UAMICAO #### [place] [address] UA Urobilinogen 0.2 E.U./dL Normal 0.2-1.0 [facility] Comment on above: Performed By: #### U A, UAMICAO #### [place] [address] Urobilinogen (U) [Mass/Vol] Negative Normal Negative [facility] Comment on above: Performed By: #### U A, UAMICAO #### [place] [id number] .Urinalysis Microscopic (AO) on 08-20-2023 UA RBC 0-5 Abnormal None Seen [facility] ([place] Comment on above: Performed By: #### U A, UAMICAO #### [place] [address] UA WBC 15-25 Abnormal None Seen [facility] ([place]) Comment on above: Performed By: #### U A, UAMICAO #### [place] [address] .Urinalysis Microscopic (AO) on 08-13-2023 UA Squam Epithelial 0-5 Abnormal None Seen [facility] ([place]) Comment on above: Performed By: #### U A, UAMICAO #### [place] [address] LABORATORYOrdered By: Tita Hernandez on 08-13-2023 Appearance (U) Slightly Cloudy *ABN* (08/13/23 6:19 PM) Invalid Interpretation Code Clear AO Auto Urine SS Bilirubin Ql (U) Negative (08/13/23 6:19 PM) Normal Negative AO Auto Urine SS Color (U) Yellow (08/13/23 6:19 PM) Normal AO Auto Urine SS Glucose Test strip (U) [Mass/Vol] Negative Normal Negative AO Auto Urine SS Hemoglobin Auto test strip (U) [Mass/Vol] Negative (08/13/23 6:19 PM) Normal Negative AO Auto Urine SS Ketones Ql (U) Negative Normal Negative AO Auto Ur ine SS UA Leuk Est Small *ABN* (08/13/23 6:19 PM) Invalid Interpretation Code Negative AO Auto Urine SS UA Nitrite Negative (08/13/23 6:19 PM) Normal Negative AO Auto Urine SS UA pH 5.5 (08/13/23 6:19 PM) Normal 5.0 - 8.0 AO Auto Urine SS UA Protein Negative Normal Negative AO Auto Urine SS UA RBC 15-25 /HPF Invalid Interpretation Code None Seen AO Auto Urine SS UA Spec Grav >=1.030 *ABN* (08/13/23 6:19 PM) Invalid Interpretation Code 1.015-1.025 AO Auto Urine SS UA Specimen Type Clean Catch (08/13/23 6:19 PM) Normal AO Auto Urine SS UA Squam Epithelial 0-5 /HPF Invalid Interpretation Code None Seen AO Auto Urine SS UA Urobilinogen 0.2 E.U./dL Normal 0.2-1.0 AO Auto Urine SS WBC LM.HPF (Urine sed) [#/Area] 0-5 /HPF Invalid Interpretation Code None Seen AO Auto Urine SS UAon 08-13-2023 Color (U) Yellow Normal [facility] ([place] Comment on above: Performed By: #### U A, UAMICAO #### [address] [address] Glucose (U) [Mass/Vol] Negative Normal Negative [facility] ([place] Comment on above: Performed By: #### U A, UAMICAO #### [address] [address] Ketones Ql (U) Negative Normal Negative [facility] ([place] Comment on above: Performed By: #### U A, UAMICAO #### [address] [address] UA Appear Slightly Cloudy Abnormal Clear [facility] ([place] Comment on above: Performed By: #### U A, UAMICAO #### [address] [address] UA Blood Negative Normal Negative [facility] ([place] Comment on above: Performed By: #### U A, UAMICAO #### [address] [address] UA Leuk Est Small Abnormal Negative [facility] ([place] Comment on above: Performed By: #### U A, UAMICAO #### [address] [address] UA Nitrite Negative Normal Negative [facility] ([place] Comment on above: Performed By: #### U A, UAMICAO #### [place] [address] UA pH 5.5 Normal 5.0 - 8.0 [facility] ([place] Comment on above: Performed By: #### U A, UAMICAO #### [place] [address] UA Protein Negative Normal Negative [facility] ([place] Comment on above: Performed By: #### U A, UAMICAO #### [place] [address] UA Spec Grav >=1.030 Abnormal 1.015-1.025 [facility] ([place] Comment on above: Performed By: #### U A UAMICAO #### [place] [address] UA Specimen Type Clean Catch Normal [facility] ([place] Comment on above: Performed By: #### U A, UAMICAO #### [place] [address] UA Urobilinogen 0.2 E.U./dL Normal 0.2-1.0 [facility] ([place] Comment on above: Performed By: #### U A UAMICAO #### [place] [address] Urobilinogen (U) [Mass/Vol] Negative Normal Negative [facility] ([place] Comment on above: Performed By: #### U A, UAMICAO #### [place] [address] .Urinalysis Microscopic (AO) on 03-26-2023 UA Bacteria 2+ /hpf Abnormal [facility] ([place] Comment on above: Performed By: #### U AMICAO, UA #### [place] [address] UA RBC 15-25 Abnormal None Seen [facility] ([place] Comment on above: Performed By: #### U AMICAO, UA #### [place] [id number] UA Squam Epithelial LOADED Abnormal None Seen [facility] ([place] Comment on above: Performed By: #### U AMICAO, UA #### [facility] [address] [place], [place] [address] UA WBC 15-25 Abnormal None Seen [facility] ([place] Comment on above: Performed By: #### U AMICAO, UA #### [facility] [address] [place], [place] [address] LABORATORYOrdered By: Tita Hernandez on 03-26-2023 Appearance (U) Cloudy *ABN* (03/26/23 8:39 PM) Invalid Interpretation Code Clear AO Auto Urine SS Bacteria LM.HPF (Urine sed) [#/Area] 2 /[HPF] Invalid Interpretation Code AO Auto Urine SS Bilirubin Ql (U) Negative (03/26/23 8:39 PM) Invalid Interpretation Code Negative AO Auto Urine SS Color (U) Yellow (03/26/23 8:39 PM) Invalid Interpretation Code AO Auto Urine SS Glucose Test strip (U) [Mass/Vol] Negative Invalid Interpretation Code Negative AO Auto Urine SS Hemoglobin Auto test strip (U) [Mass/Vol] Moderate *ABN* (03/26/23 8:39 PM) Invalid Interpretation Code Negative AO Auto Urine SS Ketones Ql (U) Negative Invalid Interpretation Code Negative AO Auto Urine SS UA Leuk Est Small *ABN* (03/26/23 8:39 PM) Invalid Interpretation Code Negative AO Auto Urine SS UA Nitrite Negative (03/26/23 8:39 PM) Invalid Interpretation Code Negative AO Auto Urine SS UA pH 5.5 (03/26/23 8:39 PM) Invalid Interpretation Code 5.0 - 8.0 AO Auto Urine SS UA Protein Negative Invalid Interpretation Code Negative AO Auto Urine SS UA RBC 15-25 /HPF Invalid Interpretation Code None Seen AO Auto Urine SS UA Spec Grav >=1.030 *ABN* (03/26/23 8:39 PM) Invalid Interpretation Code 1.015-1.025 AO Auto Urine SS UA Specimen Type Clean Catch (03/26/23 8:39 PM) Invalid Interpretation Code AO Auto Urine SS UA Squam Epithelial LOADED /HPF Invalid Interpretation Code None Seen AO Auto Urine SS UA Urobilinogen 0.2 E.U./dL Invalid Interpretation Code 0.2-1.0 AO Auto Urine SS WBC LM.HPF (Urine sed) [#/Area] 15-25 /HPF Invalid Interpretation Code None Seen AO Auto Urine SS UAon 03-26-2023 Color (U) Yellow Normal [facility] ([place] Comment on above: Performed By: #### U AMICAO, UA #### [place] [address] [address] Glucose (U) [Mass/Vol] Negative Normal Negative [facility] ([place] Comment on above: Performed By: #### U AMICAO, UA #### [place] [address] Ketones Ql (U) Negative Normal Negative [facility] ([place] Comment on above: Performed By: #### U AMICAO, UA #### [place] [address] [address] UA Appear Cloudy Abnormal Clear [facility] ([place] Comment on above: Performed By: #### U AMICAO, UA #### [place] [address] UA Blood Moderate Abnormal Negative [facility] ([place] Comment on above: Performed By: #### U AMICAO, UA #### [address] [address] UA Leuk Est Small Abnormal Negative [facility] ([place] Comment on above: Performed By: #### U AMICAO, UA #### [place] [address] UA Nitrite Negative Normal Negative [facility] ([place] Comment on above: Performed By: #### U AMICAO, UA #### [address] [address] UA pH 5.5 Normal 5.0 - 8.0 [facility] ([place] Comment on above: Performed By: #### U AMICAO, UA #### [place] [address] UA Protein Negative Normal Negative [facility] ([place] Comment on above: Performed By: #### U AMICAO, UA #### [address] [address] UA Spec Grav >=1.030 Abnormal 1.015-1.025 [facility] ([place] Comment on above: Performed By: #### U KISHAN UA #### [address] [place] [address] [place], [place] [address] UA Specimen Type Clean Catch Normal [facility] ([place] Comment on above: Performed By: #### U KISHAN UA #### [address] [place] [address] [place], [place] [address] UA Urobilinogen 0.2 E.U./dL Normal 0.2-1.0 [facility] ([place] Comment on above: Performed By: #### U KISHAN UA #### [place] [address] [place], [place] [address] Urobilinogen (U) [Mass/Vol] Negative Normal Negative [facility] ([place] Comment on above: Performed By: #### Ruchi HOLLEY UA #### [address] [address] [place] 05-08-2021 [facility] Telephone (UCTR) FELIPE TIM ([id number]) 1955 F Date Time Provider Department 05/08/[address] [facility] During your visit today, we recorded the following information about you: Diana Renteria PA-C 05/08/2021 3:29 PM Signed Please call patient and let know their urine culture did not show a significant infection. if antibiotics are helping finish those, otherwise follow up with pcp with further symptoms and for blood in her urine. Sandee Torres LPN 05/08/2021 6:07 PM Signed Patient notified and verbalized understanding of instructions given.Sandee Torres LPN Allergies As of Date: 05/08/2021 Noted Allergy Reaction PREMARIN (CONJUGATED ESTROGENS) 12/05/2005 9 - Itching Comments: had vaginal itch with premarin vag crea; stopped FOSAMAX (ALENDRONATE SODIUM) 07/04/2011 5 - Intolerance Comments: [place] like going to explode from inside out . NITROFURANTOIN 01/31/2018 5 - Intolerance Comments: headache PENICILLINS 05/13/2005 4 - Hives SULFA (SULFONAMIDE ANTIBIOTICS) 05/13/2005 14 - Other: See Comments Comments: headache Date Reviewed: 05/06/2021 Reviewed by: Deidra Wagner - Fully Assessed Reason for Visit: Results [95] Prescriptions as of 05/08/2021 - ciprofloxacin HCl (CIPRO) 500 mg tablet Take 1 tablet by mouth twice daily for 5 days. 1 BY MOUTH BID FOR 10 DAYS - clobetasol (TEMOVATE) 0.05 % cream apply to affected area twice a day for 2 weeks then once daily for 2 weeks then if needed - calcium carbonate (CALTRATE) 600 mg calcium (1,500 mg) tab Take 1 tablet by mouth twice daily. - ergocalciferol 50,000 unit capsule (VITAMIN D2, DRISDOL) Take 1 capsule by mouth once daily. - estradiol (ESTRACE) 0.01 % (0.1 mg/gram) vaginal cream apply A PEA SIZED AMOUNT every other day for 4 WEEKS then two times a week - Fenofibrate (LOFIBRA) 54 mg tablet Take 1 tablet by mouth once daily. - hydroCHLOROthiazide (HYDRODIURIL, ESIDRIX) 12.5 mg tablet Take 1 tablet by mouth once daily. TAKE 1 TABLET BY MOUTH ONCE DAILY IN THE MORNING - losartan (COZAAR) 50 mg tablet Take 1 tablet by mouth once daily. - omeprazole 40 mg capsule Take 1 capsule by mouth once daily. - benzonatate (TESSALON PERLE) 100 mg capsule Take 1-2 capsules tid prn, no more than 6 in 24 hours - lisinopril (ZESTRIL, PRINIVIL) 5 mg tablet Take 1 tablet by mouth once daily. - fexofenadine (CHANTE) 180 mg tablet Take 1 tablet by mouth once daily. 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] 03/26/2010 Vitamin D deficiency [E55.9] 06/04/2011 Osteopenia [M85.80] 06/04/2011 Osteoporosis [M81.0] 07/04/2011 Encounter Status:Closed by SANDEE TORRES LPN on 05/08/21 Normal [facility] CNOVon 05-06-2021 CNOV Office Visit (UCWSTR ) FELIPE TIM ([id number]) 1955 F Date Time Provider Department 05/06/21 8:15 AM RACHEL VAZQUEZ [facility] During your visit today, we recorded the following information about you: Temperature Pulse Respiration Blood pressure 97.8 degrees 110/minute 16/minute 134/78 Weight 77.6 kg Rachel Vazquez APRN.[facility] [facility] 05/06/2021 8:42 AM Signed Subjective Pt complains of awaking at 0300 [...] Neurological: Negative. Endo/Heme/Allergies: Does not bruise/bleed easily. Psychiatric/Behavioral : Negative. All other systems reviewed and are [...] NONOBSTETRICAL 03/26/10 Performed by GANESH MALDONADO at [facility] - VAGINAL HYSTERECTOMY 1983 Hysterectomy, vaginal ALLERGIES [...] ICD9: 599.0, 599.70, ICD10: N39.0, R31.9 recurrent (more content not included)... Normal [facility] Urine Cultureon 05-06-2021 Bacteria identified Cx Nom (U) Sp. Request/Comment: - Specimen received in preservative Culture Result - <10,000 CFU/ml Enterococcus faecalis --> ABNORMAL ALERT Cephalosporins, clindamycin, and TMP-SMX are not effective for the treatment of enterococcal infections. --> ABNORMAL ALERT Insignificant colony count. No further workup. --> ABNORMAL ALERT <10,000 CFU/ml Normal urogenital bibiana Critically abnormal [facility] Comment on above: Performed By: #### U RCUL #### [place] [address] Vital Signs Date Time Vital Sign Value Performing Clinician Faci lity 1013-2024 07:16-0400 Blood Pressure Location PAGE ARREGUIN DO [facility] 04-18-2024 07:16-0400 Body temperature 97.16 [degF] PAGE ARREGUIN DO [facility] 04-18-2024 07:16-0400 Diastolic Blood Pressure Non-Invasive 72 mm[Hg] PAGE ARREGUIN DO [facility] 04-18-2024 07:16-0400 Heart rate 84 /min PAGE ARREGUIN DO [facility] 04-18-2024 07:16-0400 Respiratory rate 16 /min PAGE ARREGUIN DO [facility] 04-18-2024 07:16-0400 Systolic Blood Pressure Non-Invasive 129 mm[Hg] PAGE ARREGUIN DO [facility] 08-13-2023 18:12-0500 Body height 152.4 cm DENISE MASON DO [facility] 08-13-2023 18:12-0500 Body temperature 97.34 [degF] DENISE MASON DO [facility] 08-13-2023 18:12-0500 Body weight 75 kg DENISE MASON DO [facility] 08-13-2023 18:12-0500 Diastolic Blood Pressure Non-Invasive 67 mm[Hg] DENISE MASON DO [facility] 08-13-2023 18:12-0500 Heart rate 79 /min DENISE MASON DO [facility] 08-13-2023 18:12-0500 Respiratory rate 20 /min DENISE MASON DO [facility] 08-13-2023 18:12-0500 Systolic Blood Pressure Non-Invasive 150 mm[Hg] DENISE MASON [facility] 03-26-2023 20:31-04[address] Pressure Cuff Size DR LENI FUENTES MD [facility] 03-26-2023 20:31-[address] LENI FUENTES MD [facility] 03-26-2023 20:31-[address] LENI FUENTES MD [facility] 03-26-2023 20:31-0400 Body height 149.[address] LENI FUENTES MD [facility] 03-26-2023 20:31-0400 Body temperature 96.8 [degF] DR LENI FUENTES MD [facility] 03-26-2023 20:31-0400 Body weight 73.[address] LENI FUENTES MD [facility] 03-26-2023 20:31-0400 Diastolic Blood Pressure Non-Invasive [address] LENI FUENTES MD [facility] 03-26-2023 20:31-0400 Heart rate 72 /min DR LENI FUENTES MD [facility] 03-26-2023 20:31-0400 Reason For Taking VItal Signs DR LENI FUENTES MD [facility] 03-26-2023 20:31-0400 Respiratory rate 18 /min DR LENI FUENTES MD [facility] 03-26-2023 20:31-0400 Systolic Blood Pressure Non-Invasive [address] LENI FUENTES MD [facility] Encounters Encounter Date Encounter Type Care Provider Facility Start: 04-18-2024 End: 04-18-2024 Emergency department patient visit PAGE ARREGUIN DO [facility] Start: 08-13-2023 End: 08-13-2023 Emergency department patient visit WILLIAMS DEE MD Facility:B Start: 08-13-2023 End: 08-13-2023 Emergency department patient visit DENISE Alex ISABELLA DO [facility] Start: 03-26-2023 End: 03-26-2023 Emergency department patient visit DR LENI FUENTES MD Facility:[facility] Start: 03-26-2023 End: 03-26-2023 Emergency department patient visit DR LENI FUENTES MD [facility] Payers Date Payer Category Payer Private Health Insurance [id number] 2023 Unknown [id number] 1955 Unknown [id number] [id number] 1955 Unknown [id number] 1955 Unknown [id number] Social History Date Type Detail Facility Tobacco smoking status No Smoking Status Entered [facility] Sex Assigned At Female [facility] Functional Status Date Assessment Result Facility 04-18-2024 Functional Status ID band on [facility] 08-13-2023 Functional Status Independent [facility] 03-26-2023 Functional Status Independent [facility] Mental Status Date Assessment Result Facility 04-18-2024 Mental Status Oriented x [address] [facility] 08-13-2023 Mental Status Orientation Oriented x 4 [facility] 03-26-2023 Mental Status Oriented x [address] [facility] Clinical Notes 05-06-2021 to 04-21-2024 Note Date & Type Note Facility 04-21-2024 Note . MICRO - Microbiology PROCEDURE: Urine Culture [O1 *1] SOURCE: Urine BODY SITE: COLLECTED DATE/TIME: 04/18/2024 07:22 EDT RECEIVED DATE/TIME: 04/18/2024 13:21 EDT START DATE/TIME: 04/18/2024 13:21 EDT FREE TEXT SOURCE: FINAL REPORTS Final Report [] Verified Date/Time/Personnel: 04/21/2024 08:09 EDT 50,000 - 100,000 cfu/ml Escherichia coli 50,000 - 100,000 cfu/ml Enterococcus faecalis PRELIMINARY REPORTS Preliminary Report [] Verified Date/Time/Personnel: 04/20/2024 08:20 EDT 50,000 - 100,000 cfu/ml Escherichia coli MARIO to follow 50,000 - 100,000 cfu/ml Enterococcus faecalis MARIO to follow Preliminary Report [] Verified Date/Time/Personnel: 04/19/2024 10:35 EDT Culture results pending. SUSCEPTIBILITY RESULTS Escherichia coli Antibiotic MARIO Dilut MARIO Inter Ampicillin >16 Resistant Ampicillin/ 16/8 Intermediate Sulbactam Aztreonam <=4 Susceptible Cefazolin <=2 Susceptible Ceftazidime/ <=4 Susceptible Avibactam Ceftolozane/ <=2 Susceptible Tazobactam Ciprofloxacin <=0.25 Susceptible Ertapenem <=0.5 Susceptible Gentamicin <=2 Susceptible ID Panel Not Not Applicable Applicable Imipenem <=1 Susceptible Levofloxacin <=0.5 Susceptible Meropenem <=1 Susceptible Minocycline <=4 Susceptible Nitrofurantoin <=32 Susceptible Piperacillin/ <=8 Susceptible Tazobactam Trimethoprim/ <=0.5/9.5 Susceptible Sulfa Enterococcus faecalis Antibiotic MARIO Dilut MARIO Inter Ampicillin <=2 Susceptible Ciprofloxacin <=1 Susceptible Gentamicin <=500 Susceptible synergy ID Panel Not Not Applicable Applicable Levofloxacin <=1 Susceptible Nitrofurantoin <=32 Susceptible Vancomycin 1 Susceptible MICRO - Microbiology Order Comments O1: Urine Culture Added by Discern Performing Locations *1: This test was performed at: [facility], [address] [place] [address], [id number] , [place] [facility] 04-18-2024 Evaluation + Plan note Diagnostic Tests PendingUrine Culture 04/18/24 [facility] 04-18-2024 Hospital Discharge instructions Patient Education 04/18/2024 07:23:06 Bladder Infection, Female (Adult) Bladder Infection, Female [...] swelling in the outer vaginal area (labia) 7206-4041 [employer]. [address] [place] [address]. All rights reserved. This information is not intended as a substitute for professional medical care. Always follow your healthcare professional's instructions. Follow Up Care 04/18/2024 07:06:58 With:Go to emergency room if symptoms worsen Address:Unknown When:2-4 days With:WILLIAMS DEE MD Address: [address] [place] [address] [phone] When:2-4 days [facility] 04-18-2024 Emergency department Discharge summary Discharge Instructions Thank you for allowing [facility] to assist you with your healthcare needs. The following is important discharge information regarding your hospital visit. Diagnosis from Today's Visit UTI (urinary tract infection) What to Do Next Instructions from Your Care Team Please return to the emergency department for more emergent evaluation for any acute worsening symptoms, nausea or vomiting, back pain, other acute concerns. Otherwise follow-up with your primary care provider. No qualifying data available. Post Acute Orders No qualifying data available. You Need to Schedule the Following Appointments Follow Up with Go to emergency room if symptoms worsen When:Within 2-4 days Follow Up with WILLIAMS DEE MD When:Within 2-4 days Where:[address] [place] [address] [place] [address] [phone] Allergies penicillin sulfa drugs Medications Please ask [...] medication providers or retail pharmacies. Medication Leaflets phenazopyridine (fen AY chrissy PIR i sharon) [...] diabetes; or a genetic enzyme deficiency called cadyheu-5-ogwacmbam dehydrogenase (G6PD) deficiency. FDA category B. Phenazopyridine [...] may report side effects to FDA at 1-718-PBJ-1088. What other drugs will affect phenazopyridine? Other drugs may interact with phenazopyridine, including prescription and suqr-xvl-wpizwea medicines, vitamins, and herbal products. Tell each [...] to ensure that the information provided by [employer]. ('Multum') is accurate, up-to-date, and complete, but no guarantee is made to that effect. Drug information contained herein may be time sensitive. Gema information has been compiled for use by healthcare practitioners and consumers in the [place] and therefore Gema does not warrant that uses outside of the [place] are appropriate, unless specifically indicated otherwise. Owned its drug information does not endorse drugs, diagnose patients or recommend therapy. Owned its drug information is an informational resource designed [...] effective or appropriate for any given patient. Gema does not assume any responsibility for any aspect of healthcare administered with the aid of information Gema provides. The information contained herein is not intended to cover all possible uses, directions, precautions, warnings, drug interactions, allergic reactions, or adverse effects. If you have questions about the drugs you are taking, check with your doctor, nurse or pharmacist. Copyright 7566-8483 [employer]. Version: 5.01. Revision Date: 02/11/2023. cephalexin (sef a AD in) What is [...] may report side effects to FDA at 2-868-QQI-1388. What other drugs will affect cephalexin? Tell your doctor about all your other medicines, especially: metformin; or probenecid. This list is not complete. Other drugs may affect cephalexin, including prescription and endj-fwj-aqzegpu medicines, vitamins, and herbal products. Not all [...] to ensure that the information provided by [employer]. ('Multum') is accurate, up-to-date, and complete, but no guarantee is made to that effect. Drug information contained herein may be time sensitive. Bright [employer] information has been compiled for use by healthcare practitioners and consumers in the [place] and therefore [employer] does not warrant that uses outside of the [place] are appropriate, unless specifically indicated otherwise. Gema's drug information does not endorse drugs, diagnose patients or recommend therapy. [facility] drug information is an informational resource designed [...] effective or appropriate for any given patient. [facility] does not assume any responsibility for any aspect of healthcare administered with the aid of information [facility] provides. The information contained herein is not intended to cover all possible uses, directions, precautions, warnings, drug interactions, allergic reactions, or adverse effects. If you have questions about the drugs you are taking, check with your doctor, nurse or pharmacist. Copyright 8210-0679 [facility] mymxlog. Version: 06.06. Revision Date: 02/05/2023. Education Materials Bladder Infection, [...] swelling in the outer vaginal area (labia) 4345-9262 [employer]. [address] [place] [address]. All rights reserved. This information is not intended as a substitute for professional medical care. Always follow your healthcare professional's instructions. Additional Information VACCINATE! IT SAVES LIVES! Members of the community who have not yet received the COVID-19 vaccine and would like to receive it can visit one of [facility] vaccine clinics. There are many vaccine clinic locations within the [facility]. For locations and available times, please visit www.[email or web address].g ov/. It is important to note that some COVID mobile vaccine clinics are held outdoors and may be canceled in rainy or stormy conditions. To learn more about pediatric vaccinations (ages 5-11), we invite you to visit the [facility] webpage. https://www.[facility].org/pa ges/1106-Dugkk-Uijkcqzqkao-Freque liaw-Fcmim-Obeeuksfd.html To learn more about the COVID-19 vaccine, we invite you to visit the CDC website for a list of frequently asked questions. https://www.cdc.gov/coronavirus/2 019-ncov/vaccines/faq.html [facility] Patient Portal Access Instructions: Stay connected with your healthcare team and access your personal medical information anytime with the [facility] Patient Portal. If you would like a full copy of your medical records please contact the [facility] Medical Records Department Friday through Friday between 8a.m. and 4:30p.m. Please follow the directions below to access the portal: 1.Access the email account you provided upon registration to the hospital.2.Look for an invitation email from [facility].3.Open the email and access the invitation link: Accept Invitation to [facility]4.Fill in the required alex to create your account. Sign into www.[email or web address] with your username and password that you [...] you will allow to register on the [facility] Patient Portal for access to your information. You can also access the [facility] [employer] [facility] Patient Portal on the [employer] ulisses. Simply click on Health Records under Health Data and then click on the [facility] logo. HOW TO SAFELY DISPOSE OF PRESCRIPTION [...] Call your local pharmacy or go to http://bit.Testin/0N8Bo4d to find one close to you.3.Make use of household items: Use cat litter or old coffee grounds to dispose medications if other options are not available. Mix your drugs with these household products, seal them in an airtight container and throw it into the garbage. Call [facility]: [phone] to be sure your drugs can be [...] Materials Bladder Infection, Female (Adult) Medication Leaflets Pyridium, cephalexin My discharge plan and instructions have been reviewed and explained to me and I,FELIPE TIM understand my current condition and have read and understand these discharge instructions. I have received a written copy of the plan/instructions. If I have questions, I am aware that I should contact my doctor. Patient/Cardiology Technologist Signature: Date/Time: Relationship to Patient: ____ Witness Name/Signature: Date/Time: [facility] 08-15-2023 Note . MICRO - Microbiology PROCEDURE: [...] Locations *1: This test was performed at: [facility], [address] [place] [address], [id number]- , [facility] ([place]) 08-13-2023 Hospital Discharge instructions Patient Education 08/13/2023 18:43:20 Bladder Infection, [...] swelling in the outer vaginal area (labia) 5793-7710 [employer]. [address] [place] [address], [place] [address]. All rights reserved. This information is not intended as a substitute for professional medical care. Always follow your healthcare professional's instructions. Follow Up Care 08/13/2023 18:02:29 With:WILLIAMS DEE MD Address: [address] [place] [address] [place] [address]- [phone] When:2-4 days [facility] 08-13-2023 Note Discharge Instructions Thank you for allowing [facility] to assist you with your healthcare needs. [...] DEE MD When Within 2-4 days Where: [address] [place] [address] [place] [address]- [phone] Allergies penicillin sulfa drugs Medications Please ask [...] providers or retail pharmacies. Medication Leaflets cefdinir ([facility] [place]) What is the most important [...] or rash (including diaper rash in an infant taking liquid cefdinir. This is not a complete list of side effects and others may occur. Call your doctor for medical advice about side effects. You may report side effects to FDA at 8-338-JZD-4766. What other drugs will affect cefdinir? Tell your doctor about all your other medicines, especially: probenecid; or vitamin or mineral supplements that contain iron. This list is not complete. Other drugs may affect cefdinir, including prescription and vawj-qih-vaokamf medicines, vitamins, and herbal products. Not all [...] to ensure that the information provided by [employer]. ('Multum') is accurate, up-to-date, and complete, but no guarantee is made to that effect. Drug information contained herein may be time sensitive. Gema information has been compiled for use by healthcare practitioners and consumers in the [place] and therefore Gema does not warrant that uses outside of the [place] are appropriate, unless specifically indicated otherwise. Owned its drug information does not endorse drugs, diagnose patients or recommend therapy. Owned its drug information is an informational resource designed [...] effective or appropriate for any given patient. G[employer] does not assume any responsibility for any aspect of healthcare administered with the aid of information Gema provides. The information contained herein is not intended to cover all possible uses, directions, precautions, warnings, drug interactions, allergic reactions, or adverse effects. If you have questions about the drugs you are taking, check with your doctor, nurse or pharmacist. Copyright 4019-4874 [employer]. Version: 9.01. Revision Date: 02/07/2023. phenazopyridine (fen [...] diabetes; or a genetic enzyme deficiency called fgjqnji-8-kpnbrwbaj dehydrogenase (G6PD) deficiency. FDA category B. Phenazopyridine [...] may report side effects to FDA at 8-068-WEV-7742. What other drugs will affect phenazopyridine? Other drugs may interact with phenazopyridine, including prescription and ckts-ajz-ryiqyuc medicines, vitamins, and herbal products. Tell each [...] to ensure that the information provided by [employer]. ('Multum') is accurate, up-to-date, and complete, but no guarantee is made to that effect. Drug information contained herein may be time sensitive. Gema information has been compiled for use by healthcare practitioners and consumers in the [place] and therefore Gema does not warrant that uses outside of the [place] are appropriate, unless specifically indicated otherwise. Gema's drug information does not endorse drugs, diagnose patients or recommend therapy. Owned its drug information is an informational resource designed [...] effective or appropriate for any given patient. [facility] does not assume any responsibility for any aspect of healthcare administered with the aid of information [facility] provides. The information contained herein is not intended to cover all possible uses, directions, precautions, warnings, drug interactions, allergic reactions, or adverse effects. If you have questions about the drugs you are taking, check with your doctor, nurse or pharmacist. Copyright 4897-7487 [facility]. Version: 5.01. Revision Date: 02/11/2023. Education Materials Bladder Infection, [...] swelling in the outer vaginal area (labia) 5731-3282 [employer]. [address] [place] [address]. All rights reserved. This information is not intended as a substitute for professional medical care. Always follow your healthcare professional's instructions. Additional Information VACCINATE! IT SAVES LIVES! Members of the community who have not yet received the COVID-19 vaccine and would like to receive it can visit one of [facility] vaccine clinics. There are many vaccine clinic locations within the [facility]. For locations and available times, please visit www.[email or web address].g ov/. It is important to note that some COVID mobile vaccine clinics are held outdoors and may be canceled in rainy or stormy conditions. To learn more about pediatric vaccinations (ages 5-11), we invite you to visit the [facility] webpage. https://www.[facility].org/pa ges/7959-Tgulu-Msrvziodgqm-Freque irfk-Qjuya-Hdaqwzrce.html To learn more about the COVID-19 vaccine, we invite you to visit the CDC website for a list of frequently asked questions. https://www.cdc.gov/coronavirus/2 019-ncov/vaccines/faq.html [facility] Patient Portal Access Instructions: Stay connected with your healthcare team and access your personal medical information anytime with the [facility] Patient Portal. If you would like a full copy of your medical records please contact the [facility] Medical Records Department Friday through Friday between 8a.m. and 4:30p.m. Please follow the directions below to access the portal: 1.Access the email account you provided upon registration to the hospital.2.Look for an invitation email from [facility].3.Open the email and access the invitation link: Accept Invitation to [facility]4.Fill in the required alex to create your account. Sign into www.[email or web address]. with your username and password that you [...] you will allow to register on the [facility] [employer] Patient Portal for access to your information. You can also access the [facility] Patient Portal on the [employer] ulisses. Simply click on Health Records under Health Data and then click on the [facility] logo. HOW TO SAFELY DISPOSE OF PRESCRIPTION [...] Call your local pharmacy or go to http://Sweeten.Testin/7B1Gv9d to find one close to you.3.Make use of household items: Use cat litter or old coffee grounds to dispose medications if other options are not available. Mix your drugs with these household products, seal them in an airtight container and throw it into the garbage. Call [facility]: [phone] to be sure your drugs can be [...] aware that I should contact my doctor. Patient/Cardiology Technologist Signature: Date/Time: Relationship to Patient: ____ Witness Name/Signature: Date/Time: [facility] 08-13-2023 Evaluation + Plan note Diagnostic Tests PendingUrine Culture 08/13/23 [facility] 03-26-2023 Hospital Discharge instructions Patient Education 03/26/2023 21:07:51 Bladder Infection, [...] swelling in the outer vaginal area (labia) 7664-2892 [employer]. [address] [place] [address]. All rights reserved. This information is not intended as a substitute for professional medical care. Always follow your healthcare professional's instructions. Follow Up Care 03/26/2023 20:29:11 With:WILLIAMS DEE Address: [place] [phone] Business (1) When:2-4 days [facility] 03-26-2023 Emergency department Discharge summary Discharge Instructions Thank you for allowing [facility] to assist you with your healthcare needs. The following is important discharge information regarding your hospital visit. Diagnosis from Today's Visit Dysuria UTI symptoms What to Do Next Instructions from Your Care Team No qualifying data available. Post Acute Orders No qualifying data available. You Need to Schedule the Following Appointments Follow Up with WILLIAMS DEE When Within 2-4 days Where: [place] [phone] Business (1) Allergies penicillin sulfa drugs Medications [...] may report side effects to FDA at 0-879-ZKV-6121. What other drugs will affect cephalexin? Tell your doctor about all your other medicines, especially: metformin; or probenecid. This list is not complete. Other drugs may affect cephalexin, including prescription and egzq-pqh-mnhcqel medicines, vitamins, and herbal products. Not all [...] to ensure that the information provided by [employer]. ('Multum') is accurate, up-to-date, and complete, but no guarantee is made to that effect. Drug information contained herein may be time sensitive. Gema information has been compiled for use by healthcare practitioners and consumers in the [place] and therefore Gema does not warrant that uses outside of the [place] are appropriate, unless specifically indicated otherwise. Owned its drug information does not endorse drugs, diagnose patients or recommend therapy. Owned its drug information is an informational resource designed [...] effective or appropriate for any given patient. [employer] does not assume any responsibility for any aspect of healthcare administered with the aid of information Gema provides. The information contained herein is not intended to cover all possible uses, directions, precautions, warnings, drug interactions, allergic reactions, or adverse effects. If you have questions about the drugs you are taking, check with your doctor, nurse or pharmacist. Copyright 4379-5110 [facility] mymxlog. Version: 06.06. Revision Date: 02/05/2023. Education Materials Bladder Infection, [...] swelling in the outer vaginal area (labia) 3835-6714 [employer]. [address] [place] [address]. All rights reserved. This information is not intended as a substitute for professional medical care. Always follow your healthcare professional's instructions. Additional Information VACCINATE! IT SAVES LIVES! Members of the community who have not yet received the COVID-19 vaccine and would like to receive it can visit one of [facility] vaccine clinics. There are many vaccine clinic locations within the [facility]. For locations and available times, please visit www.[email or web address].g ov/. It is important to note that some COVID mobile vaccine clinics are held outdoors and may be canceled in rainy or stormy conditions. To learn more about pediatric vaccinations (ages 5-11), we invite you to visit the [facility] webpage. https://www.[facility].org/pa ges/8532-Ikmum-Wkkvmqwcram-Freque vlcz-Ouhpb-Uexedmwyj.html To learn more about the COVID-19 vaccine, we invite you to visit the CDC website for a list of frequently asked questions. https://www.cdc.gov/coronavirus/2 019-ncov/vaccines/faq.html [facility] [employer] Patient Portal Access Instructions: Stay connected with your healthcare team and access your personal medical information anytime with the [employer] Patient Portal. If you would like a full copy of your medical records please contact the [facility] Medical Records Department Friday through Friday between 8a.m. and 4:30p.m. Please follow the directions below to access the portal: 1.Access the email account you provided upon registration to the [facility].2.Look for an invitation email from [facility].3.Open the email and access the invitation link: Accept Invitation to [facility] [employer]4.Fill in the required alex to create your account. Sign into www.[employer] with your username and password that you [...] you will allow to register on the [facility] Patient Portal for access to your information. You can also access the [employer] Patient Portal on the [employer] ulisses. Simply click on Health Records under Health Data and then click on the [facility] logo. HOW TO SAFELY DISPOSE OF PRESCRIPTION [...] Call your local pharmacy or go to http://bit.Testin/2W1Ph6c to find one close to you.3.Make use of household items: Use cat litter or old coffee grounds to dispose medications if other options are not available. Mix your drugs with these household products, seal them in an airtight container and throw it into the garbage. Call [facility]: [phone] to be sure your drugs can be [...] aware that I should contact my doctor. Patient/Cardiology Technologist Signature: Date/Time: Relationship to Patient: ____ Witness Name/Signature: Date/Time: [facility] 03-26-2023 Note Discharge Instructions Thank you for allowing [facility] to assist you with your healthcare needs. The following is important discharge information regarding your hospital visit. Diagnosis from Today's Visit Dysuria UTI symptoms What to Do Next Instructions from Your Care Team No qualifying data available. Post Acute Orders No qualifying data available. You Need to Schedule the Following Appointments Follow Up with WILLIAMS DEE When Within 2-4 days Where: [facility] [place] [address] [phone] Business (1) Allergies penicillin sulfa drugs Medications [...] may report side effects to FDA at 1-592-PVD-9944. What other drugs will affect cephalexin? Tell your doctor about all your other medicines, especially: metformin; or probenecid. This list is not complete. Other drugs may affect cephalexin, including prescription and yrsj-vls-kyfgbeg medicines, vitamins, and herbal products. Not all [...] to ensure that the information provided by [employer]. ('CareParenttum') is accurate, up-to-date, and complete, but no guarantee is made to that effect. Drug information contained herein may be time sensitive. Gema information has been compiled for use by healthcare practitioners and consumers in the [place] and therefore Gema does not warrant that uses outside of the [place] are appropriate, unless specifically indicated otherwise. Owned its drug information does not endorse drugs, diagnose patients or recommend therapy. Owned its drug information is an informational resource designed [...] effective or appropriate for any given patient. [employer] does not assume any responsibility for any aspect of healthcare administered with the aid of information [employer] provides. The information contained herein is not intended to cover all possible uses, directions, precautions, warnings, drug interactions, allergic reactions, or adverse effects. If you have questions about the drugs you are taking, check with your doctor, nurse or pharmacist. Copyright [id number] [employer]. Version: .. Revision Date: 02/05/2023. Education Materials [...] swelling in the outer vaginal area (labia) 2135-8147 [employer]. [address] [place] [address]. All rights reserved. This information is not intended as a substitute for professional medical care. Always follow your healthcare professional's instructions. Additional Information VACCINATE! IT SAVES LIVES! Members of the community who have not yet received the COVID-19 vaccine and would like to receive it can visit one of [facility] vaccine clinics. There are many vaccine clinic locations within the [facility]. For locations and available times, please visit [email or web address] [email or web address] It is important to note that some COVID mobile vaccine clinics are held outdoors and may be canceled in rainy or stormy conditions. To learn more about pediatric vaccinations (ages 5-11), we invite you to visit the [facility] webpage. [email or web address] To learn more about the COVID-19 vaccine, we invite you to visit the CDC website for a list of frequently asked questions. https://www.cdc.gov/coronavirus/2 019-ncov/vaccines/faq.html [facility] Patient Portal Access Instructions: Stay connected with your healthcare team and access your personal medical information anytime with the [facility] [facility] Patient Portal. If you would like a full copy of your medical records please contact the [facility] Medical Records Department Friday through Friday between 8a.m. and 4:30p.m. Please follow the directions below to access the portal: 1.Access the email account you provided upon registration to the [facility].2.Look for an invitation email from [facility].3.Open the email and access the invitation link: Accept Invitation to [employer]4.Fill in the required alex to create your account. Sign into www.[employer] with your username and password that you [...] you will allow to register on the [facility] Patient Portal for access to your information. You can also access the [facility] Patient Portal on the [employer]isses. Simply click on Health Records under [employer] and then click on the [employer] logo. HOW TO SAFELY DISPOSE OF PRESCRIPTION [...] Call your local pharmacy or go to [email or web address] to find one close to you.3.Make use of household items: Use cat litter or old coffee grounds to dispose medications if other options are not available. Mix your drugs with these household products, seal them in an airtight container and throw it into the garbage. Call [facility]: [phone] to be sure your drugs can be [...] been reviewed and explained to me and I,MEETA FELIPE understand my current condition and have read and understand these discharge instructions. I have received a written copy of the plan/instructions. If I have questions, I am aware that I should contact my doctor. Patient/Cardiology Technologist Signature: Date/Time: Relationship to Patient: ____ Witness Name/Signature: Date/Time: [facility] 05-06-2021 Note HNO ID: [id number] Author: Rachel Vazquez APRN.[employer] Service: ? Author Type: Nurse Practitioner Type: [...] NONOBSTETRICAL 03/26/10 Performed by GANESH MALDONADO at [facility] - VAGINAL HYSTERECTOMY 1983 Hysterectomy, vaginal ALLERGIES [...] follow up with pcp iin 3-5 days. Rachel Vazquez APRN.[employer] Prescription instr (more content not included)... [facility] Evaluation + Plan note No data available for this section [facility] Summary Purpose Family History No Family History Records Found No data available for this section No data available for this section No Family History Records Found No data available for this section No Family History Records Found Advance Directives No Advanced Directives Records FoundNo Advanced Directives Records FoundNo Advanced Directives Records Found Additional Source Comments INFORMATION SOURCE (unrecogn ized section and content) DATE CREATED AUTHOR 08/01/2021 [facility] DATE CREATED AUTHOR AUTHOR'S ORGANIZ ATION 08/22/2023 [facility] ([place]) DATE CREATED AUTHOR AUTHOR'S ORGANIZ ATION 04/22/2024 [facility] Patient Care team informatio n (unrecognized section and content) Care Team Personnel Name: WILLIAMS DEE MD Member Role: Primary Care Physician Address: Address: [address] [place] [address] Name: Lou Laird RN Position: AO RN Member Role: ED RN Name: LENI FUENTES MD Position: [facility] ED Physician Member Role: ED Physician Address: Address: [address] [place] [address] Care Team Personnel Name: WILLIAMS DEE MD Member Role: Primary Care Physician Address: Address: [address] [place] [address] Care Team Personnel Name: WILLIAMS DEE MD Member Role: Primary Care Physician Address: Address: [address] [place] [address] FOR RECORDS PERTAINING TO PATIENTS WHO ARE [...] BE BASED ON THE PRIMARY CLINICAL RECORDS. [facility] [employer] provides no warranty or guarantee of the accuracy or completeness of information in this document.
[2024-04-29 01:57] LABS: PTHIN 30.5 pg/mL (18.4-80.1)
[2024-04-29 02:06] LABS: Vitamin D,25 Hydroxy 32.6 ng/mL
== END | disposition home or self-care (01) ==
LOC: BIMLAB 13:58
PROVIDERS: Internal Medicine Endocrinology, Diabetes & Metabolism; PCP Internal Medicine; Referring Provider Internal Medicine; Visit Provider Internal Medicine
DX: N39.0 Urinary tract infection, site not specified (principal); E78.5 Hyperlipidemia, unspecified; M81.0 Age-related osteoporosis without current pathological fracture; E55.9 Vitamin D deficiency, unspecified; I10 Essential (primary) hypertension
CPT/HCPCS: 36415; 80053; 80061; 81001; 82306; 83970; 85025; 87077; 87086; 87088; 87186

== ENCOUNTER → 2024-05-12 | Outpatient (CLI) | payer MEDICARE, SELFPAY ==
[2024-05-12 12:33] LABS: Anion Gap 5 (5-15); BUN 19 mg/dL (7-18); BUN/Creat Ratio 22.3 RATIO (10-20); Calcium,Total 9.6 mg/dL (8.5-10.1); Chloride 107 mmol/L (98-107); Creatinine, Serum 0.85 mg/dL (0.55-1.02); EST Glomerular Filtration Rate 70 mL/min (>60); Est Glom Filt Rate - Afr Amer 84 mL/min (>60); Glucose 80 mg/dL (74-106); Potassium 4.2 mmol/L (3.5-5.1); Sodium Level 140 mmol/L (136-145)
== END | disposition home or self-care (01) ==
LOC: BIMLAB 09:12
PROVIDERS: PCP Internal Medicine; Referring Provider Internal Medicine; Visit Provider Internal Medicine
DX: N39.0 Urinary tract infection, site not specified (principal); N18.30 Chronic kidney disease, stage 3 unspecified
CPT/HCPCS: 36415; 80048

== ENCOUNTER → 2024-05-20 | Outpatient (CLI) | payer MEDICARE, SELFPAY ==
--- NOTE | 2024-05-20 17:49 | CT_ITS ---
STUDY: CT ABDOMEN AND PELVIS WITH CONTRAST REASON FOR EXAM: Female, 69 years old. 4 week history of left lower quadrant pain. RADIATION DOSAGE (If Supplied By Facility): CTDIvol = ( 17.33 ) mGy, DLP = ( 1180.57 ) mGycm TECHNIQUE: Transaxial images were obtained from the dome of the diaphragm to the symphysis pubis without oral contrast. Oral and amp; IV Readi-CAT and amp; 100mL Isovue-370 was administered. Sagittal and coronal images were reconstructed. Individualized dose optimization techniques were used for this CT. COMPARISON: Comparison is made with prior study dated June 02, 2021. FINDINGS: The visualized lung bases are unremarkable. Coronary artery calcification. There is decreased attenuation of the liver consistent with steatosis. There are surgical clips in the gallbladder fossa consistent with a prior cholecystectomy. Normal spleen. Normal pancreas. Normal bilateral adrenal glands. There is a 2 cm cyst in the anterior midportion of the right kidney. Tiny cyst in the left kidney. Normal visualized stomach. Normal small intestine. There are multiple colonic diverticula consistent with diverticulosis. There are surgical clips in the region of the appendix consistent with a prior appendectomy. There is diffuse atherosclerotic calcification of the abdominal aorta, without a demonstrated aneurysm. Normal inferior vena cava. Normal retroperitoneum. Normal urinary bladder. There is absence of the uterus consistent with a prior hysterectomy. Normal abdominal wall. There are mild degenerative changes of the visualized lumbar spine. CT/Abdomen/Pelvis WITH Contrast IMPRESSION: Sigmoid diverticulosis. Fatty infiltration of the liver. Status post cholecystectomy, appendectomy and hysterectomy. Electronically Signed: David Barajas MD at 11:36 EST ,
== END | disposition home or self-care (01) ==
LOC: CT 17:46
PROVIDERS: PCP Internal Medicine; Referring Provider Internal Medicine; Visit Provider Internal Medicine
DX: R10.2 Pelvic and perineal pain (principal)
CPT/HCPCS: 74177; Q9967

== ENCOUNTER → 2024-06-18 | Outpatient (CLI) | payer MEDICARE, SELFPAY ==
--- NOTE | 2024-06-18 15:49 | US_ITS ---
STUDY: RENAL ULTRASOUND - COMPLETE REASON FOR EXAM: Female, 69 years old. UTI TECHNIQUE: Ultrasound evaluation of the kidneys was performed with real-time and static moreland-scale imaging. COMPARISON: None. FINDINGS: RIGHT KIDNEY: Normal location of the right kidney, which is normal in size. The right kidney measures 10.0 cm. There is a normal cortex of the right kidney. The renal cortex measures 1.0 cm. 2 cm cyst in lower pole right kidney. There are no right renal calculi. There is no right hydronephrosis. DISTAL RIGHT URETER: There is non-visualization of the distal right ureter. There is no demonstrated right ureterovesical junction calculus. There is a visualized right ureteral jet. LEFT KIDNEY: Normal location of the left kidney, which is normal in size. The left kidney measures 10.1 cm. There is a normal cortex of the left kidney. The renal cortex measures 0.7 cm. There is no left renal mass or cyst. There are no left renal calculi. There is no left hydronephrosis. DISTAL LEFT URETER: There is non-visualization of the distal left ureter. There is no demonstrated left ureterovesical junction calculus. There is a visualized left ureteral jet. BLADDER: The distended urinary bladder has a volume of 2:15 ml. The empty urinary bladder has a volume of 3 ml. There is a normal wall thickness of the distended urinary bladder. There is no demonstrated mass within the urinary bladder. There are no demonstrated bladder calculi. US/Kidney and Bladder IMPRESSION: Normal ultrasound of the kidneys and urinary bladder. Electronically Signed: Ye Vaughn MD at 8:48 EST ,
== END | disposition home or self-care (01) ==
LOC: US 15:47
PROVIDERS: PCP Internal Medicine; Referring Provider Urology; Visit Provider Urology
DX: N39.0 Urinary tract infection, site not specified (principal)
CPT/HCPCS: 76770

== ENCOUNTER 2025-03-09 10:55 | Observation (INO) | payer MEDICARE, SELFPAY ==
[2025-03-09] VITALS (14 sets, daily range): BP systolic 133–158; BP diastolic 55–84; PULSE 76–102; RESP 14–22; TEMP 36.3–36.8; O2SAT 95–99; BMI 35.7; BMI 33.3
--- NOTE | 2025-03-09 11:03 | EKG12_ITS ---
Test Reason : STROKE TEAM Blood Pressure : */* mmHG Vent. Rate : 76 BPM Atrial Rate : 76 BPM P-R Int : 174 ms QRS Dur : 68 ms QT Int : 366 ms P-R-T Axes : 55 39 102 degrees QTcB Int : 411 ms Normal sinus rhythm Nonspecific T wave abnormality Abnormal ECG Confirmed by ALEXANDRIA EWING, KELLY ([id number]), index editor CHRISTIANNE JORGE ([id number]) on 03/11/2025 6:35:47 AM Referred By: Confirmed By: KELLY IBRAHIM MD
--- NOTE | 2025-03-09 11:04 | CT_ITS ---
PROCEDURE: STROKE CTA HEAD AND NECK W/CON 03/09/2025 REASON FOR EXAM: NEURO DEFICIT, ACUTE, STROKE SUSPECTED TECHNIQUE: Procedure Code: [id number].ST.HN Modality: CT Procedure: STROKE CTA HEAD AND NECK W/CON Multiplanar Sagittal and Coronal images were obtained. 3D post processing was performed CONTRAST: Isovue 370 VOLUME: 100 mL One or more dose reduction techniques were used (e.g., Automated exposure control, adjustment of the mA and/or kV according to patient size, use of iterative reconstruction technique). RADIATION DOSE SUMMARY: CTDlvol: 30 mGy DLP: 636 mGycm COMPARISON: Earlier the same day FINDINGS: Aortic Arch: Normal size and branching pattern. Mild atherosclerotic plaque. Brachiocephalic and Subclavians: Mild atherosclerotic plaque without significant stenosis. RIGHT Carotid: Right CCA: Unremarkable. Right ICA: Unremarkable. Maximum stenosis (NASCET): 0 % Right ECA: Unremarkable. LEFT Carotid: Left CCA: Minimal atherosclerotic plaque at the carotid bulb. Left ICA: Unremarkable. Maximum stenosis (NASCET): 0 % Left ECA: Very short segment soft plaque at the origin. Is a proximally 50% narrowing. Best seen on sagittal reconstructions. Vertebrals: Codominant. Arise from the subclavians. Both vertebrals form the basilar. RIGHT Vertebral: Unremarkable. LEFT Vertebral: Unremarkable. Anatomy: [place] anatomy is normal. Aneurysm or avm: No intracranial aneurysms or large vascular malformations are identified. Anterior cerebral arteries: Unremarkable. Middle cerebral arteries: Unremarkable. Basilar artery: Unremarkable. Posterior cerebral arteries: Unremarkable. Other major branches of the posterior circulation: Unremarkable. Major venous structures: Unremarkable. Other findings: Neck: No lymphadenopathy. Lungs: Lung apices are clear. Bones: Straightening of the normal cervical lordosis. 3 mm anterolisthesis at C4 on C5. No fracture seen. Facet hypertrophy is seen in the cervical spine. CT/STROKE CTA Head AND Neck W/Con IMPRESSION: 1. No large vessel occlusion. No aneurysm or stenosis. Reading Location: [id number]
--- NOTE | 2025-03-09 11:05 | ED.VIS.STROK ---
HPI History of Present Illness Chief Complaint: Stroke Alert Informant: patient Onset/Context/Timing Onset: Today Context: Sudden Onset Timing: Continuous Quality and Location: Positive for Left Face Parasthesia, Left Arm Parasthesia and Left Leg Parasthesia Onset: Approximately 10 minutes prior to arrival Worsened by: Nothing Relieved by: Nothing Associated Symptoms Associated Symptoms: Negative for Headache, Nausea, Vomiting or Chest Pain Narrative Narrative: Patient presents with numbness to the left side of her face, left arm, and left leg. Patient states this started approximately 10 minutes prior to arrival. Patient denies any weakness. Patient denies any headaches. Patient denies any nausea or vomiting. Patient denies any chest pain or shortness of breath. Patient states nothing makes her symptoms worse and nothing makes them better. Patient denies any visual changes. Patient denies any difficulty swallowing or difficulty talking. [facility] Medical History Urge incontinence Vaginal atrophy Vulvar atrophy Pelvic pain UTI (urinary tract infection) Fibromyalgia Nonscarring hair loss TANIKA (obstructive sleep apnea) Localized swelling of left lower leg Hypersomnolence Hyperlipidemia Stage 3a chronic kidney disease (CKD) Vitamin D deficiency Osteoporosis Hepatitis C Obesity (BMI 30.0-34.9) Arthritis GERD (gastroesophageal reflux disease) HTN (hypertension) Health care maintenance CKD (chronic kidney disease), stage III Atypical chest pain GERD (gastroesophageal reflux disease) Tendon contracture Hyperlipemia Seasonal allergies Hepatitis C Osteoporosis Vitamin D deficiency Vulvodynia Generalized osteoarthrosis Postmenopausal atrophic vaginitis Hypertension Home Medications ?Medication ?Instructions ?Recorded ?Last Taken ?Type handicap placard See Rx Instructions .Route 10/16/21 Unknown Rx .COMPLEX #1 unit ergocalciferol (vitamin D2) 1,250 2,000 unit PO DAILY 11/07/22 Unknown History mcg (50,000 unit) capsule pregabalin 50 mg capsule 75 mg PO BID 06/26/23 Unknown History hydralazine 50 mg tablet 75 mg (1.5 x 50 mg) PO TID BP 3 01/23/24 Unknown Rx months #405 tabs denosumab 60 mg/mL subcutaneous 60 mg subcut [id number] #1 mL 03/24/24 Unknown Rx syringe (Prolia) fenofibrate 54 mg tablet 54 mg PO DAILY cholesterol #90 tabs 03/29/24 Unknown Rx Prolia 60 mg/mL subcutaneous 60 mg subcut ONCE #1 mL 04/09/24 Unknown Clinic syringe (denosumab) amlodipine 10 mg tablet 10 mg PO DAILY BP #90 tabs 04/23/24 Unknown Rx hydrochlorothiazide 12.5 mg tablet 12.5 mg PO QAM #90 tabs 07/09/24 Unknown Rx acetaminophen 650 mg 650 mg PO Q12H 02/15/25 Unknown History tablet,extended release (Tylenol 8 Hour) clobetasol 0.05 % topical ointment 1 applic topical BID 03/09/25 Unknown History fluticasone propionate 50 2 spray intranasal DAILY PRN 03/09/25 Unknown History mcg/actuation nasal allergy symptoms spray,suspension (Flonase Allergy Relief) meloxicam 7.5 mg tablet 7.5 mg PO DAILY 03/09/25 Unknown History pantoprazole 40 mg tablet,delayed 40 mg PO DAILY PRN GERD 03/09/25 Unknown History release Allergy/AdvReac Type Severity Reaction Status Date / Time alendronate sodium Allergy Intermediate Hives Verified 03/09/25 11:09 nitrofurantoin Allergy Intermediate Hives Verified 03/09/25 11:09 meloxicam AdvReac Severe Tremors Verified 03/09/25 11:09 codeine AdvReac Upset Verified 03/09/25 11:09 Stomach Penicillins (PCN) AdvReac Rash Verified 03/09/25 11:09 Sulfa (Sulfonamide AdvReac Rash Verified 03/09/25 11:09 Antibiotics) Family History Brother Anxiety and depression Diabetes Asthma Heart disease Hypertension Ulcer Sister Anxiety and depression Hypertension CVA (cerebral vascular accident) Thyroid disorder Osteoporosis Hyperlipemia Diabetes Heart disease Asthma Cancer skin Mother Hypertension Kidney disease Osteoporosis CVA (cerebral vascular accident) Father CVA (cerebral vascular accident) Hyperlipemia Hypertension Myocardial infarction Heart disease Other CAD (coronary artery disease) Heart failure Surgical History Hx of appendectomy Hx of cholecystectomy Hx of hysterectomy History of cholecystectomy History of knee replacement History of hysterectomy History of appendectomy Social History household members: spouse housing: house number of children: 5 current occupational status: employed 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 Smoking Status: Never smoker alcohol intake: never substance use type: does not use what type of physical activity do you participate in: none and walking frequency: 3-4 times per week cat/mandaeism: Zoroastrianism do you feel safe at home: Yes additional social history: pt gave to 5 children, has 3 adopted children ROS ROS ED Constitutional Constitutional ED: Denies chills or fever(s) Eyes Eyes: Denies blurry vision or change in vision ENT ENT ED: Denies rhinorrhea or sore throat Cardiovascular Cardiovascular: Denies chest pain or palpitations Respiratory/Chest Respiratory/Chest: Denies cough or dyspnea Gastrointestinal Gastrointestinal: Denies nausea or vomiting Genitourinary Genitourinary ED: Denies dysuria or hematuria Musculoskeletal Musculoskeletal: Reports back pain and neck pain Integumentary Denies abscess or rash Neurologic Neurologic: Reports paresthesias LUE and LLE; Denies headache(s) or weakness Allergic/Immunologic Allergic/Immunologic ED: Denies mouth swelling or urticaria EXAM Physical Exam Const Vital Signs: 03/09/25 10:55 03/09/25 10:59 03/09/25 11:06 Temperature 97.8 F Temperature Source Oral Pulse Rate 102 H Respiratory Rate 21 H Blood Pressure 158/70 H Blood Pressure Mean 99 Pulse Ox 97 97 Oxygen Delivery Method Room Air Room Air 03/09/25 11:14 03/09/25 11:30 03/09/25 12:00 Temperature Temperature Source Pulse Rate 92 87 84 Respiratory Rate 22 H 19 H 19 H Blood Pressure 151/65 H 146/67 H 151/61 H Blood Pressure Mean 93 93 91 Pulse Ox 96 96 97 Oxygen Delivery Method Room Air Room Air Room Air Positive well nourished and well developed Constitutional Narrative: BMI is 35.8. General Appearance ED: well developed and NAD HEENT Reports moist mucous membranes Neck supple and no JVD Resp normal respiratory effort and clear to auscultation bilaterally Cardio Rate: regular rate Rhythm: regular rhythm GI soft to palpation, non-tender and non-distended Extremity normal to inspection Neuro oriented x3, CN's II-XII intact bilaterally and no sensory deficits noted [place] Coma Scale: document GCS findings Spontaneous Obeys Commands Oriented 15 Sensorium / Orientation: alert Speech: speech normal Motor Exam: strength 5/5 throughout Psych mental status grossly normal MDM MDM MDM Narrative Medical decision making narrative: Differential diagnosis includes stroke, electrolyte abnormality, anxiety, intracranial bleeding, large vessel occlusion, cardiac dysrhythmia, cardiac ischemia, and pneumonia. EKG will be obtained to assess for cardiac dysrhythmia and cardiac ischemia. Chest x-ray will be obtained to assess for pneumonia and bronchitis. CT scan of the brain will be obtained to assess for intracranial bleeding and stroke. CTA of the head and neck will be obtained to assess for large vessel occlusion. CBC will be obtained to assess for leukocytosis and anemia. Basic metabolic profile will be obtained to assess for electrolyte abnormality renal function. High-sensitivity troponin will be obtained to assess for cardiac ischemia. 2-hour repeat high-sensitivity troponin will be obtained to assess for ongoing cardiac ischemia. PT with INR and PTT will be obtained to assess for coagulopathy. History & Record Review Additional record(s) reviewed:: Prior outpatient record and Prior labs Lab Data Attestation: I reviewed the patient's lab results. Lab results narrative: CBC was reviewed and was within normal limits. Basic metabolic profile was reviewed and was essentially within normal limits. PT with INR and PTT were reviewed and were within normal limits. Initial high-sensitivity troponin was reviewed and was normal at 13. Labs: Laboratory Results - last 24 hr 03/09/25 11:00 WBC 8.0 RBC 4.98 Hgb 14.5 Hct 43.8 MCV 88.0 MCH 29.1 MCHC 33.1 RDW Std Deviation 44.2 H RDW Coeff of Allegra 13.7 Plt Count 368 MPV 10.4 Immature Gran % (Auto) 0.500 Neut % (Auto) 42.7 L Lymph % (Auto) 43.0 H Walsh % (Auto) 10.3 H Eos % (Auto) 2.5 Baso % (Auto) 1.0 Absolute Neuts (auto) 3.4 Absolute Lymphs (auto) 3.43 Nucleated RBC % 0 PT 12.4 INR 0.9 APTT 24.5 Sodium 139 Potassium 3.5 Chloride 104 Carbon Dioxide 21.1 Anion Gap 14 BUN 14 Creatinine 0.84 Estim Creat Clear Calc 57.62 Est GFR (MDRD) Non-Af 74 BUN/Creatinine Ratio 16.4 Glucose 109 H Calcium 9.4 Troponin T High Sens 13 POC Glucose 134 H Radiography Diagnostic Testing: Clinical Impression(s) from Imaging Studies Head/Neck CTA 03/09/25 11:04 IMPRESSION: 1. No large vessel occlusion. No aneurysm or stenosis. Reading Location: [id number] Brain CT 03/09/25 11:09 IMPRESSION: CHRONIC CHANGES. NO ACUTE FINDINGS. Red Alert: Chronic changes The critical information above was relayed directly by me by telephone to Manoj Enamorado on 03/09/2025 at 11:15 am with readback verification. Reading Location: [facility] Chest X-Ray 03/09/25 11:45 IMPRESSION: No Acute Findings. Reading Location: [facility]IR-1 CT scan of the brain was obtained. There is no acute intracranial abnormality. There are chronic changes noted. This was interpreted by the radiologist and was also independently reviewed by myself. CTA of the head and neck was obtained. There is no evidence of large vessel occlusion. There is no aneurysm or stenosis. This was interpreted by the radiologist and was also independently reviewed by myself. Portable 1 view chest x-ray was obtained. On my independent interpretation, lung alex are clear. There is normal cardiac silhouette. Bony thorax is normal. There is no acute process noted. Radiologist also interpreted the x-ray and agrees. EKG Initial EKG: Attestation: I personally reviewed and interpreted this EKG as follows: Interpretation: Sinus Rhythm (76) and Non-Specific ST Changes Prior EKG tracings: available for review Prior: Unchanged (02/25/2022) Management Discussion w/another healthcare provider: Hospitalist, Air Director and Radiologist Treatment and Re-Evaluation Narrative: Patient was advised of her findings. Case was discussed with the stroke neurologist from [facility]. She states that since her symptoms are mild, patient is not a candidate for tenecteplase. Patient was advised of the need for admission and further workup. Patient is agreeable with this. Case was discussed with the hospitalist. She will admit the patient to her service. Patient understood and was agreeable with the plan. All questions were answered. Discharge Plan Triage Chief Complaint: Stroke Alert ED Provider: Manoj Enamorado Dx/Rx/DC Orders Clinical Impression: Stroke, Paresthesias, Hypertension Prescriptions: No Action pregabalin 50 mg capsule 75 mg PO BID Prolia 60 mg/mL syringe 60 mg subcut ONCE Qty: 1 0RF acetaminophen [Tylenol 8 Hour] 650 mg tablet extended release 650 mg PO Q12H meloxicam 7.5 mg tablet 7.5 mg PO DAILY pantoprazole 40 mg tablet,delayed release (DR/EC) 40 mg PO DAILY PRN (Reason: GERD) clobetasol 0.05 % ointment 1 applic topical BID fluticasone propionate [Flonase Allergy Relief] 50 mcg/actuation spray,suspension 2 spray intranasal DAILY PRN (Reason: allergy symptoms) Rx Instructions: administer 2 sprays into each nostril handicap placard See Rx Instructions .ROUTE .COMPLEX Qty: 1 0RF Rx Instructions: Duration 5 years for reduced mobility ergocalciferol (vitamin D2) 1,250 mcg (50,000 unit) capsule 2,000 unit PO DAILY hydralazine 50 mg tablet 75 mg PO TID 90 Days Qty: 405 1RF Prolia 60 mg/mL syringe 60 mg subcut [id number] Qty: 1 1RF fenofibrate 54 mg tablet 54 mg PO DAILY Qty: 90 0RF amlodipine 10 mg tablet 10 mg PO DAILY Qty: 90 1RF hydrochlorothiazide 12.5 mg tablet 12.5 mg PO QAM Qty: 90 0RF Primary Care Provider: Ce Soares Referrals: Benjamin Chopra MD [Med Staff - Active Staff] - Print Language: Iraqi Disposition Disposition: Acute Care Hospital [facility] NIHSS NIHSS 1a. Level of Consciousness: 0 - Alert; keenly responsive 1b. LOC Questions: 0 - Answers BOTH questions correctly 2. Best Gaze: 0 - Normal 4. Facial Palsy: 0 - Normal symmetrical movements 5a. Left Arm: 1 - Drift; arm drifts downward but doesn?t hit the bed 5b. Right Arm: 0 - No drift; arm holds 90 (or 45) degrees for full 10 seconds 6a. Left Le - No drift; leg holds 30-degree position for full 5 seconds 6b. Right Le - No drift; leg holds 30-degree position for full 5 seconds 8. Sensory: 0 - Normal; no sensory loss 9. Best Language: 0 - No aphasia; normal 10. Dysarthria: 0 - Normal 11. Extinction and Inattention: 0 - No abnormality Total: 1 Stroke Questions Stroke Team Activated: Yes Reviewed Inclusion/Exclusion criteria: Yes
--- NOTE | 2025-03-09 11:09 | CT_ITS ---
PROCEDURE: STROKE BRAIN/HEAD WITHOUT CONT N/A REASON FOR EXAM: NEURO DEFICIT, ACUTE, STROKE SUSPECTED TECHNIQUE: Procedure Code: CTBR.ST Modality: CT Procedure: STROKE BRAIN/HEAD WITHOUT CONT Coronal and Sagittal reconstruction series were provided. One or more dose reduction techniques were used (e.g., Automated exposure control, adjustment of the mA and/or kV according to patient size, use of iterative reconstruction technique. RADIATION DOSE SUMMARY: CTDlvol: 44.99 mGy DLP: 745.49 mGycm COMPARISON: None FINDINGS: Brain: Low density in the periventricular white matter suggests mild chronic small vessel ischemic changes. CSF Spaces: Mild generalized cerebral atrophy Sinuses/Mastoids: Clear at visualized levels Bones: Hyperostosis frontalis interna. CT/STROKE Brain/Head without Cont IMPRESSION: CHRONIC CHANGES. NO ACUTE FINDINGS. Red Alert: Chronic changes The critical information above was relayed directly by me by telephone to Manoj Espinoza on 03/09/2025 at 11:15 am with readback verification. Reading Location: [place] [address]
--- NOTE | 2025-03-09 11:13 | ED.RN ---
[facility] called to let them know that the patient is back in the room.
[2025-03-09 11:18] LABS: Hematocrit 43.8 % (37-47); Hemoglobin 14.5 g/dL (12.0-15.0); Immature Granulocytes Count 0.040 X10^3/uL (0.0-0.0); Mean Corp Hgb Conc 33.1 g/dL (32-36); Mean Corpuscular Volume 88.0 fL (81-99); Mean Platelet Vol. 10.4 fl (6.2-12.0); NRBC Flagged by Analyzer 0 % (0-5); Platelet Count 368 K/mm3 (150-450); RBC Distribution Width CV 13.7 % (11.6-14.6); RBC Distribution Width SD 44.2 fl (35.1-43.9); Red Blood Count 4.98 M/mm3 (4.2-5.4); White Blood Count 8.0 K/mm3 (4.4-11.0)
[2025-03-09 11:25] LABS: Partial Thromboplast Time 24.5 Seconds (24.1-36.2); Prothrombin Time (Protime)PT. 12.4 SECONDS (11.7-14.9)
[2025-03-09 11:44] LABS: Anion Gap 14 (5-15); BUN 14 mg/dL (4-19); BUN/Creat Ratio 16.4 RATIO (10-20); Calcium,Total 9.4 mg/dL (7.6-11.0); Carbon Dioxide 21.1 mmol/L (21.0-32.0); Chloride 104 mmol/L (98-108); Estimated Creatinine Clearance 57.62 ml/min (50-250); Glucose 109 mg/dL (70-99); Potassium 3.5 mmol/L (3.3-5.1); Troponin T High Sensitivity 13 ng/L (<=14)
--- NOTE | 2025-03-09 11:45 | RAD_ITS ---
PROCEDURE: CHEST 1 VIEW 03/09/2025 REASON FOR EXAM: NEURO DEFICIT, ACUTE, STROKE SUSPECTED TECHNIQUE: Frontal view of the chest. COMPARISON: Prior study dated February 24, 2022. FINDINGS: Hardware: EKG electrodes are seen. Heart: Cardiac and mediastinal contours are stable. Lungs: Elevation of the right hemidiaphragm. The lungs are clear. Bones: Degenerative changes are identified within the thoracic spine. Other: Atherosclerotic calcification of the aortic arch. RAD/Chest 1 View IMPRESSION: No Acute Findings. Reading Location: [place] [address]
--- NOTE | 2025-03-09 12:20 | HP.PCM.HOS_ITS ---
HPI - General General Date of Admission: 03/09/25 Date of Service: 03/09/25 Chief Complaint: stroke like symptoms HPI Narrative FELIPE TIM, is a 69 F with a PMH as outlined who presents via the ED on 03/09/2025 with stroke like symptoms. She said she was well unti ~ 11am when she was paying for something in the store and realised she could no get her words out. SHe also started having left sided weakness, numbness and tingling. She said she has a strong family history of stroke so she decided to come in to ED to be evaluated for stroke. She denied any headache, blurred vision, chest pain, palpitations, nausea, vomiting or any other symptoms. Review of systems is otherwise negative. Vitals in the ED were BP of 151/61. WI of 84, RR of 19 and oxygen sats of 97% on room air. CBC showed Hb of 14.5, wbc of 8 and platelets of 368. INR is 0.9. Chemistry showed sodium of 139, potassium of 3.5 and Cr of 0.84. CT brain showed no acute findings. CTA head and neck showed no large vessel occlusion, aneurysm or stenosis. She is being admitted for stroke like symptoms to rule out a stroke. [facility] Medical History Urge incontinence Vaginal atrophy Vulvar atrophy Pelvic pain UTI (urinary tract infection) Fibromyalgia Nonscarring hair loss TANIKA (obstructive sleep apnea) Localized swelling of left lower leg Hypersomnolence Hyperlipidemia Stage 3a chronic kidney disease (CKD) Vitamin D deficiency Osteoporosis Hepatitis C Obesity (BMI 30.0-34.9) Arthritis GERD (gastroesophageal reflux disease) HTN (hypertension) Health care maintenance CKD (chronic kidney disease), stage III Atypical chest pain GERD (gastroesophageal reflux disease) Tendon contracture Hyperlipemia Seasonal allergies Hepatitis C Osteoporosis Vitamin D deficiency Vulvodynia Generalized osteoarthrosis Postmenopausal atrophic vaginitis Hypertension Home Medications ?Medication ?Instructions ?Recorded ?Last Taken ?Type handicap placard See Rx Instructions .Route 0 10/16/21 Unknown Rx .COMPLEX #1 unit ergocalciferol (vitamin D2) 1,250 2,000 unit PO DAILY 11/07/22 Unknown History mcg (50,000 unit) capsule pregabalin 50 mg capsule 75 mg PO BID 06/26/23 Unknow n History hydralazine 50 mg tablet 75 mg (1.5 x 50 mg) PO TID B P 3 01/23/24 Unknown Rx months #405 tabs denosumab 60 mg/mL subcutaneous 60 mg subcut [id number] #1 mL 03/24/24 Unknown Rx syringe (Prolia) fenofibrate 54 mg tablet 54 mg PO DAILY cholesterol # 90 tabs 03/29/24 Unknown Rx Prolia 60 mg/mL subcutaneous 60 mg subcut ONCE #1 mL 1 Unknown Clinic syringe (denosumab) amlodipine 10 mg tablet 10 mg PO DAILY BP #90 tabs 1 Unknown Rx hydrochlorothiazide 12.5 mg tablet 12.5 mg PO QAM #90 tabs 07/09/24 Unknown Rx acetaminophen 650 mg 650 mg PO Q12H 02/15/25 Unkn own History tablet,extended release (Tylenol 8 Hour) clobetasol 0.05 % topical ointment 1 applic topical BI D 03/09/25 Unknown History fluticasone propionate 50 2 spray intranasal DAILY PRN 03/09/25 Unknown History mcg/actuation nasal allergy symptoms spray,suspension (Flonase Allergy Relief) meloxicam 7.5 mg tablet 7.5 mg PO DAILY 03/09/25 Unk nown History pantoprazole 40 mg tablet,delayed 40 mg PO DAILY PRN G ERD 03/09/25 Unknown History release Allergy/AdvReac Type Severity Reaction Status Date / Time alendronate sodium Allergy Intermediate Hives Verified 03/09/25 11:09 nitrofurantoin Allergy Intermediate Hives Verified 03/09/25 11:09 meloxicam AdvReac Severe Tremors Verified 03/09/25 11:09 codeine AdvReac Upset Verified 03/09/25 11:09 Stomach Penicillins (PCN) AdvReac Rash Verified 03/09/25 11:09 Sulfa (Sulfonamide AdvReac Rash Verified 03/09/25 11:09 Antibiotics) Family History Brother Anxiety and depression Diabetes Asthma Heart disease Hypertension Ulcer Sister Anxiety and depression Hypertension CVA (cerebral vascular accident) Thyroid disorder Osteoporosis Hyperlipemia Diabetes Heart disease Asthma Cancer skin Mother Hypertension Kidney disease Osteoporosis CVA (cerebral vascular accident) Father CVA (cerebral vascular accident) Hyperlipemia Hypertension Myocardial infarction Heart disease Other CAD (coronary artery disease) Heart failure Surgical History Hx of appendectomy Hx of cholecystectomy Hx of hysterectomy History of cholecystectomy History of knee replacement History of hysterectomy History of appendectomy Social History household members: spouse housing: house number of children: 5 current occupational status: employed 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 Smoking Status: Never smoker alcohol intake: never substance use type: does not use what type of physical activity do you participate in: none and walking frequency: 3-4 times per week cat/church: [employer] do you feel safe at home: Yes additional social history: pt gave to 5 children, has 3 adopted children ROS Constitutional Constitutional: Denies anorexia, chills, fatigue, fever(s), malaise or weakness Eyes Eyes: Denies change in vision ENT HEENT: Denies dysphagia or headache(s) Cardiovascular Cardiovascular: Denies chest pain, dyspnea on exertion, edema, lightheadedness, orthopnea, palpitations, paroxysmal nocturnal dyspnea, rapid heart rate or syncope Respiratory/Chest Respiratory/Chest: Denies cough, dyspnea, shortness of breath at rest or shortness of breath with exertion Gastrointestinal Gastrointestinal: Denies abdominal pain, constipation, diarrhea, nausea or vomiting Genitourinary Genitourinary: Denies dysuria Neurologic Neurologic: Reports numbness, paresthesias and tingling; Denies confusion, dizziness, focal weakness, headache(s), seizure-like activity, seizures or syncope Psychiatric Psychiatric: Denies anxiety or depression Vital Signs Vital Signs Vital Signs: 03/09/25 10:55 03/09/25 10:59 03/09/25 11:06 Temperature 97.8 F Temperature Source Oral Pulse Rate 102 H Respiratory Rate 21 H Blood Pressure 158/70 H Blood Pressure Mean 99 Pulse Ox 97 97 Oxygen Delivery Method Room Air Room Air 03/09/25 11:14 03/09/25 11:30 03/09/25 12:00 Temperature Temperature Source Pulse Rate 92 87 84 Respiratory Rate 22 H 19 H 19 H Blood Pressure 151/65 H 146/67 H 151/61 H Blood Pressure Mean 93 93 91 Pulse Ox 96 96 97 Oxygen Delivery Method Room Air Room Air Room Air Weight Weight: 177 lb 0.499 oz Body Mass Index (BMI) 35.7 Physical Exam Const alert, oriented x3 and no apparent distress General Appearance: cooperative HEENT normocephalic, head/scalp atraumatic, hearing grossly normal bilaterally, moist oral mucous membranes and oropharynx normal Mouth: oral and palatal mucosa normal Eyes EOMs intact bilaterally and conjunctivae normal Neck supple and no JVD Resp normal respiratory effort, no retractions, no use of accessory muscles and clear to auscultation bilaterally Cardio regular rate, regular rhythm, S1 normal heart sound, S2 normal heart sound and no murmurs GI normal to inspection, nondistended, normoactive bowel sounds, soft to palpation and non-tender Extremity normal to inspection, full ROM and no clubbing, cyanosis or edema Neuro oriented x3 and moves all extremities Neuro Narrative: mildly reduced sensation over left side of face, LUE and LLE Sensorium / Orientation: awake and alert Motor Exam: strength 5/5 throughout Psych affect normal Results Lab / Micro Data 03/09/25 11:00 03/09/25 11:00 Labs: Laboratory Results - last 24 hr 03/09/25 11:00: WBC 8.0, RBC 4.98, Hgb 14.5, Hct 43.8, MCV 88.0, MCH 29.1, MCHC 33.1, RDW Std Deviation 44.2 H, RDW Coeff of Allegra 13.7, Plt Count 368, MPV 10.4, Immature Gran % (Auto) 0.500, Neut % (Auto) 42.7 L, Lymph % (Auto) 43.0 H, [place] % (Auto) 10.3 H, Eos % (Auto) 2.5, Baso % (Auto) 1.0, Absolute Neuts (auto) 3.4, Absolute Lymphs (auto) 3.43, Nucleated RBC % 0, PT 12.4, INR 0.9, APTT 24.5, Sodium 139, Potassium 3.5, Chloride 104, Carbon Dioxide 21.1, Anion Gap 14, BUN 14, Creatinine 0.84, Estim Creat Clear Calc 57.62, Est GFR (MDRD) Non-Af 74, BUN/Creatinine Ratio 16.4, Glucose 109 H, Calcium 9.4, Troponin T High Sens 13, POC Glucose 134 H Imaging Radiology Impression Head/Neck CTA 03/09/25 11:04 IMPRESSION: 1. No large vessel occlusion. No aneurysm or stenosis. Reading Location: [id number] Brain CT 03/09/25 11:09 IMPRESSION: CHRONIC CHANGES. NO ACUTE FINDINGS. Red Alert: Chronic changes The critical information above was relayed directly by me by telephone to Manoj Enamorado on 03/09/2025 at 11:15 am with readback verification. Reading Location: [facility] Chest X-Ray 03/09/25 11:45 IMPRESSION: No Acute Findings. Reading Location: [facility] Assessment & Plan Assessment/Plan (1) Stroke: (2) Paresthesias: PLAN: Plan # Stroke like symptoms * Patient admitted with a complaint of left sided weakness and tingling * CT brain was negative for any evidence of stroke * MRI brain done today was also negative for stroke but showed mild white matter changes likely related to chronic microvascular ischemia with some foci being discrete in the chambers radiata and perpendicular to the long axis of the ventricles. Vasculitis and demyelinating disease in the differential but less favored. * Neurology consulted. On aspirin and high intensity statin. Check A1c. * 2D echo ordered. * #Hyperlipidemia: on fenofibrate. # Hypertension: On amlodipine and HCTZ. Hold on account of concern for stroke #GERD: on PPI #DVT prophylaxis: SCDs CODE STATUS: Full code * Patient counseled extensively about different types of CODE STATUS including full code, DNR CCA and DNR CCA. * Patient elects to be full code * Total [id number] time 16 minutes. Charges/Coding Visit Charges Inpatient E&M: 14697 Init Hosp L2 Procedures Hospitalists Procedures: 08585 Advncd Care Plan 30 Min
--- NOTE | 2025-03-09 13:53 | ECHOD_ITS ---
Reason For Study Reason For Study: TIA/CVA Procedure This was a 2D Doppler, Color Flow transthoracic echocardiogram. Exam performed portable in patient room. Left Ventricle Normal LV size. The estimated ejection fraction is 70 %. No evidence for diastolic dysfunction. No regional wall motion abnormalities noted. Right Ventricle Normal RV size. Normal systolic function. Atria The left and right atria are normal. No doppler evidence for ASD. Mitral Valve There is moderate mitral annular calcification. There is no mitral valve stenosis. No mitral valve insufficiency. Tricuspid Valve There is no tricuspid stenosis. No tricuspid valve insufficiency. Aortic Valve Trisinus/trileaflet aortic valve. There is no aortic stenosis. No aortic valve insufficiency. Pulmonic Valve There is no pulmonic valvular stenosis. Trivial pulmonic valve insufficiency. Great Vessels Normal sized aortic root. Pericardium/Pleural No pericardial effusion. MMode/2D Measurements & Calculations LVIDd: 4.8 cm IVSd: 1.0 cm Ao root diam: 2.8 cm LVIDs: 3.2 cm LVPWd: 0.94 cm RVDd: 2.5 cm FS: 31.9 % LAV(MOD-bp): 40.0 ml LVAd ap4: 17.3 cm2 LVAd ap2: 18.4 cm2 LAV(MOD-bp) Indexed: 22.8 ml/m2 LVLd ap4: 6.6 cm LVLd ap2: 6.7 cm LAV(MOD-sp2): 33.8 ml EDV(MOD-sp4): 40.5 ml EDV(MOD-sp2): 43.3 ml LAV(MOD-sp4): 41.8 ml EDV(sp4-el): 38.4 ml EDV(sp2-el): 43.0 ml LVAs ap4: 9.5 cm2 LVAs ap2: 9.4 cm2 LVLs ap4: 5.4 cm LVLs ap2: 5.1 cm ESV(MOD-sp4): 15.4 ml ESV(MOD-sp2): 15.7 ml ESV(sp4-el): 14.4 ml ESV(sp2-el): 14.6 ml EF(MOD-sp4): 62.0 % EF(MOD-sp2): 63.9 % EF(sp4-el): 62.5 % SV(MOD-sp4): 25.1 ml SV(MOD-sp2): 27.7 ml SV(sp4-el): 24.0 ml SI(MOD-sp4): 14.4 ml/m2 SI(MOD-sp2): 15.8 ml/m2 LA A4 area: 15.8 cm2 LA dimension(2D): 3.2 cm RA A4 area: 13.0 cm2 TAPSE: 1.9 cm Time Measurements MV dec time: 0.25 sec Doppler Measurements & Calculations MV E max ward: 64.4 cm/sec Lat Peak E' Ward: 7.9 cm/sec Med Peak E' Ward: 5.4 cm/sec MV A max ward: 90.2 cm/sec E/E' lat: 8.1 E/E' med: 12.0 MV E/A: 0.71 MV V2 max: 93.8 cm/sec MV P1/2t max ward: 79.8 cm/sec Ao V2 max: 148.4 cm/sec MV max P.5 mmHg MV P1/2t: 54.5 msec Ao max P.9 mmHg MV V2 mean: 66.6 cm/sec Ao V2 mean: 90.8 cm/sec MV mean P.9 mmHg MV dec slope: 429.1 cm/sec2 Ao mean P.8 mmHg MV V2 VTI: 20.0 cm MVA(P1/2t): 4.0 cm2 Ao V2 VTI: 29.0 cm AV (velocity ratio): 0.82 LV V1 max: 112.4 cm/sec PA V2 max: 146.5 cm/sec LV V1 max P.1 mmHg PA V2 mean: 83.1 cm/sec LV V1 mean P.3 mmHg LV V1 mean: 68.9 cm/sec LV V1 VTI: 23.7 cm ECHO/Echo Complete Interpretation Summary The estimated ejection fraction is 70 %. No evidence for diastolic dysfunction. Ordering Physician: Lashon Starks Referring Physician: Ce Soares Performed By: Stacy Gonzalez RDCS, RVT
--- NOTE | 2025-03-09 13:53 | MRI_ITS ---
PROCEDURE: BRAIN WITHOUT CONTRAST 03/09/2025 REASON FOR EXAM: STROKE LIKE SYMPTOMS TECHNIQUE: Procedure Code: MRIBR Modality: MR Procedure: BRAIN WITHOUT CONTRAST Multiplanar and multisequence images were obtained. COMPARISON: March 09, 2025 FINDINGS: Brain: No evidence of acute ischemia or hemorrhage. Minimal amount of T2 prolongation in the periventricular white matter. Patchy foci of T2 prolongation in the deep white matter of the chambers radiata bilaterally. These are oriented perpendicular to the long axis of the ventricles but not associated with the periventricular white matter. Additionally, a few foci are shown in the gisel. Ventricles: Normal for age. Major Intracranial Vessels: Flow voids are normal. Sinuses: Paranasal sinuses are clear. Septal deviation to the left. Mastoids: Clear MRI/Brain without Contrast IMPRESSION: No evidence of acute intracranial abnormality. Mild white matter changes. This is likely related to chronic microvascular isc hemia. Some of the foci are discrete in the chambers radiata and perpendicular to the long axis of the ventricles. Vasculiti s and demyelinating disease (MS) are in the differential but favored less unless there is a compelling history and lab valu es. Reading Location: [id number]
[2025-03-09 14:12] LABS: Troponin T High Sens 2 HR 16 ng/L (<=14)
--- NOTE | 2025-03-09 14:58 | CASEMGMT ---
Care Management Face to Face with patient for initial transition planning/care coordination assessment in the ED.? This keno writer/runner introduced self and role at [facility]. Patient alert and oriented. Patient willing to participate in assessment and is able to answer all questions appropriately.? Care providers, pharmacy, and demographics verified. Admitting Diagnosis: ?Stroke alert Other diagnosis history: ?hyperlipemia, osteoporosis, chest pain, HTN, CKD PCP: Fany Specialists: ?Ministerio Dempsey Preferred [facility]acy: [facility] Insurance: ?AARP Prescription Benefit: ?yes Living Will/HPOA: ?completed, asked to bring in copy LNOK: Living Arrangements: ?patient lives with in two story home, has been independent with ADLs and IADLs Transportation: ?patient drives DME: ?cane, wheelchair, shower bench, grab bars, blood pressure cuff HHC: ?once before, could not remember name SNF/Rehab: ?none Community Resources: ?none Behavioral Health History: ?none Patient goals: Patient wishes to discharge home, denies need for home health care at this time. Patient denies any further needs or concerns at this time. Disposition Plan: admission to acute; RN CM/SW to follow for discharge planning needs that may arise. Pat Acosta, HOLE DIGGER, CONCRETE BLOCK MOLDER
[2025-03-09 16:37] LABS: Troponin T High Sens 4 HR 13 ng/L (<=14)
[2025-03-09] MEDS: 0.9% Saline Lock 10 ML Syringe IV (21:51)
[2025-03-10 00:42] VITALS: BMI 33.3
[2025-03-10 03:00] VITALS: PULSE 74
[2025-03-10 04:12] VITALS: BP 123/55; PULSE 69; RESP 15; TEMP 36.6; O2SAT 95
[2025-03-10 05:52] LABS: Hematocrit 38.9 % (37-47); Hemoglobin 12.9 g/dL (12.0-15.0); Immature Granulocytes Count 0.030 X10^3/uL (0.0-0.0); Mean Corp Hgb Conc 33.2 g/dL (32-36); Mean Corpuscular Volume 88.2 fL (81-99); Mean Platelet Vol. 10.4 fl (6.2-12.0); NRBC Flagged by Analyzer 0 % (0-5); Platelet Count 325 K/mm3 (150-450); RBC Distribution Width CV 13.5 % (11.6-14.6); RBC Distribution Width SD 44.0 fl (35.1-43.9); Red Blood Count 4.41 M/mm3 (4.2-5.4); White Blood Count 6.0 K/mm3 (4.4-11.0)
[2025-03-10 06:21] LABS: Cholesterol 231 mg/dL (<=200); Low Density Lipoprotein Calc. 132 mg/dL; Triglycerides 309 mg/dL; Very Low Density Lipoprotein 62 mg/dL (5-40); cholesterol:hdl ratio screen 6.16
[2025-03-10 06:24] LABS: Anion Gap 13 (5-15); BUN 13 mg/dL (4-19); BUN/Creat Ratio 15.0 RATIO (10-20); Calcium,Total 9.1 mg/dL (7.6-11.0); Carbon Dioxide 21.8 mmol/L (21.0-32.0); Chloride 105 mmol/L (98-108); Estimated Creatinine Clearance 52.93 ml/min (50-250); Glucose 99 mg/dL (70-99); Potassium 3.3 mmol/L (3.3-5.1)
[2025-03-10 07:46] VITALS: O2SAT 95
[2025-03-10 09:21] VITALS: BP 149/66; PULSE 83; RESP 16; TEMP 36.7; O2SAT 95
[2025-03-10] MEDS: Cholecalciferol (VIT D3) 25 MCG TABLET (1,000 UNITS) 50 MCG PO (09:26)
--- NOTE | 2025-03-10 11:33 | CASEMGMT ---
Social Work Per physician pt negative for stroke, therefore PHQ9 not completed. Kory Watson, ULTRASONIC SEAMING MACHINE OPERATOR
--- NOTE | 2025-03-10 13:34 | CON.PCM.NE_ITS ---
Assessment and Plan: Stroke Assessment/Plan FELIPE TIM is a 69 F with a history of HTNwho presents for evaluation of Left face numbness. Neurological examination shows NIH 0. Neuroimaging shows no acute ischemia on MRI. No concern for vasculitis given her exam. Will treat her as TIA. - Anti-platelet medication: Aspirin 81 mg daily - Occupational/ Physical therapy consults - NPO until swallow evaluation. IVF until able to take po - DVT prophylaxis with SCDs and heparin SQ - Vascular risk factor modification. The following are the recommended guidelines: LDL Goal < 70 Add Lipitor. Smoking Cessation Diabetes Management [facility] blood pressure control should achieve <130/80 mmHg. BP management should aim to achieve exterminator helper contorl in a reasonable amount of time, taking into consideration the individual patient's requirements and characteristics. Weight Management: Goal for BMI is 18.5 -24.9 kg/m2 Alcohol: No more than 2 drinks/day for men or 1 drink/day for non- women - Promote lifestyle modification: weight control, physical activity, moderation of alcohol intake, moderate sodium intake. - Sleep study for TANIKA. Follow up TTE. Followup with PCP in 1-2 weeks, and in Neurology clinic in 6-12 weeks HPI Consult Data Date of Consult: 03/10/25 HPI Narrative HPI Narrative: FELIPE TIM, is a 69 F who presents [facility], [facility] Medical History Urge incontinence Vaginal atrophy Vulvar atrophy Pelvic pain UTI (urinary tract infection) Fibromyalgia Nonscarring hair loss TANIKA (obstructive sleep apnea) Localized swelling of left lower leg Hypersomnolence Hyperlipidemia Stage 3a chronic kidney disease (CKD) Vitamin D deficiency Osteoporosis Hepatitis C Obesity (BMI 30.0-34.9) Arthritis GERD (gastroesophageal reflux disease) HTN (hypertension) Health care maintenance CKD (chronic kidney disease), stage III Atypical chest pain GERD (gastroesophageal reflux disease) Tendon contracture Hyperlipemia Seasonal allergies Hepatitis C Osteoporosis Vitamin D deficiency Vulvodynia Generalized osteoarthrosis Postmenopausal atrophic vaginitis Hypertension Home Medications ?Medication ?Instructions ?Recorded ?Last Taken ?Type handicap placard See Rx Instructions .Route 0 10/16/21 Unknown Rx .COMPLEX #1 unit ergocalciferol (vitamin D2) 1,250 2,000 unit PO DAILY 11/07/22 Unknown History mcg (50,000 unit) capsule pregabalin 50 mg capsule 75 mg PO BID 06/26/23 Unknow n History hydralazine 50 mg tablet 75 mg (1.5 x 50 mg) PO TID B P 3 01/23/24 Unknown Rx months #405 tabs denosumab 60 mg/mL subcutaneous 60 mg subcut [id number] #1 mL 03/24/24 Unknown Rx syringe (Prolia) fenofibrate 54 mg tablet 54 mg PO DAILY cholesterol # 90 tabs 03/29/24 Unknown Rx Prolia 60 mg/mL subcutaneous 60 mg subcut ONCE #1 mL 1 Unknown Clinic syringe (denosumab) amlodipine 10 mg tablet 10 mg PO DAILY BP #90 tabs 1 Unknown Rx hydrochlorothiazide 12.5 mg tablet 12.5 mg PO QAM #90 tabs 07/09/24 Unknown Rx acetaminophen 650 mg 650 mg PO Q12H 02/15/25 Unkn own History tablet,extended release (Tylenol 8 Hour) clobetasol 0.05 % topical ointment 1 applic topical BI D 03/09/25 Unknown History fluticasone propionate 50 2 spray intranasal DAILY PRN 03/09/25 Unknown History mcg/actuation nasal allergy symptoms spray,suspension (Flonase Allergy Relief) meloxicam 7.5 mg tablet 7.5 mg PO DAILY 03/09/25 Unk nown History pantoprazole 40 mg tablet,delayed 40 mg PO DAILY PRN G ERD 03/09/25 Unknown History release Allergy/AdvReac Type Severity Reaction Status Date / Time alendronate sodium Allergy Intermediate Hives Verified 03/09/25 11:09 nitrofurantoin Allergy Intermediate Hives Verified 03/09/25 11:09 meloxicam AdvReac Severe Tremors Verified 03/09/25 11:09 codeine AdvReac Upset Verified 03/09/25 11:09 Stomach Penicillins (PCN) AdvReac Rash Verified 03/09/25 11:09 Sulfa (Sulfonamide AdvReac Rash Verified 03/09/25 11:09 Antibiotics) Family History Brother Anxiety and depression Diabetes Asthma Heart disease Hypertension Ulcer Sister Anxiety and depression Hypertension CVA (cerebral vascular accident) Thyroid disorder Osteoporosis Hyperlipemia Diabetes Heart disease Asthma Cancer skin Mother Hypertension Kidney disease Osteoporosis CVA (cerebral vascular accident) Father CVA (cerebral vascular accident) Hyperlipemia Hypertension Myocardial infarction Heart disease Other CAD (coronary artery disease) Heart failure Surgical History Hx of appendectomy Hx of cholecystectomy Hx of hysterectomy History of cholecystectomy History of knee replacement History of hysterectomy History of appendectomy Social History household members: spouse housing: house number of children: 5 current occupational status: employed current occupation: [employer] Smoking Status: Never smoker alcohol intake: never substance use type: does not use what type of physical activity do you participate in: none and walking frequency: 3-4 times per week cat/presybeterian: Jehovah'S Witness do you feel safe at home: Yes additional social history: pt gave to 5 children, has 3 adopted children Vital Signs Vital Signs Vital Signs: 03/09/25 14:00 03/09/25 14:01 03/09/25 16:39 Temperature 97.5 F L Temperature Source Oral Pulse Rate 91 Respiratory Rate 18 Respiratory Effort Normal Non-Labored Respiratory Depth Normal Respiratory Pattern Normal Blood Pressure 133/84 H Blood Pressure Mean 100 Blood Pressure Source Monitor Blood Pressure Position Semi-Fowlers Blood Pressure Location Right Arm Pulse Ox 99 96 Oxygen Delivery Method Room Air Room Air Room Air 03/09/25 17:21 03/09/25 19:00 03/09/25 21:55 Temperature 97.3 F L Temperature Source Temporal Pulse Rate 81 102 H Respiratory Rate 18 Respiratory Effort Normal Non-Labored Respiratory Depth Normal Respiratory Pattern Normal Blood Pressure 141/55 H Blood Pressure Mean 83 Blood Pressure Source Monitor Blood Pressure Position Semi-Fowlers Blood Pressure Location Right Arm Pulse Ox 96 Oxygen Delivery Method Room Air Room Air 03/09/25 21:58 03/10/25 03:00 03/10/25 04:12 Temperature 98.2 F 97.8 F Temperature Source Oral Oral Pulse Rate 88 74 69 Respiratory Rate 17 15 Respiratory Effort Respiratory Depth Respiratory Pattern Blood Pressure 139/63 H 123/55 H Blood Pressure Mean 88 77 Blood Pressure Source Monitor Monitor Blood Pressure Position Semi-Fowlers Supine Blood Pressure Location Left Arm Left Arm Pulse Ox 95 95 Oxygen Delivery Method Room Air Room Air 03/10/25 07:46 03/10/25 09:21 Temperature 98.1 F Temperature Source Oral Pulse Rate 83 Respiratory Rate 16 Respiratory Effort Respiratory Depth Respiratory Pattern Blood Pressure 149/66 H Blood Pressure Mean 93 Blood Pressure Source Monitor Blood Pressure Position Semi-Fowlers Blood Pressure Location Right Arm Pulse Ox 95 95 Oxygen Delivery Method Room Air Room Air Weight Weight: 74.7 kg Body Mass Index (BMI) 33.3 EEG Results Procedure Details EEG Procedure Details: FELIPE TIM is a 69 year old F with a past medical history of , who presents for evaluation of Electroencephalogram on DATE at TIME Lab / Micro Data 03/10/25 05:09 03/10/25 05:09 Labs: Laboratory Results - last 24 hr 03/09/25 13:27: Troponin T Hi Sens 2 Hr 16 H 03/09/25 15:38: Troponin T Hi Sens 4Hr 13 03/10/25 05:09: WBC 6.0, RBC 4.41, Hgb 12.9, Hct 38.9, MCV 88.2, MCH 29.3, MCHC 33.2, RDW Std Deviation 44.0 H, RDW Coeff of Allegra 13.5, Plt Count 325, MPV 10.4, Immature Gran % (Auto) 0.500, Neut % (Auto) 48.8, Lymph % (Auto) 37.5, [place] % (Auto) 9.2, Eos % (Auto) 3.0, Baso % (Auto) 1.0, Absolute Neuts (auto) 2.9, Absolute Lymphs (auto) 2.23, Nucleated RBC % 0, Sodium 139, Potassium 3.3, Chloride 105, Carbon Dioxide 21.8, Anion Gap 13, BUN 13, Creatinine 0.88, Estim Creat Clear Calc 52.93, Est GFR (MDRD) Non-Af 70, BUN/Creatinine Ratio 15.0, Glucose 99, Calcium 9.1, Triglycerides 309 H, Cholesterol 231 H, LDL Cholesterol, Calc 132, VLDL Cholesterol 62 H, HDL Cholesterol 38 L, Cholesterol/HDL Ratio 6.16 Imaging Radiology Impression Brain MRI 03/09/25 13:53 IMPRESSION: No evidence of acute intracranial abnormality. Mild white matter changes. This is likely related to chronic microvascular ischemia. Some of the foci are discrete in the chambers radiata and perpendicular to the long axis of the ventricles. Vasculitis and demyelinating disease (MS) are in the differential but favored less unless there is a compelling history and lab values. Reading Location: [id number] Active Medications Active Medications Active Medications: Current Medications Generic Name Dose Route Start Last Admin Trade Name Freq PRN Reason Stop Dose Admin Acetaminophen 500 mg 03/09/25 17:38 03/10/25 12:05 Acetaminophen 500 Mg Tablet PO 500 mg Q6 PRN Administration Pain 1-10 or Fever Aspirin 81 mg 03/10/25 08:00 03/10/25 09:26 Aspirin 81 Mg Tab.Chew PO 81 mg BREAKFAST JERROD Administration Atorvastatin Calcium 40 mg 03/09/25 22:00 03/09/25 21:48 Atorvastatin Calcium 40 Mg Tablet PO 40 mg QHS JERROD Administration Cholecalciferol 50 mcg 03/10/25 10:00 03/10/25 09:26 Cholecalciferol (Vit D3) 25 Mcg Tablet (1,000 Units) PO 50 mcg DAILY JERROD Administration Enoxaparin Sodium 40 mg 03/10/25 10:00 03/10/25 09:26 Enoxaparin 40 Mg/0.4 Ml Syringe SC 40 mg DAILY JERROD Administration Fenofibrate 48 mg 03/10/25 10:00 03/10/25 09:26 Fenofibrate 48 Mg Tablet PO 48 mg DAILY JERROD Administration Fluticasone Propionate 2 spray 03/09/25 13:53 Fluticasone 0.05% 1 [place] Nasal.Sry NASAL DAILY PRN allergy symptoms Hydralazine HCl 5 mg 03/09/25 13:53 Hydralazine 20 Mg/Ml Vial IV 03/10/25 13:53 Q30M PRN maintain BP parameters with HR <60 Sodium Chloride 250 mls @ 15 mls/hr 03/09/25 13:58 IV .[id number] PRN Saline Flush Sodium Chloride 250 mls @ 15 mls/hr 03/09/25 13:58 IV .[id number] PRN Additional IVPB Infusion Labetalol HCl 10 - 20 mg 03/09/25 13:53 Labetalol 20 Mg/4 Ml Vial IV 03/10/25 13:53 Q10M PRN PRN maintain BP parameters with HR >/=60 Nitroglycerin 0.4 mg 03/09/25 13:53 Nitroglycerin (Inpatient Use) 0.4 Mg Tab.Subl SL Q5M PRN CARDIAC/CHEST PAIN Ondansetron HCl 4 mg 03/09/25 13:53 Ondansetron 4 Mg/2 Ml Vial IV Q8H PRN PRN NAUSEA/VOMITING Pantoprazole Sodium 40 mg 03/09/25 13:53 Pantoprazole Sodium 40 Mg Tablet PO DAILY PRN GERD Pregabalin 75 mg 03/09/25 22:00 03/10/25 09:26 Pregabalin 75 Mg Capsule PO 75 mg BID JERROD Administration Sodium Chloride 10 - 40 ml 03/09/25 13:58 03/09/25 21:51 0.9% Saline Lock 10 Ml Syringe IV 10 ml UD PRN Administration SALINE FLUSH NIHSS NIHSS Nursing Documentation NIHSS Nursing Documentation: NIHSS: Ischemic Stroke/TIA Start: 03/09/25 13:53 Text: For PCU Patients: NIH and Neuro Check every 4 Status: Complete hours, PRN and with change in RN caregiver. Freq: [id number] Protocol: Activity Type Activity Date Activity User E-sign Co-sign Detail Recorded Client Recorded Date Recorded By Document 03/09/25 14:05 [id number] 03/09/25 14:11 03/09/25 14:05 NIH Stroke Scale [NIHSS] A score of 0 is normal or asymptomatic . Total possible score is 42. Inpatient: RN or Physician to activate a stroke alert for onset of new stroke symptoms or with NIHSS increase >/= 3 points. Following change in neurological status, NIHSS will be performed per physician order or more frequently PRN. -1a. Level of Consciousness 0 - Alert; keenly responsive -1b. LOC Questions 0 - Answers BOTH questions correctly -1c. LOC Commands 0 - Performs BOTH tasks correctly -2. Best Gaze 0 - Normal -3. Visual 0 - No visual loss -4. Facial Palsy 1 - Minor paralysis ( flattened nasolabial fold , asymmetry on smiling) -5a. Left Arm 0 - No drift; arm holds 90 ( or 45) degrees for full 10 seconds -5b. Right Arm 0 - No drift; arm holds 90 ( or 45) degrees for full 10 seconds -6a. Left Leg 1 - Drift; leg falls by the end of 5- seconds, but does not hit bed -6b. Right Leg 0 - No drift; leg holds 30- degree position for full 5 seconds -7. Limb Ataxia 1 - Present in 1 limb -8. Sensory 1 - Mild-to- moderate sensory loss; -9. Best Language 0 - No aphasia; normal -10. Dysarthria 0 - Normal -11. Extinction and Inattention 0 - No abnormality -Total 4 Query Text:A score of 0 is normal or asymptomatic. Total possible score is 42 . ED: Notify Physician for NIHSS increase by > / = 3 points. Inpatient: RN or Physician to activate a stroke alert for NIHSS increase of > / = 3 points. Coma Scale [Assess] -Eye Opening Spontaneous -Motor Obeys Commands -Verbal Oriented [Total] -Coma Scale Total 15
--- NOTE | 2025-03-10 14:05 | CASEMGMT ---
ANDERSON Met with patient to complete ANDERSON form. ANDERSON form and its content were verbally explained and patient's questions were answered to the best of my ability.? Patient voiced understanding and signed ANDERSON form.? Patient provided a copy of signed ANDERSON form and original placed in patient's chart.? Patient had no further questions. Talia Ontiveros, Discharge Planning Asst
[2025-03-10 14:46] VITALS: BP 129/60; PULSE 71; RESP 16; TEMP 37.1; O2SAT 93
[2025-03-10 14:47] VITALS: O2SAT 93
--- NOTE | 2025-03-10 15:45 | CT_ITS ---
PROCEDURE: SPINE CERVICAL WITHOUT CONTRAS 03/10/2025 REASON FOR EXAM: CERVICAL SPINAL STENOSIS TECHNIQUE: Procedure Code: CTSPC Modality: CT Procedure: SPINE CERVICAL WITHOUT CONTRAS Coronal and Sagittal reconstruction series were provided. One or more dose reduction techniques were used (e.g., Automated exposure control, adjustment of the mA and/or kV according to patient size, use of iterative reconstruction technique. RADIATION DOSE SUMMARY: CTDlvol: Please see CT mGy DLP: Please see CT mGycm COMPARISON: None available FINDINGS: Osseous: There is straightening of cervical lordosis. There is 2.1 mm of anterolisthesis of C4 upon C5. There is 1.7 mm of anterolisthesis of C5 upon C6. These may be on a degenerative basis, however posttraumatic instability can not be ruled out on this study. If clinically indicated, consider supervised lateral flexion and extension radiographs or MRI for further assessment. Remaining posterior cervical alignments are within normal range. Cervical facet joints do not appear subluxed or dislocated. The atlantodental interval is preserved. Atlanto occipital and atlantoaxial articulations are within normal range. No acute fracture of the cervical spine. The occipital condyles are intact. Degenerative changes of the cervical spine are noted with [id number] disc space loss, posterior bony ridging and facet arthropathy. If there are neurologic symptoms or radiculopathy, further evaluation by MRI is advised. For the clinical history of cervical spinal stenosis, MRI is advised. Soft tissues: No focal prevertebral soft tissue swelling. No posterior paraspinal soft tissue hematoma. No cervical soft tissue emphysema. Lung apices: O acute abnormality is seen at the visualized lung apices. CT/Spine Cervical without Contras IMPRESSION: Cervical malalignments are noted. Clinical correlation is advised as discussed above. - No acute fracture of the cervical spine. - Degenerative changes noted. - Findings and recommendations discussed above in detail. Reading Location: [id number]
--- NOTE | 2025-03-10 16:56 | DS.PCM_ITS ---
Providers Date of Admission: 03/09/25 Date of Discharge: 03/10/25 Primary Care Physician: Ce Soares, FRANK-Yuly Consultations 03/09/25 13:53 Consult: Tele-Neurology Routine Consulting Provider: [facility] Reason for Consult: Acute Ischemic Stroke/TIA EMERGENT Consult: No MD Notified: Yes Date Notified: 03/09/25 Time Notified: 15:39 Method of Notification: [facility] Staff Notify [facility] of Tele-Neurology Consult: Yes Reason For Visit: STROKE LIKE SYMPTOMS Diagnosis Discharge Diagnosis (1) Stroke: Status: Acute Code(s): I63.9 - Cerebral infarction, unspecified (2) Paresthesias: Status: Acute Code(s): R20.2 - Paresthesia of skin Plan # Stroke like symptoms * Patient admitted with a complaint of left sided weakness and tingling * CT brain was negative for any evidence of stroke * MRI brain done today was also negative for stroke but showed mild white matter changes likely related to chronic microvascular ischemia with some foci being discrete in the chambers radiata and perpendicular to the long axis of the ventricles. Vasculitis and demyelinating disease in the differential but less favored. * Neurology consulted. On aspirin and high intensity statin. Check A1c. * 2D echo ordered. * #Hyperlipidemia: on fenofibrate. # Hypertension: On amlodipine and HCTZ. Hold on account of concern for stroke #GERD: on PPI #DVT prophylaxis: SCDs CODE STATUS: Full code * Patient counseled extensively about different types of CODE STATUS including full code, DNR CCA and DNR CCA. * Patient elects to be full code * Total [id number] time 16 minutes. Medications at Discharge Home Medications handicap placard See Rx Instructions .Route .COMPLEX #1 unit 10/16/21 ergocalciferol (vitamin D2) 1,250 mcg (50,000 unit) capsule 2,000 unit PO DAILY 11/07/22 pregabalin 50 mg capsule 75 mg PO BID 06/26/23 hydralazine 50 mg tablet 75 mg (1.5 x 50 mg) PO TID BP 3 months #405 tabs 01/23/24 denosumab 60 mg/mL subcutaneous syringe (Prolia) 60 mg subcut [id number] #1 mL 03/24/24 fenofibrate 54 mg tablet 54 mg PO DAILY cholesterol #90 tabs 03/29/24 Prolia 60 mg/mL subcutaneous syringe (denosumab) 60 mg subcut ONCE #1 mL 04/09/24 amlodipine 10 mg tablet 10 mg PO DAILY BP #90 tabs 04/23/24 hydrochlorothiazide 12.5 mg tablet 12.5 mg PO QAM #90 tabs 07/09/24 acetaminophen 650 mg tablet,extended release (Tylenol 8 Hour) 650 mg PO Q12H 02/15/25 clobetasol 0.05 % topical ointment 1 applic topical BID 03/09/25 fluticasone propionate 50 mcg/actuation nasal spray,suspension (Flonase Allergy Relief) 2 spray intranasal DAILY PRN allergy symptoms 03/09/25 meloxicam 7.5 mg tablet 7.5 mg PO DAILY 03/09/25 pantoprazole 40 mg tablet,delayed release 40 mg PO DAILY PRN GERD 03/09/25 aspirin 81 mg chewable tablet 81 mg PO BREAKFAST #30 tabs 03/10/25 atorvastatin 40 mg tablet 40 mg PO QHS #30 tabs 03/10/25 Hospital Course Operations None Procedures 2-D Echocardiogram Summary of Care Provided Minutes Spent on Discharge: 45 Hospital Course: FELIPE TIM, is a 69 F with a PMH as outlined who presents via the ED on 03/09/2025 with stroke like symptoms. She said she was well unti ~ 11am when she was paying for something in the store and realised she could no get her words out. SHe also started having left sided weakness, numbness and tingling. She said she has a strong family history of stroke so she decided to come in to ED to be evaluated for stroke. She denied any headache, blurred vision, chest pain, palpitations, nausea, vomiting or any other symptoms. Review of systems is otherwise negative. Vitals in the ED were BP of 151/61. WI of 84, RR of 19 and oxygen sats of 97% on room air. CBC showed Hb of 14.5, wbc of 8 and platelets of 368. INR is 0.9. Chemistry showed sodium of 139, potassium of 3.5 and Cr of 0.84. CT brain showed no acute findings. CTA head and neck showed no large vessel occlusion, aneurysm or stenosis. She is being admitted for stroke like symptoms to rule out a stroke. MRI of the brain was negative for any evidence of a stroke and per neurology no concerns for vasculitis given her exam. She was treated as a TIA. She was placed on p.o. aspirin 81 mg daily. Lipid panel also showed elevated cholesterol and LDL so she was started on atorvastatin 40 mg daily. Of note patient did see that she had a history of cervical stenosis and had been following with pain management on outpatient basis for shots in her neck. CT of the cervical spine was therefore ordered and results were pending at time of discharge. Patient however remained stable. 2D echo done showed EF of 70% with no evidence of diastolic dysfunction. She remained stable and was discharged home on 03/10/2025. She is to follow-up with her primary care doctor within 1 to 2 weeks. Patient seen and examined prior to discharge. She had no complaints and had an uneventful night. Review of systems otherwise negative. Labs and vitals reviewed. Home medications reviewed and reconciled. Physical Exam Const alert, oriented x3 and no apparent distress General Appearance: cooperative and comfortable HEENT normocephalic, head/scalp atraumatic, hearing grossly normal bilaterally, moist oral mucous membranes and oropharynx normal Mouth: oral and palatal mucosa normal Eyes EOMs intact bilaterally and conjunctivae normal Neck supple and no JVD Resp normal respiratory effort, no retractions, no use of accessory muscles and clear to auscultation bilaterally Cardio regular rate, regular rhythm, S1 normal heart sound, S2 normal heart sound and no murmurs GI normal to inspection, nondistended, normoactive bowel sounds, soft to palpation and non-tender Extremity normal to inspection, full ROM and no clubbing, cyanosis or edema Skin no rashes or lesions noted Neuro oriented x3, CN's II-XII intact bilaterally and moves all extremities Neuro Narrative: mildly reduced sensation over left side of face, LUE and LLE which is improving Sensorium / Orientation: awake and alert Motor Exam: strength 5/5 throughout Psych affect normal Weight / BMI Weight Weight: 164 lb 10.965 oz Body Mass Index (BMI) 33.3 ABG / Lab / Microbiology Data 03/10/25 05:09 03/10/25 05:09 Laboratory: Laboratory Results - last 24 hr 03/10/25 05:09: WBC 6.0, RBC 4.41, Hgb 12.9, Hct 38.9, MCV 88.2, MCH 29.3, MCHC 33.2, RDW Std Deviation 44.0 H, RDW Coeff of Allegra 13.5, Plt Count 325, MPV 10.4, Immature Gran % (Auto) 0.500, Neut % (Auto) 48.8, Lymph % (Auto) 37.5, [place] % (Auto) 9.2, Eos % (Auto) 3.0, Baso % (Auto) 1.0, Absolute Neuts (auto) 2.9, Absolute Lymphs (auto) 2.23, Nucleated RBC % 0, Sodium 139, Potassium 3.3, Chloride 105, Carbon Dioxide 21.8, Anion Gap 13, BUN 13, Creatinine 0.88, Estim Creat Clear Calc 52.93, Est GFR (MDRD) Non-Af 70, BUN/Creatinine Ratio 15.0, Glucose 99, Hemoglobin A1c 5.7, Calcium 9.1, Triglycerides 309 H, Cholesterol 231 H, LDL Cholesterol, Calc 132, VLDL Cholesterol 62 H, HDL Cholesterol 38 L, Cholesterol/HDL Ratio 6.16 Radiography Diagnostic Testing: Radiology Impression Echocardiogram 03/09/25 13:53 Interpretation Summary The estimated ejection fraction is 70 %. No evidence for diastolic dysfunction. Ordering Physician: Lashon Starks Referring Physician: Ce Soares Performed By: Stacy Gonzalez, CARL, RVT D/C Instructions Discharge Activity: Return to Normal Activity Weight Bearing Status: Weight bearing as tolerated DC O2, CPAP, BIPAP Needs Home O2 Discharge instructions: No DC home with Oxygen: No Meaningful Use Info Meaningful Use Meaningful Use Diagnoses (Choose all that apply): None applicable Discharge Plan Admission Admit Date/Time: 03/09/25 12:29 Primary Reason for Your Visit: stroke like symptoms Attending Provider: Lashon Starks Primary Care Provider: Ce Soares Consulting Providers: Robert Turcios; Amy Rahman; Ashlee Baum; Jo Harrell; Natasha Rubi; Carlton Magana; Maribel Reyna; Joshua Payton; Chele Fowler; See Youssef; Rena Pena; Shahnaz Elizondo; Ko Mccauley; Sandrita Ortega; Keo Cortes; Alonsonubia Lr; Marco Antonio Oliveira; Victorino Calderon; Douglas Maza; Beverly Ivey; Mariola Marshall Instructions Patient Instructions: Symptoms of a Stroke Discharge Orders/Prescriptions Prescriptions: New aspirin 81 mg Tablet,Chewable 81 mg PO BREAKFAST Qty: 30 1RF atorvastatin 40 mg Tablet 40 mg PO QHS Qty: 30 2RF Continued pregabalin 50 mg capsule 75 mg PO BID Prolia 60 mg/mL syringe 60 mg subcut ONCE Qty: 1 0RF acetaminophen [Tylenol 8 Hour] 650 mg tablet extended release 650 mg PO Q12H meloxicam 7.5 mg tablet 7.5 mg PO DAILY pantoprazole 40 mg tablet,delayed release (DR/EC) 40 mg PO DAILY PRN (Reason: GERD) clobetasol 0.05 % ointment 1 applic topical BID fluticasone propionate [Flonase Allergy Relief] 50 mcg/actuation spray,suspension 2 spray intranasal DAILY PRN (Reason: allergy symptoms) Rx Instructions: administer 2 sprays into each nostril handicap placard See Rx Instructions .ROUTE .COMPLEX Qty: 1 0RF Rx Instructions: Duration 5 years for reduced mobility ergocalciferol (vitamin D2) 1,250 mcg (50,000 unit) capsule 2,000 unit PO DAILY hydralazine 50 mg tablet 75 mg PO TID 90 Days Qty: 405 1RF Prolia 60 mg/mL syringe 60 mg subcut [id number] Qty: 1 1RF fenofibrate 54 mg tablet 54 mg PO DAILY Qty: 90 0RF amlodipine 10 mg tablet 10 mg PO DAILY Qty: 90 1RF hydrochlorothiazide 12.5 mg tablet 12.5 mg PO QAM Qty: 90 0RF Referrals / Follow Up: Benjamin Chopra MD [Med Staff - Active Staff] - Within 1 Week Ce Soares NP-C [Primary Care Provider] - Disposition Disposition (needs filled in before D/C Order can be placed): Home, Self Care Charges/Coding Visit Charges Inpatient E&M: 58632 Disch Hosp >30min
[2025-03-10 17:01] VITALS: BMI 33.3
== END 2025-03-10 18:11 | disposition home or self-care (01) ==
LOC: ED 12:37 → PCU 13:02
PROVIDERS: Admitting Provider Student in an Organized Health Care Education/Training Program; Emergency Provider Emergency Medicine; PCP Nurse Practitioner Family; Visit Provider Student in an Organized Health Care Education/Training Program
DX: R20.2 Paresthesia of skin (principal); N18.31 Chronic kidney disease, stage 3a; E78.5 Hyperlipidemia, unspecified; I12.9 Hypertensive chronic kidney disease with stage 1 through stage 4 chronic kidney disease, or unspecified chronic kidney disease; M79.7 Fibromyalgia; K21.9 Gastro-esophageal reflux disease without esophagitis; Z79.899 Other long term (current) drug therapy; R29.898 Other symptoms and signs involving the musculoskeletal system; N39.41 Urge incontinence; R94.31 Abnormal electrocardiogram [ECG] [EKG]; R47.89 Other speech disturbances; R20.0 Anesthesia of skin; R41.0 Disorientation, unspecified; M48.02 Spinal stenosis, cervical region; I34.81 Nonrheumatic mitral (valve) annulus calcification; Z86.19 Personal history of other infectious and parasitic diseases; G47.33 Obstructive sleep apnea (adult) (pediatric); E55.9 Vitamin D deficiency, unspecified; M15.9 Polyosteoarthritis, unspecified; M81.0 Age-related osteoporosis without current pathological fracture
CPT/HCPCS: 36415; 70450; 70496; 70498; 70551; 71045; 72125; 80048; 80061; 82962; 83036; 84484; 85025; 85610; 85730; 93005; 93306; 94762; 96372; 97162; 97166; 97802; 99221; 99285; Q9967; A4216; G0378